=== PATIENT | female | born 1940 | race Caucasian/White ===

== ENCOUNTER 2018-03-01 07:50 | Day surgery (SDC) | payer OTHER, MEDICARE ==
[2018-02-28 16:43] LABS: Absolute Lymphocytes (CBC) 2.5 K/uL (0.7-4.9); Absolute Monocytes 0.9 K/uL (0.1-1.3); Absolute Neutrophil 6.2 K/uL (1.8-8.0); Basophils % 0.7 % (0-1.3); Eosinophils % 2.2 % (0-4.4); Hematocrit 40.2 % (36.0-45.0); Lymphocytes % 25.2 % (15.3-44.8); MCH 29.4 pg (27.0-35.0); MCV 88.4 fL (80-100); MPV 7.8 fL (7.6-11.3); Monocytes % 9.5 % (3.3-12.3); RBC Red Blood Cell Count 4.55 M/uL (3.86-4.86)
[2018-02-28 17:04] LABS: Potassium 4.3 mmol/L (3.5-5.1); Protime INR 0.92
--- OUTSIDE RECORDS SUMMARY | 2018-03-01 07:54 | XMS REPORT | Continuity of Care Document ---
:1940 Author Organization Interface Problems Problem Status Onset Classification Date Comments Source Date Reported Discharge 01/04/2017 [facility] Diagnosis: [facility] [place] Acute right-sided low back pain BACK PAIN Active [facility] [place] Medications Medication Details Route Status Patient Ordering Order Source Instructions Provider Date Acetaminophen 1-2 tab, Active [facility] 325 MG / PO, Q4-6H, [place] Hydrocodone PRN Pain, Bitartrate 5 MG X 5 day, # Oral Tablet 15 tab, 0 [[place] 5/325] Refill(s) Naproxen 500 MG 500 mg=1 Active [facility] Oral Tablet tab, PO, [place] [Naprosyn] BID, PRN Pain, X 14 day, # 28 tab, 0 Refill(s) Morphine 4 mg, Inactive [facility] Route: IM, [place] ONCE, Dosing Weight 56.8, kg, Priority: STAT, Start date: 01/01/17 13:09:00 CDT, Stop date: 01/01/17 13:09:00 CDT Ketorolac 30 mg, Inactive [facility] Route: IM, [place] Drug form: INJ, ONCE, Dosing Weight 56.8, kg, Priority: STAT, Start date: 01/01/17 12:11:00 CDT, Stop date: 01/01/17 12:11:00 CDT Allergies, Adverse Reactions, Alerts Substance Category Reaction Severity Reaction Status Date Comments Source type Reported Immunizations Immunization Date Given Site Status Last Updated Comments Source Results Order Results Value Reference Date Interpretation Comments Source Name Range URINE UA Sq Epi Moderate Few /LPF [facility] AND /LPF [place] STOOL URINE UA WBC 5 /HPF 0 - 5 [facility] AND [place] STOOL URINE UA RBC 27 /HPF 0 - 2 [facility] AND [place] STOOL URINE UA Bacteria Occasional None Seen [place] AND /HPF /HPF [place] STOOL URINE UA Mucus Few /LPF None Seen [place] AND /LPF [place] STOOL URINE UA <=1.0 mg/dL 0.1 - 1.0 [facility] AND Urobilinogen [place] STOOL URINE UA Spec Grav 1.020 <=1.030 [place] AND [place] STOOL URINE UA Nitrite Negative Negative [place] AND [place] STOOL (01/01/17 12:34 PM) URINE UA Blood Small Negative [place] AND [place] STOOL *ABN* (01/01/17 12:34 PM) URINE UA Bili Negative Negative [place] AND [place] STOOL *NA* (01/01/17 12:34 PM) URINE UA Color Yellow Yellow [place] AND [place] STOOL *NA* (01/01/17 12:34 PM) URINE UA Turbidity Slight Clear [place] AND [place] STOOL *ABN* (01/01/17 12:34 PM) URINE UA Ketones 20 mg/dL Negative [place] AND mg/dL [place] STOOL URINE UA Glucose Negative Negative [place] AND mg/dL mg/dL 2017 [place] STOOL URINE UA Leuk Est Negative Negative [place] AND [place] STOOL (01/01/17 12:34 PM) URINE UA pH 5.0 5.0 - 8.0 [place] AND [place] STOOL URINE UA Protein 100 mg/dL Negative [place] AND mg/dL [place] STOOL Vital Signs Vital Sign Value Date Comments Source Systolic (mm Hg) 113 01/01/2017 [facility] [place] Diastolic (mm Hg) 73 01/01/2017 [facility] [place] Temperature Oral (F) 98.0 F 01/01/2017 [facility] [place] Respitory Rate 20 01/01/2017 [facility] [place] Heart Rate 80 01/01/2017 [facility] [place] Weight 56.8 01/01/2017 [facility] [place] Systolic (mm Hg) 136 01/01/2017 [facility] [place] Diastolic (mm Hg) 90 01/01/2017 [facility] [place] Heart Rate 105 01/01/2017 [facility] [place] Temperature Oral (F) 97.4 F 01/01/2017 [facility] [place] Respitory Rate 20 01/01/2017 [facility] [place] Encounters Location Location Encounter Encounter Reason Attending ADM DC Status Source Details Type Number For Provider Date Date Visit [facility] Emergency [id number] Zen Tierney 01/01 01/01 TOÑO [place] /2016 [place] Procedures Procedure Code Date Perfomer Comments Source
[2018-03-01] MEDS ORDERED: NA CHLORIDE 0.9% 0 ML ONE ×2 (08:12→09:46)
[2018-03-01] MEDS ORDERED: NA CHLORIDE 0.9% 500 ML ONE (08:14)
[2018-03-01] MEDS ORDERED: HEPA 1000U/500MLS 2,000 UNIT/1,000 ML BAG IV ONE (09:34)
[2018-03-01] MEDS ORDERED: MIDAZOLAM HCL 2 MG/2 ML INJ ONE ×3 (09:44→10:19)
[2018-03-01] MEDS ORDERED: HEPARIN 5000 UNIT/ML 1 ML VIAL ONE (09:45)
[2018-03-01] MEDS ORDERED: FENTANYL CITR 100 MCG/2 ML ONE (09:45)
[2018-03-01] MEDS ORDERED: NICARDIPINE HCL 25 MG/10 ML IV ONE (09:46)
[2018-03-01] MEDS ORDERED: ATROPINE SULF 1 MG/10 ML SYR IV ONE (09:46)
[2018-03-01 12:02] VITALS: TEMP 97.2
[2018-03-01 12:14] VITALS: O2SAT 97
[2018-03-01 12:17] VITALS: BP 130/77
--- NOTE | 2018-03-01 14:09 | RAD REPORT ---
EXAM DESCRIPTION: RAD - Chest Pa And Lat (2 Views) - 02/28/2018 3:02 pm CLINICAL HISTORY: preop, Chest pain. COMPARISON: CHEST SINGLE VIEW dated 05/29/2012; CHEST SINGLE VIEW dated 02/02/2011; CHEST SINGLE VIEW dated 05/10/2008; CHEST PA AND LAT 2 VIEW dated 07/11/2007 FINDINGS: Small calcified granuloma is present in the right lung base. The lungs are emphysematous. The heart is upper limit normal in size. No displaced fractures. IMPRESSION: COPD.
--- NOTE | 2018-03-01 15:04 | OP ---
Surgeon: Jerardo Temple MD Additional Attending Physician: Luis Durham M.D. Procedures: Left heart catheterization, coronary angiography, left ventricular angiography. Findings: The patient has severe 2-vessel CAD with modest disease in an obtuse marginal. Normal lef t ventricular ejection fraction. Normal segmental wall motion analysis and normal pressures, and the recommendation is to undergo bypass surgery. The LAD itself is a very small diameter vessel proxima lly, less than 2 mm. The more distal part of the vessel becomes a 2.5 mm vessel. There is collatera l flow from the right coronary into the distal LAD and the right coronary itself has an 80% stenosis just before the bifurcation into the posterior descending artery. Procedure In Detail: The patient was brought to the cardiac hoisting laborer in a fasting state sedated with Versed and fentanyl. Prepared and draped in the usual sterile fashion. Right radial approach was u sed. The tissues over the right radial artery were anesthetized with 1% lidocaine. The artery was e ntered using a 21-gauge needle, cannulated with a 0.021 inch diameter guidewire. Then, we used a mod ified Seldinger technique to place a 6-Hungarian Terumo radial sheath. The sheath was flushed and a rad ial cocktail was given consisting of nicardipine, heparin, nitroglycerin. We then used a TIG cathete r. It was directed into the ascending aorta using fluoroscopy and a Terumo Glidewire. We Angiogramm ed left and right coronaries, left ventricle with the same catheter. At the end of the procedure whe n it was decided not to do an intervention, the catheter was withdrawn after it was straightened out over a regular J-wire. At the end of the procedure, the sheath was removed. The arteriotomy was bradley sed with a TR band. No complications from the procedure. Estimated Blood Loss: 5 cc. Manager Membership: Austin Burkett. MEENA/PROSPER Voice ID: [id number] Report ID: [id number]
== END 2018-03-01 12:57 | disposition short-term general hospital (02) ==
LOC: CCL 07:50
PROVIDERS: ATTEND Internal Medicine
DX: I25.10 Atherosclerotic heart disease of native coronary artery without angina pectoris (principal); I10 Essential (primary) hypertension; Z87.891 Personal history of nicotine dependence; E78.2 Mixed hyperlipidemia; Z82.49 Family history of ischemic heart disease and other diseases of the circulatory system
CPT/HCPCS: 36415; 71046; 80048; 85025; 85610; 85730; 93458; C1893; J1644; J2250 ×2; J3010; J0583; J7030

== ENCOUNTER 2019-01-16 13:40 | Inpatient (IN) | payer OTHER, MEDICARE ==
--- OUTSIDE RECORDS SUMMARY | 2019-01-16 13:44 | XMS REPORT | Clinical Summary ---
:1940 Author Organization [facility] Address [address] [place] [address] Care Team Providers Name Role Phone Holli Primary Care Provider Sadi Canela Unavailable Allergies Active Allergy Reactions Severity Noted Date Comments Levofloxacin Rash Low 03/23/2016 Medications Medication Sig Dispensed Refills Start End Date Status Date pravastatin Take 80 mg by 0 Active (PRAVACHOL) 80 MG mouth nightly. tabletIndications: hyperlipidemia valsartan-hydrochlo Take 1 tablet by 0 Active rothiazide mouth daily. (DIOVAN-HCT) 160-12.5 mg per tablet aspirin 81 MG EC Take 81 mg by 0 Active tablet mouth daily. melatonin 5 mg Tab Take 2 tablets (10 0 Active mg total) by mouth 6 once at bedtime. pantoprazole Take 1 tablet (40 0 Active (PROTONIX) 40 MG mg total) by mouth 6 tablet daily. traMADol (ULTRAM) Take 50 mg by 0 Active 50 mg mouth daily. tabletIndications: pain metoprolol Take 50 mg by 0 03/10/20 Discontinued (TOPROL-XL) 50 MG mouth daily. 18 24 hr tabletIndications: hypertension fexofenadine Take 180 mg by 0 03/10/20 Discontinued (SAUMYA) 180 MG mouth daily. 18 tablet enoxaparin Inject 0.4 mLs (40 0 03/10/20 Discontinued (LOVENOX) 40 mg/0.4 mg total) 6 18 mL Syrg subcutaneously daily. simethicone Take 1 tablet (80 30 tablet 0 03/20/20 (MYLICON) 80 MG mg total) by mouth 8 18 chewable tablet every 6 (six) hours as needed for Flatulence for up to 10 days. polyethylene glycol Take 17 g by mouth 14 each 0 03/14/20 (GLYCOLAX) 17 gram daily for 3 days. 8 18 packet ondansetron Take 1 tablet (4 20 tablet 0 03/17/20 (ZOFRAN-ODT) 4 MG mg total) by mouth 8 18 disintegrating every 8 (eight) tablet hours as needed for up to 7 days. metoprolol Take 1 tablet (25 60 tablet 0 04/09/20 (LOPRESSOR) 25 MG mg total) by mouth 8 18 tablet 2 (two) times daily for 30 days. apixaban (ELIQUIS) Take 1 tablet (5 60 tablet 0 04/09/20 5 mg Tab tablet mg total) by mouth 8 18 2 (two) times daily for 30 days. amiodarone Take 1 tablet (400 60 tablet 0 04/09/20 (PACERONE) 400 MG mg total) by mouth 8 18 tablet 2 (two) times daily for 30 days. acetaminophen-codei Take 2 tablets by 30 tablet 0 03/20/20 ne (TYLENOL #3) mouth every 4 8 18 300-30 mg per (four) hours as tablet needed for up to 10 days. Max Daily Amount: 12 tablets Active Problems Problem Noted Date CAD (coronary artery disease) 03/03/2018 S/P CABG (coronary artery bypass graft) 03/03/2018 Respiratory insufficiency 03/03/2018 Acute blood loss anemia 03/03/2018 Vasogenic shock 03/03/2018 Hoarding disorder 04/02/2016 Guillain-[place] 03/23/2016 Weakness of both lower extremities 03/23/2016 Neurogenic bowel 03/23/2016 Neurogenic bladder 03/23/2016 HTN (hypertension) 03/23/2016 Encounters Date Type Specialty Care Team Description 03/16/2018 Office Visit Cardiology Мария, Postoperative state Kamran Connors (Primary Dx) 03/02/2018 Anesthesia Event Bravo Jo 03/02/2018 Surgery аМрия, BYPASS,AORTO CORONARY Kamran Connors EDWIN/PARRISH ESTRADA 03/01/2018 - Hospital Encounter Cardiology Stephanie Hsieh (HCC) ( Primary Dx); 03/10/2018 Kamran Dory, Hypertension, unspecified type; Neurogenic bladder; Pacheco Randle Weakness of both lower extremities; MD Derick Coronary artery disease involving [place] coronary artery of [place] heart without angina pectoris; Neurogenic bowel; S/P CABG (coronary artery bypass graft); Vasogenic shock (HCC); Acute blood loss anemia 03/01/2018 Orders Only General Internal Medicine 03/01/2018 Travel after 01/15/2018 Social History Tobacco Use Types Packs/Day Years Used Date Never Smoker Smokeless Tobacco: Never Used Alcohol Use Drinks/Week oz/Week Comments No Alcohol Habits Answer Date Recorded How often do you have a drink containing alcohol? Never 03/01/2018 How many drinks containing alcohol do you have on a typical Not asked day when you are drinking? How often do you have six or more drinks on one occasion? Not asked Sex Assigned at Date Recorded Not on file Job Start Date Occupation Industry Not on file Not on file Not on file Travel History Travel Start Travel End No recent travel history available. Last Filed Vital Signs Vital Sign Reading Time Taken Blood Pressure 142/64 03/16/2018 9:49 AM [facility] Pulse 67 03/16/2018 9:49 AM [facility] Temperature 37 C (98.6 F) 03/16/2018 9:49 AM [facility] Respiratory Rate 18 03/16/2018 9:49 AM [facility] Oxygen Saturation 98% 03/16/2018 9:49 AM [facility] Inhaled Oxygen Concentration 21% 03/10/2018 12:24 PM [facility] Weight 71.7 kg (158 lb) 03/16/2018 9:49 AM [facility] Height 162.6 cm (5' 4") 03/16/2018 9:49 AM [facility] Body Mass Index 27.12 03/16/2018 9:49 AM [facility] Plan of Treatment Not on file Procedures Procedure Name Priority Date/Time Associated Comments Diagnosis VASCULAR DIAGRAM 03/13/2018 1:20 -SCAN PM [facility] REPORT OF PROCEDURE - 03/13/2018 1:20 ENDOSCOPY SCAN PM [facility] RHYTHM STRIP - SCAN 03/13/2018 1:20 PM [facility] CBC W/PLT COUNT & Routine 03/10/2018 4:20 Results for this AUTO DIFFERENTIAL AM [facility] procedure are in the results section. BASIC METABOLIC PANEL Routine 03/10/2018 4:20 Results for this (7) AM [facility] procedure are in the results section. MAGNESIUM Routine 03/10/2018 4:20 Results for this AM [facility] procedure are in the results section. CBC W/PLT COUNT & Routine 03/10/2018 4:20 Results for this AUTO DIFFERENTIAL AM [facility] procedure are in the results section. CBC W/PLT COUNT & Routine 03/09/2018 3:56 Results for this AUTO DIFFERENTIAL AM [facility] procedure are in the results section. BASIC METABOLIC PANEL Routine 03/09/2018 3:56 Results for this (7) AM [facility] procedure are in the results section. MAGNESIUM Routine 03/09/2018 3:56 Results for this AM [facility] procedure are in the results section. CBC W/PLT COUNT & Routine 03/09/2018 3:56 Results for this AUTO DIFFERENTIAL AM [facility] procedure are in the results section. CBC W/PLT COUNT & Routine 03/08/2018 4:21 Results for this AUTO DIFFERENTIAL AM [facility] procedure are in the results section. MAGNESIUM Routine 03/08/2018 4:21 Results for this AM [facility] procedure are in the results section. BASIC METABOLIC PANEL Routine 03/08/2018 4:21 Results for this (7) AM [facility] procedure are in the results section. CBC W/PLT COUNT & Routine 03/08/2018 4:21 Results for this AUTO DIFFERENTIAL AM [facility] procedure are in the results section. (CELLAVISION MANUAL STAT 03/07/2018 7:52 Results for this DIFF) PM [facility] procedure are in the results section. CBC W/PLT COUNT & STAT 03/07/2018 7:52 Results for this AUTO DIFFERENTIAL PM [facility] procedure are in the results section. BUN AND CREATININE Routine 03/07/2018 7:52 Results for this PM [facility] procedure are in the results section. CBC W/PLT COUNT & STAT 03/07/2018 7:52 Results for this AUTO DIFFERENTIAL PM [facility] procedure are in the results section. MAGNESIUM STAT 03/07/2018 7:52 Results for this PM [facility] procedure are in the results section. BASIC METABOLIC PANEL STAT 03/07/2018 7:52 Results for this (7) PM [facility] procedure are in the results section. POCT-GLUCOSE METER Routine 03/07/2018 10:58 Results for this AM [facility] procedure are in the results section. POCT-GLUCOSE METER Routine 03/07/2018 7:52 Results for this AM [facility] procedure are in the results section. POCT-GLUCOSE METER Routine 03/06/2018 9:24 Results for this PM [facility] procedure are in the results section. TRANSFUSION SERVICE 03/06/2018 5:50 REPORT - SCAN PM [facility] POCT-GLUCOSE METER Routine 03/06/2018 5:11 Results for this PM [facility] procedure are in the results section. 2D ECHO W/ DOPPLER STAT 03/06/2018 3:45 Results for this (CW/PW/COLOR) PM [facility] procedure are in the results section. POCT-GLUCOSE METER Routine 03/06/2018 11:23 Results for this AM [facility] procedure are in the results section. POCT-GLUCOSE METER Routine 03/06/2018 8:40 Results for this AM [facility] procedure are in the results section. PREPARE LEUKO-REDUCED Routine 03/05/2018 11:54 Results for this RBC PM [facility] procedure are in the results section. POCT-GLUCOSE METER Routine 03/05/2018 8:56 Results for this PM [facility] procedure are in the results section. TRANSFUSION SERVICE 03/05/2018 5:50 REPORT - SCAN PM [facility] POCT-GLUCOSE METER Routine 03/05/2018 5:04 Results for this PM [facility] procedure are in the results section. POCT-GLUCOSE METER Routine 03/05/2018 12:00 Results for this PM [facility] procedure are in the results section. POCT-GLUCOSE METER Routine 03/05/2018 8:51 Results for this AM [facility] procedure are in the results section. CBC W/PLT COUNT & Routine 03/05/2018 7:30 Results for this AUTO DIFFERENTIAL AM [facility] procedure are in the results section. PT/APTT Routine 03/05/2018 7:30 Results for this AM [facility] procedure are in the results section. BASIC METABOLIC PANEL Routine 03/05/2018 7:30 Results for this (7) AM [facility] procedure are in the results section. CBC W/PLT COUNT & Routine 03/05/2018 7:30 Results for this AUTO DIFFERENTIAL AM [facility] procedure are in the results section. PREPARE LEUKO-REDUCED STAT 03/04/2018 11:54 Results for this RBC PM CDT procedure are in the results section. POCT-GLUCOSE METER Routine 03/04/2018 9:50 Results for this PM CDT procedure are in the results section. TRANSFUSION SERVICE 03/04/2018 5:50 REPORT - SCAN PM CDT POCT-GLUCOSE METER Routine 03/04/2018 5:31 Results for this PM CDT procedure are in the results section. URINALYSIS W/ REFLEX Routine 03/04/2018 4:42 Results for this URINE CULTURE PM CDT procedure are in the results section. URINE CULTURE Routine 03/04/2018 4:42 Results for this PM CDT procedure are in the results section. TRANSFUSE Routine 03/04/2018 12:17 LEUKO-REDUCED RED PM CDT BLOOD CELLS XR CHEST 1 VIEW STAT 03/04/2018 11:13 Results for this PORTABLE/BEDSIDE AM CDT procedure are in the results section. 2D ECHO W/ DOPPLER STAT 03/04/2018 10:00 Results for this (CW/PW/COLOR) AM CDT procedure are in the results section. ECG 12-LEAD Routine 03/04/2018 9:39 AM CDT Procedure Note - Interface, External Ris In - 03/04/2018 10:06 AM CDT Ventricular Rate 87 BPM Atrial Rate 87 BPM P-R Interval 162 ms QRS Duration 74 ms Q-T Interval 358 ms QTC Calculation(Bazett) 430 ms P [place] 53 degrees R [place] -32 degrees T [place] 40 degrees Normal sinus rhythm Left axis deviation Abnormal ECG When compared with ECG of 04-MAR-2018 09:20, Significant changes have occurred ECG 12-LEAD Routine 03/04/2018 9:39 AM CDT ECG 12-LEAD Routine 03/04/2018 9:20 AM CDT Procedure Note - Interface, External Ris In - 03/04/2018 10:06 AM CDT Ventricular Rate 148 BPM Atrial Rate 60 BPM QRS Duration 68 ms Q-T Interval 340 ms QTC Calculation(Bazett) 533 ms R [place] -28 degrees T [place] 129 degrees Supraventricular tachycardia with Premature supraventricular complexes Left ventricular hypertrophy with repolarization abnormality Abnormal ECG When compared with ECG of 04-MAR-2018 09:17, Significant changes have occurred ELECTROCARDIOGRAM-RESEARCH DEB 03/04/2018 9:20 AM CDT ECG 12-LEAD Routine 03/04/2018 9:17 AM CDT Procedure Note - Interface, External Ris In - 03/04/2018 10:05 AM CDT Ventricular Rate 82 BPM Atrial Rate 82 BPM P-R Interval 124 ms QRS Duration 66 ms Q-T Interval 340 ms QTC Calculation(Bazett) 397 ms P [place] 14 degrees R [place] -30 degrees T [place] 97 degrees Poor data quality, interpretation may be adversely affected Normal sinus rhythm Left axis deviation Nonspecific ST and T wave abnormality Abnormal ECG When compared with ECG of 04-MAR-2018 01:10, No significant change was found POCT-LACTIC ACID, ARTERIAL Routine 03/04/2018 8:17 Results for this AM CDT procedure are in the results section. POCT-HEMOGLOBIN Routine 03/04/2018 8:13 Results for this AM CDT procedure are in the results section. POCT-HEMATOCRIT Routine 03/04/2018 8:13 Results for this AM CDT procedure are in the results section. POCT-CALCIUM IONIZED Routine 03/04/2018 8:13 Results for this AM CDT procedure are in the results section. POCT-GLUCOSE Routine 03/04/2018 8:13 Results for this AM CDT procedure are in the results section. POCT-POTASSIUM Routine 03/04/2018 8:13 Results for this AM CDT procedure are in the results section. POCT-SODIUM Routine 03/04/2018 8:13 Results for this AM CDT procedure are in the results section. POCT-BLOOD GASES, ARTERIAL Routine 03/04/2018 8:13 Results for this AM CDT procedure are in the results section. LACTIC ACID, VENOUS STAT 03/04/2018 7:26 Results for this AM CDT procedure are in the results section. CBC W/PLT COUNT & AUTO Routine 03/04/2018 5:41 Results for this DIFFERENTIAL AM CDT procedure are in the results section. CBC W/PLT COUNT & AUTO Routine 03/04/2018 5:41 Results for this DIFFERENTIAL AM CDT procedure are in the results section. PHOSPHORUS Routine 03/04/2018 5:41 Results for this AM CDT procedure are in the results section. MAGNESIUM Routine 03/04/2018 5:41 Results for this AM CDT procedure are in the results section. BASIC METABOLIC PANEL (7) Routine 03/04/2018 5:41 Results for this AM CDT procedure are in the results section. ECG 12-LEAD Routine 03/04/2018 1:10 Results for this AM CDT procedure are in the results section. PREPARE RBC STAT 03/03/2018 11:55 Results for this PM CDT procedure are in the results section. POCT-GLUCOSE METER Routine 03/03/2018 10:13 Results for this PM CDT procedure are in the results section. TRANSFUSION SERVICE REPORT 03/03/2018 5:53 - SCAN PM CDT POCT-GLUCOSE METER Routine 03/03/2018 11:21 Results for this AM CDT procedure are in the results section. APTT Routine 03/03/2018 8:32 Results for this AM CDT procedure are in the results section. PROTHROMBIN TIME/INR Routine 03/03/2018 8:32 Results for this AM CDT procedure are in the results section. POCT-GLUCOSE METER Routine 03/03/2018 7:45 Results for this AM CDT procedure are in the results section. POCT-GLUCOSE METER Routine 03/03/2018 6:32 Results for this AM CDT procedure are in the results section. POCT-GLUCOSE METER Routine 03/03/2018 5:24 Results for this AM CDT procedure are in the results section. OXYGEN SATURATION, STAT 03/03/2018 4:01 Results for this MEASURED AM CDT procedure are in the results section. CALCIUM, IONIZED Routine 03/03/2018 3:57 Results for this AM CDT procedure are in the results section. LACTIC ACID, ARTERIAL STAT 03/03/2018 3:57 Results for this AM CDT procedure are in the results section. BLOOD GAS, ARTERIAL STAT 03/03/2018 3:57 Results for this AM CDT procedure are in the results section. CBC (HEMOGRAM ONLY) Routine 03/03/2018 3:57 Results for this AM CDT procedure are in the results section. PHOSPHORUS Routine 03/03/2018 3:57 Results for this AM CDT procedure are in the results section. MAGNESIUM Routine 03/03/2018 3:57 Results for this AM CDT procedure are in the results section. BASIC METABOLIC PANEL (7) Routine 03/03/2018 3:57 Results for this AM CDT procedure are in the results section. XR CHEST 1 VIEW Routine 03/03/2018 3:33 Results for this PORTABLE/BEDSIDE AM CDT procedure are in the results section. OXYGEN SATURATION, STAT 03/03/2018 2:42 Results for this MEASURED AM CDT procedure are in the results section. HGB/HCT (H&H) - STAT LAB STAT 03/03/2018 2:42 Results for this AM CDT procedure are in the results section. GLUCOSE-STAT LAB STAT 03/03/2018 2:42 Results for this AM CDT procedure are in the results section. POTASSIUM-STAT LAB STAT 03/03/2018 2:42 Results for this AM CDT procedure are in the results section. SODIUM NA-STAT LAB STAT 03/03/2018 2:42 Results for this AM CDT procedure are in the results section. BLOOD GAS, ARTERIAL STAT 03/03/2018 2:42 Results for this AM CDT procedure are in the results section. RRL CRITICAL LABS STAT 03/03/2018 2:42 Results for this (ABG,NA,K,H&H,GLUCOSE) AM CDT procedure are in the results section. (CELLAVISION MANUAL DIFF) STAT 03/03/2018 2:40 Results for this AM CDT procedure are in the results section. CBC W/PLT COUNT & AUTO STAT 03/03/2018 2:40 Results for this DIFFERENTIAL AM CDT procedure are in the results section. LACTIC ACID, ARTERIAL STAT 03/03/2018 2:40 Results for this AM CDT procedure are in the results section. CBC W/PLT COUNT & AUTO STAT 03/03/2018 2:40 Results for this DIFFERENTIAL AM CDT procedure are in the results section. TRANSFUSE LEUKO-REDUCED Routine 03/03/2018 2:31 RED BLOOD CELLS AM CDT XR ABDOMEN / KUB 1 VIEW STAT 03/03/2018 2:05 Results for this AM CDT procedure are in the results section. XR CHEST 1 VIEW STAT 03/03/2018 2:05 Results for this PORTABLE/BEDSIDE AM CDT procedure are in the results section. POCT-GLUCOSE METER Routine 03/03/2018 1:22 Results for this AM CDT procedure are in the results section. OXYGEN SATURATION, STAT 03/03/2018 1:17 Results for this MEASURED AM CDT procedure are in the results section. MAGNESIUM Routine 03/03/2018 1:17 Results for this AM CDT procedure are in the results section. LACTIC ACID, ARTERIAL STAT 03/03/2018 1:17 Results for this AM CDT procedure are in the results section. PLATELET COUNT STAT 03/03/2018 1:17 Results for this AM CDT procedure are in the results section. FIBRINOGEN STAT 03/03/2018 1:17 Results for this AM CDT procedure are in the results section. APTT STAT 03/03/2018 1:17 Results for this AM CDT procedure are in the results section. PROTHROMBIN TIME/INR STAT 03/03/2018 1:17 Results for this AM CDT procedure are in the results section. GLUCOSE-STAT LAB Routine 03/03/2018 12:37 Results for this AM CDT procedure are in the results section. HGB/HCT (H&H) - STAT LAB Routine 03/03/2018 12:37 Results for this AM CDT procedure are in the results section. HEMOGLOBIN STAT 03/03/2018 12:37 Results for this AM CDT procedure are in the results section. HGB/HCT (H&H) - STAT LAB STAT 03/03/2018 12:16 Results for this AM CDT procedure are in the results section. GLUCOSE-STAT LAB STAT 03/03/2018 12:16 Results for this AM CDT procedure are in the results section. POTASSIUM-STAT LAB STAT 03/03/2018 12:16 Results for this AM CDT procedure are in the results section. SODIUM NA-STAT LAB STAT 03/03/2018 12:16 Results for this AM CDT procedure are in the results section. BLOOD GAS, ARTERIAL STAT 03/03/2018 12:16 Results for this AM CDT procedure are in the results section. RRL CRITICAL LABS STAT 03/03/2018 12:16 Results for this (ABG,NA,K,H&H,GLUCOSE) AM CDT procedure are in the results section. POCT-GLUCOSE METER Routine 03/02/2018 10:54 Results for this PM CDT procedure are in the results section. POTASSIUM STAT 03/02/2018 10:48 Results for this PM CDT procedure are in the results section. GLUCOSE STAT 03/02/2018 10:48 Results for this PM CDT procedure are in the results section. LACTATE DEHYDROGENASE Routine 03/02/2018 9:04 Results for this (LDH) PM CDT procedure are in the results section. MAGNESIUM Routine 03/02/2018 9:04 Results for this PM CDT procedure are in the results section. OXYGEN SATURATION, STAT 03/02/2018 9:04 Results for this MEASURED PM CDT procedure are in the results section. LACTIC ACID, ARTERIAL STAT 03/02/2018 9:04 Results for this PM CDT procedure are in the results section. HGB/HCT (H&H) - STAT LAB STAT 03/02/2018 9:04 Results for this PM CDT procedure are in the results section. GLUCOSE-STAT LAB STAT 03/02/2018 9:04 Results for this PM CDT procedure are in the results section. POTASSIUM-STAT LAB STAT 03/02/2018 9:04 Results for this PM CDT procedure are in the results section. SODIUM NA-STAT LAB STAT 03/02/2018 9:04 Results for this PM CDT procedure are in the results section. BLOOD GAS, ARTERIAL STAT 03/02/2018 9:04 Results for this PM CDT procedure are in the results section. RRL CRITICAL LABS STAT 03/02/2018 9:04 Results for this (ABG,NA,K,H&H,GLUCOSE) PM CDT procedure are in the results section. BASIC METABOLIC PANEL (7) STAT 03/02/2018 9:04 Results for this PM CDT procedure are in the results section. PHOSPHORUS Routine 03/02/2018 9:00 Results for this PM CDT procedure are in the results section. FIBRINOGEN Routine 03/02/2018 9:00 Results for this PM CDT procedure are in the results section. CALCIUM, IONIZED Routine 03/02/2018 9:00 Results for this PM CDT procedure are in the results section. XR CHEST 1 VIEW STAT 03/02/2018 7:09 Results for this PORTABLE/BEDSIDE PM CDT procedure are in the results section. OXYGEN SATURATION, Routine 03/02/2018 6:56 Results for this MEASURED PM CDT procedure are in the results section. LACTIC ACID, ARTERIAL Routine 03/02/2018 6:56 Results for this PM CDT procedure are in the results section. PT/APTT Routine 03/02/2018 6:56 Results for this PM CDT procedure are in the results section. CBC W/PLT COUNT & AUTO STAT 03/02/2018 6:53 Results for this DIFFERENTIAL PM CDT procedure are in the results section. CBC W/PLT COUNT & AUTO STAT 03/02/2018 6:53 Results for this DIFFERENTIAL PM CDT procedure are in the results section. PHOSPHORUS STAT 03/02/2018 6:53 Results for this PM CDT procedure are in the results section. GLUCOSE STAT 03/02/2018 6:53 Results for this PM CDT procedure are in the results section. MAGNESIUM STAT 03/02/2018 6:53 Results for this PM CDT procedure are in the results section. POTASSIUM STAT 03/02/2018 6:53 Results for this PM CDT procedure are in the results section. SODIUM STAT 03/02/2018 6:53 Results for this PM CDT procedure are in the results section. BLOOD GAS, ARTERIAL STAT 03/02/2018 6:53 Results for this PM CDT procedure are in the results section. TRANSFUSION SERVICE REPORT 03/02/2018 6:02 - SCAN PM CDT TRANSFUSE LEUKO-REDUCED Routine 03/02/2018 5:51 RED BLOOD CELLS PM CDT POCT-ACT Routine 03/02/2018 5:35 Results for this PM CDT procedure are in the results section. PLATELET COUNT STAT 03/02/2018 5:34 Results for this PM CDT procedure are in the results section. HGB/HCT (H&H) - STAT LAB STAT 03/02/2018 5:26 Results for this PM CDT procedure are in the results section. GLUCOSE-STAT LAB STAT 03/02/2018 5:26 Results for this PM CDT procedure are in the results section. POTASSIUM-STAT LAB STAT 03/02/2018 5:26 Results for this PM CDT procedure are in the results section. SODIUM NA-STAT LAB STAT 03/02/2018 5:26 Results for this PM CDT procedure are in the results section. BLOOD GAS, ARTERIAL STAT 03/02/2018 5:26 Results for this PM CDT procedure are in the results section. PROTHROMBIN TIME/INR STAT 03/02/2018 5:26 Results for this PM CDT procedure are in the results section. THROMBOELASTOGRAPH (TEG) STAT 03/02/2018 5:26 Results for this PM CDT procedure are in the results section. FIBRINOGEN STAT 03/02/2018 5:26 Results for this PM CDT procedure are in the results section. APTT STAT 03/02/2018 5:26 Results for this PM CDT procedure are in the results section. CALCIUM, IONIZED STAT 03/02/2018 5:26 Results for this PM CDT procedure are in the results section. RRL CRITICAL LABS STAT 03/02/2018 5:26 Results for this (ABG,NA,K,H&H,GLUCOSE) PM CDT procedure are in the results section. POCT-ACT Routine 03/02/2018 5:07 Results for this PM CDT procedure are in the results section. HGB/HCT (H&H) - STAT LAB STAT 03/02/2018 4:53 Results for this PM CDT procedure are in the results section. GLUCOSE-STAT LAB STAT 03/02/2018 4:53 Results for this PM CDT procedure are in the results section. POTASSIUM-STAT LAB STAT 03/02/2018 4:53 Results for this PM CDT procedure are in the results section. SODIUM NA-STAT LAB STAT 03/02/2018 4:53 Results for this PM CDT procedure are in the results section. BLOOD GAS, ARTERIAL STAT 03/02/2018 4:53 Results for this PM CDT procedure are in the results section. RRL CRITICAL LABS STAT 03/02/2018 4:53 Results for this (ABG,NA,K,H&H,GLUCOSE) PM CDT procedure are in the results section. POCT-ACT Routine 03/02/2018 4:30 Results for this PM CDT procedure are in the results section. HGB/HCT (H&H) - STAT LAB STAT 03/02/2018 4:25 Results for this PM CDT procedure are in the results section. GLUCOSE-STAT LAB STAT 03/02/2018 4:25 Results for this PM CDT procedure are in the results section. POTASSIUM-STAT LAB STAT 03/02/2018 4:25 Results for this PM CDT procedure are in the results section. SODIUM NA-STAT LAB STAT 03/02/2018 4:25 Results for this PM CDT procedure are in the results section. BLOOD GAS, ARTERIAL STAT 03/02/2018 4:25 Results for this PM CDT procedure are in the results section. RRL CRITICAL LABS STAT 03/02/2018 4:25 Results for this (ABG,NA,K,H&H,GLUCOSE) PM CDT procedure are in the results section. POCT-ACT Routine 03/02/2018 4:05 Results for this PM CDT procedure are in the results section. ANESTHESIA PRITESH Routine 03/02/2018 4:02 Results for this PM CDT procedure are in the results section. HGB/HCT (H&H) - STAT LAB STAT 03/02/2018 3:31 Results for this PM CDT procedure are in the results section. GLUCOSE-STAT LAB STAT 03/02/2018 3:31 Results for this PM CDT procedure are in the results section. POTASSIUM-STAT LAB STAT 03/02/2018 3:31 Results for this PM CDT procedure are in the results section. SODIUM NA-STAT LAB STAT 03/02/2018 3:31 Results for this PM CDT procedure are in the results section. BLOOD GAS, ARTERIAL STAT 03/02/2018 3:31 Results for this PM CDT procedure are in the results section. RRL CRITICAL LABS STAT 03/02/2018 3:31 Results for this (ABG,NA,K,H&H,GLUCOSE) PM CDT procedure are in the results section. 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 ECG 12-LEAD Routine 03/01/2018 3:57 PM CDT Procedure Note - Interface, External Ris In - 03/01/2018 4:01 PM CDT Ventricular Rate 87 BPM Atrial Rate 87 BPM P-R Interval 170 ms QRS Duration 76 ms Q-T Interval 364 ms QTC Calculation(Bazett) 438 ms P [place] 46 degrees R [place] -13 degrees T [place] 73 degrees Normal sinus rhythm Low voltage QRS Borderline ECG No previous ECGs available ECG 12-LEAD Routine 03/01/2018 3:57 PM CDT CBC W/PLT COUNT & AUTO Routine 03/01/2018 3:41 PM CDT Results for this DIFFERENTIAL procedure are in the results section. TYPE AND SCREEN, AUTOMATED Routine 03/01/2018 3:41 PM CDT TSH Routine 03/01/2018 3:41 PM CDT PROTHROMBIN TIME/INR Routine 03/01/2018 3:41 PM CDT MAGNESIUM Routine 03/01/2018 3:41 PM CDT LIPID PANEL Routine 03/01/2018 3:41 PM CDT HEMOGLOBIN A1C AP Routine 03/01/2018 3:41 PM CDT COMPREHENSIVE METABOLIC Routine 03/01/2018 3:41 PM CDT Results for this PANEL procedure are in the results section. CBC W/PLT COUNT & AUTO Routine 03/01/2018 3:41 PM CDT Results for this DIFFERENTIAL procedure are in the results section. APTT Routine 03/01/2018 3:41 PM CDT after 01/15/2018 Results VASCULAR DIAGRAM -SCAN (03/13/2018 1:20 PM CYCLE LIAISON) Narrative Performed At EKG-SCANNED (03/13/2018 1:20 PM CYCLE LIAISON) Narrative Performed At RHYTHM STRIP - SCAN (03/13/2018 1:20 PM CYCLE LIAISON) Narrative Performed At CBC with platelet count + automated diff (03/10/2018 4:20 AM CYCLE LIAISON)Only the most recent of9 resultswithin the time period is included. WBC 11.1 (H) 3.5 - 10.5 K/L [facility] RBC 3.21 (L) 3.93 - 5.22 M/L [facility] Hemoglobin 9.4 (L) 11.2 - 15.7 GM/DL [facility] Hematocrit 29.4 (L) 34.1 - 44.9 % [facility] MCV 91.6 79.4 - 94.8 fL [facility] MCH 29.3 25.6 - 32.2 pg [facility] MCHC 32.0 (L) 32.2 - 35.5 GM/DL [facility] RDW 14.7 (H) 11.7 - 14.4 % [facility] Platelets 260 150 - 450 K/CU MM [facility] MPV 9.3 (L) 9.4 - 12.3 fL [facility] nRBC 0 0 - 0 /100 WBC [facility] % Neutros 68 % [facility] % Lymphs 15 % [facility] % Monos 11 % [facility] % Eos 5 % [facility] % Baso 1 % [facility] # Neutros 7.49 (H) 1.56 - 6.13 K/L [facility] # Lymphs 1.69 1.18 - 3.74 K/L [facility] # Monos 1.21 (H) 0.24 - 0.36 K/L [facility] # Eos 0.54 (H) 0.04 - 0.36 K/L [facility] # Baso 0.06 0.01 - 0.08 K/L [facility] Immature Granulocytes-Relative 1 0 - 1 % [facility] Specimen Blood Performing Organization Address City/State/Zipcode Phone Number [address] [address] THOR Magnesium (03/10/2018 4:20 AM CYCLE LIAISON)Only the most recent of10 resultswithin the time period is included. Magnesium 2.1 1.6 - 2.6 mg/dL [facility] Specimen Blood Performing Organization Address City/State/Zipcode Phone Number [address] [address] THOR Basic Metabolic Panel (03/10/2018 4:20 AM CYCLE LIAISON)Only the most recent of8 resultswithin the time period is included. Sodium 140 136 - 145 meq/L [facility] Potassium 4.1 3.5 - 5.1 meq/L [facility] Chloride 108 (H) 98 - 107 meq/L [facility] CO2 22 22 - 29 meq/L [facility] BUN 11 7 - 21 mg/dL [facility] Creatinine 0.79 0.57 - 1.25 mg/dL [facility] Glucose 106 (H) 70 - 105 mg/dL [facility] Calcium 8.8 8.4 - 10.2 mg/dL [facility] EGFR 70Comment: ESTIMATED GFR IS mL/min/1.73 sq m [facility] NOT ACCURATE CREATININE [facility] CLEARANCE IN PREDICTING GLOMERULAR FILTRATION RATE. ESTIMATED GFR IS NOT APPLICABLE FOR DIALYSIS PATIENTS. Specimen Blood Performing Organization Address City/State/Zipcode Phone Number [facility] [address] [place] [address] CENTER Manual Differential (03/07/2018 7:52 PM CYCLE LIAISON)Only the most recent of2 resultswithin the time period is included. % Neutros 73 % [facility] % Lymphs 12 % [facility] % Monos 9 % [facility] % Eos 5 % [facility] % Baso 1 % [facility] # Neutros 10.44 (H) 1.56 - 6.13 K/ul [facility] # Lymphs 1.72 1.18 - 3.74 K/ul [facility] # Monos 1.29 (H) 0.24 - 0.36 K/uL [facility] # Eos 0.72 (H) 0.04 - 0.36 K/uL [facility] # Baso 0.14 (H) 0.01 - 0.08 K/uL [facility] Total Counted 100 [facility] WBC Morphology Normal [facility] Giant Platelet Present [facility] Anisocytosis 1+ few [facility] Microcytes 1+ few [facility] Poikilocytes 1+ few [facility] Elliptocytes 1+ few [facility] Ovalocytes 1+ few [facility] Tear Drop Cells 1+ few [facility] Artifact Present [facility] Platelet Conc Adequate [facility] Specimen Blood Narrative Performed At Received comment: [facility] User comments: Slide comments: Performing Organization Address City/[facility]/[place] [address] THOR BUN and Creatinine (Obtain baseline and then every 3 days, if not already ordered) (03/07/2018 7:52PM CYCLE LIAISON) BUN 14 7 - 21 mg/dL [facility] Creatinine 0.82 0.57 - 1.25 mg/dL [facility] EGFR 67Comment: ESTIMATED GFR IS mL/min/1.73 sq m [facility] NOT ACCURATE CREATININE [facility] CLEARANCE IN PREDICTING GLOMERULAR FILTRATION RATE. ESTIMATED GFR IS NOT APPLICABLE FOR DIALYSIS PATIENTS. Specimen Blood Performing Organization Address [facility] Phone Number [address] [address] [phone] THOR POC-Glucose meter (03/07/2018 10:58 AM CYCLE LIAISON)Only the most recent of19 resultswithin the time period is included. POC-Glucose Meter 127 (H)Comment: TESTED AT 70 - 110 mg/dL [facility] [address] [place] [id number] Specimen Blood Performing Organization Address [facility] Phone Number [address] [address] [phone] [facility] TRANSFUSION SERVICE REPORT - SCAN (03/06/2018 5:50 PM CYCLE LIAISON)Only the most recent of5 resultswithin the time period is included. Narrative Performed At 2D Echo W/Doppler(CW/PW/Color) (03/06/2018 3:45 PM CYCLE LIAISON) Ejection Fraction [facility] Specimen Narrative Performed At Transthoracic Echocardiography Report (TTE) [facility] ECHO HEART[facility] [employer] Demographics Patient Name GABBY BASURTO Date of Study03/06/2018 GILMER [id number] Gender Female Visit Number [id number] Race Unknown [id number] [id number] Number Date 1940 ReferringCceile Gonzales Physician Age77 year(s) SonographerHeriberto Lara, SKIP, RDCS,RVT,RDMS Interpreting Arvind Toscano MD Physician Procedure Type of Study TTE procedure:2DECHO W DOPPLER(CW/PW/COLOR) (STAT) Indications:Pericardial effusion. 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 Mild concentric LV hypertrophy. Estimated LVEF by qualitative assessment is normal (55-60%) . All of the LV segments contract normally . No significant pericardial effusion is visualized. Mild tricuspid regurgitation. Estimated peak systolic PA pressure is 25-30 mmHg + RA pressure. Signature Findings Technical Quality: Technically difficult exam. Left Ventricle The left ventricle is chamber size (by PSLAX di mension) is small (female - LVIDd < 3.8cm) . Mi ld concentric LV hypertrophy. Es timated LVEF by qualitative assessment is normal (5 5-60%) . Al l of the LV segments contract normally . Left AtriumLA size is normal . LA is incompletely visualized, size based on qu alitative assessment. Right VentricleThe right ventricle is not well visualized. Gl obal RV systolic function appears normal in li mited views. Right Atrium RA size is probably normal based on available vi ews. Aortic Valve Normal AoV structure and function by limited views an d Doppler. Mitral Valve Normal MV structure and function by limited views an d Doppler. Tricuspid ValveMild tricuspid regurgitation. Es timated peak systolic PA pressure is 25-30 mmHg + RA pressure. Pulmonic Valve PV is not well visualized; function appears normal by Doppler visualized. AortaAortic root size (SInus of Valsalva diameter) is no rmal . PericardiumNo significant pericardial effusion is visualized. IVC/SVC/PA/PV/PleuralThe estimated RA pressure by IVC dynamics in determinate . Chambers/Structures Left Ventricle LVIDd: 3.69 cm LVIDs: 1.88 cm LV Septum Diastolic: 1.14 cm LV PW Diastolic: 1.3 cm LV FS: 49.1 % LVOT Diameter: 1.88 cm Aorta Ao Root S of Larisa.: 3.64 cm Doppler/Quantitative Measurements Mitral Valve MV Peak E-Wave: 0.74 m/sMV Peak A-Wave: 0.85 m/s E/A Ratio: 0.87 Peak Gradient: 2.19 mmHg MV Aron. Peak: Tissue Doppler E' Lateral Velocity: 0.06 m/s E/E': 12.22 Aortic Valve Peak Velocity: 1.5 m/s Mean Velocity: 1 m/s Peak Gradient: 8.94 mmHg Mean Gradient: 4.65 mmHg AV Area (continuity): 3.23 cm^2 AV VTI: 25.22 cm AV DVI: 1.16 LVOT Peak Velocity: 1.44 m/s Peak Gradient: 8.34 mmHg Mean Velocity: 0.97 m/s Mean Gradient: 4.38 mmHg LVOT Diameter: 1.88 cmLVOT VTI: 29.38 cm LVOT Area: 2.78 cm^2LVOT SV:81.51 ml LVOT CO: 5.71 l/min LVOT CI: 3.1 l/min/m^2 Tricuspid Valve TR Velocity: 2.54 m/s TR Gradient: 25.85 mmHg Procedure Note Interface, External Ris In - 03/07/2018 8:32 AM CYCLE LIAISON Transthoracic Echocardiography Report (TTE) Demographics Patient Name GABBY BASURTO Date of Study 03/06/2018 GILMER Gender Female Visit Number [id number] Race Unknown Room Number 1111 Number Date of 1940 Referring Cecile Gonzales Physician Age 77 year(s) 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 Mild concentric LV hypertrophy. Estimated LVEF by qualitative assessment is normal (55-60%) . All of the LV segments contract normally . No significant pericardial effusion is visualized. Mild tricuspid regurgitation. Estimated peak systolic PA pressure is 25-30 mmHg + RA pressure. Signature Findings Technical Quality: Technically difficult exam. Left Ventricle The left ventricle is chamber size (by PSLAX dimension) is small (female - LVIDd < 3.8cm) . Mild concentric LV hypertrophy. Estimated LVEF by qualitative assessment is normal (55-60%) . All of the LV segments contract normally . Left Atrium LA size is normal . LA is incompletely visualized, size based on qualitative assessment. Right Ventricle The right ventricle is not well visualized. Global RV systolic function appears normal in limited views. Right Atrium RA size is probably normal based on available views. Aortic Valve Normal AoV structure and function by limited views and Doppler. Mitral Valve Normal MV structure and function by limited views and Doppler. Tricuspid Valve Mild tricuspid regurgitation. Estimated peak systolic PA pressure is 25-30 mmHg + RA pressure. Pulmonic Valve PV is not well visualized; function appears normal by Doppler visualized. Aorta Aortic root size (SInus of Valsalva diameter) is normal . Pericardium No significant pericardial effusion is visualized. IVC/SVC/PA/PV/Pleural The estimated RA pressure by IVC dynamics indeterminate . Chambers/Structures Left Ventricle LVIDd: 3.69 cm LVIDs: 1.88 cm LV Septum Diastolic: 1.14 cm LV PW Diastolic: 1.3 cm LV FS: 49.1 % LVOT Diameter: 1.88 cm Aorta Ao Root S of Larisa.: 3.64 cm Doppler/Quantitative Measurements Mitral Valve MV Peak E-Wave: 0.74 m/s MV Peak A-Wave: 0.85 m/s E/A Ratio: 0.87 Peak Gradient: 2.19 mmHg MV Aron. Peak: Tissue Doppler E' Lateral Velocity: 0.06 m/s E/E': 12.22 Aortic Valve Peak Velocity: 1.5 m/s Mean Velocity: 1 m/s Peak Gradient: 8.94 mmHg Mean Gradient: 4.65 mmHg AV Area (continuity): 3.23 cm^2 AV VTI: 25.22 cm AV DVI: 1.16 LVOT Peak Velocity: 1.44 m/s Peak Gradient: 8.34 mmHg Mean Velocity: 0.97 m/s Mean Gradient: 4.38 mmHg LVOT Diameter: 1.88 cm LVOT VTI: 29.38 cm LVOT Area: 2.78 cm^2 LVOT SV:81.51 ml LVOT CO: 5.71 l/min LVOT CI: 3.1 l/min/m^2 Tricuspid Valve TR Velocity: 2.54 m/s TR Gradient: 25.85 mmHg Performing Organization Address City/State/Zipcode Phone Number [facility]ART[facility] CPACS Prepare Leuko-Red RBC (03/05/2018 11:54 PM CYCLE LIAISON)Only the most recent of2 resultswithin the time period is included. CROSSMATCH COMPATIBLE SAFETRACE TX Unit ABO A Neg SAFETRACE TX UNIT NUMBER [id number] SAFETRACE TX Status TRANSFUSED SAFETRACE TX Blood Bank Product RED BLOOD CELLS SAFETRACE TX PRODUCT CODE [id number] SAFETRACE TX Specimen Other Performing Organization Address City/[facility] Vegas[facility] Phone Number SAFETRACE TX PT/aPTT (03/05/2018 7:30 AM CYCLE LIAISON)Only the most recent of2 resultswithin the time period is included. Protime 15.3 (H) 11.7 - 14.7 seconds [facility] INR 1.2 <=5.9 [facility] PTT 33.7 22.5 - 36.0 seconds [facility] Specimen Blood Narrative Performed At RECOMMENDED COUMADIN/WARFARIN INR THERAPY [facility] RANGES STANDARD DOSE: 2.0 - 3.0 Includes: PROPHYLAXIS for venous thrombosis, systemic embolization; TREATMENT for venous thrombosis and/or pulmonary embolus. HIGH RISK: Target INR is 2.5-3.5 for patients with mechanical heart valves. Performing Organization Address City/[facility] Phone Number [facility] [address] [place] [address] CENTER Urinalysis w/Microscopic + Reflex to Culture (03/04/2018 4:42 PM CDT) Color, UA Yellow [facility] Clarity, UA Hazy [facility] Specific Halma, UA 1.019 1.001 - 1.035 [facility] pH, UA 5.5 5.0 - 8.0 [facility] Protein, UA 20 mg/dL (A) Negative [facility] Glucose, UA Negative Negative [facility] Ketones, UA 20 mg/dL (A) Negative [facility] Bilirubin, UA Negative Negative [facility] Blood, UA Negative Negative [facility] Nitrite, UA Negative Negative [facility] Leukocytes, UA Moderate (A) Negative [facility] Urobilinogen, UA 0.2 0.2 - 1.0 mg/dL [facility] RBC, UA 3 /HPF [facility] WBC, UA 23 /HPF [facility] Mucus Many [facility] Squam Epithel, UA 1 /HPF [facility] Hyaline Casts, UA 4 /LPF [facility] Specimen Source [facility] Specimen Urine - Urine, Sterile Collection Performing Organization Address City/State/Zipcode Phone Number [address] [address] CENTER Urine culture (03/04/2018 4:42 PM CDT) Result No growth [facility] Specimen Urine - Urine, Sterile Collection Performing Organization Address City/State/Zipcode Phone Number [address] [address] [phone] THOR Transfuse Leuko-Red RBC (03/04/2018 12:17 PM CDT)Only the most recent of3 resultswithin the time period is included.XR chest 1 view portable / bedside ( 11:13 AM CDT)Only the most recent of5 resultswithin the time period is included. Specimen Narrative Performed At FINAL REPORT [facility] INDICATION: pl effusion with decrease hemoglobin TECHNIQUE: Chest radiograph, single view, portable technique. 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 Chest tubes and right internal jugular line have been removed. No pneumothorax. No pulmonary edema or pneumonia. Left base subsegmental atelectasis noted. In summary, no evidence of postoperative complication. Signed: Elder Santana MD Report Verified Date/Time:03/04/2018 11:31:54 Reading Location: [facility] C0[facility] Ortho Consult Reading Room Procedure Note Interface, External Ris In - 03/04/2018 11:34 AM CDT FINAL REPORT INDICATION: pl effusion with decrease hemoglobin TECHNIQUE: Chest radiograph, single view, portable technique. 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 Chest tubes and right internal jugular line have been removed. No pneumothorax. No pulmonary edema or pneumonia. Left base subsegmental atelectasis noted. In summary, no evidence of postoperative complication. Signed: Elder Santana MD Report Verified Date/Time: 03/04/2018 11:31:54 Reading Location: [facility] B1 [id number] Ortho Consult Reading Room Performing Organization Address City/State/Zipcode Phone Number [facility] 2D Echo W/Doppler(CW/PW/Color) (03/04/2018 10:00 AM CDT) Ejection Fraction [facility] ECHO HEART[facility] [employer] Specimen Narrative Performed At Transthoracic Echocardiography Report (TTE) [facility] ECHO HEART[facility] [employer] [facility] Demographics Patient NameVALAGURA, VIVIANDate of Study03/04/2018 GILMER Female Visit [id number] Unknown Room [id number] Number Date of 1940Referring Keith Allen Physician Age 77 year(s)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 Clinical History CAD GUILLIAN-BARRE SYNDROME HTN BYPASS AO CORONARY X 3 03/02/18 Contrast Medium: Definity. Height: 64 inches Weight: 78.93 kg (174 lbs) BSA: 1.84 m^2 BMI: 29.87 kg/m^2 HR: 128 bpm BP: 94/54 mmHg Summary The left ventricle is chamber size (by vol index) is normal (female - LVED vol - 29-61ml/m2). Borderline concentric LV hypertrophy. All of the LV segments contract normally . Estimated LVEF by qualitative assessment is normal (55-60%) . Grade 2 diastolic dysfunction (moderately increased LA pressure). Estimated peak systolic PA pressure is 50-55 mmHg . Signature Findings Technical Quality: Technically adequate exam. Left Ventricle LV endocardium is well visualized with IV ul trasound enhancing agent. Th e left ventricle is chamber size (by vol index) is normal (female - LVED vol - 29-61ml/m2). Renetta rderline concentric LV hypertrophy. Al l of the LV segments contract normally . Es timated LVEF by qualitative assessment is normal (5 5-60%) . Gr marquis 2 diastolic dysfunction (moderately increased LA pressure). Left AtriumLA size is normal (16-34 ml/m2) . Right VentricleThe right ventricular chamber size and systolic fu nction are within normal limits. Right Atrium RA size is normal. Aortic Valve Mild AoV cusp calcification. Mitral Valve Mild mitral annular calcification. Mi ld mitral regurgitation. Tricuspid ValveMild- Moderate tricuspid regurgitation. Es timated peak systolic PA pressure is 50-55 mmHg . Pulmonic Valve Normal PV structure and function. A trace of pulmonary regurgitation. AortaAortic root size (SInus of Valsalva diameter) is renetta rderline dilated . Pr oximal ascending aorta size is normal . PericardiumNo significant pericardial effusion is visualized. An echo lucent space is noted consistent with pr ominent pericardial fat pad. IVC/SVC/PA/PV/PleuralThe estimated RA pressure by IVC dynamics 11-15mmHg . Chambers/Structures Left Atrium LA Volume: 49.1 mlLA Area: 18.65 cm^2 LA Vol. Index: 27 ml/m^2 Left Ventricle LVIDd: 4.18 cm LVEDV:77.49 ml LVIDs: 3.62 cm LVESV:47.26 ml LV Septum Diastolic: 1.1 cm LVEF 2D Cube: 35.1 % LV Septum Systolic: 1.43 cm LV PW Diastolic: 1.07 cmLV FS: 13.4 % LV PW Systolic: 1.32 cm LVEDV Nichole's:55.23 mlLVEDVI: 30 ml/m^2 LVESV Nichole's:24.23 mlLVESVI: 13 ml/m^2 LVEF Nichole's: 56.1 % LVOT Diameter: 1.9 cm LVEF: 39 % Right Atrium RA Vol. (Sngl Plane): 20.39 ml Right Ventricle RV Systolic Pressure: 56.25 mmHg TAPSE: 1.74 cm Aorta Ao Root S of Larisa.: 3.7 cm Doppler/Quantitative Measurements Mitral Valve MV Peak E-Wave: 1.29 m/sMV Peak A-Wave: 0.72 m/s E/A Ratio: 1.79 Peak Gradient: 6.68 mmHg Deceleration Time: 150.5 msec MV Aron. Peak: Tissue Doppler E' Septal Velocity: 0.07 m/sE/E': 18.29 E' Lateral Velocity: 0.08 m/s Aortic Valve Peak Velocity: 1.37 m/s Mean Velocity: 0.97 m/s Peak Gradient: 7.55 mmHgMean Gradient: 4.2 mmHg AV Area (continuity): 3.02 cm^2 AV VTI: 27.33 cm AV DVI: 1.07 LVOT Peak Velocity: 1.44 m/s Peak Gradient: 8.34 mmHg Mean Velocity: 0.97 m/s Mean Gradient: 4.31 mmHg LVOT Diameter: 1.9 cm LVOT VTI: 29.12 cm LVOT Area: 2.84 cm^2LVOT SV:82.52 ml LVOT CO: 10.56 l/minLVOT CI: 5.74 l/min/m^2 Tricuspid Valve Estimated RAP: 15 mmHg TR Velocity: 3.21 m/s TR Gradient: 41.25 mmHg Pulmonic Valve Estimated PASP: 56.25 mmHg Procedure Note Interface, External Ris In - 03/04/2018 4:19 PM CDT Transthoracic Echocardiography Report (TTE) Demographics Patient Name GABBY BASURTO Date of Study 03/04/2018 LUCILAHENRRY Gender Female Visit Number [id number] Race Unknown Room Number 1111 Number Date of 1940 Referring Keith Allen Physician Age 77 year(s) 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 Clinical History CAD GUILLIAN-BARRE SYNDROME HTN BYPASS AO CORONARY X 3 03/02/18 Contrast Medium: Definity. Height: 64 inches Weight: 78.93 kg (174 lbs) BSA: 1.84 m^2 BMI: 29.87 kg/m^2 HR: 128 bpm BP: 94/54 mmHg Summary The left ventricle is chamber size (by vol index) is normal (female - LVED vol - 29-61ml/m2). Borderline concentric LV hypertrophy. All of the LV segments contract normally . Estimated LVEF by qualitative assessment is normal (55-60%) . Grade 2 diastolic dysfunction (moderately increased LA pressure). Estimated peak systolic PA pressure is 50-55 mmHg . Signature Findings Technical Quality: Technically adequate exam. Left Ventricle LV endocardium is well visualized with IV ultrasound enhancing agent. The left ventricle is chamber size (by vol index) is normal (female - LVED vol - 29-61ml/m2). Borderline concentric LV hypertrophy. All of the LV segments contract normally . Estimated LVEF by qualitative assessment is normal (55-60%) . Grade 2 diastolic dysfunction (moderately increased LA pressure). Left Atrium LA size is normal (16-34 ml/m2) . Right Ventricle The right ventricular chamber size and systolic function are within normal limits. Right Atrium RA size is normal. Aortic Valve Mild AoV cusp calcification. Mitral Valve Mild mitral annular calcification. Mild mitral regurgitation. Tricuspid Valve Mild- Moderate tricuspid regurgitation. Estimated peak systolic PA pressure is 50-55 mmHg . Pulmonic Valve Normal PV structure and function. A trace of pulmonary regurgitation. Aorta Aortic root size (SInus of Valsalva diameter) is borderline dilated . Proximal ascending aorta size is normal . Pericardium No significant pericardial effusion is visualized. An echo lucent space is noted consistent with prominent pericardial fat pad. IVC/SVC/PA/PV/Pleural The estimated RA pressure by IVC dynamics 11-15mmHg . Chambers/Structures Left Atrium LA Volume: 49.1 ml LA Area: 18.65 cm^2 LA Vol. Index: 27 ml/m^2 Left Ventricle LVIDd: 4.18 cm LVEDV:77.49 ml LVIDs: 3.62 cm LVESV:47.26 ml LV Septum Diastolic: 1.1 cm LVEF 2D Cube: 35.1 % LV Septum Systolic: 1.43 cm LV PW Diastolic: 1.07 cm LV FS: 13.4 % LV PW Systolic: 1.32 cm LVEDV Nichole's:55.23 ml LVEDVI: 30 ml/m^2 LVESV Nichole's:24.23 ml LVESVI: 13 ml/m^2 LVEF Nichole's: 56.1 % LVOT Diameter: 1.9 cm LVEF: 39 % Right Atrium RA Vol. (Sngl Plane): 20.39 ml Right Ventricle RV Systolic Pressure: 56.25 mmHg TAPSE: 1.74 cm Aorta Ao Root S of Larisa.: 3.7 cm Doppler/Quantitative Measurements Mitral Valve MV Peak E-Wave: 1.29 m/s MV Peak A-Wave: 0.72 m/s E/A Ratio: 1.79 Peak Gradient: 6.68 mmHg Deceleration Time: 150.5 msec MV Aron. Peak: Tissue Doppler E' Septal Velocity: 0.07 m/s E/E': 18.29 E' Lateral Velocity: 0.08 m/s Aortic Valve Peak Velocity: 1.37 m/s Mean Velocity: 0.97 m/s Peak Gradient: 7.55 mmHg Mean Gradient: 4.2 mmHg AV Area (continuity): 3.02 cm^2 AV VTI: 27.33 cm AV DVI: 1.07 LVOT Peak Velocity: 1.44 m/s Peak Gradient: 8.34 mmHg Mean Velocity: 0.97 m/s Mean Gradient: 4.31 mmHg LVOT Diameter: 1.9 cm LVOT VTI: 29.12 cm LVOT Area: 2.84 cm^2 LVOT SV:82.52 ml LVOT CO: 10.56 l/min LVOT CI: 5.74 l/min/m^2 Tricuspid Valve Estimated RAP: 15 mmHg TR Velocity: 3.21 m/s TR Gradient: 41.25 mmHg Pulmonic Valve Estimated PASP: 56.25 mmHg Performing Organization Address [facility] [place], [place] Phone Number [facility]ART[facility] MKCKESSON CPACS EKG 12 lead (03/04/2018 9:39 AM CDT)Only the most recent of3 resultswithin the time period is included. Specimen Narrative Performed At Ventricular Rate 87 BPM GE MUSE Atrial Rate 87 BPM P-R Interval 162 ms QRS Duration 74 ms Q-T Interval 358 ms QTC Calculation(Bazett) 430 ms P [place] 53 degrees R [place] -32 degrees T [place] 40 degrees Normal sinus rhythm Left axis deviation Abnormal ECG When compared with ECG of 04-MAR-2018 09:20, Significant changes have occurred Confirmed by MD Turner Mahboob ([id number]) on 03/06/2018 3:21:51 PM Procedure Note Interface, External Ris In - 03/06/2018 3:22 PM CYCLE LIAISON Ventricular Rate 87 BPM Atrial Rate 87 BPM P-R Interval 162 ms QRS Duration 74 ms Q-T Interval 358 ms QTC Calculation(Bazett) 430 ms P [place] 53 degrees R [place] -32 degrees T [place] 40 degrees Normal sinus rhythm Left axis deviation Abnormal ECG When compared with ECG of 04-MAR-2018 09:20, Significant changes have occurred Confirmed by MD Turner Mahboob ([id number]) on 03/06/2018 3:21:51 PM Performing Organization Address [facility] [place], [place] Phone Number [facility] Electrocardiogram-research (03/04/2018 9:20 AM CDT) Specimen Narrative Performed At Ventricular Rate 148 BPM GE MUSE Atrial Rate 60 BPM QRS Duration 68 ms Q-T Interval 340 ms QTC Calculation(Bazett) 533 ms R [place] -28 degrees T [place] 129 degrees Supraventricular tachycardia with Premature supraventricular complexes Left ventricular hypertrophy with repolarization abnormality Abnormal ECG When compared with ECG of 04-MAR-2018 09:17, Significant changes have occurred Confirmed by MD Turner Mahboob ([id number]) on 03/06/2018 3:21:46 PM Procedure Note Interface, External Ris In - 03/06/2018 3:21 PM CYCLE LIAISON Ventricular Rate 148 BPM Atrial Rate 60 BPM QRS Duration 68 ms Q-T Interval 340 ms QTC Calculation(Bazett) 533 ms R [place] -28 degrees T [place] 129 degrees Supraventricular tachycardia with Premature supraventricular complexes Left ventricular hypertrophy with repolarization abnormality Abnormal ECG When compared with ECG of 04-MAR-2018 09:17, Significant changes have occurred Confirmed by MD Turner Mahboob ([id number]) on 03/06/2018 3:21:46 PM Performing Organization Address City/[facility] Phone Number MUSE POC-Lactic Acid, Arterial (03/04/2018 8:17 AM CDT) POC-Lactic Acid, 0.5Comment: TESTED AT 0.4 - 1.3 mmol/L [facility] Arterial [address] [address] Specimen Blood Performing Organization Address [facility] [place], [place] Phone Number [address] [address] THOR POCT-HEMATOCRIT (03/04/2018 8:13 AM CDT) POC-Hematocrit 20 (L)Comment: TESTED AT 36 - 45 % [address] [address] Specimen Blood Performing Organization Address [facility] Phone Number [address] [phone] THOR POCT-HEMOGLOBIN (03/04/2018 8:13 AM CDT) POC-Hemoglobin 6.8 (L)Comment: TESTED AT 12.0 - 15.0 g/dL [address] [address] AT [address] [address] Specimen Blood Performing Organization Address [facility] Phone Number [address] [address] [phone] THOR POCT-GLUCOSE (03/04/2018 8:13 AM CDT) POC-Glucose 98Comment: TESTED AT [facility] 70 - 110 mg/dL [address] [address] Specimen Blood Performing Organization Address City/[facility]/Zipcode Phone Number [address] [phone] THOR POC-Sodium (03/04/2018 8:13 AM CDT) POC-Sodium 142Comment: TESTED AT [facility] 135 - 148 meq/L [address] [address] Specimen Blood Performing Organization Address City/[facility]/Zipcode Phone Number [address] [address] [phone] THOR POC-Potassium (03/04/2018 8:13 AM CDT) POC-Potassium 3.7Comment: TESTED AT [facility] 3.6 - 5.5 meq/L [address] [address] Specimen Blood Performing Organization Address [facility] Phone Number [address] [phone] THOR POC-Calcium ionized (03/04/2018 8:13 AM CDT) POC-Calcium Ionized 1.19Comment: TESTED AT 1.12 - 1.27 mmol/L [address] [address] Specimen Blood Performing Organization Address City/[facility]/Zipcode Phone Number [address] [phone] THOR POC-Blood gases, arterial (03/04/2018 8:13 AM CDT) Temp. Celsius-POC 37.0 [facility] FIO2-POC Comment: TESTED AT [place] [id number] [facility] [address] pH, Arterial-POC 7.442 7.350 - 7.450 [facility] PCO2, Arterial-POC 30.5 (L) 35.0 - 45.0 mm Hg [facility] PO2, Arterial-POC 77.0 (L) 80.0 - 90.0 mm Hg [facility] SO2, Arterial-POC 96.0 96.0 - 97.0 % [facility] HCO3, Arterilal-POC 20.8 (L) 21.0 - 29.0 meq/L [facility] BE, Arterial-POC -3.0 (L) -2.0 - 3.0 meq/L [facility] Specimen Blood Performing Organization Address [facility] Phone Number [address] [address] [phone] CENTER Lactic acid, venous, whole blood (03/04/2018 7:26 AM CDT) Lactate, Venous 0.8 0.5 - 2.2 mmol/L [facility] Specimen Blood Narrative Performed At Effective 09/03/2015: Units/Reference Range [facility] Change New: 0.5-2.2 mmol/LPrevious: 5-20 mg/dL Performing Organization Address [facility] Phone Number [address] [address] [phone] CENTER Phosphorus (03/04/2018 5:41 AM CDT)Only the most recent of4 resultswithin the time period is included. Phosphorus 2.1 (L) 2.3 - 4.7 mg/dL [facility] Specimen Blood Performing Organization Address [facility] Phone Number [address] [address] CENTER Prepare RBC (03/03/2018 11:55 PM CDT) CROSSMATCH COMPATIBLE SAFETRACE TX Unit ABO A Neg SAFETRACE TX UNIT NUMBER [id number] SAFETRACE TX Status RETURNED FROM ISSUE SAFETRACE TX Blood Bank Product RED BLOOD CELLS SAFETRACE TX PRODUCT CODE [id number] SAFETRACE TX CROSSMATCH COMPATIBLE SAFETRACE TX Unit ABO A Neg SAFETRACE TX UNIT NUMBER [id number] SAFETRACE TX Status TRANSFUSED SAFETRACE TX Blood Bank Product RED BLOOD CELLS SAFETRACE TX PRODUCT CODE [id number] SAFETRACE TX Performing Organization Address [facility] [place], [place] Phone Number SAFETRACE TX aPTT (03/03/2018 8:32 AM CDT)Only the most recent of4 resultswithin the time period is included. PTT 36.1 (H) 22.5 - 36.0 seconds [facility] Specimen Blood Performing Organization Address [facility] [place], [place] Phone Number [address] [address] CENTER Prothrombin time/INR (03/03/2018 8:32 AM CDT)Only the most recent of4 resultswithin the time period is included. Protime 16.5 (H) 11.7 - 14.7 seconds [facility] INR 1.3 <=5.9 [facility] Specimen Blood Narrative Performed At RECOMMENDED COUMADIN/WARFARIN INR THERAPY [facility] RANGES STANDARD DOSE: 2.0 - 3.0 Includes: PROPHYLAXIS for venous thrombosis, systemic embolization; TREATMENT for venous thrombosis and/or pulmonary embolus. HIGH RISK: Target INR is 2.5-3.5 for patients with mechanical heart valves. Performing Organization Address [facility] [place], [place] Phone Number [address] [address] THOR Oxygen saturation, measured (03/03/2018 4:01 AM CDT)Only the most recent of5 resultswithin the time period is included. O2 Saturation (Measured) 71.5 % [facility] Specimen Blood Performing Organization Address City/State/Zipcode Phone Number [place] [phone] [place] [address] [phone] CENTER Calcium, Ionized (03/03/2018 3:57 AM CDT)Only the most recent of3 resultswithin the time period is included. Calcium, Ion 1.13 1.12 - 1.27 mmol/L [facility] pH, Blood 7.37 [facility] Specimen Blood Narrative Performed At Check serum Ionized Calcium level after 4 [facility] hours after IV Calcium replacement. Performing Organization Address [facility] Phone Number [address] [address] [phone] THOR Lactic acid, arterial, whole blood (03/03/2018 3:57 AM CDT)Only the most recent of5 resultswithin the time period is included. Lactate, Art 1.8 0.5 - 2.2 mmol/L [facility] Specimen Blood, Arterial Narrative Performed At Effective 09/03/2015: Units/Reference Range [facility] Change New: 0.5-2.2 mmol/LPrevious: 5-20 mg/dL Performing Organization Address [facility] Phone Number [address] [address] THOR CBC (Hemogram only) (03/03/2018 3:57 AM CDT) WBC 14.4 (H) 3.5 - 10.5 K/L [facility] RBC 2.79 (L) 3.93 - 5.22 M/L [facility] Hemoglobin 8.4 (L) 11.2 - 15.7 GM/DL [facility] Hematocrit 25.4 (L) 34.1 - 44.9 % [facility] MCV 91.0 79.4 - 94.8 fL [facility] MCH 30.1 25.6 - 32.2 pg [facility] MCHC 33.1 32.2 - 35.5 GM/DL [facility] RDW 14.2 11.7 - 14.4 % [facility] Platelets 96 (L) 150 - 450 K/CU MM [facility] MPV 9.6 9.4 - 12.3 fL [facility] nRBC 0 0 - 0 /100 WBC [facility] Specimen Blood Performing Organization Address City/[facility]/Zipcode Phone Number [address] [address] THOR Blood gas, arterial (03/03/2018 3:57 AM CDT)Only the most recent of9 resultswithin the time period is included. pH, Arterial 7.36 7.35 - 7.45 [facility] pCO2, Arterial 42 35 - 45 mmHg [facility] pO2, Arterial 89 80 - 90 mmHg [facility] O2 Sat, Arterial 96.2 96.0 - 97.0 % [facility] HCO3, Arterial 23 21 - 29 mmol/L [facility] Base Excess, Arterial -1.8 -2.0 - 3.0 mmol/L [facility] Patient Temperature 37.8 C [facility] FIO2 28.0 % [facility] Specimen Blood, Arterial Performing Organization Address City/State/Zipcode Phone Number [facility] [address] [place] [phone] THOR Potassium-Stat Lab (03/03/2018 2:42 AM CDT)Only the most recent of7 resultswithin the time period is included. Potassium 4.8 3.6 - 5.5 meq/L [facility] Specimen Blood, Arterial Performing Organization Address [facility] Phone Number [address] [address] THOR Sodium Na-Stat Lab (03/03/2018 2:42 AM CDT)Only the most recent of7 resultswithin the time period is included. Sodium 141 135 - 148 meq/L [facility] Specimen Blood, Arterial Performing Organization Address [facility] Phone Number [address] [address] THOR Glucose-Stat Lab (03/03/2018 2:42 AM CDT)Only the most recent of8 resultswithin the time period is included. Glucose 126 (H) 70 - 110 mg/dL [facility] Specimen Blood, Arterial Performing Organization Address [facility] [place], [place] Phone Number [address] [address] [phone] THOR HGB/HCT (H&H)-Stat Lab (03/03/2018 2:42 AM CDT)Only the most recent of8 resultswithin the time period is included. Hemoglobin 8.6 (L) 12.0 - 15.0 g/dL [facility] Hematocrit 25.0 (L) 36.0 - 45.0 % [facility] Specimen Blood, Arterial Performing Organization Address [facility] [place], [place] Phone Number [address] [address] THOR XR abdomen / KUB 1 view (03/03/2018 2:05 AM CDT) Specimen Narrative Performed At FINAL REPORT [facility] CLINICAL HISTORY: Gastric distention on chest x-ray COMPARISON: None. FINDINGS: A single supine view of the abdomen is submitted. The stomach and small bowel are distended with gas. Stool is noted in portion of the colon. The appearance is nonspecific but suggests ileus. A distal early or partial small bowel obstruction is also within the differential diagnosis. The tip of an enteric tube is better seen on the chest x-ray performed at the same time but overlies the proximal stomach. Surgical clips overlie the right upper quadrant. There is levoscoliosis of the lumbar spine with associated degenerative change. Please note that a supine examination is insensitive in the detection of free intraperitoneal air. Signed: Ghulam Johnson MD Report Verified Date/Time:03/03/2018 02:10:33 Reading Location: [address] Reading Room Procedure Note Interface, External Ris In - 03/03/2018 2:19 AM CDT FINAL REPORT CLINICAL HISTORY: Gastric distention on chest x-ray COMPARISON: None. FINDINGS: A single supine view of the abdomen is submitted. The stomach and small bowel are distended with gas. Stool is noted in portion of the colon. The appearance is nonspecific but suggests ileus. A distal early or partial small bowel obstruction is also within the differential diagnosis. The tip of an enteric tube is better seen on the chest x-ray performed at the same time but overlies the proximal stomach. Surgical clips overlie the right upper quadrant. There is levoscoliosis of the lumbar spine with associated degenerative change. Please note that a supine examination is insensitive in the detection of free intraperitoneal air. Signed: Ghulam Johnson MD Report Verified Date/Time: 03/03/2018 02:10:33 Reading Location: [address] Reading Room Performing Organization Address City/[facility]/Zipcode Phone Number RIS Fibrinogen (03/03/2018 1:17 AM CDT)Only the most recent of3 resultswithin the time period is included. Fibrinogen 208 (L) 225 - 434 mg/dl [facility] CENTER Specimen Blood Performing Organization Address City/[facility]/Zipcode Phone Number [facility] [address] [place] [address] [phone] CENTER Platelet count (03/03/2018 1:17 AM CDT)Only the most recent of2 resultswithin the time period is included. Platelets 98 (L) 150 - 450 K/CU MM [facility] Specimen Blood Performing Organization Address [facility] Phone Number [address] [address] CENTER Hemoglobin (03/03/2018 12:37 AM CDT) Hemoglobin 6.9 (L) 11.2 - 15.7 GM/DL [facility] Specimen Blood Narrative Performed At For hypotension [facility] Performing Organization Address [facility] Phone Number [address] [address] CENTER Potassium-STAT (03/02/2018 10:48 PM CDT)Only the most recent of2 resultswithin the time period is included. Potassium 3.9 3.5 - 5.1 meq/L [facility] Specimen Blood Performing Organization Address [facility] [place], [place] Phone Number [address] [address] CENTER Glucose-STAT (03/02/2018 10:48 PM CDT)Only the most recent of2 resultswithin the time period is included. Glucose 175 (H) 70 - 105 mg/dL [facility] Specimen Blood Performing Organization Address [facility] [place], [place] Phone Number [address] [address] CENTER Lactate dehydrogenase (LDH) (03/02/2018 9:04 PM CDT) LDH 224 (H) 125 - 220 U/L [facility] Specimen Blood Narrative Performed At Check Serum Magnesium level 2 hours after IV [facility] magnesium replacement. Performing Organization Address [facility] Phone Number [address] [address] [phone] CENTER Sodium (03/02/2018 6:53 PM CDT) Sodium 140 136 - 145 meq/L [facility] Specimen Blood Performing Organization Address [facility] Phone Number [address] [address] THOR POC ACTIVATED CLOTTING TIME (03/02/2018 5:35 PM CDT)Only the most recent of4 resultswithin the time period is included. Activated Clotting Time 114Comment: TESTED AT sec [place] [address] Specimen Blood Performing Organization Address [facility] [place], [place] Phone Number [address] [address] [phone] THOR Thromboelastograph (TEG) (03/02/2018 5:26 PM CDT) TEG Activated Clotting Time 8.4 (H) 4.0 - 7.0 minutes [facility] TEG Fibrinogen Activity 64.3 61.0 - 73.0 degrees [facility] TEG Platelet Aggregation 47.7 (L) 55.0 - 65.0 MM [facility] TEG-H Activated Clotting Time 8.3 (H) 4.0 - 7.0 minutes [facility] TEG-H Fibrinogen Activity 64.3 61.0 - 73.0 degrees [facility] TEG-H Platelet Aggregation 46.5 (L) 55.0 - 65.0 MM [facility] Specimen Blood Performing Organization Address [facility] [place] [place] Phone Number [address] [address] THOR PRITESH (03/02/2018 4:02 PM CDT) Narrative Performed At Carson Galindo MD 03/02/20185:42 PM PRITESH Date: 03/02/2018 4:02 PM Sex: Female Location: OR Requesting Physician: Kamran Hsieh MD Examiner: Carson Galindo MD Indication: CADIntubatedSedated Patient screened for esoph disease: Yes Insertion: easy Probe Type: multiplane Modalities: 2D, CFM, CWD and PWD Pre Intervention Summary: 77yo female with a h/o CAD presenting for ACB Aorta: No aneurysm, no dissection, no mobile plaques AV: trileaflet morphology, no aortic stenosis, no aortic regurgitation LV: Normal chamber size , no LVH, normal systolic function (EF >55% by Nichole's biplane), no RWMA, no thrombus MV: normal morphology, trace mitral regurgitation, no mitral stenosis LA: no HEATHER thrombus (velocity >40 on PWD), normal size and function PV: limited visualization RV: Normal sized chamber, normal function, no thrombus TV: normal morphology, trace tricuspid regurgitation RA: no thrombus Impaired relaxation present No PFO by color dopper flow All findings communicated to surgical team. Post Intervention Summary:S/p 3V ACB. Grossly normal LV function. No RWMA. Grossly normal RV size and function. Valves normal. No aortic dissection. Procedure Note Carson Galindo MD - 03/02/2018 4:02 PM CDT PRITESH Date: 03/02/2018 4:02 PM Sex: Female Location: OR Requesting Physician: Kamran Hsieh MD Examiner: Carson Galindo MD Indication: CAD Intubated Sedated Patient screened for esoph disease: Yes Insertion: easy Probe Type: multiplane Modalities: 2D, CFM, CWD and PWD Pre Intervention Summary: 77yo female with a h/o CAD presenting for ACB Aorta: No aneurysm, no dissection, no mobile plaques AV: trileaflet morphology, no aortic stenosis, no aortic regurgitation LV: Normal chamber size , no LVH, normal systolic function (EF >55% by Nichole' s biplane), no RWMA, no thrombus MV: normal morphology, trace mitral regurgitation, no mitral stenosis LA: no HEATHER thrombus (velocity >40 on PWD), normal size and function PV: limited visualization RV: Normal sized chamber, normal function, no thrombus TV: normal morphology, trace tricuspid regurgitation RA: no thrombus Impaired relaxation present No PFO by color dopper flow All findings communicated to surgical team. Post Intervention Summary: S/p 3V ACB. Grossly normal LV function. No RWMA. Grossly normal RV size and function. Valves normal. No aortic dissection. Type and screen, automated (03/01/2018 3:41 PM CDT) ABO/RH AUTOMATED (BEAKER) A NEGATIVE [facility] Ab Scrn NEGATIVE [facility] Specimen Blood Performing Organization Address City/[facility] Phone Number [address] [address] TSH (03/01/2018 3:41 PM CDT) TSH 3.52 0.35 - 4.94 uIU/mL [facility] Specimen Blood Performing Organization Address [facility] [facility] Phone Number [address] [address] [phone] CENTER Hemoglobin A1c (03/01/2018 3:41 PM CDT) Hemoglobin A1C 5.3 4.3 - 6.1 % [facility] Specimen Blood Performing Organization Address City/[facility] Phone Number [address] [address] [place] Lipid panel (03/01/2018 3:41 PM CDT) Triglycerides 144 mg/dL [facility] Cholesterol 145 mg/dL [facility] HDL 55 mg/dL [facility] LDL Calculated 61 mg/dL [facility] Specimen Blood Narrative Performed At Triglyceride Reference Range: [facility] Low Risk <150 [id number] High Risk 200-499 Very High Risk>=500 Cholesterol Reference Range: Low Risk <200 [id number] High Risk>240 HDL Cholesterol Reference Range: Low Risk >=60 High Risk <40 LDL Cholesterol Reference Range: Optimal<100 Near [id number] Very High >=190 Performing Organization Address [facility] Phone Number [address] [address] TH[place] Comprehensive metabolic panel (03/01/2018 3:41 PM CDT) Protein, Total 7.7 6.0 - 8.3 gm/dL [facility] Albumin 4.4 3.5 - 5.0 g/dL [facility] Alkaline Phosphatase 93 40 - 150 U/L [facility] Total Bilirubin 0.7 0.2 - 1.2 mg/dL [facility] Sodium 141 136 - 145 meq/L [facility] Potassium 4.0 3.5 - 5.1 meq/L [facility] Chloride 107 98 - 107 meq/L [facility] CO2 23 22 - 29 meq/L [facility] BUN 15 7 - 21 mg/dL [facility] Creatinine 1.00 0.57 - 1.25 mg/dL [facility] Glucose 98 70 - 105 mg/dL [facility] Calcium 9.7 8.4 - 10.2 mg/dL [facility] AST 15 5 - 34 U/L [facility] ALT 11 6 - 55 U/L [facility] EGFR 54Comment: ESTIMATED GFR mL/min/1.73 sq m [facility] IS NOT ACCURATE [facility] CREATININE CLEARANCE IN PREDICTING GLOMERULAR FILTRATION RATE. ESTIMATED GFR IS NOT APPLICABLE FOR DIALYSIS PATIENTS. Specimen Blood Performing Organization Address City/State/Zipcode Phone Number [facility] [address] [place] [address] THOR after 01/15/2018 Insurance Payer Benefit Plan / Group Subscriber ID Type Phone Address MEDICARE MEDICARE A B xxxxxxxxxxx Medicare MCR SUPPLEMENT/INDIVIDUAL [facility]AR/[facility] x[facility]xx [employer] Advance Directives For more information, please contact:[address]ettlesskyes[address] [facility] [place] [phone] Code Status Date Activated Date Inactivated Comments Full Code 03/01/2018 3:13 PM 03/02/2018 6:22 PM This code status was determined by: Patient
--- OUTSIDE RECORDS SUMMARY | 2019-01-16 13:44 | XMS REPORT | Continuity of Care Document ---
:1940 Author Organization [facility] Care Team Providers Name Role Phone [facility] Unavailable Unavailable Problems Problem Status Onset Classification Date Comments [...] day, # Oral Tablet 15 tab, 0 [[place] 5/325] Refill(s) Naproxen 500 MG 500 mg=1 [...] 01/01/17 12:11:00 CDT Allergies, Adverse Reactions, Alerts No Known Medication Allergies Immunizations No Data Provided for This Section Results Order Results Value Reference Date Interpretation Comments Source Name Range URINE UA Sq Epi Moderate Few /LPF [facility] AND /LPF 2016 [facility] STOOL URINE UA WBC 5 0 - 5 [facility] AND 2016 [facility] STOOL URINE UA RBC 27 0 - 2 [facility] AND 2016 [facility] STOOL URINE UA Bacteria Occasional None Seen [facility] AND /HPF /HPF [facility] URINE UA Mucus Few /LPF None Seen [facility] /LPF [facility] URINE UA <=1.0 mg/dL 0.1 - 1.0 [facility] AND Urobilinogen 2017 [facility] URINE UA Spec Grav 1.020 <=1.030 [facility] URINE UA Nitrite Negative Negative [facility] AND (01/01/17 12:34 PM) [facility] URINE UA Blood Small Negative [facility] AND *ABN* [facility] ST[facility] (01/01/17 12:34 PM) URINE UA Bili Negative Negative [facility] AND *NA* [facility] (01/01/17 12:34 PM) URINE UA Color Yellow Yellow [facility] AND *NA* [facility] [place] [facility] (01/01/17 12:34 PM) URINE UA Turbidity Slight Clear [facility] AND *ABN* [facility] (01/01/17 12:34 PM) URINE UA Ketones 20 mg/dL Negative [facility] AND mg/dL 2017 [facility] URINE UA Glucose Negative Negative [facility] AND mg/dL mg/dL [facility] [place] [facility] URINE UA Leuk Est Negative Negative [facility] AND (01/01/17 12:34 PM) [facility] [place] [facility] URINE UA pH 5.0 5.0 - 8.0 [facility] URINE UA Protein 100 mg/dL Negative [facility] AND mg/dL [facility] Pathology Reports No Data Provided for This Section Diagnostic Reports No Data Provided for This Section Consultation Notes No Data Provided for This Section Discharge Summaries No Data Provided for This Section History and Physicals No Data Provided for This Section Vital Signs Vital Sign Value Date Comments Source Systolic (mm Hg) 113 01/01/2017 [facility] Diastolic (mm Hg) 73 01/01/2017 [facility] Temperature Oral (F) 98.0 F 01/01/2017 [facility] Respitory Rate 20 01/01/2017 [facility] Heart Rate 80 01/01/2017 [facility] Weight 56.8 01/01/2017 [facility] Systolic (mm Hg) 136 01/01/2017 [facility] Diastolic (mm Hg) 90 01/01/2017 [facility] Heart Rate 105 01/01/2017 [facility] Temperature Oral (F) 97.4 F 01/01/2017 [facility] Respitory Rate 20 01/01/2017 [facility] Encounters Location Location Encounter Encounter Reason Attending ADM DC Status Source Details Type Number For Provider Date Date Visit [facility] Emergency [id number] [facility] 01/01 01/01 [place] [facility] Procedures No Data Provided for This Section Assessment and Plan No Data Provided for This Section Plan of Care No Data Provided for This Section Social History Social History Date Source Social History TypeResponse 01/01/2017 [facility] Smoking Status Never smoker; Ready to change: No; Concerns about tobacco use in household: No ; Exposure to Tobacco Smoke None; Cigarette Smoking Last 365 Days No; Reg Smoking Cessation Counseling No Family History No Data Provided for This Section Advance Directives No Data Provided for This Section Functional Status No Data Provided for This Section
--- OUTSIDE RECORDS SUMMARY | 2019-01-16 13:46 | XMS REPORT ---
:1940 [facility] Organization [facility] Address [address] [place] [address] Dr. Santos [address] [place] [address] Care Team Providers Name Role Phone URBAN CUNNINGHAM Unavailable Unavailable Problems This patient has no known problems. Allergies, Adverse Reactions, Alerts This patient has no known allergies or adverse reactions. Medications This patient has no known medications. Results Test Description Test Time Test Comments Text Results Atomic Results Result Comments MAGNESIUM 2018-03-10 06:04:00 Test Item Value Reference Range Comments MAGNESIUM (BEAKER) (test zddo=679) 2.1 mg/dL 1.6-2.6 BASIC METABOLIC [id number] 06:04:00 Test Item Value Reference Range Comments SODIUM (BEAKER) (test 140 meq/L 136-145 xotj=118) POTASSIUM (BEAKER) (test 4.1 meq/L 3.5-5.1 kduj=747) CHLORIDE (BEAKER) (test 108 meq/L 98-107 vttd=523) CO2 (BEAKER) (test 22 meq/L 22-29 zlxt=118) BLOOD UREA NITROGEN 11 mg/dL 7-21 (BEAKER) (test mxzf=942) CREATININE (BEAKER) (test 0.79 mg/dL 0.57-1.25 jcjt=601) GLUCOSE RANDOM (BEAKER) 106 mg/dL 70-105 (test fsna=046) CALCIUM (BEAKER) (test 8.8 mg/dL 8.4-10.2 sjvf=118) EGFR (BEAKER) (test 70 mL/min/1.73 sq m ESTIMATED GFR IS NOT eytv=3384) ACCURATE CREATININE CLEARANCE IN PREDICTING GLOMERULAR FILTRATION RATE. ESTIMATED GFR IS NOT APPLICABLE FOR DIALYSIS PATIENTS. CBC W/PLT COUNT & AUTO [id number] 05:32:00 Test Item Value Reference Range Comments WHITE BLOOD CELL COUNT (BEAKER) (test mfrp=167) 11.1 K/ L 3.5-10.5 RED BLOOD CELL COUNT (BEAKER) (test uhfj=351) 3.21 M/ L 3.93-5.22 HEMOGLOBIN (BEAKER) (test anko=948) 9.4 GM/DL 11.2-15.7 HEMATOCRIT (BEAKER) (test hdbd=295) 29.4 % 34.1-44.9 MEAN CORPUSCULAR VOLUME (BEAKER) (test jsvl=120) 91.6 fL 79.4-94.8 MEAN CORPUSCULAR HEMOGLOBIN (BEAKER) (test 29.3 pg 25.6-32.2 hitj=686) MEAN CORPUSCULAR HEMOGLOBIN CONC (BEAKER) (test 32.0 GM/DL 32.2-35.5 jewf=806) RED CELL DISTRIBUTION WIDTH (BEAKER) (test 14.7 % 11.7-14.4 pbfq=374) PLATELET COUNT (BEAKER) (test ucck=495) 260 K/CU MM 150-450 MEAN PLATELET VOLUME (BEAKER) (test gbmu=212) 9.3 fL 9.4-12.3 NUCLEATED RED BLOOD CELLS (BEAKER) (test 0 /100 WBC 0-0 wdoq=424) NEUTROPHILS RELATIVE PERCENT (BEAKER) (test 68 % mari=838) LYMPHOCYTES RELATIVE PERCENT (BEAKER) (test 15 % rzpc=429) MONOCYTES RELATIVE PERCENT (BEAKER) (test 11 % ajmf=300) EOSINOPHILS RELATIVE PERCENT (BEAKER) (test 5 % wzgp=698) BASOPHILS RELATIVE PERCENT (BEAKER) (test 1 % lxil=928) NEUTROPHILS ABSOLUTE COUNT (BEAKER) (test 7.49 K/ L 1.56-6.13 oqyb=647) LYMPHOCYTES ABSOLUTE COUNT (BEAKER) (test 1.69 K/ L 1.18-3.74 iokb=791) MONOCYTES ABSOLUTE COUNT (BEAKER) (test 1.21 K/ L 0.24-0.36 yglm=924) EOSINOPHILS ABSOLUTE COUNT (BEAKER) (test 0.54 K/ L 0.04-0.36 tbph=683) BASOPHILS ABSOLUTE COUNT (BEAKER) (test 0.06 K/ L 0.01-0.08 iwvt=403) IMMATURE GRANULOCYTES-RELATIVE PERCENT (BEAKER) 1 % 0-1 (test dbal=6567) BASIC METABOLIC [id number] 11:56:00 Test Item Value Reference Range Comments SODIUM (BEAKER) (test 140 meq/L 136-145 vlae=298) POTASSIUM (BEAKER) (test 3.9 meq/L 3.5-5.1 lcon=998) CHLORIDE (BEAKER) (test 109 meq/L 98-107 ziyl=947) CO2 (BEAKER) (test 21 meq/L 22-29 rega=169) BLOOD UREA NITROGEN 10 mg/dL 7-21 (BEAKER) (test aftu=167) CREATININE (BEAKER) (test 0.74 mg/dL 0.57-1.25 sizo=278) GLUCOSE RANDOM (BEAKER) 115 mg/dL 70-105 (test uboc=732) CALCIUM (BEAKER) (test 8.5 mg/dL 8.4-10.2 eshz=149) EGFR (BEAKER) (test 76 mL/min/1.73 sq m ESTIMATED GFR IS NOT hkfq=3686) ACCURATE CREATININE CLEARANCE IN PREDICTING GLOMERULAR FILTRATION RATE. ESTIMATED GFR IS NOT APPLICABLE FOR DIALYSIS PATIENTS. [id number] 06:20:00 Test Item Value Reference Range Comments MAGNESIUM (BEAKER) (test txpi=982) 2.0 mg/dL 1.6-2.6 CBC W/PLT COUNT & AUTO [id number] 05:46:00 Test Item Value Reference Range Comments WHITE BLOOD CELL COUNT (BEAKER) (test amgr=240) 11.4 K/ L 3.5-10.5 RED BLOOD CELL COUNT (BEAKER) (test uwnu=184) 3.20 M/ L 3.93-5.22 HEMOGLOBIN (BEAKER) (test migk=497) 9.5 GM/DL 11.2-15.7 HEMATOCRIT (BEAKER) (test sdjv=894) 29.6 % 34.1-44.9 MEAN CORPUSCULAR VOLUME (BEAKER) (test kdxf=905) 92.5 fL 79.4-94.8 MEAN CORPUSCULAR HEMOGLOBIN (BEAKER) (test 29.7 pg 25.6-32.2 ssux=650) MEAN CORPUSCULAR HEMOGLOBIN CONC (BEAKER) (test 32.1 GM/DL 32.2-35.5 lvnn=361) RED CELL DISTRIBUTION WIDTH (BEAKER) (test 14.9 % 11.7-14.4 upav=439) PLATELET COUNT (BEAKER) (test xral=027) 231 K/CU MM 150-450 MEAN PLATELET VOLUME (BEAKER) (test kqnz=600) 9.7 fL 9.4-12.3 NUCLEATED RED BLOOD CELLS (BEAKER) (test 0 /100 WBC 0-0 zbmp=103) NEUTROPHILS RELATIVE PERCENT (BEAKER) (test 69 % citw=139) LYMPHOCYTES RELATIVE PERCENT (BEAKER) (test 14 % oxul=222) MONOCYTES RELATIVE PERCENT (BEAKER) (test 11 % ykne=834) EOSINOPHILS RELATIVE PERCENT (BEAKER) (test 4 % djmk=649) BASOPHILS RELATIVE PERCENT (BEAKER) (test 1 % ytci=860) NEUTROPHILS ABSOLUTE COUNT (BEAKER) (test 7.84 K/ L 1.56-6.13 kdcp=837) LYMPHOCYTES ABSOLUTE COUNT (BEAKER) (test 1.57 K/ L 1.18-3.74 vmhi=671) MONOCYTES ABSOLUTE COUNT (BEAKER) (test 1.29 K/ L 0.24-0.36 mqqm=557) EOSINOPHILS ABSOLUTE COUNT (BEAKER) (test 0.49 K/ L 0.04-0.36 jbxd=184) BASOPHILS ABSOLUTE COUNT (BEAKER) (test 0.06 K/ L 0.01-0.08 vkpv=909) IMMATURE GRANULOCYTES-RELATIVE PERCENT (BEAKER) 1 % 0-1 (test zlts=0195) CBC W/PLT COUNT & AUTO [id number] 05:53:00 Test Item Value Reference Range Comments WHITE BLOOD CELL COUNT (BEAKER) (test kprp=879) 12.8 K/ L 3.5-10.5 RED BLOOD CELL COUNT (BEAKER) (test mvcd=594) 3.30 M/ L 3.93-5.22 HEMOGLOBIN (BEAKER) (test pjnn=930) 9.7 GM/DL 11.2-15.7 HEMATOCRIT (BEAKER) (test fvlm=813) 30.2 % 34.1-44.9 MEAN CORPUSCULAR VOLUME (BEAKER) (test rcin=194) 91.5 fL 79.4-94.8 MEAN CORPUSCULAR HEMOGLOBIN (BEAKER) (test 29.4 pg 25.6-32.2 pgfx=412) MEAN CORPUSCULAR HEMOGLOBIN CONC (BEAKER) (test 32.1 GM/DL 32.2-35.5 dlpi=003) RED CELL DISTRIBUTION WIDTH (BEAKER) (test 15.0 % 11.7-14.4 kzzb=759) PLATELET COUNT (BEAKER) (test stlr=140) 215 K/CU MM 150-450 MEAN PLATELET VOLUME (BEAKER) (test qlsl=259) 9.6 fL 9.4-12.3 NUCLEATED RED BLOOD CELLS (BEAKER) (test 0 /100 WBC 0-0 hnuw=032) NEUTROPHILS RELATIVE PERCENT (BEAKER) (test 69 % zzyx=314) LYMPHOCYTES RELATIVE PERCENT (BEAKER) (test 14 % pqmj=450) MONOCYTES RELATIVE PERCENT (BEAKER) (test 12 % ikwt=665) EOSINOPHILS RELATIVE PERCENT (BEAKER) (test 4 % xvwc=984) BASOPHILS RELATIVE PERCENT (BEAKER) (test 1 % kjjc=800) NEUTROPHILS ABSOLUTE COUNT (BEAKER) (test 8.80 K/ L 1.56-6.13 hqhz=681) LYMPHOCYTES ABSOLUTE COUNT (BEAKER) (test 1.81 K/ L 1.18-3.74 dvoi=961) MONOCYTES ABSOLUTE COUNT (BEAKER) (test 1.50 K/ L 0.24-0.36 mjse=566) EOSINOPHILS ABSOLUTE COUNT (BEAKER) (test 0.47 K/ L 0.04-0.36 iyhe=207) BASOPHILS ABSOLUTE COUNT (BEAKER) (test 0.06 K/ L 0.01-0.08 ayyu=880) IMMATURE GRANULOCYTES-RELATIVE PERCENT (BEAKER) 1 % 0-1 (test qljv=9650) [id number] 05:51:00 Test Item Value Reference Range Comments MAGNESIUM (BEAKER) (test yjgq=258) 2.3 mg/dL 1.6-2.6 BASIC METABOLIC [id number] 05:51:00 Test Item Value Reference Range Comments SODIUM (BEAKER) (test 138 meq/L 136-145 yrkz=911) POTASSIUM (BEAKER) (test 4.3 meq/L 3.5-5.1 hjgg=372) CHLORIDE (BEAKER) (test 109 meq/L 98-107 ydsz=623) CO2 (BEAKER) (test 22 meq/L 22-29 xhyw=796) BLOOD UREA NITROGEN 14 mg/dL 7-21 (BEAKER) (test rssg=077) CREATININE (BEAKER) (test 0.77 mg/dL 0.57-1.25 jvmg=355) GLUCOSE RANDOM (BEAKER) 114 mg/dL 70-105 (test qnaj=137) CALCIUM (BEAKER) (test 8.4 mg/dL 8.4-10.2 qqvs=490) EGFR (BEAKER) (test 72 mL/min/1.73 sq m ESTIMATED GFR IS NOT yxzz=3569) ACCURATE CREATININE CLEARANCE IN PREDICTING GLOMERULAR FILTRATION RATE. ESTIMATED GFR IS NOT APPLICABLE FOR DIALYSIS PATIENTS. [id number] 20:38:00 Test Item Value Reference Range Comments MAGNESIUM (BEAKER) (test osep=500) 1.8 mg/dL 1.6-2.6 BUN AND [id number] 20:38:00 Test Item Value Reference Range Comments BLOOD UREA NITROGEN 14 mg/dL 7-21 (BEAKER) (test kypq=632) CREATININE (BEAKER) (test 0.82 mg/dL 0.57-1.25 szkr=138) EGFR (BEAKER) (test 67 mL/min/1.73 sq m ESTIMATED GFR IS NOT spye=2411) ACCURATE CREATININE CLEARANCE IN PREDICTING GLOMERULAR FILTRATION RATE. ESTIMATED GFR IS NOT APPLICABLE FOR DIALYSIS PATIENTS. BASIC METABOLIC [id number] 20:38:00 Test Item Value Reference Range Comments SODIUM (BEAKER) (test 137 meq/L 136-145 zvgg=725) POTASSIUM (BEAKER) (test 3.7 meq/L 3.5-5.1 vqvr=016) CHLORIDE (BEAKER) (test 108 meq/L 98-107 ebfe=266) CO2 (BEAKER) (test 20 meq/L 22-29 whaz=805) BLOOD UREA NITROGEN 14 mg/dL 7-21 (BEAKER) (test nrlg=429) CREATININE (BEAKER) (test 0.82 mg/dL 0.57-1.25 yyog=007) GLUCOSE RANDOM (BEAKER) 169 mg/dL 70-105 (test dfgk=736) CALCIUM (BEAKER) (test 8.7 mg/dL 8.4-10.2 brlg=929) EGFR (BEAKER) (test 67 mL/min/1.73 sq m ESTIMATED GFR IS NOT mmra=3261) ACCURATE CREATININE CLEARANCE IN PREDICTING GLOMERULAR FILTRATION RATE. ESTIMATED GFR IS NOT APPLICABLE FOR DIALYSIS PATIENTS. CBC W/PLT COUNT & AUTO [id number] 20:36:00 Test Item Value Reference Range Comments WHITE BLOOD CELL COUNT (BEAKER) (test tmjd=766) 14.3 K/ L 3.5-10.5 RED BLOOD CELL COUNT (BEAKER) (test xlnt=002) 3.43 M/ L 3.93-5.22 HEMOGLOBIN (BEAKER) (test apet=019) 10.1 GM/DL 11.2-15.7 HEMATOCRIT (BEAKER) (test kfxc=670) 31.3 % 34.1-44.9 MEAN CORPUSCULAR VOLUME (BEAKER) (test mlaj=127) 91.3 fL 79.4-94.8 MEAN CORPUSCULAR HEMOGLOBIN (BEAKER) (test 29.4 pg 25.6-32.2 dgzl=478) MEAN CORPUSCULAR HEMOGLOBIN CONC (BEAKER) (test 32.3 GM/DL 32.2-35.5 znzz=939) RED CELL DISTRIBUTION WIDTH (BEAKER) (test 15.1 % 11.7-14.4 ducy=928) PLATELET COUNT (BEAKER) (test ieoc=907) 205 K/CU MM 150-450 MEAN PLATELET VOLUME (BEAKER) (test pkyr=709) 9.2 fL 9.4-12.3 NUCLEATED RED BLOOD CELLS (BEAKER) (test 0 /100 WBC 0-0 bjoq=024) (CELLAVISION MANUAL DIFF)2018-03-07 20:36:00 Test Item Value Reference Range Comments NEUTROPHILS - REL (CELLAVISION)(BEAKER) (test 73 % cysr=5412) LYMPHOCYTES - REL (CELLAVISION)(BEAKER) (test 12 % ysef=9800) MONOCYTES - REL (CELLAVISION)(BEAKER) (test 9 % qifu=7508) EOSINOPHILS - REL (CELLAVISION)(BEAKER) (test 5 % sedw=8326) BASOPHILS - REL (CELLAVISION)(BEAKER) (test 1 % cahg=1319) NEUTROPHILS - ABS (CELLAVISION)(BEAKER) (test 10.44 K/ul 1.56-6.13 kgzb=3969) LYMPHOCYTES - ABS (CELLAVISION)(BEAKER) (test 1.72 K/ul 1.18-3.74 bohw=9110) MONOCYTES - ABS (CELLAVISION)(BEAKER) (test 1.29 K/uL 0.24-0.36 wkwq=2478) EOSINOPHILS - ABS (CELLAVISION)(BEAKER) (test 0.72 K/uL 0.04-0.36 twyg=7431) BASOPHILS - ABS (CELLAVISION)(BEAKER) (test 0.14 K/uL 0.01-0.08 oixb=4095) TOTAL COUNTED (BEAKER) (test ltem=0522) 100 WBC MORPHOLOGY (BEAKER) (test bnus=318) Normal GIANT PLATELETS (BEAKER) (test ibte=241) Present ANISOCYTOSIS (BEAKER) (test adkq=732) 1+ few MICROCYTES (BEAKER) (test crbw=502) 1+ few POIKILOCYTES (BEAKER) (test nqle=768) 1+ few ELLIPTOCYTES (BEAKER) (test ffpc=667) 1+ few OVALOCYTES (BEAKER) (test tstr=051) 1+ few TEAR DROP CELLS (BEAKER) (test mbyk=727) 1+ few ARTIFACT (CELLAVISION)(BEAKER) (test ycvq=4157) Present PLATELET CONCENTRATION (CELLAVISION)(BEAKER) Adequate (test chyo=1788) Received comment: User comments: Slide comments:POCT-GLUCOSE [id number] 11: 56:00 Test Item Value Reference Range Comments POC-GLUCOSE METER (BEAKER) 127 mg/dL 70-110 TESTED AT [address] (test lmid=8328) [facility] [address] POCT-GLUCOSE [id number] 07:54:00 Test Item Value Reference Range Comments POC-GLUCOSE METER (BEAKER) 146 mg/dL 70-110 TESTED AT [address] (test rxmj=0345) [facility] [address] POCT-GLUCOSE [id number] 21:27:00 Test Item Value Reference Range Comments POC-GLUCOSE METER (BEAKER) 131 mg/dL 70-110 TESTED AT [address] (test jjgp=0399) [facility] [address] POCT-GLUCOSE [id number] 17:25:00 Test Item Value Reference Range Comments POC-GLUCOSE METER (BEAKER) 110 mg/dL 70-110 TESTED AT [address] (test jizs=4551) [facility] [address] POCT-GLUCOSE [id number] 11:49:00 Test Item Value Reference Range Comments POC-GLUCOSE METER (BEAKER) 189 mg/dL 70-110 TESTED AT [address] (test bwmx=8798) [facility] [address] POCT-GLUCOSE [id number] 08:59:00 Test Item Value Reference Range Comments POC-GLUCOSE METER (BEAKER) 123 mg/dL 70-110 TESTED AT [address] (test hezu=7208) [facility] [address] POCT-GLUCOSE [id number] 03:56:00 Test Item Value Reference Range Comments POC-GLUCOSE METER (BEAKER) 128 mg/dL 70-110 TESTED AT [address] (test epdf=8391) [place] [id number] POCT-GLUCOSE [id number] 17:09:00 Test Item Value Reference Range Comments POC-GLUCOSE METER (BEAKER) 122 mg/dL 70-110 TESTED AT [address] (test werq=7990) [facility] [address] POCT-GLUCOSE [id number] 12:02:00 Test Item Value Reference Range Comments POC-GLUCOSE METER (BEAKER) 134 mg/dL 70-110 TESTED AT [address] (test pcvn=5487) [facility] [address] POCT-GLUCOSE [id number] 08:54:00 Test Item Value Reference Range Comments POC-GLUCOSE METER (BEAKER) 105 mg/dL 70-110 TESTED AT [address] (test rxwg=4774) [facility] [address] CBC W/PLT COUNT & AUTO [id number] 08:03:00 Test Item Value Reference Range Comments WHITE BLOOD CELL COUNT (BEAKER) (test afvl=997) 13.7 K/ L 3.5-10.5 RED BLOOD CELL COUNT (BEAKER) (test abde=718) 3.23 M/ L 3.93-5.22 HEMOGLOBIN (BEAKER) (test kans=029) 9.6 GM/DL 11.2-15.7 HEMATOCRIT (BEAKER) (test hzce=243) 29.4 % 34.1-44.9 MEAN CORPUSCULAR VOLUME (BEAKER) (test ywwr=854) 91.0 fL 79.4-94.8 MEAN CORPUSCULAR HEMOGLOBIN (BEAKER) (test 29.7 pg 25.6-32.2 qwvr=303) MEAN CORPUSCULAR HEMOGLOBIN CONC (BEAKER) (test 32.7 GM/DL 32.2-35.5 qeey=071) RED CELL DISTRIBUTION WIDTH (BEAKER) (test 15.3 % 11.7-14.4 shfp=151) PLATELET COUNT (BEAKER) (test ihak=782) 121 K/CU MM 150-450 MEAN PLATELET VOLUME (BEAKER) (test sbvg=499) 9.9 fL 9.4-12.3 NUCLEATED RED BLOOD CELLS (BEAKER) (test 0 /100 WBC 0-0 exmp=063) NEUTROPHILS RELATIVE PERCENT (BEAKER) (test 76 % ogjz=954) LYMPHOCYTES RELATIVE PERCENT (BEAKER) (test 12 % opvb=705) MONOCYTES RELATIVE PERCENT (BEAKER) (test 9 % mten=994) EOSINOPHILS RELATIVE PERCENT (BEAKER) (test 2 % wqmx=688) BASOPHILS RELATIVE PERCENT (BEAKER) (test 0 % yaii=384) NEUTROPHILS ABSOLUTE COUNT (BEAKER) (test 10.46 K/ L 1.56-6.13 alox=561) LYMPHOCYTES ABSOLUTE COUNT (BEAKER) (test 1.69 K/ L 1.18-3.74 dgzz=355) MONOCYTES ABSOLUTE COUNT (BEAKER) (test 1.19 K/ L 0.24-0.36 jrti=986) EOSINOPHILS ABSOLUTE COUNT (BEAKER) (test 0.23 K/ L 0.04-0.36 sckh=065) BASOPHILS ABSOLUTE COUNT (BEAKER) (test 0.06 K/ L 0.01-0.08 dsok=560) IMMATURE GRANULOCYTES-RELATIVE PERCENT (BEAKER) 1 % 0-1 (test umnh=4838) BASIC METABOLIC [id number] 07:55:00 Test Item Value Reference Range Comments SODIUM (BEAKER) (test 140 meq/L 136-145 fzzl=211) POTASSIUM (BEAKER) (test 4.1 meq/L 3.5-5.1 pjvy=554) CHLORIDE (BEAKER) (test 112 meq/L 98-107 jgjn=641) CO2 (BEAKER) (test 18 meq/L 22-29 xqgm=020) BLOOD UREA NITROGEN 15 mg/dL 7-21 (BEAKER) (test uuag=261) CREATININE (BEAKER) (test 0.78 mg/dL 0.57-1.25 musw=903) GLUCOSE RANDOM (BEAKER) 87 mg/dL 70-105 (test vnca=085) CALCIUM (BEAKER) (test 8.2 mg/dL 8.4-10.2 bmwa=964) EGFR (BEAKER) (test 71 mL/min/1.73 sq m ESTIMATED GFR IS NOT kdgl=9469) ACCURATE CREATININE CLEARANCE IN PREDICTING GLOMERULAR FILTRATION RATE. ESTIMATED GFR IS NOT APPLICABLE FOR DIALYSIS PATIENTS. [id number] 07:51:00 Test Item Value Reference Range Comments PROTIME (BEAKER) (test ggcu=978) 15.3 seconds 11.7-14.7 INR (BEAKER) (test puiy=454) 1.2 <=5.9 PARTIAL THROMBOPLASTIN TIME (BEAKER) (test 33.7 seconds 22.5-36.0 pzqf=637) RECOMMENDED COUMADIN/WARFARIN INR THERAPY RANGESSTANDARD DOSE: 2.0 - 3.0 Includes: PROPHYLAXIS forvenous thrombosis, systemic embolization; TREATMENT for venous thrombosis and/or pulmonary embolus.HIGH RISK: Target INR is 2.5-3.5 for patients with mechanical heart valves.POCT-GLUCOSE [id number] 22:08:00 Test Item Value Reference Range Comments POC-GLUCOSE METER (BEAKER) 118 mg/dL 70-110 TESTED AT [facility] [address] [facility] (test jfrv=4122) [facility] [address] POCT-GLUCOSE [id number] 17:32:00 Test Item Value Reference Range Comments POC-GLUCOSE METER (BEAKER) 104 mg/dL 70-110 TESTED AT [facility] [address] [facility] (test fuod=2749) [facility] [address] URINALYSIS W/ REFLEX URINE [id number] 17:06:00 Test Item Value Reference Range Comments COLOR (BEAKER) (test lgne=403) Yellow CLARITY (BEAKER) (test xxxq=965) Hazy SPECIFIC GRAVITY UA (BEAKER) (test bxno=490) 1.019 1.001-1.035 PH UA (BEAKER) (test xtzp=486) 5.5 5.0-8.0 PROTEIN UA (BEAKER) (test zcjk=869) 20 mg/dL Negative GLUCOSE UA (BEAKER) (test cjup=996) Negative Negative KETONES UA (BEAKER) (test ctji=887) 20 mg/dL Negative BILIRUBIN UA (BEAKER) (test hpwq=587) Negative Negative BLOOD UA (BEAKER) (test dpby=785) Negative Negative NITRITE UA (BEAKER) (test xycc=222) Negative Negative LEUKOCYTE ESTERASE UA (BEAKER) (test ehgu=573) Moderate Negative UROBILINOGEN UA (BEAKER) (test kxsb=223) 0.2 mg/dL 0.2-1.0 RBC UA (BEAKER) (test gpdw=338) 3 /HPF WBC UA (BEAKER) (test bdlm=141) 23 /HPF MUCUS (BEAKER) (test rahq=0853) Many SQUAMOUS EPITHELIAL (BEAKER) (test tybk=752) 1 /HPF HYALINE CASTS (BEAKER) (test rbku=641) 4 /LPF SOURCE(BEAKER) (test dgtb=6568) RAD, CHEST, 1 VIEW, NON [id number] 11:31:00Reason for exam:->pl effusion with decrease hemoglobinShould this be performed at the bedside?->YesFINAL REPORT INDICATION: pl effusion with decrease hemoglobin TECHNIQUE: Chest radiograph, single view, portable technique. 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 Chest tubes and right internal jugular line have been removed. No pneumothorax. No pulmonary edema or pneumonia. Left base subsegmental atelectasis noted. In summary, no evidence of postoperative complication. Signed: Hiro Yeung [facility] Verified Date/Time: 03/04/2018 11:31:54 Reading Location: [facility] C013X Ortho Consult Reading Room POCT-LACTIC ACID, [id number] 08:21: 00 Test Item Value Reference Range Comments POC-LACTIC ACID, ARTERIAL 0.5 mmol/L 0.4-1.3 TESTED AT [facility] [address] (BEAKER) (test iqtz=8258) [facility] [address] POCT-BLOOD GASES, [id number] 08:21:00 Test Item Value Reference Range Comments TEMP, CELSIUS-POC (BEAKER) 37.0 (test eqay=1212) FIO2-POC (BEAKER) (test TESTED AT [place] [address] [address] kcoe=5952) [place] [address] PH, ARTERIAL-POC (BEAKER) 7.442 7.350-7.450 (test kjqy=5905) PCO2, ARTERIAL-POC (BEAKER) 30.5 mm Hg 35.0-45.0 (test jckf=2940) PO2, ARTERIAL-POC (BEAKER) 77.0 mm Hg 80.0-90.0 (test tiez=2594) SO2, ARTERIAL-POC (BEAKER) 96.0 % 96.0-97.0 (test uyjf=8851) HCO3, ARTERIAL-POC (BEAKER) 20.8 meq/L 21.0-29.0 (test muhq=3262) BASE EXCESS, ARTERIAL-POC -3.0 meq/L -2.0-3.0 (BEAKER) (test qsbg=4213) [id number] 08:21:00 Test Item Value Reference Range Comments POC-SODIUM (BEAKER) (test 142 meq/L 135-148 [address] tqys[address]189) [place] [address] [id number] 08:21:00 Test Item Value Reference Range Comments POC-POTASSIUM (BEAKER) (test 3.7 meq/L 3.6-5.5 [address] xcfi[address]4130) [place] [address] [id number] 08:21:00 Test Item Value Reference Range Comments POC-GLUCOSE (BEAKER) (test 98 mg/dL 70-110 TESTED AT [place] [address] [address] hadc=9612) [place] [address] POCT-CALCIUM [id number] 08:21:00 Test Item Value Reference Range Comments POC-CALCIUM IONIZED (BEAKER) 1.19 mmol/L 1.12-1.27 TESTED AT [address] (test vszm=2633) [place] [address] [id number] 08:21:00 Test Item Value Reference Range Comments POC-HEMATOCRIT (BEAKER) (test 20 % 36-45 TESTED AT [address] jumd=8873) [facility] [address] [id number] 08:21:00 Test Item Value Reference Range Comments POC-HEMOGLOBIN (BEAKER) 6.8 g/dL 12.0-15.0 TESTED AT [address] (test nkxc=8335) [facility] [id number] AT [address] [address] LACTIC ACID, VENOUS, WHOLE [id number] 08:07:00 Test Item Value Reference Range Comments LACTATE BLOOD VENOUS (2) (BEAKER) (test 0.8 mmol/L 0.5-2.2 mjnl=6705) Effective 09/03/2015: Units/Reference Range ChangeNew: 0.5-2.2 mmol/L Previous: 5 -20 mg/dLBASIC METABOLIC [id number] 07:43:00 Test Item Value Reference Range Comments SODIUM (BEAKER) (test 140 meq/L 136-145 pniw=060) POTASSIUM (BEAKER) (test 3.8 meq/L 3.5-5.1 ecwu=319) CHLORIDE (BEAKER) (test 113 meq/L 98-107 vtgk=728) CO2 (BEAKER) (test 22 meq/L 22-29 ibpm=351) BLOOD UREA NITROGEN 16 mg/dL 7-21 (BEAKER) (test pjyz=019) CREATININE (BEAKER) (test 0.84 mg/dL 0.57-1.25 hlst=311) GLUCOSE RANDOM (BEAKER) 97 mg/dL 70-105 (test ypgp=944) CALCIUM (BEAKER) (test 7.9 mg/dL 8.4-10.2 fpyw=972) EGFR (BEAKER) (test 66 mL/min/1.73 sq m ESTIMATED GFR IS NOT ekvd=7962) ACCURATE CREATININE CLEARANCE IN PREDICTING GLOMERULAR FILTRATION RATE. ESTIMATED GFR IS NOT APPLICABLE FOR DIALYSIS PATIENTS. [id number] 07:32:00 Test Item Value Reference Range Comments PHOSPHORUS (BEAKER) (test vtfz=754) 2.1 mg/dL 2.3-4.7 [id number] 07:32:00 Test Item Value Reference Range Comments MAGNESIUM (BEAKER) (test acnd=425) 2.0 mg/dL 1.6-2.6 CBC W/PLT COUNT & AUTO [id number] 07:11:00 Test Item Value Reference Range Comments WHITE BLOOD CELL COUNT (BEAKER) (test ygfn=821) 10.0 K/ L 3.5-10.5 RED BLOOD CELL COUNT (BEAKER) (test hhjl=440) 2.47 M/ L 3.93-5.22 HEMOGLOBIN (BEAKER) (test vsnw=534) 7.3 GM/DL 11.2-15.7 HEMATOCRIT (BEAKER) (test vvyw=927) 22.7 % 34.1-44.9 MEAN CORPUSCULAR VOLUME (BEAKER) (test zfmf=031) 91.9 fL 79.4-94.8 MEAN CORPUSCULAR HEMOGLOBIN (BEAKER) (test 29.6 pg 25.6-32.2 owcj=669) MEAN CORPUSCULAR HEMOGLOBIN CONC (BEAKER) (test 32.2 GM/DL 32.2-35.5 fjnw=963) RED CELL DISTRIBUTION WIDTH (BEAKER) (test 14.5 % 11.7-14.4 hxsd=117) PLATELET COUNT (BEAKER) (test uysg=086) 91 K/CU MM 150-450 MEAN PLATELET VOLUME (BEAKER) (test xyyd=131) 10.3 fL 9.4-12.3 NUCLEATED RED BLOOD CELLS (BEAKER) (test 0 /100 WBC 0-0 vjvt=412) NEUTROPHILS RELATIVE PERCENT (BEAKER) (test 71 % nmzq=782) LYMPHOCYTES RELATIVE PERCENT (BEAKER) (test 16 % ogez=367) MONOCYTES RELATIVE PERCENT (BEAKER) (test 11 % ztcj=390) EOSINOPHILS RELATIVE PERCENT (BEAKER) (test 2 % xjlt=791) BASOPHILS RELATIVE PERCENT (BEAKER) (test 0 % qqnd=000) NEUTROPHILS ABSOLUTE COUNT (BEAKER) (test 7.06 K/ L 1.56-6.13 glwj=976) LYMPHOCYTES ABSOLUTE COUNT (BEAKER) (test 1.56 K/ L 1.18-3.74 sskx=795) MONOCYTES ABSOLUTE COUNT (BEAKER) (test vldd=525) 1.07 K/ L 0.24-0.36 EOSINOPHILS ABSOLUTE COUNT (BEAKER) (test 0.18 K/ L 0.04-0.36 vtrf=741) BASOPHILS ABSOLUTE COUNT (BEAKER) (test rsuw=797) 0.04 K/ L 0.01-0.08 IMMATURE GRANULOCYTES-RELATIVE PERCENT (BEAKER) 1 % 0-1 (test flrs=2268) POCT-GLUCOSE [id number] 22:37:00 Test Item Value Reference Range Comments POC-GLUCOSE METER (BEAKER) 135 mg/dL 70-110 TESTED AT [address] (test zqne=7298) [place] [address] POCT-GLUCOSE [id number] 11:26:00 Test Item Value Reference Range Comments POC-GLUCOSE METER (BEAKER) 178 mg/dL 70-110 TESTED AT [address] (test wbys=9939) [place] [address] POCT-GLUCOSE [id number] 09:07:00 Test Item Value Reference Range Comments POC-GLUCOSE METER (BEAKER) 105 mg/dL 70-110 TESTED AT [address] (test qhoh=2190) [place] [address] [id number] 08:52:00 Test Item Value Reference Range Comments PARTIAL THROMBOPLASTIN TIME (BEAKER) (test 36.1 seconds 22.5-36.0 cnrs=158) PROTHROMBIN [id number] 08:51:00 Test Item Value Reference Range Comments PROTIME (BEAKER) (test lydu=731) 16.5 seconds 11.7-14.7 INR (BEAKER) (test vcgi=532) 1.3 <=5.9 RECOMMENDED COUMADIN/WARFARIN INR THERAPY RANGESSTANDARD DOSE: 2.0 - 3.0 Includes: PROPHYLAXIS forvenous thrombosis, systemic embolization; TREATMENT for venous thrombosis and/or pulmonary embolus.HIGH RISK: Target INR is 2.5-3.5 for patients with mechanical heart valves.POCT-GLUCOSE [id number] 06:45:00 Test Item Value Reference Range Comments POC-GLUCOSE METER (BEAKER) 97 mg/dL 70-110 TESTED AT [address] (test yuqb=0968) [place] [id number] POCT-GLUCOSE [id number] 06:28:00 Test Item Value Reference Range Comments POC-GLUCOSE METER (BEAKER) 118 mg/dL 70-110 TESTED AT [address] (test luci=0342) [place] [address] [id number] 04:56:00 Test Item Value Reference Range Comments PHOSPHORUS (BEAKER) (test oojl=891) 2.7 mg/dL 2.3-4.7 [id number] 04:56:00 Test Item Value Reference Range Comments MAGNESIUM (BEAKER) (test uhoc=477) 2.2 mg/dL 1.6-2.6 BASIC METABOLIC [id number] 04:56:00 Test Item Value Reference Range Comments SODIUM (BEAKER) (test 142 meq/L 136-145 jiya=492) POTASSIUM (BEAKER) (test 4.5 meq/L 3.5-5.1 bpfa=085) CHLORIDE (BEAKER) (test 115 meq/L 98-107 nspo=715) CO2 (BEAKER) (test 20 meq/L 22-29 mclv=320) BLOOD UREA NITROGEN 16 mg/dL 7-21 (BEAKER) (test cgun=335) CREATININE (BEAKER) (test 0.81 mg/dL 0.57-1.25 tzsf=202) GLUCOSE RANDOM (BEAKER) 118 mg/dL 70-105 (test lxiy=525) CALCIUM (BEAKER) (test 8.3 mg/dL 8.4-10.2 zwbo=849) EGFR (BEAKER) (test 68 mL/min/1.73 sq m ESTIMATED GFR IS NOT ijaa=3811) ACCURATE CREATININE CLEARANCE IN PREDICTING GLOMERULAR FILTRATION RATE. ESTIMATED GFR IS NOT APPLICABLE FOR DIALYSIS PATIENTS. Specimen slightly ictericLACTIC ACID, ARTERIAL, WHOLE [id number] 04:39:00 Test Item Value Reference Range Comments LACTATE BLOOD ARTERIAL (2) (BEAKER) (test 1.8 mmol/L 0.5-2.2 gxma=6311) Effective 09/03/2015: Units/Reference Range ChangeNew: 0.5-2.2 mmol/L Previous: 5 -20 mg/dLOXYGEN SATURATION, [id number] 04:23:00 Test Item Value Reference Range Comments O2 SATURATION (MEASURED) (BEAKER) (test rrpe=9423) 71.5 % CBC (HEMOGRAM ONLY)2018-03-03 04:20:00 Test Item Value Reference Range Comments WHITE BLOOD CELL COUNT (BEAKER) (test goym=811) 14.4 K/ L 3.5-10.5 RED BLOOD CELL COUNT (BEAKER) (test dpbl=385) 2.79 M/ L 3.93-5.22 HEMOGLOBIN (BEAKER) (test zmcx=763) 8.4 GM/DL 11.2-15.7 HEMATOCRIT (BEAKER) (test uode=049) 25.4 % 34.1-44.9 MEAN CORPUSCULAR VOLUME (BEAKER) (test kthq=116) 91.0 fL 79.4-94.8 MEAN CORPUSCULAR HEMOGLOBIN (BEAKER) (test 30.1 pg 25.6-32.2 opky=351) MEAN CORPUSCULAR HEMOGLOBIN CONC (BEAKER) (test 33.1 GM/DL 32.2-35.5 skrv=991) RED CELL DISTRIBUTION WIDTH (BEAKER) (test 14.2 % 11.7-14.4 fpus=316) PLATELET COUNT (BEAKER) (test nflh=923) 96 K/CU MM 150-450 MEAN PLATELET VOLUME (BEAKER) (test text=236) 9.6 fL 9.4-12.3 NUCLEATED RED BLOOD CELLS (BEAKER) (test 0 /100 WBC 0-0 zcul=221) BLOOD GAS, [id number] 04:14:00 Test Item Value Reference Range Comments PH ARTERIAL (BEAKER) (test rvrw=596) 7.36 7.35-7.45 PCO2 ARTERIAL (BEAKER) (test gcgh=697) 42 mmHg 35-45 PO2 ARTERIAL (BEAKER) (test dhcd=492) 89 mmHg 80-90 O2 SATURATION ARTERIAL (BEAKER) (test nmil=984) 96.2 % 96.0-97.0 HCO3 ARTERIAL (BEAKER) (test ehew=549) 23 mmol/L 21-29 BASE EXCESS ARTERIAL (BEAKER) (test dzoc=893) -1.8 mmol/L -2.0-3.0 PATIENT TEMPERATURE (BEAKER) (test mnnr=8153) 37.8 C FIO2 (BEAKER) (test admy=9835) 28.0 % CALCIUM, [id number] 04:14:00 Test Item Value Reference Range Comments CALCIUM IONIZED (BEAKER) (test tfdl=125) 1.13 mmol/L 1.12-1.27 PH, BLOOD (BEAKER) (test dngb=0690) 7.37 Check serum Ionized Calcium level after 4 hours after IV Calcium replacement.RAD , CHEST, 1 VIEW, NON [id number] 04:03:00while patient is intubated or has chest tubes.Reason for exam:->s/p CABGShould this be performed at the bedside ?->YesFINAL REPORT RAD, CHEST, 1 VIEW, NON DEPT INDICATION: s/p CABG COMPARISON: Prior day's exam FINDINGS: Portable frontal view of the chest. IMPRESSION: Support Lines: Interval extubation and removal of the previously seen enteric tube. Otherwise unchanged support apparatus. Lungs and pleura: Unchanged airspace and pleural opacities. Possible trace right apical pneumothorax, orcontinued attention on follow-up.Heart and mediastinum: Stable contours. Stable surgical changes.Additional findings: Gaseous distention of the stomach is again seen. Signed: Ayaka Fonseca Verified Date/Time: 03/03/2018 04:03:38 Reading Location: [address] Transitional Reading Room CBC W/PLT COUNT & AUTO [id number] 03: 23:00 Test Item Value Reference Range Comments WHITE BLOOD CELL COUNT (BEAKER) (test jbob=798) 17.2 K/ L 3.5-10.5 RED BLOOD CELL COUNT (BEAKER) (test fwrr=157) 2.67 M/ L 3.93-5.22 HEMOGLOBIN (BEAKER) (test orgh=029) 8.2 GM/DL 11.2-15.7 HEMATOCRIT (BEAKER) (test oovj=205) 24.8 % 34.1-44.9 MEAN CORPUSCULAR VOLUME (BEAKER) (test wnuv=391) 92.9 fL 79.4-94.8 MEAN CORPUSCULAR HEMOGLOBIN (BEAKER) (test 30.7 pg 25.6-32.2 tbhy=169) MEAN CORPUSCULAR HEMOGLOBIN CONC (BEAKER) (test 33.1 GM/DL 32.2-35.5 ruyd=196) RED CELL DISTRIBUTION WIDTH (BEAKER) (test 14.3 % 11.7-14.4 dgtn=829) PLATELET COUNT (BEAKER) (test ptfu=721) 104 K/CU MM 150-450 MEAN PLATELET VOLUME (BEAKER) (test wszh=141) 9.4 fL 9.4-12.3 NUCLEATED RED BLOOD CELLS (BEAKER) (test 0 /100 WBC 0-0 azsp=532) (CELLAVISION MANUAL DIFF)2018-03-03 03:23:00 Test Item Value Reference Range Comments NEUTROPHILS - REL (CELLAVISION)(BEAKER) (test 88 % lzpl=9381) LYMPHOCYTES - REL (CELLAVISION)(BEAKER) (test 5 % znbz=7410) MONOCYTES - REL (CELLAVISION)(BEAKER) (test 5 % vfgv=1807) BANDS - REL (CELLAVISION)(BEAKER) (test 2 % 0-10 hcuz=4382) NEUTROPHILS - ABS (CELLAVISION)(BEAKER) (test 15.14 K/ul 1.56-6.13 bwtx=4381) LYMPHOCYTES - ABS (CELLAVISION)(BEAKER) (test 0.86 K/ul 1.18-3.74 cogc=2666) MONOCYTES - ABS (CELLAVISION)(BEAKER) (test 0.86 K/uL 0.24-0.36 dovm=5719) BANDS - ABS (CELLAVISION)(BEAKER) (test 0.34 K/uL 0.00-0.80 rctl=6558) TOTAL COUNTED (BEAKER) (test byqn=3987) 100 RBC MORPHOLOGY (BEAKER) (test mpmp=813) Normal WBC MORPHOLOGY (BEAKER) (test uzaq=573) Normal PLT MORPHOLOGY (BEAKER) (test ujef=508) Normal GIANT PLATELETS (BEAKER) (test fdxi=329) Present ANISOCYTOSIS (BEAKER) (test slbu=037) 2+ moderate MICROCYTES (BEAKER) (test hwem=429) 2+ moderate POIKILOCYTES (BEAKER) (test kewx=990) 2+ moderate OVALOCYTES (BEAKER) (test tiah=522) 1+ few MICAH CELLS (BEAKER) (test qicd=690) 2+ moderate PLATELET CONCENTRATION (CELLAVISION)(BEAKER) Decreased (test fwhn=0924) Received comment: User comments: Slide comments:LACTIC ACID, ARTERIAL, WHOLE [id number] 03:08:00 Test Item Value Reference Range Comments LACTATE BLOOD ARTERIAL (2) (BEAKER) (test 3.4 mmol/L 0.5-2.2 ekce=4103) Effective 09/03/2015: Units/Reference Range ChangeNew: 0.5-2.2 mmol/L Previous: 5 -20 mg/dLFor occult hypoperfusionBLOOD GAS, [id number] 02:48:00 Test Item Value Reference Range Comments PH ARTERIAL (BEAKER) (test vpas=362) 7.30 7.35-7.45 PCO2 ARTERIAL (BEAKER) (test hjfg=620) 47 mmHg 35-45 PO2 ARTERIAL (BEAKER) (test kfkg=698) 113 mmHg 80-90 O2 SATURATION ARTERIAL (BEAKER) (test usht=153) 97.6 % 96.0-97.0 HCO3 ARTERIAL (BEAKER) (test oyol=713) 23 mmol/L 21-29 BASE EXCESS ARTERIAL (BEAKER) (test lieh=555) -3.5 mmol/L -2.0-3.0 PATIENT TEMPERATURE (BEAKER) (test ektt=6829) 37.5 C FIO2 (BEAKER) (test ozub=1195) 40.0 % GLUCOSE-STAT [id number] 02:48:00 Test Item Value Reference Range Comments GLUCOSE RANDOM (BEAKER) (test aufz=289) 126 mg/dL 70-110 HGB/HCT (H&H) - STAT [id number] 02:48:00 Test Item Value Reference Range Comments HEMOGLOBIN (BEAKER) (test jzle=232) 8.6 g/dL 12.0-15.0 HEMATOCRIT (BEAKER) (test ugml=757) 25.0 % 36.0-45.0 OXYGEN SATURATION, [id number] 02:47:00 Test Item Value Reference Range Comments O2 SATURATION (MEASURED) (BEAKER) (test afre=2114) 62.4 % For occult hypoperfusionSODIUM NA-STAT [id number] 02:47:00 Test Item Value Reference Range Comments SODIUM (BEAKER) (test ermp=714) 141 meq/L 135-148 POTASSIUM-STAT [id number] 02:47:00 Test Item Value Reference Range Comments POTASSIUM (BEAKER) (test texy=159) 4.8 meq/L 3.6-5.5 RAD, ABDOMEN/KUB, 1 VIEW [id number] 02:10:00Reason for exam:->distended stomach on CxrFINAL REPORT CLINICAL HISTORY: Gastric distention on chest x-ray COMPARISON:None. FINDINGS: A single supine view of the [...] Please note that a supine examination is insensitivein the detection of free intraperitoneal air. Signed: Eli Gu MDReport Verified Date/Time: 03/03/2018 02:10:33 Reading Location : [address] Reading Room RAD, CHEST, 1 VIEW, NON [id number] 02:08 :00Reason for exam:->hypotensionFINAL REPORT CLINICAL INDICATION: Hypotension Comparison: 03/02/2018 The cardiomediastinal contours are stable. The lung volumes remain low. Patchy bibasilar parenchymal opacities are similar to previous. There is no pneumothorax. An enteric tube tip overlies the left upper quadrant. The stomach is distended with gas. Support lines are otherwise stable. Signed: Eli Gu Verified Date /Time: 03/03/2018 02:08:45 Reading Location: [address] Reading Room PROTHROMBIN TIME/[id number] 01:44:00 Test Item Value Reference Range Comments PROTIME (BEAKER) (test glek=964) 18.1 seconds 11.7-14.7 INR (BEAKER) (test qgfz=901) 1.5 <=5.9 RECOMMENDED COUMADIN/WARFARIN INR THERAPY RANGESSTANDARD DOSE: 2.0 - 3.0 Includes: PROPHYLAXIS forvenous thrombosis, systemic embolization; TREATMENT for venous thrombosis and/or pulmonary embolus.HIGH RISK: Target INR is 2.5-3.5 for patients with mechanical heart valves.[id number] 01:44:00 Test Item Value Reference Range Comments FIBRINOGEN LEVEL (BEAKER) (test bmsj=645) 208 mg/dl 225-434 [id number] 01:44:00 Test Item Value Reference Range Comments PARTIAL THROMBOPLASTIN TIME (BEAKER) (test 31.7 seconds 22.5-36.0 yfts=192) LACTIC ACID, ARTERIAL, WHOLE [id number] 01:39:00 Test Item Value Reference Range Comments LACTATE BLOOD ARTERIAL (2) (BEAKER) (test 2.7 mmol/L 0.5-2.2 toxa=5465) Effective 09/03/2015: Units/Reference Range ChangeNew: 0.5-2.2 mmol/L Previous: 5 -20 mg/dLFor occult [id number] 01:38:00 Test Item Value Reference Range Comments MAGNESIUM (BEAKER) (test ptjk=119) 2.5 mg/dL 1.6-2.6 Check Serum Magnesium level 2 hours after IV magnesium replacement.POCT-GLUCOSE [id number] 01:24:00 Test Item Value Reference Range Comments POC-GLUCOSE METER (BEAKER) 155 mg/dL 70-110 TESTED AT [facility] [address] [facility] (test hzne=3610) [place] [address] PLATELET [id number] 01:24:00 Test Item Value Reference Range Comments PLATELET COUNT (BEAKER) (test rbtw=331) 98 K/CU MM 150-450 OXYGEN SATURATION, [id number] 01:21:00 Test Item Value Reference Range Comments O2 SATURATION (MEASURED) (BEAKER) (test nwyi=0916) 66.0 % For occult hypoperfusionHGB/HCT (H&H) - STAT [id number] 00:47:00 Test Item Value Reference Range Comments HEMOGLOBIN (BEAKER) (test eway=391) 7.4 g/dL 12.0-15.0 HEMATOCRIT (BEAKER) (test ttkv=709) 22.0 % 36.0-45.0 GLUCOSE-STAT [id number] 00:47:00 Test Item Value Reference Range Comments GLUCOSE RANDOM (BEAKER) (test duqw=177) 155 mg/dL 70-110 [id number] 00:44:00 Test Item Value Reference Range Comments HEMOGLOBIN (BEAKER) (test ehlb=432) 6.9 GM/DL 11.2-15.7 For hypotensionPOCT-GLUCOSE [id number] 00:33:00 Test Item Value Reference Range Comments POC-GLUCOSE METER (BEAKER) 172 mg/dL 70-110 TESTED AT [facility] [address] [facility] (test woyv=4332) [facility] [address] BLOOD GAS, [id number] 00:21:00 Test Item Value Reference Range Comments PH ARTERIAL (BEAKER) (test pyvt=726) 7.43 7.35-7.45 PCO2 ARTERIAL (BEAKER) (test sgbz=815) 34 mmHg 35-45 PO2 ARTERIAL (BEAKER) (test ygbd=622) 143 mmHg 80-90 O2 SATURATION ARTERIAL (BEAKER) (test oqeu=520) 98.9 % 96.0-97.0 HCO3 ARTERIAL (BEAKER) (test brvq=789) 22 mmol/L 21-29 BASE EXCESS ARTERIAL (BEAKER) (test atti=641) -1.9 mmol/L -2.0-3.0 PATIENT TEMPERATURE (BEAKER) (test xqcn=1047) 36.7 C FIO2 (BEAKER) (test blhi=8355) 40.0 % GLUCOSE-STAT [id number] 00:21:00 Test Item Value Reference Range Comments GLUCOSE RANDOM (BEAKER) (test jtqy=278) 153 mg/dL 70-110 HGB/HCT (H&H) - STAT [id number] 00:21:00 Test Item Value Reference Range Comments HEMOGLOBIN (BEAKER) (test gwva=410) 7.2 g/dL 12.0-15.0 HEMATOCRIT (BEAKER) (test vfyl=707) 21.0 % 36.0-45.0 SODIUM NA-STAT [id number] 00:20:00 Test Item Value Reference Range Comments SODIUM (BEAKER) (test kapt=312) 139 meq/L 135-148 POTASSIUM-STAT [id number] 00:20:00 Test Item Value Reference Range Comments POTASSIUM (BEAKER) (test xoqw=252) 3.8 meq/L 3.6-5.5 [id number] 23:18:00 Test Item Value Reference Range Comments POTASSIUM (BEAKER) (test ooiy=478) 3.9 meq/L 3.5-5.1 [id number] 23:18:00 Test Item Value Reference Range Comments GLUCOSE RANDOM (BEAKER) (test jskr=813) 175 mg/dL 70-105 [id number] 22:22:00 Test Item Value Reference Range Comments PHOSPHORUS (BEAKER) (test lnzu=437) 3.6 mg/dL 2.3-4.7 [id number] 22:12:00 Test Item Value Reference Range Comments FIBRINOGEN LEVEL (BEAKER) (test lytx=783) 206 mg/dl 225-434 CALCIUM, [id number] 21:57:00 Test Item Value Reference Range Comments CALCIUM IONIZED (BEAKER) (test ceoj=978) 1.07 mmol/L 1.12-1.27 PH, BLOOD (BEAKER) (test tjbi=5802) 7.39 [id number] 21:31:00 Test Item Value Reference Range Comments MAGNESIUM (BEAKER) (test kyaa=140) 2.0 mg/dL 1.6-2.6 Check Serum Magnesium level 2 hours after IV magnesium replacement.BASIC METABOLIC [id number] 21:31:00 Test Item Value Reference Range Comments SODIUM (BEAKER) (test 142 meq/L 136-145 vlrg=572) POTASSIUM (BEAKER) (test 3.9 meq/L 3.5-5.1 gumt=357) CHLORIDE (BEAKER) (test 111 meq/L 98-107 ldlv=601) CO2 (BEAKER) (test 23 meq/L 22-29 vhvw=102) BLOOD UREA NITROGEN 17 mg/dL 7-21 (BEAKER) (test zdek=577) CREATININE (BEAKER) (test 0.80 mg/dL 0.57-1.25 anyk=239) GLUCOSE RANDOM (BEAKER) 177 mg/dL 70-105 (test qjpz=449) CALCIUM (BEAKER) (test 8.5 mg/dL 8.4-10.2 dmye=280) EGFR (BEAKER) (test 69 mL/min/1.73 sq m ESTIMATED GFR IS NOT nghe=2611) ACCURATE CREATININE CLEARANCE IN PREDICTING GLOMERULAR FILTRATION RATE. ESTIMATED GFR IS NOT APPLICABLE FOR DIALYSIS PATIENTS. Check Serum Magnesium level 2 hours after IV magnesium replacement.LACTATE DEHYDROGENASE (LDH)2018-03-02 21:31:00 Test Item Value Reference Range Comments LACTATE DEHYDROGENASE (BEAKER) (test xdhf=443) 224 U/L 125-220 Check Serum Magnesium level 2 hours after IV magnesium replacement.LACTIC ACID, ARTERIAL, WHOLE [id number] 21:27:00 Test Item Value Reference Range Comments LACTATE BLOOD ARTERIAL (2) (BEAKER) (test 1.5 mmol/L 0.5-2.2 nduf=6178) Effective 09/03/2015: Units/Reference Range ChangeNew: 0.5-2.2 mmol/L Previous: 5 -20 mg/dLFor occult hypoperfusionOXYGEN SATURATION, [id number] 21:16:00 Test Item Value Reference Range Comments O2 SATURATION (MEASURED) (BEAKER) (test yesj=7181) 73.4 % For occult hypoperfusionBLOOD GAS, [id number] 21:14:00 Test Item Value Reference Range Comments PH ARTERIAL (BEAKER) (test rnbm=012) 7.39 7.35-7.45 PCO2 ARTERIAL (BEAKER) (test gszs=492) 37 mmHg 35-45 PO2 ARTERIAL (BEAKER) (test mvgs=142) 116 mmHg 80-90 O2 SATURATION ARTERIAL (BEAKER) (test gfdn=142) 98.4 % 96.0-97.0 HCO3 ARTERIAL (BEAKER) (test jjys=832) 23 mmol/L 21-29 BASE EXCESS ARTERIAL (BEAKER) (test igcw=822) -2.7 mmol/L -2.0-3.0 PATIENT TEMPERATURE (BEAKER) (test dnjy=2766) 35.1 C FIO2 (BEAKER) (test gbud=5594) 40.0 % GLUCOSE-STAT [id number] 21:14:00 Test Item Value Reference Range Comments GLUCOSE RANDOM (BEAKER) (test qjib=938) 172 mg/dL 70-110 HGB/HCT (H&H) - STAT [id number] 21:14:00 Test Item Value Reference Range Comments HEMOGLOBIN (BEAKER) (test npud=712) 8.8 g/dL 12.0-15.0 HEMATOCRIT (BEAKER) (test ntpz=524) 26.0 % 36.0-45.0 SODIUM NA-STAT [id number] 21:12:00 Test Item Value Reference Range Comments SODIUM (BEAKER) (test evrs=119) 139 meq/L 135-148 POTASSIUM-STAT [id number] 21:12:00 Test Item Value Reference Range Comments POTASSIUM (BEAKER) (test kcbo=374) 3.7 meq/L 3.6-5.5 RAD, CHEST, 1 VIEW, NON [id number] 19:49:00Reason for exam:->s/p CABGShould this be performed at the bedside?->YesFINAL REPORT COMPARISON: 03/01/2018 TECHNIQUE: Single view of the chest FINDINGS: Patient has presumably undergone recent cardiothoracic surgery. There is mild prominence of interstitial markings. No overt consolidation, edema, or large pleural effusion. No gross pneumothorax. Multiple support lines and tubes are in place. An endotracheal tube projects approximately 2.6 cm above the josiah. A nasogastric tube identified, tip projects at the GE junction. Bilateral chest tubes/mediastinal drainage catheters in place. Tip of right internal jugular central line projects in the SVC. Signed: Parveen Mathews MDRun[facility] Verified Date/ Time: 03/02/2018 19:49:48 Reading Location: [facility] Reading Room [id number] 19:27:00 Test Item Value Reference Range Comments POTASSIUM (BEAKER) (test zjpb=940) 4.6 meq/L 3.5-5.1 [id number] 19:27:00 Test Item Value Reference Range Comments MAGNESIUM (BEAKER) (test kjrf=293) 2.1 mg/dL 1.6-2.6 [id number] 19:27:00 Test Item Value Reference Range Comments PHOSPHORUS (BEAKER) (test mkls=543) 3.1 mg/dL 2.3-4.7 [id number] 19:25:00 Test Item Value Reference Range Comments SODIUM (BEAKER) (test qvaz=702) 140 meq/L 136-145 [id number] 19:25:00 Test Item Value Reference Range Comments GLUCOSE RANDOM (BEAKER) (test ocho=601) 143 mg/dL 70-105 LACTIC ACID, ARTERIAL, WHOLE [id number] 19:23:00 Test Item Value Reference Range Comments LACTATE BLOOD ARTERIAL (2) (BEAKER) (test 1.0 mmol/L 0.5-2.2 zyxf=9524) Effective 09/03/2015: Units/Reference Range ChangeNew: 0.5-2.2 mmol/L Previous: 5 -20 mg/dLPT/[id number] 19:12:00 Test Item Value Reference Range Comments PROTIME (BEAKER) (test zrpi=951) 18.9 seconds 11.7-14.7 INR (BEAKER) (test yyls=057) 1.6 <=5.9 PARTIAL THROMBOPLASTIN TIME (BEAKER) (test 31.6 seconds 22.5-36.0 xcnm=286) RECOMMENDED COUMADIN/WARFARIN INR THERAPY RANGESSTANDARD DOSE: 2.0 - 3.0 Includes: PROPHYLAXIS forvenous thrombosis, systemic embolization; TREATMENT for venous thrombosis and/or pulmonary embolus.HIGH RISK: Target INR is 2.5-3.5 for patients with mechanical heart valves.CBC W/PLT COUNT & AUTO [id number] 19:05:00 Test Item Value Reference Range Comments WHITE BLOOD CELL COUNT (BEAKER) (test loxa=688) 14.4 K/ L 3.5-10.5 RED BLOOD CELL COUNT (BEAKER) (test zgun=004) 2.97 M/ L 3.93-5.22 HEMOGLOBIN (BEAKER) (test svef=555) 8.7 GM/DL 11.2-15.7 HEMATOCRIT (BEAKER) (test rxnv=299) 26.7 % 34.1-44.9 MEAN CORPUSCULAR VOLUME (BEAKER) (test hynj=662) 89.9 fL 79.4-94.8 MEAN CORPUSCULAR HEMOGLOBIN (BEAKER) (test 29.3 pg 25.6-32.2 wczb=450) MEAN CORPUSCULAR HEMOGLOBIN CONC (BEAKER) (test 32.6 GM/DL 32.2-35.5 niyj=369) RED CELL DISTRIBUTION WIDTH (BEAKER) (test 13.6 % 11.7-14.4 mpia=229) PLATELET COUNT (BEAKER) (test zfnt=155) 115 K/CU MM 150-450 MEAN PLATELET VOLUME (BEAKER) (test emqh=930) 9.0 fL 9.4-12.3 NUCLEATED RED BLOOD CELLS (BEAKER) (test 0 /100 WBC 0-0 nssw=405) NEUTROPHILS RELATIVE PERCENT (BEAKER) (test 74 % vvrt=253) LYMPHOCYTES RELATIVE PERCENT (BEAKER) (test 18 % jmxj=560) MONOCYTES RELATIVE PERCENT (BEAKER) (test 6 % cgey=413) EOSINOPHILS RELATIVE PERCENT (BEAKER) (test 1 % ayce=354) BASOPHILS RELATIVE PERCENT (BEAKER) (test 0 % psso=936) NEUTROPHILS ABSOLUTE COUNT (BEAKER) (test 10.73 K/ L 1.56-6.13 nvfr=819) LYMPHOCYTES ABSOLUTE COUNT (BEAKER) (test 2.58 K/ L 1.18-3.74 dvnh=183) MONOCYTES ABSOLUTE COUNT (BEAKER) (test 0.81 K/ L 0.24-0.36 jtms=338) EOSINOPHILS ABSOLUTE COUNT (BEAKER) (test 0.18 K/ L 0.04-0.36 pmjb=362) BASOPHILS ABSOLUTE COUNT (BEAKER) (test 0.03 K/ L 0.01-0.08 oamf=326) IMMATURE GRANULOCYTES-RELATIVE PERCENT (BEAKER) 1 % 0-1 (test iebp=9323) BLOOD GAS, [id number] 19:04:00 Test Item Value Reference Range Comments PH ARTERIAL (BEAKER) (test wtvi=787) 7.42 7.35-7.45 PCO2 ARTERIAL (BEAKER) (test baow=438) 37 mmHg 35-45 PO2 ARTERIAL (BEAKER) (test lmir=198) 173 mmHg 80-90 O2 SATURATION ARTERIAL (BEAKER) (test khef=779) 99.3 % 96.0-97.0 HCO3 ARTERIAL (BEAKER) (test pwli=998) 24 mmol/L 21-29 BASE EXCESS ARTERIAL (BEAKER) (test xjnc=580) -1.0 mmol/L -2.0-3.0 PATIENT TEMPERATURE (BEAKER) (test ergn=5909) 34.4 C OXYGEN SATURATION, [id number] 19:03:00 Test Item Value Reference Range Comments O2 [facility] (test gdvr=4053) 77.6 % [id number] 18:43:00 Test Item Value Reference Range Comments ACTIVATED CLOTTING TIME 114 sec TESTED AT [address] (BEAKER) (test tlzz=945) [place] [address] [id number] 18:43:00 Test Item Value Reference Range Comments ACTIVATED CLOTTING TIME 499 sec TESTED AT [address] (BEAKER) (test lcgo=719) [place] [address] [id number] 18:43:00 Test Item Value Reference Range Comments ACTIVATED CLOTTING TIME 389 sec TESTED AT [address] (BEAKER) (test eoih=249) [place] [address] [id number] 18:43:00 Test Item Value Reference Range Comments ACTIVATED CLOTTING TIME 637 sec TESTED AT [address] (BEAKER) (test jtzp=109) [place] [address] THROMBOELASTOGRAPH (TEG)2018-03-02 18:23:00 Test Item Value Reference Range Comments TEG ACTIVATED CLOTTING TIME (BEAKER) (test 8.4 minutes 4.0-7.0 vjwp=6106) TEG FIBRINOGEN ACTIVITY (BEAKER) (test 64.3 degrees 61.0-73.0 xrgt=3829) TEG PLT. AGGREGATION (BEAKER) (test xmwb=7677) 47.7 MM 55.0-65.0 TGH ACTIVATED CLOTTING TIME (AKER) (test 8.3 minutes 4.0-7.0 byik=9172) TGH FIBRINOGEN ACTIVITY (BEAKER) (test 64.3 degrees 61.0-73.0 rqge=4461) TGH PLT. AGGREGATION (BEAKER) (test skpp=1161) 46.5 MM 55.0-65.0 PLATELET [id number] 18:03:00 Test Item Value Reference Range Comments PLATELET COUNT (BEAKER) (test vpjm=564) 83 K/CU MM 150-450 [id number] 17:58:00 Test Item Value Reference Range Comments FIBRINOGEN LEVEL (BEAKER) (test uvio=357) 268 mg/dl 225-434 [id number] 17:58:00 Test Item Value Reference Range Comments PARTIAL THROMBOPLASTIN TIME (BEAKER) (test 29.5 seconds 22.5-36.0 oayq=635) PROTHROMBIN [id number] 17:57:00 Test Item Value Reference Range Comments PROTIME (BEAKER) (test ezkw=617) 21.0 seconds 11.7-14.7 INR (BEAKER) (test eulx=588) 1.8 <=5.9 RECOMMENDED COUMADIN/WARFARIN INR THERAPY RANGESSTANDARD DOSE: 2.0 - 3.0 Includes: PROPHYLAXIS forvenous thrombosis, systemic embolization; TREATMENT for venous thrombosis and/or pulmonary embolus.HIGH RISK: Target INR is 2.5-3.5 for patients with mechanical heart valves.POTASSIUM-STAT [id number] 17:38:00 Test Item Value Reference Range Comments POTASSIUM (BEAKER) (test vnes=489) 5.0 meq/L 3.6-5.5 BLOOD GAS, [id number] 17:38:00 Test Item Value Reference Range Comments PH ARTERIAL (BEAKER) (test dwoz=038) 7.42 7.35-7.45 PCO2 ARTERIAL (BEAKER) (test dzlq=384) 38 mmHg 35-45 PO2 ARTERIAL (BEAKER) (test bves=646) 364 mmHg 80-90 O2 SATURATION ARTERIAL (BEAKER) (test kiul=048) 99.8 % 96.0-97.0 HCO3 ARTERIAL (BEAKER) (test ybmr=820) 25 mmol/L 21-29 BASE EXCESS ARTERIAL (BEAKER) (test efln=333) 0.1 mmol/L -2.0-3.0 PATIENT TEMPERATURE (BEAKER) (test uhtq=7368) 35.5 C FIO2 (BEAKER) (test awjq=9785) 100.0 % SODIUM NA-STAT [id number] 17:38:00 Test Item Value Reference Range Comments SODIUM (BEAKER) (test cflh=724) 133 meq/L 135-148 GLUCOSE-STAT [id number] 17:38:00 Test Item Value Reference Range Comments GLUCOSE RANDOM (BEAKER) (test mlal=088) 159 mg/dL 70-110 HGB/HCT (H&H) - STAT [id number] 17:38:00 Test Item Value Reference Range Comments HEMOGLOBIN (BEAKER) (test fodh=775) 8.7 g/dL 12.0-15.0 HEMATOCRIT (BEAKER) (test sonx=415) 26.0 % 36.0-45.0 CALCIUM, [id number] 17:38:00 Test Item Value Reference Range Comments CALCIUM IONIZED (BEAKER) (test dfxi=874) 1.10 mmol/L 1.12-1.27 PH, BLOOD (BEAKER) (test pbql=8386) 7.42 BLOOD GAS, [id number] 16:58:00 Test Item Value Reference Range Comments PH ARTERIAL (BEAKER) (test uzsj=096) 7.56 7.35-7.45 PCO2 ARTERIAL (BEAKER) (test dxsj=653) 28 mmHg 35-45 PO2 ARTERIAL (BEAKER) (test uoow=457) 260 mmHg 80-90 O2 SATURATION ARTERIAL (BEAKER) (test gjap=584) 99.7 % 96.0-97.0 HCO3 ARTERIAL (BEAKER) (test ztlw=469) 26 mmol/L 21-29 BASE EXCESS ARTERIAL (BEAKER) (test tyyg=393) 2.1 mmol/L -2.0-3.0 PATIENT TEMPERATURE (BEAKER) (test ullw=3297) 31.8 C FIO2 (BEAKER) (test xohr=0561) 60.0 % GLUCOSE-STAT [id number] 16:58:00 Test Item Value Reference Range Comments GLUCOSE RANDOM (BEAKER) (test fiiz=166) 170 mg/dL 70-110 HGB/HCT (H&H) - STAT [id number] 16:58:00 Test Item Value Reference Range Comments HEMOGLOBIN (BEAKER) (test mqab=833) 7.2 g/dL 12.0-15.0 HEMATOCRIT (BEAKER) (test xjpx=999) 21.0 % 36.0-45.0 POTASSIUM-STAT [id number] 16:58:00 Test Item Value Reference Range Comments POTASSIUM (BEAKER) (test rjnh=111) 5.6 meq/L 3.6-5.5 SODIUM NA-STAT [id number] 16:58:00 Test Item Value Reference Range Comments SODIUM (BEAKER) (test buia=520) 131 meq/L 135-148 POTASSIUM-STAT [id number] 16:32:00 Test Item Value Reference Range Comments POTASSIUM (BEAKER) (test xelw=074) 4.6 meq/L 3.6-5.5 BLOOD GAS, [id number] 16:32:00 Test Item Value Reference Range Comments PH ARTERIAL (BEAKER) (test buwd=539) 7.30 7.35-7.45 PCO2 ARTERIAL (BEAKER) (test kqkl=825) 40 mmHg 35-45 PO2 ARTERIAL (BEAKER) (test cmkq=606) 472 mmHg 80-90 O2 SATURATION ARTERIAL (BEAKER) (test mqle=404) 99.8 % 96.0-97.0 HCO3 ARTERIAL (BEAKER) (test kesk=036) 21 mmol/L 21-29 BASE EXCESS ARTERIAL (BEAKER) (test ebwy=990) -6.3 mmol/L -2.0-3.0 PATIENT TEMPERATURE (BEAKER) (test hnhj=6784) 31.1 C FIO2 (BEAKER) (test nazo=0057) 80.0 % SODIUM NA-STAT [id number] 16:32:00 Test Item Value Reference Range Comments SODIUM (BEAKER) (test grzx=621) 127 meq/L 135-148 GLUCOSE-STAT [id number] 16:32:00 Test Item Value Reference Range Comments GLUCOSE RANDOM (BEAKER) (test mqlk=345) 164 mg/dL 70-110 HGB/HCT (H&H) - STAT [id number] 16:32:00 Test Item Value Reference Range Comments HEMOGLOBIN (BEAKER) (test ttid=223) 7.4 g/dL 12.0-15.0 HEMATOCRIT (BEAKER) (test nint=277) 22.0 % 36.0-45.0 GLUCOSE-STAT [id number] 15:38:00 Test Item Value Reference Range Comments GLUCOSE RANDOM (BEAKER) (test jfpg=130) 109 mg/dL 70-110 SODIUM NA-STAT [id number] 15:38:00 Test Item Value Reference Range Comments SODIUM (BEAKER) (test mcyd=031) 138 meq/L 135-148 POTASSIUM-STAT [id number] 15:38:00 Test Item Value Reference Range Comments POTASSIUM (BEAKER) (test yanz=897) 3.8 meq/L 3.6-5.5 HGB/HCT (H&H) - STAT [id number] 15:38:00 Test Item Value Reference Range Comments HEMOGLOBIN (BEAKER) (test xkvc=922) 13.3 g/dL 12.0-15.0 HEMATOCRIT (BEAKER) (test hckk=589) 39.0 % 36.0-45.0 BLOOD GAS, [id number] 15:38:00 Test Item Value Reference Range Comments PH ARTERIAL (BEAKER) (test hhpy=904) 7.42 7.35-7.45 PCO2 ARTERIAL (BEAKER) (test ahky=341) 37 mmHg 35-45 PO2 ARTERIAL (BEAKER) (test ecef=533) 349 mmHg 80-90 O2 SATURATION ARTERIAL (BEAKER) (test divd=830) 99.8 % 96.0-97.0 HCO3 ARTERIAL (BEAKER) (test guxb=098) 23 mmol/L 21-29 BASE EXCESS ARTERIAL (BEAKER) (test wgqo=969) -1.4 mmol/L -2.0-3.0 PATIENT TEMPERATURE (BEAKER) (test bncw=9975) 36.0 C FIO2 (BEAKER) (test pjuo=4048) 70.0 % HEMOGLOBIN [id number] 19:38:00 Test Item Value Reference Range Comments HEMOGLOBIN A1C (BEAKER) (test ejho=632) 5.3 % 4.3-6.1 RAD, CHEST, 1 VIEW, NON [id number] 16:31:00Reason for exam:->Pre opShould this be performed at the bedside?->YesFINAL REPORT Chest x-ray Clinical History: Pre op Comparison: March 31, 2016 Views: One AP lordotic Chest x-ray:The cardiac and mediastinal silhouettes are within normal limits. There is no evidence of a pneumothorax. There is no evidence of a pleural effusion. There is no evidence of overt cardiac failure. The visible regional skeleton is intact. There is no evidence of a focal parenchymal opacity. Impression: No active cardiopulmonary disease Signed : Jaime Herrera Verified Date/Time: 03/01/2018 16:31:05 Reading Location : [facility] Radiology Reading Room [id number] 16:27:00 Test Item Value Reference Range Comments THYROID STIMULATING HORMONE (BEAKER) (test 3.52 uIU/mL 0.35-4.94 qtig=213) [id number] 16:13:00 Test Item Value Reference Range Comments MAGNESIUM (BEAKER) (test sdwh=057) 2.2 mg/dL 1.6-2.6 COMPREHENSIVE METABOLIC [id number] 16:13:00 Test Item Value Reference Range Comments TOTAL PROTEIN (BEAKER) 7.7 gm/dL 6.0-8.3 (test jasv=693) ALBUMIN (BEAKER) (test 4.4 g/dL 3.5-5.0 dinv=8228) ALKALINE PHOSPHATASE 93 U/L 40-150 (BEAKER) (test yqbb=195) BILIRUBIN TOTAL (BEAKER) 0.7 mg/dL 0.2-1.2 (test wysb=360) SODIUM (BEAKER) (test 141 meq/L 136-145 mzyq=555) POTASSIUM (BEAKER) (test 4.0 meq/L 3.5-5.1 gypf=184) CHLORIDE (BEAKER) (test 107 meq/L 98-107 kpxx=754) CO2 (BEAKER) (test 23 meq/L 22-29 uiiy=365) BLOOD UREA NITROGEN 15 mg/dL 7-21 (BEAKER) (test kwgd=408) CREATININE (BEAKER) (test 1.00 mg/dL 0.57-1.25 lfbl=196) GLUCOSE RANDOM (BEAKER) 98 mg/dL 70-105 (test bper=608) CALCIUM (BEAKER) (test 9.7 mg/dL 8.4-10.2 nsbq=648) AST (SGOT) (BEAKER) (test 15 U/L 5-34 iztr=529) ALT (SGPT) (BEAKER) (test 11 U/L 6-55 capn=832) EGFR (BEAKER) (test 54 mL/min/1.73 sq m ESTIMATED GFR IS NOT txpc=3369) ACCURATE CREATININE CLEARANCE IN PREDICTING GLOMERULAR FILTRATION RATE. ESTIMATED GFR IS NOT APPLICABLE FOR DIALYSIS PATIENTS. LIPID [id number] 16:13:00 Test Item Value Reference Range Comments TRIGLYCERIDES (BEAKER) (test dxju=146) 144 mg/dL CHOLESTEROL (BEAKER) (test ugwn=820) 145 mg/dL HDL CHOLESTEROL (BEAKER) (test yqtw=859) 55 mg/dL LDL CHOLESTEROL CALCULATED (BEAKER) (test 61 mg/dL blav=590) Triglyceride Reference Range: Low Risk <150 Borderline 150- 199 High Risk 200-499 Very High Risk >=500Cholesterol Reference Range: Low Risk <200 Borderline 200-239 High Risk > 240HDL Cholesterol Reference Range: Low Risk >=60 High Risk <40LDL Cholesterol Reference Range: Optimal <100 Near Optimal 100-129 Borderline 130-159 High 160-189 Very High >=[id number] 15:58:00 Test Item Value Reference Range Comments PARTIAL THROMBOPLASTIN TIME (BEAKER) (test 33.4 seconds 22.5-36.0 yflg=960) PROTHROMBIN TIME/[id number] 15:57:00 Test Item Value Reference Range Comments PROTIME (BEAKER) (test xcps=695) 13.5 seconds 11.7-14.7 INR (BEAKER) (test rupf=445) 1.0 <=5.9 RECOMMENDED COUMADIN/WARFARIN INR THERAPY RANGESSTANDARD DOSE: 2.0 - 3.0 Includes: PROPHYLAXIS forvenous thrombosis, systemic embolization; TREATMENT for venous thrombosis and/or pulmonary embolus.HIGH RISK: Target INR is 2.5-3.5 for patients with mechanical heart valves.CBC W/PLT COUNT & AUTO [id number] 15:52:00 Test Item Value Reference Range Comments WHITE BLOOD CELL COUNT (BEAKER) (test ozbj=517) 10.4 K/ L 3.5-10.5 RED BLOOD CELL COUNT (BEAKER) (test nepc=331) 4.68 M/ L 3.93-5.22 HEMOGLOBIN (BEAKER) (test rezh=108) 13.5 GM/DL 11.2-15.7 HEMATOCRIT (BEAKER) (test jpjz=802) 41.7 % 34.1-44.9 MEAN CORPUSCULAR VOLUME (BEAKER) (test bvwc=994) 89.1 fL 79.4-94.8 MEAN CORPUSCULAR HEMOGLOBIN (BEAKER) (test 28.8 pg 25.6-32.2 oxlr=919) MEAN CORPUSCULAR HEMOGLOBIN CONC (BEAKER) (test 32.4 GM/DL 32.2-35.5 qkkx=832) RED CELL DISTRIBUTION WIDTH (BEAKER) (test 13.4 % 11.7-14.4 ycak=828) PLATELET COUNT (BEAKER) (test sfve=758) 198 K/CU MM 150-450 MEAN PLATELET VOLUME (BEAKER) (test kfbu=209) 8.7 fL 9.4-12.3 NUCLEATED RED BLOOD CELLS (BEAKER) (test 0 /100 WBC 0-0 thwr=935) NEUTROPHILS RELATIVE PERCENT (BEAKER) (test 69 % dfmb=094) LYMPHOCYTES RELATIVE PERCENT (BEAKER) (test 21 % enjk=285) MONOCYTES RELATIVE PERCENT (BEAKER) (test 8 % svdf=135) EOSINOPHILS RELATIVE PERCENT (BEAKER) (test 2 % jrlm=538) BASOPHILS RELATIVE PERCENT (BEAKER) (test 0 % nbtj=549) NEUTROPHILS ABSOLUTE COUNT (BEAKER) (test 7.17 K/ L 1.56-6.13 ijtf=168) LYMPHOCYTES ABSOLUTE COUNT (BEAKER) (test 2.13 K/ L 1.18-3.74 egxp=007) MONOCYTES ABSOLUTE COUNT (BEAKER) (test 0.82 K/ L 0.24-0.36 vejb=885) EOSINOPHILS ABSOLUTE COUNT (BEAKER) (test 0.16 K/ L 0.04-0.36 yfbb=686) BASOPHILS ABSOLUTE COUNT (BEAKER) (test 0.04 K/ L 0.01-0.08 tttj=385) IMMATURE GRANULOCYTES-RELATIVE PERCENT (BEAKER) 0 % 0-1 (test inmw=1899)
[2019-01-16 14:17] LABS: Absolute Lymphocytes (CBC) 0.5 K/uL (0.7-4.9); Basophils % 0.2 % (0-1.3); Hematocrit 36.7 % (36.0-45.0); Lymphocytes % 3.2 % (15.3-44.8); MPV 7.3 fL (7.6-11.3); RBC Red Blood Cell Count 4.18 M/uL (3.86-4.86)
[2019-01-16 14:34] LABS: Potassium 4.1 mmol/L (3.5-5.1)
[2019-01-16] MEDS ORDERED: NA CHLORIDE 0.9% 1,000 ML ONE (14:51)
[2019-01-16] MEDS ORDERED: IBUPROFEN 400 MG TAB ONE (14:51)
[2019-01-16] MEDS ORDERED: ACETAMINOPHEN 500 MG TAB ONE (14:51)
--- NOTE | 2019-01-16 15:05 | RAD REPORT ---
EXAM DESCRIPTION: Krystina Single View01/16/2019 2:58 pm CLINICAL HISTORY: fever COMPARISON: 2018 FINDINGS: The lungs appear clear of acute infiltrate. The heart is mildly enlarged. Postsurgical changes involve the chest IMPRESSION: No acute abnormalities displayed
[2019-01-16] MEDS ORDERED: CEFTRIAXONE/SWI 1gm 1 GM/10 ML SYR ONE (15:57)
--- NOTE | 2019-01-16 16:16 | ER ---
Nurse's Notes [facility] Name: Gabby Nicolas Age: 78 yrs Sex: Female : 1940 Arrival Date: 01/16/2019 Time: 13:43 Bed 18 Private MD: Koby Durham C Diagnosis: Fever presenting with conditions classified elsewhere Presentation: 01/16 13:47 Presenting complaint: N/V, fever, body aches, and chills since this morning. Transition hb of care: patient was not received from another setting of care. Onset of symptoms was January 16, 2019. Risk Assessment: Do you want to hurt yourself or someone else? Patient reports no desire to harm self or others. Initial Sepsis Screen: Does the patient meet any 2 criteria? Temp <36.0*C (96.8*F)) or > 38.3*C (100.9*F). HR > 90 bpm. Care prior to arrival: None. 13:47 Method Of Arrival: Wheelchair hb 13:47 Acuity: JEFFERSON 2 hb 13:53 Initial Sepsis Screen: Does the patient meet any 2 criteria? Temp <36.0*C (96.8*F)) or bp > 38.3*C (100.9*F). HR > 90 bpm. Does the patient have a suspected source of infection? Yes: Acute abdominal pain If YES to both, name of provider notified: Bharath Pardo RN. Triage Assessment: 13:50 General: Appears distressed, uncomfortable, ill, Behavior is cooperative, appropriate bp for age, agitated. Pain: Complains of pain in GENERALIZED. EENT: No deficits noted. Neuro: No deficits noted. Cardiovascular: No deficits noted. Respiratory: No deficits noted. GI: Reports nausea, vomiting. : No signs and/or symptoms were reported regarding the genitourinary system. Derm: No deficits noted. Musculoskeletal: No deficits noted. Historical: - Allergies: 13:50 Levofloxacin; hb - Home Meds: 13:50 pantoprazole oral oral [Active]; Mirtazapine Oral [Active]; atorvastatin oral oral hb [Active]; Ranitidine Oral [Active]; aspirin Oral [Active]; - PMHx: 13:50 CAD; hb - PSHx: 13:50 Cholecystectomy; Appendectomy; Tonsillectomy; hb - Immunization history:: Adult Immunizations up to date. - Social history:: Smoking status: Patient/guardian denies using tobacco. - Ebola Screening: : No symptoms or risks identified at this time. Screenin:05 Abuse screen: Denies threats or abuse. Denies injuries from another. Nutritional bp screening: No deficits noted. Tuberculosis screening: No symptoms or risk factors identified. Fall Risk None identified. Assessment: 14:04 General: SEE TRIAGE NOTE. bp 15:00 Reassessment: PT TEMPERATURE DECREASED, OTHER RESULTS PENDING. GI: Abdomen is bp non-distended, Bowel sounds present X 4 quads. 16:21 Reassessment: Patient and/or family updated on plan of care and expected duration. Pain bp level reassessed. Patient is alert, oriented x 3, equal unlabored respirations, skin warm/dry/pink. ADMIT IN PROCESS, IVF INFUSING Patient states feeling better. 18:11 Reassessment: Patient and/or family updated on plan of care and expected duration. Pain bp level reassessed. Patient is alert, oriented x 3, equal unlabored respirations, skin warm/dry/pink. ADMIT MD AT B/S. ADMIT IN PROCESS. Vital Signs: 13:48 BP 98 / 53; Pulse 123; Resp 20; Temp 103(TE); Pulse Ox 93% on R/A; Weight 77.11 kg; hb Height 5 ft. 4 in. (162.56 cm); Pain 5/10; 14:58 BP 131 / 64; Pulse 106; Resp 29; Pulse Ox 96% ; bp 15:26 BP 116 / 60; Pulse 101; Resp 29; Temp 100.2; Pulse Ox 95% ; bp 16:23 BP 107 / 54; Pulse 95; Resp 18; Pulse Ox 96% ; bp 18:12 BP 92 / 46; Pulse 83; Resp 18; Pulse Ox 96% ; bp 13:48 Body Mass Index 29.18 (77.11 kg, 162.56 cm) hb ED Course: 13:43 Patient arrived in ED. mr 13:44 Koby Durham MD is Private Physician. mr 13:48 Triage completed. hb 13:48 Arm band placed on. hb 13:53 Bharath Pardo, RN is Primary Nurse. bp 14:01 Danae Stanton FNP-C is PHCP. snw 14:01 Praveen Rodríguez MD is Attending Physician. snw 14:05 Patient has correct armband on for positive identification. Bed in low position. Call bp light in reach. Side rails up X2. 15:01 Chest Single View In Process Unspecified. EDMS 16:15 Koby Durham MD is Hospitalizing Provider. snw 16:16 Straight cath inserted, using sterile technique, 16 Fr. 5 16:17 Urine Culture Sent. 5 16:17 Urine Microscopic Only Sent. mh5 18:56 No provider procedures requiring assistance completed. Patient admitted, IV remains in bp place. Administered Medications: 14:56 Drug: Tylenol 1000 mg Route: PO; bp 16:20 Follow up: Response: Temperature is decreased bp 14:57 Drug: NS 0.9% 1000 ml Route: IV; Rate: 125 ml/hr; Site: right antecubital; bp 18:31 Follow up: IV Status: Infusion continued upon admission bp 14:57 Drug: Motrin 600 mg Route: PO; bp 16:20 Follow up: Response: Temperature is decreased bp 16:00 Drug: Rocephin 1 grams Route: IV; Rate: calculated rate; Site: right antecubital; bp 16:24 Follow up: IV Status: Completed infusion bp 18:35 Drug: NS 0.9% 500 ml Volume: 500 ml; Route: IV; Rate: 1 bolus; Site: right antecubital; iw 18:46 Follow up: IV Status: Infusion continued upon admission iw Outcome: 16:15 Decision to Hospitalize by Provider. snw 18:45 Admitted to Med/surg accompanied by tech, family with patient, via stretcher, room 220, bp with chart, Report called to KENNETH ROBERTS 18:45 Condition: stable 18:45 Instructed on the need for admit. 18:49 Patient left the ED. iw Signatures: Dispatcher [employer] EDRI Danae Stanton FNP-C FNP-Freddy Monie Fields Elsy White RN RN Bree Bell, Cecile Jackson RN [facility] Bharath Pardo RN RN bp Corrections: (The following items were deleted from the chart) 13:54 13:48 BP 139 / 113; Pulse 123bpm; Resp 20bpm; Pulse Ox 93% RA; Temp 103F Temporal; hb 77.11 kg; Height 5 ft. 4 in.; BMI: 29.1; Pain 5/10; hb
--- NOTE | 2019-01-16 16:16 | EDPHYS ---
Physician Documentation [facility] Name: Gabby Nicolas Age: 78 yrs Sex: Female : 1940 Arrival Date: 01/16/2019 Time: 13:43 Bed 18 Private MD: Koby Durham C ED Physician Praveen Rodríguez HPI: 01/16 14:42 This 78 yrs old Female presents to ER via Wheelchair with complaints of snw Fever, Vomiting, Pain All Over. 14:42 The patient reports fever, that was measured at 103 degrees Fahrenheit. Onset: The snw symptoms/episode began/occurred suddenly, at 11:00, and became persistent. Associated signs and symptoms: Pertinent positives: arthralgias, chills, decreased appetite, headache, nausea, vomiting. Severity of symptoms: At their worst the symptoms were severe in the emergency department the symptoms have improved. The patient has not experienced similar symptoms in the past. The patient has not recently seen a physician, the patient's primary care provider is Dr. Dr. Durham, It is unknown whether or not the patient has recently seen a physician. hx of GB from flu vaccine. Historical: - Allergies: 13:50 Levofloxacin; hb - Home Meds: 13:50 pantoprazole oral oral [Active]; Mirtazapine Oral [Active]; atorvastatin oral oral hb [Active]; Ranitidine Oral [Active]; aspirin Oral [Active]; - PMHx: 13:50 CAD; hb - PSHx: 13:50 Cholecystectomy; Appendectomy; Tonsillectomy; hb - Immunization history:: Adult Immunizations up to date. - Social history:: Smoking status: Patient/guardian denies using tobacco. - Ebola Screening: : No symptoms or risks identified at this time. ROS: 14:41 Eyes: Negative for injury, pain, redness, and discharge, ENT: Negative for injury, snw pain, and discharge, Neck: Negative for injury, pain, and swelling, Cardiovascular: Negative for chest pain, palpitations, and edema, Respiratory: Negative for shortness of breath, cough, wheezing, and pleuritic chest pain. 14:41 Back: Negative for injury and pain, : Negative for injury, bleeding, discharge, and swelling. 14:41 Skin: Negative for injury, rash, and discoloration, Neuro: Negative for headache, weakness, numbness, tingling, and seizure, Psych: Negative for depression, anxiety, suicide ideation, homicidal ideation, and hallucinations. 14:41 Constitutional: Positive for body aches, chills, fatigue, fever, malaise, poor PO intake. 14:41 Abdomen/GI: Positive for nausea, vomiting. 14:41 MS/extremity: Positive for pain all over, hx of GB. Exam: 14:41 Head/Face: Normocephalic, atraumatic. Eyes: Pupils equal round and reactive to light, snw extra-ocular motions intact. Lids and lashes normal. Conjunctiva and sclera are non-icteric and not injected. Cornea within normal limits. Periorbital areas with no swelling, redness, or edema. ENT: Nares patent. No nasal discharge, no septal abnormalities noted. Tympanic membranes are normal and external auditory canals are clear. Oropharynx with no redness, swelling, or masses, exudates, or evidence of obstruction, uvula midline. Mucous membranes moist. Neck: Trachea midline, no thyromegaly or masses palpated, and no cervical lymphadenopathy. Supple, full range of motion without nuchal rigidity, or vertebral point tenderness. No Meningismus. Chest/axilla: Normal chest wall appearance and motion. Nontender with no deformity. No lesions are appreciated. 14:41 Respiratory: Lungs have equal breath sounds bilaterally, clear to auscultation and percussion. No rales, rhonchi or wheezes noted. No increased work of breathing, no retractions or nasal flaring. Abdomen/GI: Soft, non-tender, with normal bowel sounds. No distension or tympany. No guarding or rebound. No evidence of tenderness throughout. Back: No spinal tenderness. No costovertebral tenderness. Full range of motion. Skin: Warm, dry with normal turgor. Normal color with no rashes, no lesions, and no evidence of cellulitis. MS/ Extremity: Pulses equal, no cyanosis. Neurovascular intact. Full, normal range of motion. Neuro: Awake and alert, GCS 15, oriented to person, place, time, and situation. Cranial nerves II-XII grossly intact. Motor strength 5/5 in all extremities. Sensory grossly intact. Cerebellar exam normal. Normal gait. 14:41 Constitutional: The patient appears alert, awake, febrile. 14:41 Cardiovascular: Rate: tachycardic, Rhythm: regular, Pulses: no pulse deficits are appreciated. Vital Signs: 13:48 BP 98 / 53; Pulse 123; Resp 20; Temp 103(TE); Pulse Ox 93% on R/A; Weight 77.11 kg; hb Height 5 ft. 4 in. (162.56 cm); Pain 5/10; 14:58 BP 131 / 64; Pulse 106; Resp 29; Pulse Ox 96% ; bp 15:26 BP 116 / 60; Pulse 101; Resp 29; Temp 100.2; Pulse Ox 95% ; bp 16:23 BP 107 / 54; Pulse 95; Resp 18; Pulse Ox 96% ; bp 18:12 BP 92 / 46; Pulse 83; Resp 18; Pulse Ox 96% ; bp 13:48 Body Mass Index 29.18 (77.11 kg, 162.56 cm) hb MDM: 14:03 Patient medically screened. ty 16:12 Data reviewed: vital signs, nurses notes. Data interpreted: Pulse oximetry: on room air snw is 95 %. Interpretation: acceptable. Counseling: I had a detailed discussion with the patient and/or guardian regarding: the historical points, exam findings, and any diagnostic results supporting the discharge/admit diagnosis, lab results, radiology results, the need for further work-up and treatment in the hospital. Physician consultation: A Marva ESTRADA was called at 16:00, was contacted at 16:00, regarding admission, to the telemetry unit. 01/16 14:06 Order name: Flu; Complete Time: 14:53 snw 01/16 14:06 Order name: CBC with Diff; Complete Time: 16:34 snw 01/16 14:06 Order name: Chem 7; Complete Time: 14:37 snw 01/16 14:06 Order name: Blood Culture Adult (2) snw 01/16 14:06 Order name: Urine Culture snw 01/16 14:06 Order name: Urine Microscopic Only; Complete Time: 17:23 snw 01/16 14:18 Order name: Chest Single View; Complete Time: 15:23 EDMS 01/16 16:26 Order name: Urine Dipstick--Ancillary (enter results) bd 01/16 16:31 Order name: CBC Smear Scan; Complete Time: 16:34 EDMS 09/17 14:06 Order name: Urine Dipstick-Ancillary (obtain specimen); Complete Time: 16:17 snw 01/16 14:06 Order name: Cath; Complete Time: 16:16 snw Administered Medications: 14:56 Drug: Tylenol 1000 mg Route: PO; bp 16:20 Follow up: Response: Temperature is decreased bp 14:57 Drug: NS 0.9% 1000 ml Route: IV; Rate: 125 ml/hr; Site: right antecubital; bp 18:31 Follow up: IV Status: Infusion continued upon admission bp 14:57 Drug: Motrin 600 mg Route: PO; bp 16:20 Follow up: Response: Temperature is decreased bp 16:00 Drug: Rocephin 1 grams Route: IV; Rate: calculated rate; Site: right antecubital; bp 16:24 Follow up: IV Status: Completed infusion bp 18:35 Drug: NS 0.9% 500 ml Volume: 500 ml; Route: IV; Rate: 1 bolus; Site: right antecubital; iw 18:46 Follow up: IV Status: Infusion continued upon admission iw Disposition: 01/17 06:36 Co-signature as Attending Physician, Praveen Rodríguez MD I agree with the assessment and ty plan of care. Disposition: 01/16/19 16:15 Hospitalization ordered by Koby Durham for Inpatient Admission. Preliminary diagnosis is Fever presenting with conditions classified elsewhere. - Bed requested for Telemetry/MedSurg (Inpatient). - Status is Inpatient Admission. iw - Condition is Stable. - Problem is new. - Symptoms are unchanged. UTI on Admission? Yes Signatures: Dispatcher [employer] EDCA Carleen English Corey, MD MD cha Therrien, Shelly, SPECIAL NEEDS NANNY-C SPECIAL NEEDS NANNY-Csnw Elsy Tate, ARMANDO RN iw Bree Bell, RN RN hb Bharath Pardo, RN RN bp Corrections: (The following items were deleted from the chart) 01/16 14:18 14:07 Chest Pa And Lat (2 Views)+[email or web address] ordered. EDCA EDCA 18:18 16:15 Hospitalization Ordered by Koby Durham MD for Inpatient Admission. Preliminary bd diagnosis is Fever presenting with conditions classified elsewhere. Bed requested for Telemetry/MedSurg (Inpatient). Status is Inpatient Admission. Condition is Stable. Problem is new. Symptoms are unchanged. UTI on Admission? Yes. snw 18:49 18:18 01/16/2019 16:15 Hospitalization Ordered by A Marva ESTRADA for Inpatient Admission. iw Preliminary diagnosis is Fever presenting with conditions classified elsewhere. Bed requested for Telemetry/MedSurg (Inpatient). Status is Inpatient Admission. Condition is Stable. Problem is new. Symptoms are unchanged. UTI on Admission? Yes. bd
[2019-01-16 16:28] LABS: Urine White Blood Cell Casts OK
[2019-01-16 16:29] LABS: Blood Morphology Comment NOT SEEN (NOT SEEN); Platelet Estimate ADEQ
[2019-01-16 17:16] LABS: Urine Bacteria 20-50 /HPF (<20); Urine Culture Reflex Order REFLEXED; Urine RBC <5 /HPF (NONE SEEN)
[2019-01-16] MEDS ORDERED: NA CHLORIDE 0.9% 500 ML ONE (18:35)
[2019-01-16] MEDS ORDERED: IPRATROPIUM BROM 0.5MG/2.5ML NEB PRN (18:57)
[2019-01-16] MEDS ORDERED: ALBUTEROL 2.5 MG/3 ML NEB SOL NEB PRN (18:57)
[2019-01-16] MEDS ORDERED: ACETAMINOPHEN 500 MG TAB PO PRN (18:57)
[2019-01-16] MEDS: NA CHLORIDE 0.9% 1,000 ML IV SCH ×2 (18:57→21:58)
[2019-01-16 19:39] VITALS: BMI 29.2
[2019-01-16 20:38] LABS: Urine Blood 1+ (NEG); Urine Glucose NEGATIVE (NEG); Urine Protein 1+ (NEG); Urine Specific Gravity 1.015 (1.005-1.030); Urine pH 5.5 (5.0-7.0)
[2019-01-16] MEDS: CEFTRIAXONE/SWI 1gm 1 GM/10 ML SYR IV SCH (21:43)
[2019-01-16] MEDS ORDERED: CEFTRIAXONE 1 GM/NS 50 ML 1 GM/50 ML BAG IV SCH (23:00)
--- NOTE | 2019-01-17 04:03 | HP ---
Date of Admission: 01/16/2019 Chief Complaint: Fever, chills, body ache. History Of Present Illness: This is a 78-year-old very pleasant female patient who has history of re current UTI and had negative evaluation done by urologist, Dr. Negron in the past, continues to have frequent UTIs and she sees Dr. Rojas for that. She had last UTI spell was about 3 weeks ago or so , when Dr. Rojas prescribed her antibiotics that she took it for 10-14 days. Her urine culture do ne at the hospital around that time grew E coli and it was sensitive to all different antibiotics. S he does not know which antibiotic she took, but she just finished taking antibiotic about 5-7 days ag o. She was doing fine in her normal usual state of health until all of a sudden this morning, she st arted to have fever and chills, generalized weakness and body ache. Denies any dysuria or hematuria. No abdominal pain, nausea, vomiting, constipation, diarrhea. No cough, cold, congestion. No rash on the skin. After she was evaluated in the ER, she was admitted to the hospital and I saw her in e emergency room. Her family was with her at bedside. Allergies: TO LEVAQUIN. Medications: List reviewed. Review of Systems: Constitutional: As mentioned above. Genitourinary: As mentioned above. All other systems reviewed and negative. 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 Past Surgical History: Significant for cholecystectomy, appendectomy, tonsillectomy. Social History: Negative for smoking or alcohol use. Family History: Not pertinent. Physical Examination: Vital Signs: Blood pressure 98/53, pulse 123, respiratory rate 20, temperature 103, pulse ox 93%. W eight 77.1 kg, height 5 feet 4 inches. General: Awake, alert, oriented, not in distress. HEENT: Head atraumatic, normocephalic. Conjunctivae nonerythematous. Sclerae white. Mouth, no thr ush or edema noted. Ears/Nose, no mass, lesion, discharge noted. Neck: Supple. No JVD, lymph nodes, bruit, thyromegaly noted. Lungs: Bilateral good equal air entry. Clear to auscultation. No rhonchi. No rales. Heart: Normal heart sounds, no murmur or gallop. Abdomen: Soft, bowel sounds normal. No guarding, rigidity, tenderness, mass, hepatosplenomegaly, dis tention, or bruit noted. Extremities: No leg edema. No calf tenderness. Skin: No rash, ulcer, cellulitis. Lymphatics: No lymph node enlargement in neck, supraclavicular, infraclavicular region. Neuro: No focal neurological deficit. Chest: Unremarkable. External Genitalia: Deferred. Rectal: Deferred. Laboratory Data: White count 16.3, hemoglobin 12.5, platelets 191, 89% neutrophils. Sodium 142, pot assium 4.1, chloride 110, bicarb 22, BUN 20, creatinine 1.28, glucose 140. Urinalysis, 10-20 wbc's, bacteria 20-50. Urine culture from 12/19/2018 grew E coli. Chest x-ray, no acute changes. Impression: 1.Probable sepsis. 2.Urinary tract infection. 3.Coronary artery disease. 4.Hyperlipidemia. 5.Gastroesophageal reflux disease. 6.Guillain-Bonfield syndrome. Plan: Admit the patient to the hospital for further evaluation and management of this problem. The patient is appropriate for inpatient and is expected to spend 2 midnights in hospital. We will go ah ead and give her IV fluid. Empiric IV antibiotics, ceftriaxone will be given. DVT prophylaxis with Lovenox will be given. We will follow up on blood culture and urine culture and depending on the cul ture results, we will decide about culture specific antibiotics. Home medications will be continued per order. We will consult Physical Therapy to help ambulate the patient. Details and plan of treat ment discussed with the patient and her family member who was at bedside. JANETTE/MODL Voice ID: [id number]
[2019-01-17] MEDS: NA CHLORIDE 0.9% 1,000 ML IV SCH (04:40)
[2019-01-17 05:07] LABS: Absolute Lymphocytes (CBC) 1.3 K/uL (0.7-4.9); Basophils % 0.5 % (0-1.3); Hematocrit 34.5 % (36.0-45.0); Lymphocytes % 12.2 % (15.3-44.8); MPV 7.4 fL (7.6-11.3); RBC Red Blood Cell Count 3.89 M/uL (3.86-4.86)
[2019-01-17] MEDS: CEFTRIAXONE/SWI 1gm 1 GM/10 ML SYR IV SCH ×2 (08:29→20:39)
[2019-01-17] MEDS: ENOXAPARIN 40 MG/0.4 ML SQ SCH (08:29)
[2019-01-17] MEDS ORDERED: NA CHLORIDE 0.9% 1,000 ML IV SCH (09:00)
--- NOTE | 2019-01-17 11:29 | RAD REPORT ---
EXAM DESCRIPTION: US - Renal Ultrasound-Complete - 01/17/2019 11:18 am CLINICAL HISTORY: Recurring UTIs COMPARISON: July 2012 FINDINGS: The right kidney measures 11.3 cm in length. The left kidney measures 10 cm in length. Ad justing for slight differences in technique and image selection, kidneys have not changed size since 2012.. Renal cortical thickness and echogenicity are normal. No hydronephrosis or suspicious renal ma ss. A 6 centimeter lobulated complex lower pole left renal cyst is still present. Size and imaging ch aracteristics show no suspicious change from 2013. Urinary bladder is evaluated on a separately requested report. IMPRESSION: No hydronephrosis or solid mass of either kidney identifiable. A complex 6 centimeter lower pole left renal cyst shows no significant change from 2013.
--- NOTE | 2019-01-17 11:30 | RAD REPORT ---
EXAM DESCRIPTION: US - Urinary Bladder - 01/17/2019 11:18 am CLINICAL HISTORY: Recurring urinary tract infections. COMPARISON: None. FINDINGS: No urinary bladder wall thickening or mass. No bladder calculus or other intraluminal fill ing defect. Prevoid volume is 279 milliliters. No mass or abnormality in the adjacent soft tissues. IMPRESSION: No urinary bladder abnormality seen.
[2019-01-17] MEDS: ATORVASTATIN 20 MG TAB PO SCH (20:40)
[2019-01-17] MEDS: RANITIDINE 150 MG TABLET PO SCH (20:40)
--- NOTE | 2019-01-17 23:24 | PN ---
Date of Progress Note: 01/17/2019 Subjective: Patient was seen this morning for followup. No new complaints or problems reported by carrie juan. Lying in bed, not in distress. Overall, she feels better today than yesterday. No shortnes s of breath. No nausea, no vomiting. Objective: Vital Signs: Reviewed. HEENT: Unremarkable. Lungs: Clear to auscultation. Heart: Sounds normal. Abdomen: Soft. Bowel sounds normal. No guarding, rigidity, tenderness, or distention. Extremities: No leg edema. Laboratory Data: White count 10.5, hemoglobin 11.8, platelets 160. Sodium 144, potassium 4, chlorid e 113, bicarb 23, BUN 18, creatinine 0.98, glucose 107. Impression: 1.Probable sepsis. 2.Urinary tract infection. Plan: We will go ahead and continue current IV antibiotic, which is ceftriaxone. Reduce IV fluid. Physical Therapy to help ambulate the patient. Culture result pending. Hopefully, we should have so me culture results by tomorrow and then we will make discharge plan depending on the culture results. JANETTE/MODL Voice ID: [id number] Report ID: [id number]
[2019-01-18] MEDS: RANITIDINE 150 MG TABLET PO SCH ×2 (08:25→21:34)
[2019-01-18] MEDS: ENOXAPARIN 40 MG/0.4 ML SQ SCH (08:25)
[2019-01-18] MEDS: CEFTRIAXONE/SWI 1gm 1 GM/10 ML SYR IV SCH ×2 (08:25→21:34)
[2019-01-18] MEDS: ATORVASTATIN 20 MG TAB PO SCH (21:33)
--- NOTE | 2019-01-18 22:25 | PN ---
Date of Progress Note: 01/18/2019 Subjective: Patient was seen this morning for followup. She was lying in bed, not in any distress. Denies any complaints. No nausea or vomiting. No back pain. No abdominal pain. Objective: Vital Signs: Reviewed. HEENT: Unremarkable. LUNGS: Clear to auscultation. HEART: Sounds normal. ABDOMEN: Soft. Bowel sounds normal. No guarding, rigidity, tenderness, or distention. EXTREMITIES: No leg edema. Impression: 1.Rule out sepsis. 2.Urinary tract infection. 3.Anemia, unspecified. Plan: We will go ahead and continue current antibiotics. Follow up on urine culture results and dep ending on the urine culture results, we will decide about the discharge plan. Physical therapy to co ntinue to work with the patient and ambulate. I will see her tomorrow for followup. We will discont inue IV fluid. JANETTE/MODL Voice ID: [id number] Report ID: [id number]
[2019-01-18 23:04] VITALS: O2SAT 95
[2019-01-19] MEDS: CEFTRIAXONE/SWI 1gm 1 GM/10 ML SYR IV SCH (08:19)
[2019-01-19] MEDS: ENOXAPARIN 40 MG/0.4 ML SQ SCH (08:19)
[2019-01-19] MEDS: RANITIDINE 150 MG TABLET PO SCH (08:19)
[2019-01-19 11:00] VITALS: BP 123/74; TEMP 97.4
--- NOTE | 2019-01-20 07:26 | DS ---
Date of Discharge: 01/19/2019 Disposition: Discharged to go home. Physical Examination: HEENT: Unremarkable. Lungs: Clear to auscultation. Heart: Sounds normal. Abdomen: Soft. Bowel sounds normal. No guarding, rigidity, tenderness, distention. Extremities: No leg edema. Discharge Medications And Instructions: 1.Continue all prior home medications. 2.Take antibiotic Augmentin 500 mg twice a day with food for 10 days. 3.Follow up in my office in 3 weeks. 4.Patient to come to office for urinalysis and urine culture to be done a few days prior to the offi appointment. Laboratory Data: Labs done during this hospitalization initial white count upon admission on 019 was 16.3, hemoglobin 12.5, platelets 191 on 01/17/2019. White count was 10.5, hemoglobin 11.8, p latelets 160. Upon admission, sodium 142, potassium 4.1, chloride 110, bicarb 22, BUN 20, creatinine 1.28, glucose 146, procalcitonin 2.01, and lactic acid level 0.8. Day after admission after IV flui d hydration, BUN 18, creatinine 0.98, sodium 144, potassium 4, bicarb 23. Urine culture grew E coli. Hospital Course: This is a 78-year-old female patient admitted to the hospital after she came into e mergency room with complaints of fever, chills, and body aches. Please see dictated H and P for more information. 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 Please see dictated H and P for more details. The way her presentation was, we were concerned about possibility of sepsis. Urine culture and blo od culture were done in the emergency room. The patient was started on IV antibiotics. Ceftriaxone and IV fluid were started. Home medications were continued. Physical therapy was consulted to help ambulate the patient. The patient started improving well and initially her blood pressure was low, w hich came up. Blood culture remained negative and urine culture grew E coli and according to sensiti vity result, it is sensitive to Levaquin, Cipro, but the patient is allergic to Levaquin. It is also sensitive to ceftriaxone that patient is currently receiving and it is sensitive to Augmentin that t he patient will go home with. Overall, her condition has improved. She is feeling much better, back to her normal usual self. In the past, she had seen Dr. Negron, urologist for evaluation of recurre nt UTI and no definite problem was found by her. Final Diagnoses: 1.Acute pyelonephritis. 2.Rule out sepsis. 3.Anemia, unspecified. 4.Volume depletion. 5.Coronary artery disease. 6.Hyperlipidemia. 7.Gastroesophageal reflux disease, Guillain-[place]kin syndrome. JANETTE/MODL Voice ID: [id number] Report ID: [id number]
== END 2019-01-19 10:24 | disposition home or self-care (01) | DRG 872 ==
LOC: ER 13:40 → ERHOLD 16:15 → 2ND 20:00
PROVIDERS: ADMIT Internal Medicine; ATTEND Internal Medicine
DX: A41.9 Sepsis, unspecified organism (principal); N10 Acute pyelonephritis; G61.0 Guillain-Barre syndrome; B96.20 Unspecified Escherichia coli [E. coli] as the cause of diseases classified elsewhere; D64.9 Anemia, unspecified; E86.9 Volume depletion, unspecified; I25.10 Atherosclerotic heart disease of native coronary artery without angina pectoris; E78.5 Hyperlipidemia, unspecified; K21.9 Gastro-esophageal reflux disease without esophagitis
CPT/HCPCS: 36415; 51702; 71045; 76770; 76857; 80048; 81003; 81015; 83605; 84145; 85025; 87040; 87077; 87086; 87088; 87186; 87804; 94760; 96361; 96365; 97161; 99285; J0696; J1650; J7030

== ENCOUNTER 2019-03-27 18:35 | Inpatient (IN) | payer OTHER, MEDICARE ==
--- OUTSIDE RECORDS SUMMARY | 2019-03-27 18:39 | XMS REPORT ---
:1940 [facility] Alexey Santos [address] [place] [id number] Care Team Providers Name Role Phone URBAN CUNNINGHAM Unavailable Unavailable Problems This patient has no known problems. Allergies, Adverse Reactions, Alerts This patient has no known allergies or adverse reactions. Medications This patient has no known medications. Results Test Description Test Time Test Comments Text Results Atomic Results Result Comments MAGNESIUM 2018-03-10 06:04:00 Test Item Value Reference Range Comments MAGNESIUM (BEAKER) (test nvau=510) 2.1 mg/dL 1.6-2.6 BASIC METABOLIC [id number] 06:04:00 Test Item Value Reference Range Comments SODIUM (BEAKER) (test 140 meq/L 136-145 lwfk=589) POTASSIUM (BEAKER) (test 4.1 meq/L 3.5-5.1 yrca=119) CHLORIDE (BEAKER) (test 108 meq/L 98-107 mqjy=587) CO2 (BEAKER) (test 22 meq/L 22-29 bbur=696) BLOOD UREA NITROGEN 11 mg/dL 7-21 (BEAKER) (test tgzb=051) CREATININE (BEAKER) (test 0.79 mg/dL 0.57-1.25 uxql=253) GLUCOSE RANDOM (BEAKER) 106 mg/dL 70-105 (test hqom=661) CALCIUM (BEAKER) (test 8.8 mg/dL 8.4-10.2 mryw=518) EGFR (BEAKER) (test 70 mL/min/1.73 sq m ESTIMATED GFR IS NOT hcpn=1834) ACCURATE CREATININE CLEARANCE IN PREDICTING GLOMERULAR FILTRATION RATE. ESTIMATED GFR IS NOT APPLICABLE FOR DIALYSIS PATIENTS. CBC W/PLT COUNT & AUTO [id number] 05:32:00 Test Item Value Reference Range Comments WHITE BLOOD CELL COUNT (BEAKER) (test ijhe=481) 11.1 K/ L 3.5-10.5 RED BLOOD CELL COUNT (BEAKER) (test ikew=634) 3.21 M/ L 3.93-5.22 HEMOGLOBIN (BEAKER) (test ixau=253) 9.4 GM/DL 11.2-15.7 HEMATOCRIT (BEAKER) (test sgxb=908) 29.4 % 34.1-44.9 MEAN CORPUSCULAR VOLUME (BEAKER) (test dgtx=482) 91.6 fL 79.4-94.8 MEAN CORPUSCULAR HEMOGLOBIN (BEAKER) (test 29.3 pg 25.6-32.2 tuvi=831) MEAN CORPUSCULAR HEMOGLOBIN CONC (BEAKER) (test 32.0 GM/DL 32.2-35.5 lnnd=071) RED CELL DISTRIBUTION WIDTH (BEAKER) (test 14.7 % 11.7-14.4 koao=738) PLATELET COUNT (BEAKER) (test cqzn=402) 260 K/CU MM 150-450 MEAN PLATELET VOLUME (BEAKER) (test rpnw=202) 9.3 fL 9.4-12.3 NUCLEATED RED BLOOD CELLS (BEAKER) (test 0 /100 WBC 0-0 ksgc=671) NEUTROPHILS RELATIVE PERCENT (BEAKER) (test 68 % sdje=684) LYMPHOCYTES RELATIVE PERCENT (BEAKER) (test 15 % wodm=540) MONOCYTES RELATIVE PERCENT (BEAKER) (test 11 % rkyz=070) EOSINOPHILS RELATIVE PERCENT (BEAKER) (test 5 % ovse=970) BASOPHILS RELATIVE PERCENT (BEAKER) (test 1 % ksvr=034) NEUTROPHILS ABSOLUTE COUNT (BEAKER) (test 7.49 K/ L 1.56-6.13 mawv=101) LYMPHOCYTES ABSOLUTE COUNT (BEAKER) (test 1.69 K/ L 1.18-3.74 vuyf=064) MONOCYTES ABSOLUTE COUNT (BEAKER) (test 1.21 K/ L 0.24-0.36 hfug=277) EOSINOPHILS ABSOLUTE COUNT (BEAKER) (test 0.54 K/ L 0.04-0.36 hohn=590) BASOPHILS ABSOLUTE COUNT (BEAKER) (test 0.06 K/ L 0.01-0.08 snqx=718) IMMATURE GRANULOCYTES-RELATIVE PERCENT (BEAKER) 1 % 0-1 (test wias=7203) BASIC METABOLIC [id number] 11:56:00 Test Item Value Reference Range Comments SODIUM (BEAKER) (test 140 meq/L 136-145 vinv=015) POTASSIUM (BEAKER) (test 3.9 meq/L 3.5-5.1 juir=178) CHLORIDE (BEAKER) (test 109 meq/L 98-107 okvc=418) CO2 (BEAKER) (test 21 meq/L 22-29 jigo=494) BLOOD UREA NITROGEN 10 mg/dL 7-21 (BEAKER) (test gcqj=639) CREATININE (BEAKER) (test 0.74 mg/dL 0.57-1.25 ozvd=913) GLUCOSE RANDOM (BEAKER) 115 mg/dL 70-105 (test yjwa=281) CALCIUM (BEAKER) (test 8.5 mg/dL 8.4-10.2 rykn=871) EGFR (BEAKER) (test 76 mL/min/1.73 sq m ESTIMATED GFR IS NOT idnk=9527) ACCURATE CREATININE CLEARANCE IN PREDICTING GLOMERULAR FILTRATION RATE. ESTIMATED GFR IS NOT APPLICABLE FOR DIALYSIS PATIENTS. [id number] 06:20:00 Test Item Value Reference Range Comments MAGNESIUM (BEAKER) (test mclx=546) 2.0 mg/dL 1.6-2.6 CBC W/PLT COUNT & AUTO [id number] 05:46:00 Test Item Value Reference Range Comments WHITE BLOOD CELL COUNT (BEAKER) (test bsdw=119) 11.4 K/ L 3.5-10.5 RED BLOOD CELL COUNT (BEAKER) (test quig=136) 3.20 M/ L 3.93-5.22 HEMOGLOBIN (BEAKER) (test rbxx=601) 9.5 GM/DL 11.2-15.7 HEMATOCRIT (BEAKER) (test qtsf=257) 29.6 % 34.1-44.9 MEAN CORPUSCULAR VOLUME (BEAKER) (test tqeh=876) 92.5 fL 79.4-94.8 MEAN CORPUSCULAR HEMOGLOBIN (BEAKER) (test 29.7 pg 25.6-32.2 ylga=729) MEAN CORPUSCULAR HEMOGLOBIN CONC (BEAKER) (test 32.1 GM/DL 32.2-35.5 czbo=285) RED CELL DISTRIBUTION WIDTH (BEAKER) (test 14.9 % 11.7-14.4 pavd=873) PLATELET COUNT (BEAKER) (test uvde=772) 231 K/CU MM 150-450 MEAN PLATELET VOLUME (BEAKER) (test nzff=586) 9.7 fL 9.4-12.3 NUCLEATED RED BLOOD CELLS (BEAKER) (test 0 /100 WBC 0-0 qbab=190) NEUTROPHILS RELATIVE PERCENT (BEAKER) (test 69 % jvja=539) LYMPHOCYTES RELATIVE PERCENT (BEAKER) (test 14 % esgn=497) MONOCYTES RELATIVE PERCENT (BEAKER) (test 11 % nqqw=595) EOSINOPHILS RELATIVE PERCENT (BEAKER) (test 4 % fpoa=164) BASOPHILS RELATIVE PERCENT (BEAKER) (test 1 % mlof=940) NEUTROPHILS ABSOLUTE COUNT (BEAKER) (test 7.84 K/ L 1.56-6.13 pdga=949) LYMPHOCYTES ABSOLUTE COUNT (BEAKER) (test 1.57 K/ L 1.18-3.74 dmij=582) MONOCYTES ABSOLUTE COUNT (BEAKER) (test 1.29 K/ L 0.24-0.36 lurb=119) EOSINOPHILS ABSOLUTE COUNT (BEAKER) (test 0.49 K/ L 0.04-0.36 bhvk=171) BASOPHILS ABSOLUTE COUNT (BEAKER) (test 0.06 K/ L 0.01-0.08 buim=252) IMMATURE GRANULOCYTES-RELATIVE PERCENT (BEAKER) 1 % 0-1 (test ltre=6262) CBC W/PLT COUNT & AUTO [id number] 05:53:00 Test Item Value Reference Range Comments WHITE BLOOD CELL COUNT (BEAKER) (test geub=412) 12.8 K/ L 3.5-10.5 RED BLOOD CELL COUNT (BEAKER) (test adhl=387) 3.30 M/ L 3.93-5.22 HEMOGLOBIN (BEAKER) (test xpzn=377) 9.7 GM/DL 11.2-15.7 HEMATOCRIT (BEAKER) (test cyrl=050) 30.2 % 34.1-44.9 MEAN CORPUSCULAR VOLUME (BEAKER) (test aygf=587) 91.5 fL 79.4-94.8 MEAN CORPUSCULAR HEMOGLOBIN (BEAKER) (test 29.4 pg 25.6-32.2 rtbm=997) MEAN CORPUSCULAR HEMOGLOBIN CONC (BEAKER) (test 32.1 GM/DL 32.2-35.5 laio=309) RED CELL DISTRIBUTION WIDTH (BEAKER) (test 15.0 % 11.7-14.4 zzba=011) PLATELET COUNT (BEAKER) (test mqog=780) 215 K/CU MM 150-450 MEAN PLATELET VOLUME (BEAKER) (test bzvp=122) 9.6 fL 9.4-12.3 NUCLEATED RED BLOOD CELLS (BEAKER) (test 0 /100 WBC 0-0 qxhs=607) NEUTROPHILS RELATIVE PERCENT (BEAKER) (test 69 % mpph=992) LYMPHOCYTES RELATIVE PERCENT (BEAKER) (test 14 % lerx=280) MONOCYTES RELATIVE PERCENT (BEAKER) (test 12 % sfdr=971) EOSINOPHILS RELATIVE PERCENT (BEAKER) (test 4 % qbzg=916) BASOPHILS RELATIVE PERCENT (BEAKER) (test 1 % asqo=971) NEUTROPHILS ABSOLUTE COUNT (BEAKER) (test 8.80 K/ L 1.56-6.13 vqwp=453) LYMPHOCYTES ABSOLUTE COUNT (BEAKER) (test 1.81 K/ L 1.18-3.74 dhiy=378) MONOCYTES ABSOLUTE COUNT (BEAKER) (test 1.50 K/ L 0.24-0.36 mhql=620) EOSINOPHILS ABSOLUTE COUNT (BEAKER) (test 0.47 K/ L 0.04-0.36 kuet=090) BASOPHILS ABSOLUTE COUNT (BEAKER) (test 0.06 K/ L 0.01-0.08 fcfb=685) IMMATURE GRANULOCYTES-RELATIVE PERCENT (BEAKER) 1 % 0-1 (test sqhm=7211) [id number] 05:51:00 Test Item Value Reference Range Comments MAGNESIUM (BEAKER) (test eqyu=562) 2.3 mg/dL 1.6-2.6 BASIC METABOLIC [id number] 05:51:00 Test Item Value Reference Range Comments SODIUM (BEAKER) (test 138 meq/L 136-145 qirs=549) POTASSIUM (BEAKER) (test 4.3 meq/L 3.5-5.1 xyet=987) CHLORIDE (BEAKER) (test 109 meq/L 98-107 bcqs=914) CO2 (BEAKER) (test 22 meq/L 22-29 tgga=578) BLOOD UREA NITROGEN 14 mg/dL 7-21 (BEAKER) (test ioon=208) CREATININE (BEAKER) (test 0.77 mg/dL 0.57-1.25 hgzd=584) GLUCOSE RANDOM (BEAKER) 114 mg/dL 70-105 (test pcyq=241) CALCIUM (BEAKER) (test 8.4 mg/dL 8.4-10.2 kkax=536) EGFR (BEAKER) (test 72 mL/min/1.73 sq m ESTIMATED GFR IS NOT hupn=3826) ACCURATE CREATININE CLEARANCE IN PREDICTING GLOMERULAR FILTRATION RATE. ESTIMATED GFR IS NOT APPLICABLE FOR DIALYSIS PATIENTS. [id number] 20:38:00 Test Item Value Reference Range Comments MAGNESIUM (BEAKER) (test vkxa=225) 1.8 mg/dL 1.6-2.6 BUN AND [id number] 20:38:00 Test Item Value Reference Range Comments BLOOD UREA NITROGEN 14 mg/dL 7-21 (BEAKER) (test rajk=990) CREATININE (BEAKER) (test 0.82 mg/dL 0.57-1.25 siwr=364) EGFR (BEAKER) (test 67 mL/min/1.73 sq m ESTIMATED GFR IS NOT kewf=0640) ACCURATE CREATININE CLEARANCE IN PREDICTING GLOMERULAR FILTRATION RATE. ESTIMATED GFR IS NOT APPLICABLE FOR DIALYSIS PATIENTS. BASIC METABOLIC [id number] 20:38:00 Test Item Value Reference Range Comments SODIUM (BEAKER) (test 137 meq/L 136-145 ndjn=683) POTASSIUM (BEAKER) (test 3.7 meq/L 3.5-5.1 kghf=999) CHLORIDE (BEAKER) (test 108 meq/L 98-107 gshd=362) CO2 (BEAKER) (test 20 meq/L 22-29 dvrt=547) BLOOD UREA NITROGEN 14 mg/dL 7-21 (BEAKER) (test qyuz=707) CREATININE (BEAKER) (test 0.82 mg/dL 0.57-1.25 paae=669) GLUCOSE RANDOM (BEAKER) 169 mg/dL 70-105 (test vnzn=588) CALCIUM (BEAKER) (test 8.7 mg/dL 8.4-10.2 oews=092) EGFR (BEAKER) (test 67 mL/min/1.73 sq m ESTIMATED GFR IS NOT drpo=1427) ACCURATE CREATININE CLEARANCE IN PREDICTING GLOMERULAR FILTRATION RATE. ESTIMATED GFR IS NOT APPLICABLE FOR DIALYSIS PATIENTS. CBC W/PLT COUNT & AUTO [id number] 20:36:00 Test Item Value Reference Range Comments WHITE BLOOD CELL COUNT (BEAKER) (test wrnd=922) 14.3 K/ L 3.5-10.5 RED BLOOD CELL COUNT (BEAKER) (test msjk=082) 3.43 M/ L 3.93-5.22 HEMOGLOBIN (BEAKER) (test ecci=818) 10.1 GM/DL 11.2-15.7 HEMATOCRIT (BEAKER) (test aqtu=135) 31.3 % 34.1-44.9 MEAN CORPUSCULAR VOLUME (BEAKER) (test cusl=373) 91.3 fL 79.4-94.8 MEAN CORPUSCULAR HEMOGLOBIN (BEAKER) (test 29.4 pg 25.6-32.2 eqdm=109) MEAN CORPUSCULAR HEMOGLOBIN CONC (BEAKER) (test 32.3 GM/DL 32.2-35.5 fzvw=254) RED CELL DISTRIBUTION WIDTH (BEAKER) (test 15.1 % 11.7-14.4 creu=974) PLATELET COUNT (BEAKER) (test gupn=534) 205 K/CU MM 150-450 MEAN PLATELET VOLUME (BEAKER) (test pgts=112) 9.2 fL 9.4-12.3 NUCLEATED RED BLOOD CELLS (BEAKER) (test 0 /100 WBC 0-0 kwke=038) (CELLAVISION MANUAL DIFF)2018-03-07 20:36:00 Test Item Value Reference Range Comments NEUTROPHILS - REL (CELLAVISION)(BEAKER) (test 73 % tyty=7666) LYMPHOCYTES - REL (CELLAVISION)(BEAKER) (test 12 % dtzg=7743) MONOCYTES - REL (CELLAVISION)(BEAKER) (test 9 % wlrn=7538) EOSINOPHILS - REL (CELLAVISION)(BEAKER) (test 5 % rmaz=7687) BASOPHILS - REL (CELLAVISION)(BEAKER) (test 1 % ckul=5446) NEUTROPHILS - ABS (CELLAVISION)(BEAKER) (test 10.44 K/ul 1.56-6.13 bwtf=4633) LYMPHOCYTES - ABS (CELLAVISION)(BEAKER) (test 1.72 K/ul 1.18-3.74 xeng=9028) MONOCYTES - ABS (CELLAVISION)(BEAKER) (test 1.29 K/uL 0.24-0.36 ukrg=2454) EOSINOPHILS - ABS (CELLAVISION)(BEAKER) (test 0.72 K/uL 0.04-0.36 lmtf=2556) BASOPHILS - ABS (CELLAVISION)(BEAKER) (test 0.14 K/uL 0.01-0.08 lnqe=8796) TOTAL COUNTED (BEAKER) (test ivkt=0667) 100 WBC MORPHOLOGY (BEAKER) (test rhof=617) Normal GIANT PLATELETS (BEAKER) (test klgu=964) Present ANISOCYTOSIS (BEAKER) (test tymt=974) 1+ few MICROCYTES (BEAKER) (test kbfw=890) 1+ few POIKILOCYTES (BEAKER) (test ztfq=438) 1+ few ELLIPTOCYTES (BEAKER) (test vimn=296) 1+ few OVALOCYTES (BEAKER) (test pbnf=545) 1+ few TEAR DROP CELLS (BEAKER) (test tkhn=550) 1+ few ARTIFACT (CELLAVISION)(BEAKER) (test shvp=8791) Present PLATELET CONCENTRATION (CELLAVISION)(BEAKER) Adequate (test micy=0266) Received comment: User comments: Slide comments:POCT-GLUCOSE [id number] 11: 56:00 Test Item Value Reference Range Comments POC-GLUCOSE METER (BEAKER) 127 mg/dL 70-110 TESTED AT [address] (test jgmz=0932) [facility] [address] POCT-GLUCOSE [id number] 07:54:00 Test Item Value Reference Range Comments POC-GLUCOSE METER (BEAKER) 146 mg/dL 70-110 TESTED AT [address] (test rvnh=4188) [facility] [address] POCT-GLUCOSE [id number] 21:27:00 Test Item Value Reference Range Comments POC-GLUCOSE METER (BEAKER) 131 mg/dL 70-110 TESTED AT [address] (test ieve=4240) [facility] [address] POCT-GLUCOSE [id number] 17:25:00 Test Item Value Reference Range Comments POC-GLUCOSE METER (BEAKER) 110 mg/dL 70-110 TESTED AT [address] (test yngg=1068) [facility] [address] POCT-GLUCOSE [id number] 11:49:00 Test Item Value Reference Range Comments POC-GLUCOSE METER (BEAKER) 189 mg/dL 70-110 TESTED AT [address] (test dtew=8963) [facility] [address] POCT-GLUCOSE [id number] 08:59:00 Test Item Value Reference Range Comments POC-GLUCOSE METER (BEAKER) 123 mg/dL 70-110 TESTED AT [address] (test llas=4568) [facility] [address] POCT-GLUCOSE [id number] 03:56:00 Test Item Value Reference Range Comments POC-GLUCOSE METER (BEAKER) 128 mg/dL 70-110 TESTED AT [address] (test hsrs=7112) [place] [id number] POCT-GLUCOSE [id number] 17:09:00 Test Item Value Reference Range Comments POC-GLUCOSE METER (BEAKER) 122 mg/dL 70-110 TESTED AT [address] (test skwz=9178) [facility] [address] POCT-GLUCOSE [id number] 12:02:00 Test Item Value Reference Range Comments POC-GLUCOSE METER (BEAKER) 134 mg/dL 70-110 TESTED AT [address] (test qpsm=4831) [facility] [address] POCT-GLUCOSE [id number] 08:54:00 Test Item Value Reference Range Comments POC-GLUCOSE METER (BEAKER) 105 mg/dL 70-110 TESTED AT [address] (test fwtw=1599) [place] [id number] CBC W/PLT COUNT & AUTO [id number] 08:03:00 Test Item Value Reference Range Comments WHITE BLOOD CELL COUNT (BEAKER) (test eztj=553) 13.7 K/ L 3.5-10.5 RED BLOOD CELL COUNT (BEAKER) (test ktaa=765) 3.23 M/ L 3.93-5.22 HEMOGLOBIN (BEAKER) (test dmgc=873) 9.6 GM/DL 11.2-15.7 HEMATOCRIT (BEAKER) (test efch=719) 29.4 % 34.1-44.9 MEAN CORPUSCULAR VOLUME (BEAKER) (test mncw=932) 91.0 fL 79.4-94.8 MEAN CORPUSCULAR HEMOGLOBIN (BEAKER) (test 29.7 pg 25.6-32.2 egvs=991) MEAN CORPUSCULAR HEMOGLOBIN CONC (BEAKER) (test 32.7 GM/DL 32.2-35.5 eokp=573) RED CELL DISTRIBUTION WIDTH (BEAKER) (test 15.3 % 11.7-14.4 qxmy=394) PLATELET COUNT (BEAKER) (test zpbz=266) 121 K/CU MM 150-450 MEAN PLATELET VOLUME (BEAKER) (test zsnt=044) 9.9 fL 9.4-12.3 NUCLEATED RED BLOOD CELLS (BEAKER) (test 0 /100 WBC 0-0 risc=898) NEUTROPHILS RELATIVE PERCENT (BEAKER) (test 76 % oije=401) LYMPHOCYTES RELATIVE PERCENT (BEAKER) (test 12 % vyfn=246) MONOCYTES RELATIVE PERCENT (BEAKER) (test 9 % gaoi=940) EOSINOPHILS RELATIVE PERCENT (BEAKER) (test 2 % cnte=480) BASOPHILS RELATIVE PERCENT (BEAKER) (test 0 % aore=991) NEUTROPHILS ABSOLUTE COUNT (BEAKER) (test 10.46 K/ L 1.56-6.13 uzez=306) LYMPHOCYTES ABSOLUTE COUNT (BEAKER) (test 1.69 K/ L 1.18-3.74 bjdi=677) MONOCYTES ABSOLUTE COUNT (BEAKER) (test 1.19 K/ L 0.24-0.36 pppw=573) EOSINOPHILS ABSOLUTE COUNT (BEAKER) (test 0.23 K/ L 0.04-0.36 ntde=000) BASOPHILS ABSOLUTE COUNT (BEAKER) (test 0.06 K/ L 0.01-0.08 itxj=355) IMMATURE GRANULOCYTES-RELATIVE PERCENT (BEAKER) 1 % 0-1 (test huvj=7510) BASIC METABOLIC [id number] 07:55:00 Test Item Value Reference Range Comments SODIUM (BEAKER) (test 140 meq/L 136-145 awxp=654) POTASSIUM (BEAKER) (test 4.1 meq/L 3.5-5.1 bcsw=812) CHLORIDE (BEAKER) (test 112 meq/L 98-107 pkcq=240) CO2 (BEAKER) (test 18 meq/L 22-29 erpt=955) BLOOD UREA NITROGEN 15 mg/dL 7-21 (BEAKER) (test fzuk=609) CREATININE (BEAKER) (test 0.78 mg/dL 0.57-1.25 rhyd=894) GLUCOSE RANDOM (BEAKER) 87 mg/dL 70-105 (test yedz=920) CALCIUM (BEAKER) (test 8.2 mg/dL 8.4-10.2 juxf=929) EGFR (BEAKER) (test 71 mL/min/1.73 sq m ESTIMATED GFR IS NOT wwsq=0665) ACCURATE CREATININE CLEARANCE IN PREDICTING GLOMERULAR FILTRATION RATE. ESTIMATED GFR IS NOT APPLICABLE FOR DIALYSIS PATIENTS. [id number] 07:51:00 Test Item Value Reference Range Comments PROTIME (BEAKER) (test kmjt=019) 15.3 seconds 11.7-14.7 INR (BEAKER) (test gxyo=941) 1.2 <=5.9 PARTIAL THROMBOPLASTIN TIME (BEAKER) (test 33.7 seconds 22.5-36.0 mywo=768) RECOMMENDED COUMADIN/WARFARIN INR THERAPY RANGESSTANDARD DOSE: 2.0 - 3.0 Includes: PROPHYLAXIS forvenous thrombosis, systemic embolization; TREATMENT for venous thrombosis and/or pulmonary embolus.HIGH RISK: Target INR is 2.5-3.5 for patients with mechanical heart valves.POCT-GLUCOSE [id number] 22:08:00 Test Item Value Reference Range Comments POC-GLUCOSE METER (BEAKER) 118 mg/dL 70-110 TESTED AT [facility] [address] [facility] (test zjfk=3008) [place] [id number] POCT-GLUCOSE [id number] 17:32:00 Test Item Value Reference Range Comments POC-GLUCOSE METER (BEAKER) 104 mg/dL 70-110 TESTED AT [facility] [address] [facility] (test ffrw=4916) [facility] [address] URINALYSIS W/ REFLEX URINE [id number] 17:06:00 Test Item Value Reference Range Comments COLOR (BEAKER) (test pdzx=880) Yellow CLARITY (BEAKER) (test fhah=886) Hazy SPECIFIC GRAVITY UA (BEAKER) (test qqpi=481) 1.019 1.001-1.035 PH UA (BEAKER) (test fpet=300) 5.5 5.0-8.0 PROTEIN UA (BEAKER) (test xjcr=831) 20 mg/dL Negative GLUCOSE UA (BEAKER) (test akkv=037) Negative Negative KETONES UA (BEAKER) (test uuyv=043) 20 mg/dL Negative BILIRUBIN UA (BEAKER) (test lnni=759) Negative Negative BLOOD UA (BEAKER) (test dynm=357) Negative Negative NITRITE UA (BEAKER) (test myvf=869) Negative Negative LEUKOCYTE ESTERASE UA (BEAKER) (test ndpu=698) Moderate Negative UROBILINOGEN UA (BEAKER) (test nyux=728) 0.2 mg/dL 0.2-1.0 RBC UA (BEAKER) (test ppwk=366) 3 /HPF WBC UA (BEAKER) (test jckc=449) 23 /HPF MUCUS (BEAKER) (test aqdl=2434) Many SQUAMOUS EPITHELIAL (BEAKER) (test wrbr=526) 1 /HPF HYALINE CASTS (BEAKER) (test szgw=783) 4 /LPF SOURCE(BEAKER) (test mivz=1227) RAD, CHEST, 1 VIEW, NON [id number] 11:31:00Reason for exam:->pl effusion with decrease hemoglobinShould [...] evidence of postoperative complication. Signed: Hiro Yeung MDRort Verified Date/Time: 03/04/2018 11:31:54 Reading Location: [facility] B1 C013X Ortho Consult Reading Room POCT-LACTIC ACID, [id number] 08:21: 00 Test Item Value Reference Range Comments POC-LACTIC ACID, ARTERIAL 0.5 mmol/L 0.4-1.3 TESTED AT [facility] [address] (BEAKER) (test hvev=6747) [facility] [address] POCT-BLOOD GASES, [id number] 08:21:00 Test Item Value Reference Range Comments TEMP, CELSIUS-POC (BEAKER) 37.0 (test ahyc=3109) FIO2-POC (BEAKER) (test TESTED AT [address] kmke=7693) [place] [address] PH, ARTERIAL-POC (BEAKER) 7.442 7.350-7.450 (test mqci=8995) PCO2, ARTERIAL-POC (BEAKER) 30.5 mm Hg 35.0-45.0 (test frfw=2468) PO2, ARTERIAL-POC (BEAKER) 77.0 mm Hg 80.0-90.0 (test qicb=6708) SO2, ARTERIAL-POC (BEAKER) 96.0 % 96.0-97.0 (test uabz=4013) HCO3, ARTERIAL-POC (BEAKER) 20.8 meq/L 21.0-29.0 (test iyyx=1331) BASE EXCESS, ARTERIAL-POC -3.0 meq/L -2.0-3.0 (BEAKER) (test hneg=1651) [id number] 08:21:00 Test Item Value Reference Range Comments POC-SODIUM (BEAKER) (test 142 meq/L 135-148 TESTED AT [address] eagt=7622) [place] [address] [id number] 08:21:00 Test Item Value Reference Range Comments POC-POTASSIUM (BEAKER) (test 3.7 meq/L 3.6-5.5 TESTED AT [address] alkt=6700) [place] [address] [id number] 08:21:00 Test Item Value Reference Range Comments POC-GLUCOSE (BEAKER) (test 98 mg/dL 70-110 TESTED AT [address] cwvy=9469) [place] [address] POCT-CALCIUM [id number] 08:21:00 Test Item Value Reference Range Comments POC-CALCIUM IONIZED (BEAKER) 1.19 mmol/L 1.12-1.27 TESTED AT [address] (test lknc=3670) [place] [address] [id number] 08:21:00 Test Item Value Reference Range Comments POC-HEMATOCRIT (BEAKER) (test 20 % 36-45 TESTED AT [address] yrkz=8491) [place] [address] [id number] 08:21:00 Test Item Value Reference Range Comments POC-HEMOGLOBIN (BEAKER) 6.8 g/dL 12.0-15.0 TESTED AT [place] [id number] [facility] (test hvua=1237) [facility] [id number] AT [place] [id number] [facility] [address] LACTIC ACID, VENOUS, WHOLE [id number] 08:07:00 Test Item Value Reference Range Comments LACTATE BLOOD VENOUS (2) (BEAKER) (test 0.8 mmol/L 0.5-2.2 wcpn=7827) Effective 09/03/2015: Units/Reference Range ChangeNew: 0.5-2.2 mmol/L Previous: 5 -20 mg/dLBASIC METABOLIC [id number] 07:43:00 Test Item Value Reference Range Comments SODIUM (BEAKER) (test 140 meq/L 136-145 epno=857) POTASSIUM (BEAKER) (test 3.8 meq/L 3.5-5.1 fqts=736) CHLORIDE (BEAKER) (test 113 meq/L 98-107 movf=681) CO2 (BEAKER) (test 22 meq/L 22-29 bzwm=603) BLOOD UREA NITROGEN 16 mg/dL 7-21 (BEAKER) (test qegn=588) CREATININE (BEAKER) (test 0.84 mg/dL 0.57-1.25 rbdy=763) GLUCOSE RANDOM (BEAKER) 97 mg/dL 70-105 (test kuan=828) CALCIUM (BEAKER) (test 7.9 mg/dL 8.4-10.2 uhul=694) EGFR (BEAKER) (test 66 mL/min/1.73 sq m ESTIMATED GFR IS NOT qtoj=7221) ACCURATE CREATININE CLEARANCE IN PREDICTING GLOMERULAR FILTRATION RATE. ESTIMATED GFR IS NOT APPLICABLE FOR DIALYSIS PATIENTS. [id number] 07:32:00 Test Item Value Reference Range Comments PHOSPHORUS (BEAKER) (test fazy=451) 2.1 mg/dL 2.3-4.7 [id number] 07:32:00 Test Item Value Reference Range Comments MAGNESIUM (BEAKER) (test kqrk=439) 2.0 mg/dL 1.6-2.6 CBC W/PLT COUNT & AUTO [id number] 07:11:00 Test Item Value Reference Range Comments WHITE BLOOD CELL COUNT (BEAKER) (test oekx=167) 10.0 K/ L 3.5-10.5 RED BLOOD CELL COUNT (BEAKER) (test fwlk=939) 2.47 M/ L 3.93-5.22 HEMOGLOBIN (BEAKER) (test qlph=755) 7.3 GM/DL 11.2-15.7 HEMATOCRIT (BEAKER) (test yjxf=477) 22.7 % 34.1-44.9 MEAN CORPUSCULAR VOLUME (BEAKER) (test rfpf=417) 91.9 fL 79.4-94.8 MEAN CORPUSCULAR HEMOGLOBIN (BEAKER) (test 29.6 pg 25.6-32.2 xqdk=468) MEAN CORPUSCULAR HEMOGLOBIN CONC (BEAKER) (test 32.2 GM/DL 32.2-35.5 fmuo=180) RED CELL DISTRIBUTION WIDTH (BEAKER) (test 14.5 % 11.7-14.4 xavo=400) PLATELET COUNT (BEAKER) (test chqd=045) 91 K/CU MM 150-450 MEAN PLATELET VOLUME (BEAKER) (test qdix=969) 10.3 fL 9.4-12.3 NUCLEATED RED BLOOD CELLS (BEAKER) (test 0 /100 WBC 0-0 ksui=408) NEUTROPHILS RELATIVE PERCENT (BEAKER) (test 71 % avnn=640) LYMPHOCYTES RELATIVE PERCENT (BEAKER) (test 16 % elzr=885) MONOCYTES RELATIVE PERCENT (BEAKER) (test 11 % iigj=613) EOSINOPHILS RELATIVE PERCENT (BEAKER) (test 2 % ahab=950) BASOPHILS RELATIVE PERCENT (BEAKER) (test 0 % hhhm=064) NEUTROPHILS ABSOLUTE COUNT (BEAKER) (test 7.06 K/ L 1.56-6.13 yekw=958) LYMPHOCYTES ABSOLUTE COUNT (BEAKER) (test 1.56 K/ L 1.18-3.74 makx=749) MONOCYTES ABSOLUTE COUNT (BEAKER) (test kuwz=148) 1.07 K/ L 0.24-0.36 EOSINOPHILS ABSOLUTE COUNT (BEAKER) (test 0.18 K/ L 0.04-0.36 rqxf=008) BASOPHILS ABSOLUTE COUNT (BEAKER) (test nfrt=413) 0.04 K/ L 0.01-0.08 IMMATURE GRANULOCYTES-RELATIVE PERCENT (BEAKER) 1 % 0-1 (test ggnt=8387) POCT-GLUCOSE [id number] 22:37:00 Test Item Value Reference Range Comments POC-GLUCOSE METER (BEAKER) 135 mg/dL 70-110 TESTED AT [address] (test hyzj=6249) [place] [address] POCT-GLUCOSE [id number] 11:26:00 Test Item Value Reference Range Comments POC-GLUCOSE METER (BEAKER) 178 mg/dL 70-110 TESTED AT [address] (test wlrk=4326) [place] [address] POCT-GLUCOSE [id number] 09:07:00 Test Item Value Reference Range Comments POC-GLUCOSE METER (BEAKER) 105 mg/dL 70-110 TESTED AT [address] (test oiib=8430) [place] [address] [id number] 08:52:00 Test Item Value Reference Range Comments PARTIAL THROMBOPLASTIN TIME (BEAKER) (test 36.1 seconds 22.5-36.0 ehkm=469) PROTHROMBIN [id number] 08:51:00 Test Item Value Reference Range Comments PROTIME (BEAKER) (test jukt=775) 16.5 seconds 11.7-14.7 INR (BEAKER) (test kuwd=336) 1.3 <=5.9 RECOMMENDED COUMADIN/WARFARIN INR THERAPY RANGESSTANDARD DOSE: 2.0 - 3.0 Includes: PROPHYLAXIS forvenous thrombosis, systemic embolization; TREATMENT for venous thrombosis and/or pulmonary embolus.HIGH RISK: Target INR is 2.5-3.5 for patients with mechanical heart valves.POCT-GLUCOSE [id number] 06:45:00 Test Item Value Reference Range Comments POC-GLUCOSE METER (BEAKER) 97 mg/dL 70-110 TESTED AT [address] (test wmea=3668) [place] [address] POCT-GLUCOSE [id number] 06:28:00 Test Item Value Reference Range Comments POC-GLUCOSE METER (BEAKER) 118 mg/dL 70-110 TESTED AT [address] (test girf=8917) [place] [address] [id number] 04:56:00 Test Item Value Reference Range Comments PHOSPHORUS (BEAKER) (test jmxn=079) 2.7 mg/dL 2.3-4.7 [id number] 04:56:00 Test Item Value Reference Range Comments MAGNESIUM (BEAKER) (test uala=962) 2.2 mg/dL 1.6-2.6 BASIC METABOLIC [id number] 04:56:00 Test Item Value Reference Range Comments SODIUM (BEAKER) (test 142 meq/L 136-145 dnrz=749) POTASSIUM (BEAKER) (test 4.5 meq/L 3.5-5.1 sylp=920) CHLORIDE (BEAKER) (test 115 meq/L 98-107 rsuf=438) CO2 (BEAKER) (test 20 meq/L 22-29 rvrc=821) BLOOD UREA NITROGEN 16 mg/dL 7-21 (BEAKER) (test kynb=938) CREATININE (BEAKER) (test 0.81 mg/dL 0.57-1.25 akzo=883) GLUCOSE RANDOM (BEAKER) 118 mg/dL 70-105 (test svih=349) CALCIUM (BEAKER) (test 8.3 mg/dL 8.4-10.2 tctu=040) EGFR (BEAKER) (test 68 mL/min/1.73 sq m ESTIMATED GFR IS NOT uskd=6013) ACCURATE CREATININE CLEARANCE IN PREDICTING GLOMERULAR FILTRATION RATE. ESTIMATED GFR IS NOT APPLICABLE FOR DIALYSIS PATIENTS. Specimen slightly ictericLACTIC ACID, ARTERIAL, WHOLE [id number] 04:39:00 Test Item Value Reference Range Comments LACTATE BLOOD ARTERIAL (2) (BEAKER) (test 1.8 mmol/L 0.5-2.2 kitl=0849) Effective 09/03/2015: Units/Reference Range ChangeNew: 0.5-2.2 mmol/L Previous: 5 -20 mg/dLOXYGEN SATURATION, [id number] 04:23:00 Test Item Value Reference Range Comments O2 SATURATION (MEASURED) (BEAKER) (test blnm=9267) 71.5 % CBC (HEMOGRAM ONLY)2018-03-03 04:20:00 Test Item Value Reference Range Comments WHITE BLOOD CELL COUNT (BEAKER) (test lmpb=809) 14.4 K/ L 3.5-10.5 RED BLOOD CELL COUNT (BEAKER) (test qqry=072) 2.79 M/ L 3.93-5.22 HEMOGLOBIN (BEAKER) (test iaye=272) 8.4 GM/DL 11.2-15.7 HEMATOCRIT (BEAKER) (test vrpg=238) 25.4 % 34.1-44.9 MEAN CORPUSCULAR VOLUME (BEAKER) (test zmsc=405) 91.0 fL 79.4-94.8 MEAN CORPUSCULAR HEMOGLOBIN (BEAKER) (test 30.1 pg 25.6-32.2 hxya=784) MEAN CORPUSCULAR HEMOGLOBIN CONC (BEAKER) (test 33.1 GM/DL 32.2-35.5 pdon=364) RED CELL DISTRIBUTION WIDTH (BEAKER) (test 14.2 % 11.7-14.4 jdml=706) PLATELET COUNT (BEAKER) (test ujed=924) 96 K/CU MM 150-450 MEAN PLATELET VOLUME (BEAKER) (test qstn=467) 9.6 fL 9.4-12.3 NUCLEATED RED BLOOD CELLS (BEAKER) (test 0 /100 WBC 0-0 wjee=239) BLOOD GAS, [id number] 04:14:00 Test Item Value Reference Range Comments PH ARTERIAL (BEAKER) (test fudv=078) 7.36 7.35-7.45 PCO2 ARTERIAL (BEAKER) (test ysqx=783) 42 mmHg 35-45 PO2 ARTERIAL (BEAKER) (test atpt=085) 89 mmHg 80-90 O2 SATURATION ARTERIAL (BEAKER) (test ijye=772) 96.2 % 96.0-97.0 HCO3 ARTERIAL (BEAKER) (test pcdb=185) 23 mmol/L 21-29 BASE EXCESS ARTERIAL (BEAKER) (test rbvy=762) -1.8 mmol/L -2.0-3.0 PATIENT TEMPERATURE (BEAKER) (test mqju=7449) 37.8 C FIO2 (BEAKER) (test soyf=4808) 28.0 % CALCIUM, [id number] 04:14:00 Test Item Value Reference Range Comments CALCIUM IONIZED (BEAKER) (test iynn=792) 1.13 mmol/L 1.12-1.27 PH, BLOOD (BEAKER) (test ptpb=4963) 7.37 Check serum Ionized Calcium level after 4 hours after IV Calcium replacement.RAD , CHEST, 1 VIEW, NON [id number] 04:03:00while patient is intubated or has chest [...] Fonseca Verified Date/Time: 03/03/2018 04:03:38 Reading Location: [address] Transitional Reading Room CBC W/PLT COUNT & AUTO [id number] 03: 23:00 Test Item Value Reference Range Comments WHITE BLOOD CELL COUNT (BEAKER) (test emqs=260) 17.2 K/ L 3.5-10.5 RED BLOOD CELL COUNT (BEAKER) (test rvia=941) 2.67 M/ L 3.93-5.22 HEMOGLOBIN (BEAKER) (test qybv=986) 8.2 GM/DL 11.2-15.7 HEMATOCRIT (BEAKER) (test rorl=812) 24.8 % 34.1-44.9 MEAN CORPUSCULAR VOLUME (BEAKER) (test mxsr=005) 92.9 fL 79.4-94.8 MEAN CORPUSCULAR HEMOGLOBIN (BEAKER) (test 30.7 pg 25.6-32.2 krad=402) MEAN CORPUSCULAR HEMOGLOBIN CONC (BEAKER) (test 33.1 GM/DL 32.2-35.5 jwkx=949) RED CELL DISTRIBUTION WIDTH (BEAKER) (test 14.3 % 11.7-14.4 bjnq=153) PLATELET COUNT (BEAKER) (test ikly=162) 104 K/CU MM 150-450 MEAN PLATELET VOLUME (BEAKER) (test mhfx=775) 9.4 fL 9.4-12.3 NUCLEATED RED BLOOD CELLS (BEAKER) (test 0 /100 WBC 0-0 vore=423) (CELLAVISION MANUAL DIFF)2018-03-03 03:23:00 Test Item Value Reference Range Comments NEUTROPHILS - REL (CELLAVISION)(BEAKER) (test 88 % uywy=5686) LYMPHOCYTES - REL (CELLAVISION)(BEAKER) (test 5 % dtdn=6820) MONOCYTES - REL (CELLAVISION)(BEAKER) (test 5 % tsea=8533) BANDS - REL (CELLAVISION)(BEAKER) (test 2 % 0-10 xapw=8799) NEUTROPHILS - ABS (CELLAVISION)(BEAKER) (test 15.14 K/ul 1.56-6.13 dapm=7581) LYMPHOCYTES - ABS (CELLAVISION)(BEAKER) (test 0.86 K/ul 1.18-3.74 ynbp=9296) MONOCYTES - ABS (CELLAVISION)(BEAKER) (test 0.86 K/uL 0.24-0.36 gfti=8694) BANDS - ABS (CELLAVISION)(BEAKER) (test 0.34 K/uL 0.00-0.80 lizq=4572) TOTAL COUNTED (BEAKER) (test awjr=1645) 100 RBC MORPHOLOGY (BEAKER) (test sbak=912) Normal WBC MORPHOLOGY (BEAKER) (test nuge=244) Normal PLT MORPHOLOGY (BEAKER) (test muso=138) Normal GIANT PLATELETS (BEAKER) (test mepi=599) Present ANISOCYTOSIS (BEAKER) (test szau=564) 2+ moderate MICROCYTES (BEAKER) (test igro=371) 2+ moderate POIKILOCYTES (BEAKER) (test ehzk=365) 2+ moderate OVALOCYTES (BEAKER) (test rdpj=007) 1+ few MICAH CELLS (BEAKER) (test thyc=545) 2+ moderate PLATELET CONCENTRATION (CELLAVISION)(BEAKER) Decreased (test xixy=0913) Received comment: User comments: Slide comments:LACTIC ACID, ARTERIAL, WHOLE [id number] 03:08:00 Test Item Value Reference Range Comments LACTATE BLOOD ARTERIAL (2) (BEAKER) (test 3.4 mmol/L 0.5-2.2 uyrf=7636) Effective 09/03/2015: Units/Reference Range ChangeNew: 0.5-2.2 mmol/L Previous: 5 -20 mg/dLFor occult hypoperfusionBLOOD GAS, [id number] 02:48:00 Test Item Value Reference Range Comments PH ARTERIAL (BEAKER) (test opyo=358) 7.30 7.35-7.45 PCO2 ARTERIAL (BEAKER) (test ewbl=767) 47 mmHg 35-45 PO2 ARTERIAL (BEAKER) (test gspw=057) 113 mmHg 80-90 O2 SATURATION ARTERIAL (BEAKER) (test iwpy=782) 97.6 % 96.0-97.0 HCO3 ARTERIAL (BEAKER) (test znhz=186) 23 mmol/L 21-29 BASE EXCESS ARTERIAL (BEAKER) (test bnmx=066) -3.5 mmol/L -2.0-3.0 PATIENT TEMPERATURE (BEAKER) (test kvva=7925) 37.5 C FIO2 (BEAKER) (test izit=6887) 40.0 % GLUCOSE-STAT [id number] 02:48:00 Test Item Value Reference Range Comments GLUCOSE RANDOM (BEAKER) (test jtxx=955) 126 mg/dL 70-110 HGB/HCT (H&H) - STAT [id number] 02:48:00 Test Item Value Reference Range Comments HEMOGLOBIN (BEAKER) (test bahy=701) 8.6 g/dL 12.0-15.0 HEMATOCRIT (BEAKER) (test cxgj=785) 25.0 % 36.0-45.0 OXYGEN SATURATION, [id number] 02:47:00 Test Item Value Reference Range Comments O2 SATURATION (MEASURED) (BEAKER) (test heps=6915) 62.4 % For occult hypoperfusionSODIUM NA-STAT [id number] 02:47:00 Test Item Value Reference Range Comments SODIUM (BEAKER) (test nnbs=401) 141 meq/L 135-148 POTASSIUM-STAT [id number] 02:47:00 Test Item Value Reference Range Comments POTASSIUM (BEAKER) (test jojn=597) 4.8 meq/L 3.6-5.5 RAD, ABDOMEN/KUB, 1 VIEW [id number] 02:10:00Reason for exam:->distended stomach on CxrFINAL REPORT [...] of free intraperitoneal air. Signed: Eli Gu Verified Date/Time: 03/03/2018 02:10:33 Reading Location : [address] Reading Room RAD, CHEST, 1 VIEW, NON [id number] 02:08 :00Reason for exam:->hypotensionFINAL REPORT CLINICAL INDICATION: Hypotension Comparison: 03/02/2018 The cardiomediastinal contours are stable. The lung volumes remain low. Patchy bibasilar parenchymal opacities are similar to previous. There is no pneumothorax. An enteric tube tip overlies the left upper quadrant. The stomach is distended with gas. Support lines are otherwise stable. Signed: Eli Gu Verified Date /Time: 03/03/2018 02:08:45 Reading Location: [address] Reading Room PROTHROMBIN TIME/[id number] 01:44:00 Test Item Value Reference Range Comments PROTIME (BEAKER) (test haga=348) 18.1 seconds 11.7-14.7 INR (BEAKER) (test ttkw=063) 1.5 <=5.9 RECOMMENDED COUMADIN/WARFARIN INR THERAPY RANGESSTANDARD DOSE: 2.0 - 3.0 Includes: PROPHYLAXIS forvenous thrombosis, systemic embolization; TREATMENT for venous thrombosis and/or pulmonary embolus.HIGH RISK: Target INR is 2.5-3.5 for patients with mechanical heart valves.[id number] 01:44:00 Test Item Value Reference Range Comments FIBRINOGEN LEVEL (BEAKER) (test etyz=155) 208 mg/dl 225-434 [id number] 01:44:00 Test Item Value Reference Range Comments PARTIAL THROMBOPLASTIN TIME (BEAKER) (test 31.7 seconds 22.5-36.0 pkzq=511) LACTIC ACID, ARTERIAL, WHOLE [id number] 01:39:00 Test Item Value Reference Range Comments LACTATE BLOOD ARTERIAL (2) (BEAKER) (test 2.7 mmol/L 0.5-2.2 atuh=2853) Effective 09/03/2015: Units/Reference Range ChangeNew: 0.5-2.2 mmol/L Previous: 5 -20 mg/dLFor occult [id number] 01:38:00 Test Item Value Reference Range Comments MAGNESIUM (BEAKER) (test sspr=048) 2.5 mg/dL 1.6-2.6 Check Serum Magnesium level 2 hours after IV magnesium replacement.POCT-GLUCOSE [id number] 01:24:00 Test Item Value Reference Range Comments POC-GLUCOSE METER (BEAKER) 155 mg/dL 70-110 TESTED AT [facility] [address] [place] [address] (test hwiq=5809) [facility] [address] PLATELET [id number] 01:24:00 Test Item Value Reference Range Comments PLATELET COUNT (BEAKER) (test rhuh=955) 98 K/CU MM 150-450 OXYGEN SATURATION, [id number] 01:21:00 Test Item Value Reference Range Comments O2 SATURATION (MEASURED) (BEAKER) (test epvr=7524) 66.0 % For occult hypoperfusionHGB/HCT (H&H) - STAT [id number] 00:47:00 Test Item Value Reference Range Comments HEMOGLOBIN (BEAKER) (test pzqd=372) 7.4 g/dL 12.0-15.0 HEMATOCRIT (BEAKER) (test nhlc=357) 22.0 % 36.0-45.0 GLUCOSE-STAT [id number] 00:47:00 Test Item Value Reference Range Comments GLUCOSE RANDOM (BEAKER) (test xuod=504) 155 mg/dL 70-110 [id number] 00:44:00 Test Item Value Reference Range Comments HEMOGLOBIN (BEAKER) (test udxv=913) 6.9 GM/DL 11.2-15.7 For hypotensionPOCT-GLUCOSE [id number] 00:33:00 Test Item Value Reference Range Comments POC-GLUCOSE METER (BEAKER) 172 mg/dL 70-110 TESTED AT [facility] [address] [facility] (test clcs=0363) [facility] [address] BLOOD GAS, [id number] 00:21:00 Test Item Value Reference Range Comments PH ARTERIAL (BEAKER) (test uqcs=172) 7.43 7.35-7.45 PCO2 ARTERIAL (BEAKER) (test rhck=089) 34 mmHg 35-45 PO2 ARTERIAL (BEAKER) (test vefl=360) 143 mmHg 80-90 O2 SATURATION ARTERIAL (BEAKER) (test ssjd=834) 98.9 % 96.0-97.0 HCO3 ARTERIAL (BEAKER) (test vvdg=679) 22 mmol/L 21-29 BASE EXCESS ARTERIAL (BEAKER) (test ehss=608) -1.9 mmol/L -2.0-3.0 PATIENT TEMPERATURE (BEAKER) (test vuqx=6815) 36.7 C FIO2 (BEAKER) (test aijw=2355) 40.0 % GLUCOSE-STAT [id number] 00:21:00 Test Item Value Reference Range Comments GLUCOSE RANDOM (BEAKER) (test opkn=964) 153 mg/dL 70-110 HGB/HCT (H&H) - STAT [id number] 00:21:00 Test Item Value Reference Range Comments HEMOGLOBIN (BEAKER) (test texl=855) 7.2 g/dL 12.0-15.0 HEMATOCRIT (BEAKER) (test lpvq=931) 21.0 % 36.0-45.0 SODIUM NA-STAT [id number] 00:20:00 Test Item Value Reference Range Comments SODIUM (BEAKER) (test oeei=926) 139 meq/L 135-148 POTASSIUM-STAT [id number] 00:20:00 Test Item Value Reference Range Comments POTASSIUM (BEAKER) (test icbx=658) 3.8 meq/L 3.6-5.5 [id number] 23:18:00 Test Item Value Reference Range Comments POTASSIUM (BEAKER) (test zyej=831) 3.9 meq/L 3.5-5.1 [id number] 23:18:00 Test Item Value Reference Range Comments GLUCOSE RANDOM (BEAKER) (test diop=956) 175 mg/dL 70-105 [id number] 22:22:00 Test Item Value Reference Range Comments PHOSPHORUS (BEAKER) (test gydn=348) 3.6 mg/dL 2.3-4.7 [id number] 22:12:00 Test Item Value Reference Range Comments FIBRINOGEN LEVEL (BEAKER) (test mrjf=613) 206 mg/dl 225-434 CALCIUM, [id number] 21:57:00 Test Item Value Reference Range Comments CALCIUM IONIZED (BEAKER) (test quqq=012) 1.07 mmol/L 1.12-1.27 PH, BLOOD (BEAKER) (test qveh=9465) 7.39 [id number] 21:31:00 Test Item Value Reference Range Comments MAGNESIUM (BEAKER) (test smlz=403) 2.0 mg/dL 1.6-2.6 Check Serum Magnesium level 2 hours after IV magnesium replacement.BASIC METABOLIC [id number] 21:31:00 Test Item Value Reference Range Comments SODIUM (BEAKER) (test 142 meq/L 136-145 hoxg=623) POTASSIUM (BEAKER) (test 3.9 meq/L 3.5-5.1 nwth=629) CHLORIDE (BEAKER) (test 111 meq/L 98-107 vppr=139) CO2 (BEAKER) (test 23 meq/L 22-29 dozu=713) BLOOD UREA NITROGEN 17 mg/dL 7-21 (BEAKER) (test tpoe=120) CREATININE (BEAKER) (test 0.80 mg/dL 0.57-1.25 cabw=407) GLUCOSE RANDOM (BEAKER) 177 mg/dL 70-105 (test bgul=610) CALCIUM (BEAKER) (test 8.5 mg/dL 8.4-10.2 qdqd=742) EGFR (BEAKER) (test 69 mL/min/1.73 sq m ESTIMATED GFR IS NOT otda=4727) ACCURATE CREATININE CLEARANCE IN PREDICTING GLOMERULAR FILTRATION RATE. ESTIMATED GFR IS NOT APPLICABLE FOR DIALYSIS PATIENTS. Check Serum Magnesium level 2 hours after IV magnesium replacement.LACTATE DEHYDROGENASE (LDH)2018-03-02 21:31:00 Test Item Value Reference Range Comments LACTATE DEHYDROGENASE (BEAKER) (test bkcg=243) 224 U/L 125-220 Check Serum Magnesium level 2 hours after IV magnesium replacement.LACTIC ACID, ARTERIAL, WHOLE [id number] 21:27:00 Test Item Value Reference Range Comments LACTATE BLOOD ARTERIAL (2) (BEAKER) (test 1.5 mmol/L 0.5-2.2 zdjd=6386) Effective 09/03/2015: Units/Reference Range ChangeNew: 0.5-2.2 mmol/L Previous: 5 -20 mg/dLFor occult hypoperfusionOXYGEN SATURATION, [id number] 21:16:00 Test Item Value Reference Range Comments O2 SATURATION (MEASURED) (BEAKER) (test mqcy=4961) 73.4 % For occult hypoperfusionBLOOD GAS, [id number] 21:14:00 Test Item Value Reference Range Comments PH ARTERIAL (BEAKER) (test xzko=425) 7.39 7.35-7.45 PCO2 ARTERIAL (BEAKER) (test rfkk=402) 37 mmHg 35-45 PO2 ARTERIAL (BEAKER) (test bmsc=685) 116 mmHg 80-90 O2 SATURATION ARTERIAL (BEAKER) (test rlmk=952) 98.4 % 96.0-97.0 HCO3 ARTERIAL (BEAKER) (test rdxf=715) 23 mmol/L 21-29 BASE EXCESS ARTERIAL (BEAKER) (test pmob=662) -2.7 mmol/L -2.0-3.0 PATIENT TEMPERATURE (BEAKER) (test paoh=2467) 35.1 C FIO2 (BEAKER) (test soxu=8209) 40.0 % GLUCOSE-STAT [id number] 21:14:00 Test Item Value Reference Range Comments GLUCOSE RANDOM (BEAKER) (test ngdu=765) 172 mg/dL 70-110 HGB/HCT (H&H) - STAT [id number] 21:14:00 Test Item Value Reference Range Comments HEMOGLOBIN (BEAKER) (test scmp=520) 8.8 g/dL 12.0-15.0 HEMATOCRIT (BEAKER) (test ixbv=948) 26.0 % 36.0-45.0 SODIUM NA-STAT [id number] 21:12:00 Test Item Value Reference Range Comments SODIUM (BEAKER) (test tgpr=998) 139 meq/L 135-148 POTASSIUM-STAT [id number] 21:12:00 Test Item Value Reference Range Comments POTASSIUM (BEAKER) (test vtsh=242) 3.7 meq/L 3.6-5.5 RAD, CHEST, 1 VIEW, NON [id number] 19:49:00Reason for exam:->s/p CABGShould this be performed [...] projects in the SVC. Signed: Parveen Mathews MDReport Verified Date/ Time: 03/02/2018 19:49:48 Reading Location: [facility] Reading Room [id number] 19:27:00 Test Item Value Reference Range Comments POTASSIUM (BEAKER) (test hikf=341) 4.6 meq/L 3.5-5.1 [id number] 19:27:00 Test Item Value Reference Range Comments MAGNESIUM (BEAKER) (test chse=667) 2.1 mg/dL 1.6-2.6 [id number] 19:27:00 Test Item Value Reference Range Comments PHOSPHORUS (BEAKER) (test snor=140) 3.1 mg/dL 2.3-4.7 [id number] 19:25:00 Test Item Value Reference Range Comments SODIUM (BEAKER) (test xney=708) 140 meq/L 136-145 [id number] 19:25:00 Test Item Value Reference Range Comments GLUCOSE RANDOM (BEAKER) (test wqxw=088) 143 mg/dL 70-105 LACTIC ACID, ARTERIAL, WHOLE [id number] 19:23:00 Test Item Value Reference Range Comments LACTATE BLOOD ARTERIAL (2) (BEAKER) (test 1.0 mmol/L 0.5-2.2 zffb=6823) Effective 09/03/2015: Units/Reference Range ChangeNew: 0.5-2.2 mmol/L Previous: 5 -20 mg/dLPT/[id number] 19:12:00 Test Item Value Reference Range Comments PROTIME (BEAKER) (test aldd=865) 18.9 seconds 11.7-14.7 INR (BEAKER) (test qfzy=699) 1.6 <=5.9 PARTIAL THROMBOPLASTIN TIME (BEAKER) (test 31.6 seconds 22.5-36.0 zvcl=469) RECOMMENDED COUMADIN/WARFARIN INR THERAPY RANGESSTANDARD DOSE: 2.0 - 3.0 Includes: PROPHYLAXIS forvenous thrombosis, systemic embolization; TREATMENT for venous thrombosis and/or pulmonary embolus.HIGH RISK: Target INR is 2.5-3.5 for patients with mechanical heart valves.CBC W/PLT COUNT & AUTO [id number] 19:05:00 Test Item Value Reference Range Comments WHITE BLOOD CELL COUNT (BEAKER) (test weeh=408) 14.4 K/ L 3.5-10.5 RED BLOOD CELL COUNT (BEAKER) (test anhl=879) 2.97 M/ L 3.93-5.22 HEMOGLOBIN (BEAKER) (test qxus=035) 8.7 GM/DL 11.2-15.7 HEMATOCRIT (BEAKER) (test okou=040) 26.7 % 34.1-44.9 MEAN CORPUSCULAR VOLUME (BEAKER) (test xutz=434) 89.9 fL 79.4-94.8 MEAN CORPUSCULAR HEMOGLOBIN (BEAKER) (test 29.3 pg 25.6-32.2 with=547) MEAN CORPUSCULAR HEMOGLOBIN CONC (BEAKER) (test 32.6 GM/DL 32.2-35.5 tztu=682) RED CELL DISTRIBUTION WIDTH (BEAKER) (test 13.6 % 11.7-14.4 gaxu=620) PLATELET COUNT (BEAKER) (test ymfp=928) 115 K/CU MM 150-450 MEAN PLATELET VOLUME (BEAKER) (test ucbp=997) 9.0 fL 9.4-12.3 NUCLEATED RED BLOOD CELLS (BEAKER) (test 0 /100 WBC 0-0 nhku=283) NEUTROPHILS RELATIVE PERCENT (BEAKER) (test 74 % bxxo=329) LYMPHOCYTES RELATIVE PERCENT (BEAKER) (test 18 % mcfo=143) MONOCYTES RELATIVE PERCENT (BEAKER) (test 6 % kcqc=057) EOSINOPHILS RELATIVE PERCENT (BEAKER) (test 1 % kqta=912) BASOPHILS RELATIVE PERCENT (BEAKER) (test 0 % elqu=708) NEUTROPHILS ABSOLUTE COUNT (BEAKER) (test 10.73 K/ L 1.56-6.13 sirh=971) LYMPHOCYTES ABSOLUTE COUNT (BEAKER) (test 2.58 K/ L 1.18-3.74 wryl=500) MONOCYTES ABSOLUTE COUNT (BEAKER) (test 0.81 K/ L 0.24-0.36 dlkb=950) EOSINOPHILS ABSOLUTE COUNT (BEAKER) (test 0.18 K/ L 0.04-0.36 cbfp=390) BASOPHILS ABSOLUTE COUNT (BEAKER) (test 0.03 K/ L 0.01-0.08 swmc=872) IMMATURE GRANULOCYTES-RELATIVE PERCENT (BEAKER) 1 % 0-1 (test esbl=3357) BLOOD GAS, [id number] 19:04:00 Test Item Value Reference Range Comments PH ARTERIAL (BEAKER) (test atdp=333) 7.42 7.35-7.45 PCO2 ARTERIAL (BEAKER) (test jltb=751) 37 mmHg 35-45 PO2 ARTERIAL (BEAKER) (test igvk=305) 173 mmHg 80-90 O2 SATURATION ARTERIAL (BEAKER) (test wnhd=798) 99.3 % 96.0-97.0 HCO3 ARTERIAL (BEAKER) (test eync=310) 24 mmol/L 21-29 BASE EXCESS ARTERIAL (BEAKER) (test fpyc=801) -1.0 mmol/L -2.0-3.0 PATIENT TEMPERATURE (BEAKER) (test fegn=8473) 34.4 C OXYGEN SATURATION, [id number] 19:03:00 Test Item Value Reference Range Comments O2 SATURATION (MEASURED) (BEAKER) (test dmti=7535) 77.6 % [id number] 18:43:00 Test Item Value Reference Range Comments ACTIVATED CLOTTING TIME 114 sec TESTED AT [address] (BEAKER) (test iqeu=745) [place] [address] [id number] 18:43:00 Test Item Value Reference Range Comments ACTIVATED CLOTTING TIME 499 sec TESTED AT [address] (BEAKER) (test jutp=803) [place] [address] [id number] 18:43:00 Test Item Value Reference Range Comments ACTIVATED CLOTTING TIME 389 sec TESTED AT [address] (BEAKER) (test wcxl=704) [place] [address] [id number] 18:43:00 Test Item Value Reference Range Comments ACTIVATED CLOTTING TIME 637 sec TESTED AT [address] (BEAKER) (test lvzb=301) [place] [address] THROMBOELASTOGRAPH (TEG)2018-03-02 18:23:00 Test Item Value Reference Range Comments TEG ACTIVATED CLOTTING TIME (BEAKER) (test 8.4 minutes 4.0-7.0 adsf=6886) TEG FIBRINOGEN ACTIVITY (BEAKER) (test 64.3 degrees 61.0-73.0 cnvm=5853) TEG PLT. AGGREGATION (BEAKER) (test joat=8340) 47.7 MM 55.0-65.0 TGH ACTIVATED CLOTTING TIME (BEAKER) (test 8.3 minutes 4.0-7.0 rnac=9702) TGH FIBRINOGEN ACTIVITY (BEAKER) (test 64.3 degrees 61.0-73.0 etlz=0929) TGH PLT. AGGREGATION (BEAKER) (test dldi=4505) 46.5 MM 55.0-65.0 PLATELET [id number] 18:03:00 Test Item Value Reference Range Comments PLATELET COUNT (BEAKER) (test vyyx=519) 83 K/CU MM 150-450 [id number] 17:58:00 Test Item Value Reference Range Comments FIBRINOGEN LEVEL (BEAKER) (test hhdl=735) 268 mg/dl 225-434 [id number] 17:58:00 Test Item Value Reference Range Comments PARTIAL THROMBOPLASTIN TIME (BEAKER) (test 29.5 seconds 22.5-36.0 uinh=833) PROTHROMBIN [id number] 17:57:00 Test Item Value Reference Range Comments PROTIME (BEAKER) (test simw=940) 21.0 seconds 11.7-14.7 INR (BEAKER) (test zohp=438) 1.8 <=5.9 RECOMMENDED COUMADIN/WARFARIN INR THERAPY RANGESSTANDARD DOSE: 2.0 - 3.0 Includes: PROPHYLAXIS forvenous thrombosis, systemic embolization; TREATMENT for venous thrombosis and/or pulmonary embolus.HIGH RISK: Target INR is 2.5-3.5 for patients with mechanical heart valves.POTASSIUM-STAT [id number] 17:38:00 Test Item Value Reference Range Comments POTASSIUM (BEAKER) (test hseo=398) 5.0 meq/L 3.6-5.5 BLOOD GAS, [id number] 17:38:00 Test Item Value Reference Range Comments PH ARTERIAL (BEAKER) (test nfim=838) 7.42 7.35-7.45 PCO2 ARTERIAL (BEAKER) (test nsob=880) 38 mmHg 35-45 PO2 ARTERIAL (BEAKER) (test oftw=670) 364 mmHg 80-90 O2 SATURATION ARTERIAL (BEAKER) (test qthx=051) 99.8 % 96.0-97.0 HCO3 ARTERIAL (BEAKER) (test veta=283) 25 mmol/L 21-29 BASE EXCESS ARTERIAL (BEAKER) (test wtvn=709) 0.1 mmol/L -2.0-3.0 PATIENT TEMPERATURE (BEAKER) (test vozz=7795) 35.5 C FIO2 (BEAKER) (test eqff=3107) 100.0 % SODIUM NA-STAT [id number] 17:38:00 Test Item Value Reference Range Comments SODIUM (BEAKER) (test opbf=581) 133 meq/L 135-148 GLUCOSE-STAT [id number] 17:38:00 Test Item Value Reference Range Comments GLUCOSE RANDOM (BEAKER) (test sqxy=859) 159 mg/dL 70-110 HGB/HCT (H&H) - STAT [id number] 17:38:00 Test Item Value Reference Range Comments HEMOGLOBIN (BEAKER) (test edum=070) 8.7 g/dL 12.0-15.0 HEMATOCRIT (BEAKER) (test oppa=788) 26.0 % 36.0-45.0 CALCIUM, [id number] 17:38:00 Test Item Value Reference Range Comments CALCIUM IONIZED (BEAKER) (test qopl=395) 1.10 mmol/L 1.12-1.27 PH, BLOOD (BEAKER) (test omnv=5567) 7.42 BLOOD GAS, [id number] 16:58:00 Test Item Value Reference Range Comments PH ARTERIAL (BEAKER) (test ejud=349) 7.56 7.35-7.45 PCO2 ARTERIAL (BEAKER) (test txwk=168) 28 mmHg 35-45 PO2 ARTERIAL (BEAKER) (test vcbm=111) 260 mmHg 80-90 O2 SATURATION ARTERIAL (BEAKER) (test vbry=731) 99.7 % 96.0-97.0 HCO3 ARTERIAL (BEAKER) (test exfx=368) 26 mmol/L 21-29 BASE EXCESS ARTERIAL (BEAKER) (test vnze=054) 2.1 mmol/L -2.0-3.0 PATIENT TEMPERATURE (BEAKER) (test sayg=9575) 31.8 C FIO2 (BEAKER) (test rnfp=8640) 60.0 % GLUCOSE-STAT [id number] 16:58:00 Test Item Value Reference Range Comments GLUCOSE RANDOM (BEAKER) (test bzbk=861) 170 mg/dL 70-110 HGB/HCT (H&H) - STAT [id number] 16:58:00 Test Item Value Reference Range Comments HEMOGLOBIN (BEAKER) (test rlee=870) 7.2 g/dL 12.0-15.0 HEMATOCRIT (BEAKER) (test rzzt=197) 21.0 % 36.0-45.0 POTASSIUM-STAT [id number] 16:58:00 Test Item Value Reference Range Comments POTASSIUM (BEAKER) (test kanv=645) 5.6 meq/L 3.6-5.5 SODIUM NA-STAT [id number] 16:58:00 Test Item Value Reference Range Comments SODIUM (BEAKER) (test xmbk=072) 131 meq/L 135-148 POTASSIUM-STAT [id number] 16:32:00 Test Item Value Reference Range Comments POTASSIUM (BEAKER) (test bdwf=982) 4.6 meq/L 3.6-5.5 BLOOD GAS, [id number] 16:32:00 Test Item Value Reference Range Comments PH ARTERIAL (BEAKER) (test wfbw=840) 7.30 7.35-7.45 PCO2 ARTERIAL (BEAKER) (test kudi=735) 40 mmHg 35-45 PO2 ARTERIAL (BEAKER) (test ovwq=641) 472 mmHg 80-90 O2 SATURATION ARTERIAL (BEAKER) (test foqm=734) 99.8 % 96.0-97.0 HCO3 ARTERIAL (BEAKER) (test vvgv=917) 21 mmol/L 21-29 BASE EXCESS ARTERIAL (BEAKER) (test cstj=172) -6.3 mmol/L -2.0-3.0 PATIENT TEMPERATURE (BEAKER) (test fqjz=9161) 31.1 C FIO2 (BEAKER) (test vcoh=0912) 80.0 % SODIUM NA-STAT [id number] 16:32:00 Test Item Value Reference Range Comments SODIUM (BEAKER) (test axrz=736) 127 meq/L 135-148 GLUCOSE-STAT [id number] 16:32:00 Test Item Value Reference Range Comments GLUCOSE RANDOM (BEAKER) (test yvie=383) 164 mg/dL 70-110 HGB/HCT (H&H) - STAT [id number] 16:32:00 Test Item Value Reference Range Comments HEMOGLOBIN (BEAKER) (test cxtw=235) 7.4 g/dL 12.0-15.0 HEMATOCRIT (BEAKER) (test nlch=724) 22.0 % 36.0-45.0 GLUCOSE-STAT [id number] 15:38:00 Test Item Value Reference Range Comments GLUCOSE RANDOM (BEAKER) (test hmll=774) 109 mg/dL 70-110 SODIUM NA-STAT [id number] 15:38:00 Test Item Value Reference Range Comments SODIUM (BEAKER) (test hbfh=249) 138 meq/L 135-148 POTASSIUM-STAT [id number] 15:38:00 Test Item Value Reference Range Comments POTASSIUM (BEAKER) (test odlj=166) 3.8 meq/L 3.6-5.5 HGB/HCT (H&H) - STAT [id number] 15:38:00 Test Item Value Reference Range Comments HEMOGLOBIN (BEAKER) (test pdda=097) 13.3 g/dL 12.0-15.0 HEMATOCRIT (BEAKER) (test dktg=850) 39.0 % 36.0-45.0 BLOOD GAS, [id number] 15:38:00 Test Item Value Reference Range Comments PH ARTERIAL (BEAKER) (test twzj=447) 7.42 7.35-7.45 PCO2 ARTERIAL (BEAKER) (test ivbz=682) 37 mmHg 35-45 PO2 ARTERIAL (BEAKER) (test bjnk=185) 349 mmHg 80-90 O2 SATURATION ARTERIAL (BEAKER) (test qcvj=420) 99.8 % 96.0-97.0 HCO3 ARTERIAL (BEAKER) (test kxxo=803) 23 mmol/L 21-29 BASE EXCESS ARTERIAL (BEAKER) (test mtmg=620) -1.4 mmol/L -2.0-3.0 PATIENT TEMPERATURE (BEAKER) (test bnwi=5599) 36.0 C FIO2 (BEAKER) (test gakr=2129) 70.0 % HEMOGLOBIN [id number] 19:38:00 Test Item Value Reference Range Comments HEMOGLOBIN A1C (BEAKER) (test dodp=916) 5.3 % 4.3-6.1 RAD, CHEST, 1 VIEW, NON [id number] 16:31:00Reason for exam:->Pre opShould this be performed [...] Verified Date/Time: 03/01/2018 16:31:05 Reading Location : [facility] Radiology Reading Room [id number] 16:27:00 Test Item Value Reference Range Comments THYROID STIMULATING HORMONE (BEAKER) (test 3.52 uIU/mL 0.35-4.94 uges=715) [id number] 16:13:00 Test Item Value Reference Range Comments MAGNESIUM (BEAKER) (test tozl=327) 2.2 mg/dL 1.6-2.6 COMPREHENSIVE METABOLIC [id number] 16:13:00 Test Item Value Reference Range Comments TOTAL PROTEIN (BEAKER) 7.7 gm/dL 6.0-8.3 (test aawm=677) ALBUMIN (BEAKER) (test 4.4 g/dL 3.5-5.0 cfbu=0777) ALKALINE PHOSPHATASE 93 U/L 40-150 (BEAKER) (test bfsr=462) BILIRUBIN TOTAL (BEAKER) 0.7 mg/dL 0.2-1.2 (test hefp=095) SODIUM (BEAKER) (test 141 meq/L 136-145 ming=941) POTASSIUM (BEAKER) (test 4.0 meq/L 3.5-5.1 bwgb=041) CHLORIDE (BEAKER) (test 107 meq/L 98-107 grzc=906) CO2 (BEAKER) (test 23 meq/L 22-29 znpf=635) BLOOD UREA NITROGEN 15 mg/dL 7-21 (BEAKER) (test egdr=913) CREATININE (BEAKER) (test 1.00 mg/dL 0.57-1.25 eugg=358) GLUCOSE RANDOM (BEAKER) 98 mg/dL 70-105 (test ctxv=400) CALCIUM (BEAKER) (test 9.7 mg/dL 8.4-10.2 ycdm=295) AST (SGOT) (BEAKER) (test 15 U/L 5-34 giqd=118) ALT (SGPT) (BEAKER) (test 11 U/L 6-55 snqy=818) EGFR (BEAKER) (test 54 mL/min/1.73 sq m ESTIMATED GFR IS NOT lrkx=4496) ACCURATE CREATININE CLEARANCE IN PREDICTING GLOMERULAR FILTRATION RATE. ESTIMATED GFR IS NOT APPLICABLE FOR DIALYSIS PATIENTS. LIPID [id number] 16:13:00 Test Item Value Reference Range Comments TRIGLYCERIDES (BEAKER) (test ldwr=411) 144 mg/dL CHOLESTEROL (BEAKER) (test shut=100) 145 mg/dL HDL CHOLESTEROL (BEAKER) (test mbox=756) 55 mg/dL LDL CHOLESTEROL CALCULATED (BEAKER) (test 61 mg/dL qhol=530) Triglyceride Reference Range: Low Risk <150 Borderline 150- 199 High Risk 200-499 Very High Risk >=500Cholesterol Reference Range: Low Risk <200 Borderline 200-239 High Risk > 240HDL Cholesterol Reference Range: Low Risk >=60 High Risk <40LDL Cholesterol Reference Range: Optimal <100 Near Optimal 100-129 Borderline 130-159 High 160-189 Very High [id number] 15:58:00 Test Item Value Reference Range Comments PARTIAL THROMBOPLASTIN TIME (BEAKER) (test 33.4 seconds 22.5-36.0 euqd=344) PROTHROMBIN TIME/[id number] 15:57:00 Test Item Value Reference Range Comments PROTIME (BEAKER) (test hwxe=890) 13.5 seconds 11.7-14.7 INR (BEAKER) (test qsla=409) 1.0 <=5.9 RECOMMENDED COUMADIN/WARFARIN INR THERAPY RANGESSTANDARD DOSE: 2.0 - 3.0 Includes: PROPHYLAXIS forvenous thrombosis, systemic embolization; TREATMENT for venous thrombosis and/or pulmonary embolus.HIGH RISK: Target INR is 2.5-3.5 for patients with mechanical heart valves.CBC W/PLT COUNT & AUTO [id number] 15:52:00 Test Item Value Reference Range Comments WHITE BLOOD CELL COUNT (BEAKER) (test nxwp=369) 10.4 K/ L 3.5-10.5 RED BLOOD CELL COUNT (BEAKER) (test wwtt=107) 4.68 M/ L 3.93-5.22 HEMOGLOBIN (BEAKER) (test ohsc=317) 13.5 GM/DL 11.2-15.7 HEMATOCRIT (BEAKER) (test vznx=641) 41.7 % 34.1-44.9 MEAN CORPUSCULAR VOLUME (BEAKER) (test yzgg=900) 89.1 fL 79.4-94.8 MEAN CORPUSCULAR HEMOGLOBIN (BEAKER) (test 28.8 pg 25.6-32.2 ropw=085) MEAN CORPUSCULAR HEMOGLOBIN CONC (BEAKER) (test 32.4 GM/DL 32.2-35.5 apjx=363) RED CELL DISTRIBUTION WIDTH (BEAKER) (test 13.4 % 11.7-14.4 hihn=742) PLATELET COUNT (BEAKER) (test fbtc=697) 198 K/CU MM 150-450 MEAN PLATELET VOLUME (BEAKER) (test xuev=847) 8.7 fL 9.4-12.3 NUCLEATED RED BLOOD CELLS (BEAKER) (test 0 /100 WBC 0-0 hkzd=566) NEUTROPHILS RELATIVE PERCENT (BEAKER) (test 69 % yrtn=515) LYMPHOCYTES RELATIVE PERCENT (BEAKER) (test 21 % nebs=799) MONOCYTES RELATIVE PERCENT (BEAKER) (test 8 % bfxj=233) EOSINOPHILS RELATIVE PERCENT (BEAKER) (test 2 % djvm=126) BASOPHILS RELATIVE PERCENT (BEAKER) (test 0 % mpnp=952) NEUTROPHILS ABSOLUTE COUNT (BEAKER) (test 7.17 K/ L 1.56-6.13 gbdw=893) LYMPHOCYTES ABSOLUTE COUNT (BEAKER) (test 2.13 K/ L 1.18-3.74 oxot=151) MONOCYTES ABSOLUTE COUNT (BEAKER) (test 0.82 K/ L 0.24-0.36 rmwp=967) EOSINOPHILS ABSOLUTE COUNT (BEAKER) (test 0.16 K/ L 0.04-0.36 trqv=310) BASOPHILS ABSOLUTE COUNT (BEAKER) (test 0.04 K/ L 0.01-0.08 zzme=072) IMMATURE GRANULOCYTES-RELATIVE PERCENT (BEAKER) 0 % 0-1 (test mztu=0385)
[2019-03-27] MEDS ORDERED: IBUPROFEN 200 MG TAB PO ONE (19:39)
[2019-03-27] MEDS ORDERED: NA CHLORIDE 0.9% 3,000 ML ONE (19:39)
[2019-03-27] MEDS ORDERED: CEFTRIAXONE/SWI 1gm 2 GM/20 ML SYR ONE (19:39)
[2019-03-27] MEDS ORDERED: IBUPROFEN 400 MG TAB ONE (19:39)
[2019-03-27 19:40] LABS: Basophils % 0.4 % (0-1.3); Hematocrit 36.7 % (36.0-45.0); Lymphocytes % 6.1 % (15.3-44.8); MPV 7.2 fL (7.6-11.3)
[2019-03-27 19:43] LABS: Protime INR 1.11
--- NOTE | 2019-03-27 19:51 | RAD REPORT ---
EXAM DESCRIPTION: CT - Stone Protocol - 03/27/2019 7:32 pm CLINICAL HISTORY: Abdominal pain, flank pain COMPARISON: None. TECHNIQUE: Axial 5 mm thick images were obtained without oral or IV contrast. The axuol-sv-wcop span s the entirety of the system partially obscuring uppermost abdomen and lung bases. All CT scans are performed using dose optimization technique as appropriate and may include automated exposure control or mA/KV adjustment according to patient size. FINDINGS: No hydronephrosis or hydroureter present. There is fullness of the right renal pelvis hien eved to be normal variant extrarenal pelvis. No nonobstructed calculi. A 6 centimeter complex lower p ole left renal cyst is present. Isodense masses and pyelonephritis are not excluded on stone protocol study. No significant bladder finding. Bladder is only partially filled limiting assessment. Pessary is in place. No uterus or ovarian abnormality. No significant adrenal finding. Imaged portions of the liver, spleen and pancreas show no suspicious findings on non-contrast imaging . Cholecystectomy clips are present. No biliary tree dilatation. No suspicious bowel findings. Moderate stool volume scattered in the colon. Small hiatal hernia prese nt. No hernia, mass or bulky lymphadenopathy noted. No free air, free fluid or inflammatory stranding. No significant bony abnormality. IMPRESSION: No hydronephrosis or obstructing calculi seen. Patient has a complex 6 centimeter cyst in the lower pole left kidney. Cyst and kidneys are not fully assessed on a noncontrast study. No acute GI process identified. Isodense masses and pyelonephritis are not excluded on stone protocol technique.
--- NOTE | 2019-03-27 19:59 | RAD REPORT ---
EXAM DESCRIPTION: RAD - Chest Single View - 03/27/2019 7:50 pm CLINICAL HISTORY: Chill, fever COMPARISON: January 16 TECHNIQUE: AP portable chest image was obtained 1945 hours . FINDINGS: No focal lung parenchymal process. Interstitial pattern matches comparison. Sternotomy wir es are in place. Heart and vasculature are normal. No measurable pleural effusion and no pneumothorax . No acute bony abnormality seen. No acute aortic findings suspected. IMPRESSION: No acute cardiopulmonary process. Interstitial pattern is prominent but not clearly different from comparison.
[2019-03-27 20:02] LABS: ALT/SGPT 17 U/L (12-78); AST/SGOT 13 U/L (15-37); Albumin 3.4 g/dL (3.4-5.0); Alkaline Phosphatase 81 U/L (45-117); BUN Blood Urea Nitrogen 18 mg/dL (7-18); Bicarbonate 24 mmol/L (21-32); Bilirubin Direct 0.3 mg/dL (0-0.2); Bilirubin Total 1.1 mg/dL (0.2-1.0); Glucose Level 121 mg/dL (74-106); Lipase 65 U/L (73-393); Magnesium 2.2 mg/dL (1.8-2.4); NT PRO-BNP 599 pg/mL (<450); Potassium 3.9 mmol/L (3.5-5.1); Sodium Level 140 mmol/L (136-145); Troponin (Emerg Dept Use Only) < 0.02 ng/mL (0.0-0.045)
--- NOTE | 2019-03-27 20:46 | ER ---
Nurse's Notes [facility] Name: Gabby Nicolas Age: 78 yrs Sex: Female : 1940 Arrival Date: 03/27/2019 Time: 18:37 Bed 18 Private MD: Koby Durham C Diagnosis: Fever, unspecified;Acute tubulo-interstitial nephritis;Weakness;Urinary tract infection, site not specified;Elevated white blood cell count Presentation: 03/27 18:45 Presenting complaint: Patient states: Fever, chills, has had frequent UTIs in the past la1 took tylenol at 1730. Transition of care: patient was not received from another setting of care. Onset of symptoms was March 27, 2019. Risk Assessment: Do you want to hurt yourself or someone else? Patient reports no desire to harm self or others. Initial Sepsis Screen: Does the patient meet any 2 criteria? HR > 90 bpm. Does the patient have a suspected source of infection? No. Patient's initial sepsis screen is negative. Care prior to arrival: None. 18:45 Method Of Arrival: Wheelchair la1 18:45 Acuity: JEFFERSON 3 la1 Historical: - Allergies: 18:44 Levofloxacin; la1 - Home Meds: 19:36 Aspirin Oral [Active]; atorvastatin Oral [Active]; Mirtazapine Oral [Active]; wh Ranitidine Oral [Active]; tramadol Oral [Active]; - PMHx: 18:44 CAD; gullian-barre; la1 - PSHx: 19:36 Heart Surgery; wh - Immunization history:: Adult Immunizations up to date. - Social history:: Smoking status: Patient/guardian denies using tobacco. - Ebola Screening: : No symptoms or risks identified at this time. - Family history:: not pertinent. Screenin:32 Abuse screen: Denies threats or abuse. Denies injuries from another. Nutritional wh screening: No deficits noted. Tuberculosis screening: No symptoms or risk factors identified. Fall Risk None identified. Assessment: 19:31 General: Appears in no apparent distress. Behavior is calm, cooperative, appropriate wh for age. Pain: Denies pain. Neuro: Level of Consciousness is awake, alert, obeys commands, Oriented to person, place, time, situation, Appropriate for age. Cardiovascular: Heart tones S1 S2. Respiratory: Airway is patent Respiratory effort is even, unlabored, Respiratory pattern is regular, symmetrical, Breath sounds are clear bilaterally. GI: Abdomen is flat, non-distended. : Reports burning with urination. EENT: No signs and/or symptoms were reported regarding the EENT system. Derm: Skin is intact, is healthy with good turgor, Skin is pink, warm \T\ dry. normal. Musculoskeletal: Circulation, motion, and sensation intact. 20:25 Reassessment: Patient appears in no apparent distress at this time. No changes from previously documented assessment. Patient and/or family updated on plan of care and expected duration. Pain level reassessed. Patient is alert, oriented x 3, equal unlabored respirations, skin warm/dry/pink. 21:20 Reassessment: Patient appears in no apparent distress at this time. No changes from previously documented assessment. Patient and/or family updated on plan of care and expected duration. Pain level reassessed. Patient is alert, oriented x 3, equal unlabored respirations, skin warm/dry/pink. Explained POC plan for admission Patient denies pain at this time. 22:48 Reassessment: Patient appears in no apparent distress at this time. No changes from previously documented assessment. Patient and/or family updated on plan of care and expected duration. Pain level reassessed. Patient is alert, oriented x 3, equal unlabored respirations, skin warm/dry/pink. Patient denies pain at this time. Vital Signs: 18:45 BP 118 / 68; Pulse 108; Resp 16; Temp 99.9(O); Pulse Ox 95% on R/A; Weight 76.66 kg; la1 Height 5 ft. 5 in. (165.10 cm); 19:49 BP 120 / 58; Pulse 87; Resp 22; Pulse Ox 93% on R/A; wh 20:20 BP 111 / 54; Pulse 81; Resp 18; Pulse Ox 98% on R/A; wh 21:21 BP 119 / 61; Pulse 82; Resp 18; Temp 97.9; Pulse Ox 98% ; wh 22:48 BP 110 / 51; Pulse 73; Resp 18; Pulse Ox 96% on R/A; wh 18:45 Body Mass Index 28.12 (76.66 kg, 165.10 cm) md1 ED Course: 18:37 Patient arrived in ED. 18:37 Koby Durham MD is Private Physician. mr 18:44 Arm band placed on left wrist. la1 18:46 Triage completed. la1 18:57 Darrius Landry is Primary Nurse. 19:00 Praveen Rodríguez MD is Attending Physician. [facility] 19:25 Inserted saline lock: 22 gauge in right antecubital area, using aseptic technique. Blood collected. 19:32 CT Stone Protocol In Process Unspecified. EDMS 19:33 CT completed. Patient tolerated procedure well. Patient moved back from CT. vm2 19:33 Patient has correct armband on for positive identification. Placed in gown. Bed in low wh position. Call light in reach. Side rails up X 1. security monitor on. Pulse ox on. NIBP on. 19:52 XRAY Chest (1 view) In Process Unspecified. EDMS 20:44 Koby Durham MD is Hospitalizing Provider. [facility] 23:00 No provider procedures requiring assistance completed. Patient admitted, IV remains in place. Administered Medications: 19:40 Drug: Rocephin 2 grams Route: IV; Rate: per protocol; Site: right forearm; 21:43 Follow up: Response: No adverse reaction; IV Status: Completed infusion 19:48 Drug: NS 0.9% 1000 ml Route: IV; Rate: 1 bolus; Site: right forearm; 21:42 Follow up: Response: No adverse reaction; IV Status: Completed infusion 19:48 Drug: NS 0.9% 1000 ml Route: IV; Rate: 1 bolus; Site: right forearm; 21:42 Follow up: Response: No adverse reaction; IV Status: Completed infusion 19:49 Drug: Motrin 600 mg Route: PO; 21:42 Follow up: Response: No adverse reaction; Temperature is decreased 21:42 Drug: NS 0.9% 1000 ml Route: IV; Rate: 125 ml/hr; Site: right forearm; 23:01 Follow up: Response: No adverse reaction; IV Status: Infusion continued upon admission Outcome: 20:45 Decision to Hospitalize by Provider. [facility] 23:00 Admitted to Med/surg accompanied by tech, via wheelchair, room 207, with chart, Report called to Manjula Coyle RN 23:00 Condition: stable 23:00 Instructed on the need for admit. 23:02 Patient left the ED. Signatures: Dispatcher [employer] EDPraveen Xiao MD MD cha Rivera, Monie mr Bon Hinojosa RN RN la1 Una Gonzalez [facility] Darrius Landry Corrections: (The following items were deleted from the chart) 18:46 18:45 Presenting complaint: Patient states: Fever, chills, has had frequent UTIs in the la1 past la1
--- NOTE | 2019-03-27 20:46 | EDPHYS ---
Physician Documentation [facility] Name: Gabby Nicolas Age: 78 yrs Sex: Female : 1940 Arrival Date: 03/27/2019 Time: 18:37 Bed 18 Private MD: Koby Durham C ED Physician Praveen Rodríguez HPI: 03/27 20:41 This 78 yrs old Female presents to ER via Wheelchair with complaints of ty Urinary Problem. 20:41 The patient presents with abdominal pain in the lower abdomen. Onset: The ty symptoms/episode began/occurred today. The patient presents with urinary symptoms, hesitancy. Onset: The symptoms/episode began/occurred today. Modifying factors: The symptoms are alleviated by nothing, the symptoms are aggravated by nothing. Associated signs and symptoms: The patient has no apparent associated signs or symptoms. Severity of symptoms: At their worst the symptoms were mild, in the emergency department the symptoms are unchanged. Historical: - Allergies: 18:44 Levofloxacin; la1 - Home Meds: 19:36 Aspirin Oral [Active]; atorvastatin Oral [Active]; Mirtazapine Oral [Active]; wh Ranitidine Oral [Active]; tramadol Oral [Active]; - PMHx: 18:44 CAD; gullian-barre; la1 - PSHx: 19:36 Heart Surgery; wh - Immunization history:: Adult Immunizations up to date. - Social history:: Smoking status: Patient/guardian denies using tobacco. - Ebola Screening: : No symptoms or risks identified at this time. - Family history:: not pertinent. ROS: 20:41 Eyes: Negative for injury, pain, redness, and discharge, ENT: Negative for injury, ty pain, and discharge, Neck: Negative for injury, pain, and swelling, Cardiovascular: Negative for chest pain, palpitations, and edema, Respiratory: Negative for shortness of breath, cough, wheezing, and pleuritic chest pain, Abdomen/GI: Negative for abdominal pain, nausea, vomiting, diarrhea, and constipation, Back: Negative for injury and pain, : Negative for injury, bleeding, discharge, and swelling, MS/Extremity: Negative for injury and deformity, Skin: Negative for injury, rash, and discoloration, Neuro: Negative for headache, weakness, numbness, tingling, and seizure, Psych: Negative for depression, anxiety, suicide ideation, homicidal ideation, and hallucinations, Allergy/Immunology: Negative for hives, rash, and allergies, Endocrine: Negative for neck swelling, polydipsia, polyuria, polyphagia, and marked weight changes, Hematologic/Lymphatic: Negative for swollen nodes, abnormal bleeding, and unusual bruising. 20:41 Constitutional: Positive for body aches, chills, fatigue, fever, malaise. Exam: 20:41 Head/Face: Normocephalic, atraumatic. Eyes: Pupils equal round and reactive to light, ty extra-ocular motions intact. Lids and lashes normal. Conjunctiva and sclera are non-icteric and not injected. Cornea within normal limits. Periorbital areas with no swelling, redness, or edema. ENT: Nares patent. No nasal discharge, no septal abnormalities noted. Tympanic membranes are normal and external auditory canals are clear. Oropharynx with no redness, swelling, or masses, exudates, or evidence of obstruction, uvula midline. Mucous membranes moist. Neck: Trachea midline, no thyromegaly or masses palpated, and no cervical lymphadenopathy. Supple, full range of motion without nuchal rigidity, or vertebral point tenderness. No Meningismus. Chest/axilla: Normal chest wall appearance and motion. Nontender with no deformity. No lesions are appreciated. Cardiovascular: Regular rate and rhythm with a normal S1 and S2. No gallops, murmurs, or rubs. Normal PMI, no JVD. No pulse deficits. Respiratory: Lungs have equal breath sounds bilaterally, clear to auscultation and percussion. No rales, rhonchi or wheezes noted. No increased work of breathing, no retractions or nasal flaring. Abdomen/GI: Soft, non-tender, with normal bowel sounds. No distension or tympany. No guarding or rebound. No evidence of tenderness throughout. Back: No spinal tenderness. No costovertebral tenderness. Full range of motion. Skin: Warm, dry with normal turgor. Normal color with no rashes, no lesions, and no evidence of cellulitis. MS/ Extremity: Pulses equal, no cyanosis. Neurovascular intact. Full, normal range of motion. Neuro: Awake and alert, GCS 15, oriented to person, place, time, and situation. Cranial nerves II-XII grossly intact. Motor strength 5/5 in all extremities. Sensory grossly intact. Cerebellar exam normal. Normal gait. Psych: Awake, alert, with orientation to person, place and time. Behavior, mood, and affect are within normal limits. Vital Signs: 18:45 BP 118 / 68; Pulse 108; Resp 16; Temp 99.9(O); Pulse Ox 95% on R/A; Weight 76.66 kg; la1 Height 5 ft. 5 in. (165.10 cm); 19:49 BP 120 / 58; Pulse 87; Resp 22; Pulse Ox 93% on R/A; wh 20:20 BP 111 / 54; Pulse 81; Resp 18; Pulse Ox 98% on R/A; wh 21:21 BP 119 / 61; Pulse 82; Resp 18; Temp 97.9; Pulse Ox 98% ; wh 22:48 BP 110 / 51; Pulse 73; Resp 18; Pulse Ox 96% on R/A; wh 18:45 Body Mass Index 28.12 (76.66 kg, 165.10 cm) la1 MDM: 19:00 Patient medically screened. [facility] 20:43 Data reviewed: vital signs, nurses notes, lab test result(s), EKG, radiologic studies, [facility] CT scan, plain films. 03/27 19:02 Order name: Basic Metabolic Panel; Complete Time: 20:21 [facility] 03/27 19:02 Order name: CBC with Diff; Complete Time: 19:49 [facility] 03/27 19:02 Order name: LFT's; Complete Time: 20:21 [facility] 03/27 19:02 Order name: Magnesium; Complete Time: 20:21 [facility] 03/27 19:02 Order name: NT PRO-BNP; Complete Time: 20:21 [facility] 03/27 19:02 Order name: PT-INR; Complete Time: 20:21 [facility] 03/27 19:02 Order name: Troponin (emerg Dept Use Only); Complete Time: 20:21 [facility] 03/27 19:02 Order name: XRAY Chest (1 view); Complete Time: 20:21 [facility] 03/27 19:02 Order name: Urine Culture [facility] 03/27 19:02 Order name: Lipase; Complete Time: 20:21 [facility] 03/27 19:02 Order name: Procalcitonin; Complete Time: 20:40 [facility] 03/27 19:02 Order name: Lactate; Complete Time: 20:21 [facility] 03/27 20:59 Order name: Urine Dipstick--Ancillary (enter results) mw2 03/27 21:13 Order name: Urine Dipstick-Ancillary; Complete Time: 22:01 EDAZ 03/27 19:02 Order name: EKG; Complete Time: 19:04 [facility] 03/27 19:02 Order name: Cardiac monitoring; Complete Time: 19:29 [facility] 03/27 19:02 Order name: EKG - Nurse/Tech; Complete Time: 19:30 [facility] 03/27 19:02 Order name: IV Saline Lock; Complete Time: 19:30 [facility] 03/27 19:02 Order name: Labs collected and sent; Complete Time: 19:30 [facility] 03/27 19:02 Order name: O2 Per Protocol; Complete Time: 19:30 [facility] 03/27 19:02 Order name: O2 Sat Monitoring; Complete Time: 19:30 [facility] 03/27 19:02 Order name: Urine Dipstick-Ancillary (obtain specimen); Complete Time: 20:53 [facility] 03/27 19:02 Order name: CT Stone Protocol; Complete Time: 20:21 [facility] 03/27 20:57 Order name: Cath; Complete Time: 20:57 Administered Medications: 19:40 Drug: Rocephin 2 grams Route: IV; Rate: per protocol; Site: right forearm; 21:43 Follow up: Response: No adverse reaction; IV Status: Completed infusion 19:48 Drug: NS 0.9% 1000 ml Route: IV; Rate: 1 bolus; Site: right forearm; 21:42 Follow up: Response: No adverse reaction; IV Status: Completed infusion 19:48 Drug: NS 0.9% 1000 ml Route: IV; Rate: 1 bolus; Site: right forearm; 21:42 Follow up: Response: No adverse reaction; IV Status: Completed infusion 19:49 Drug: Motrin 600 mg Route: PO; 21:42 Follow up: Response: No adverse reaction; Temperature is decreased 21:42 Drug: NS 0.9% 1000 ml Route: IV; Rate: 125 ml/hr; Site: right forearm; 23:01 Follow up: Response: No adverse reaction; IV Status: Infusion continued upon admission Disposition: 03/27/19 20:45 Hospitalization ordered by Koby Durham for Inpatient Admission. Preliminary diagnosis are Fever, unspecified, Acute tubulo-interstitial nephritis, Weakness, Urinary tract infection, site not specified, Elevated white blood cell count. - Bed requested for Telemetry/MedSurg (Inpatient). - Status is Inpatient Admission. - Condition is Fair. - Problem is new. - Symptoms have improved. UTI on Admission? Yes Signatures: Dispatcher [employer] EDMS Steffi Cintron RN RN mw Anderson, Corey, MD MD cha Therrien, Shelly, ROLLS BAKER-C ROLLS BAKER-Csnw Bon Hinojosa RN RN la1 Darrius Landry Corrections: (The following items were deleted from the chart) 21:24 20:45 Hospitalization Ordered by A Marva ESTRADA for Inpatient Admission. Preliminary [facility] diagnosis is Fever, unspecified; Acute tubulo-interstitial nephritis; Weakness. Bed requested for Telemetry/MedSurg (Inpatient). Status is Inpatient Admission. Condition is Fair. Problem is new. Symptoms have improved. UTI on Admission? Yes. [facility] 21:29 21:24 03/27/2019 20:45 Hospitalization Ordered by A Marva ESTRADA for Inpatient Admission. ty Preliminary diagnosis is Fever, unspecified; Acute tubulo-interstitial nephritis; Weakness; Urinary tract infection, site not specified. Bed requested for Telemetry/MedSurg (Inpatient). Status is Inpatient Admission. Condition is Fair. Problem is new. Symptoms have improved. UTI on Admission? Yes. [facility] 22:22 21:29 03/27/2019 20:45 Hospitalization Ordered by A Marva ESTRADA for Inpatient Admission. roland Preliminary diagnosis is Fever, unspecified; Acute tubulo-interstitial nephritis; Weakness; Urinary tract infection, site not specified; Elevated white blood cell count. Bed requested for Telemetry/MedSurg (Inpatient). Status is Inpatient Admission. Condition is Fair. Problem is new. Symptoms have improved. UTI on Admission? Yes. [facility] 22:31 22:22 03/27/2019 20:45 Hospitalization Ordered by A Marva ESTRADA for Inpatient Admission. roland Preliminary diagnosis is Fever, unspecified; Acute tubulo-interstitial nephritis; Weakness; Urinary tract infection, site not specified; Elevated white blood cell count. Bed requested for Telemetry/MedSurg (Inpatient). Status is Inpatient Admission. Condition is Fair. Problem is new. Symptoms have improved. UTI on Admission? Yes. [facility] 23:02 22:31 03/27/2019 20:45 Hospitalization Ordered by A Marva ESTRADA for Inpatient Admission. wh Preliminary diagnosis is Fever, unspecified; Acute tubulo-interstitial nephritis; Weakness; Urinary tract infection, site not specified; Elevated white blood cell count. Bed requested for Telemetry/MedSurg (Inpatient). Status is Inpatient Admission. Condition is Fair. Problem is new. Symptoms have improved. UTI on Admission? Yes. mw
[2019-03-27 21:13] LABS: Urine Blood 2+ (NEG); Urine Glucose NEGATIVE (NEG); Urine Protein 2+ (NEG); Urine Specific Gravity 1.015 (1.005-1.030)
[2019-03-27 23:17] VITALS: BMI 29.5
[2019-03-27] MEDS ORDERED: CEFTRIAXONE 1 GM/NS 50 ML 1 GM/50 ML BAG IV SCH (23:18)
[2019-03-27] MEDS: NA CHLORIDE 0.9% 1,000 ML IV SCH (23:18)
[2019-03-27] MEDS ORDERED: PNEUMOCOCCAL VACCINE 0.5 ML IMVAC ONE (23:47)
[2019-03-28] MEDS: FAMOTIDINE 20 MG/2 ML VIAL IV SCH ×2 (00:01→08:54)
[2019-03-28] MEDS: NA CHLORIDE 0.9% 1,000 ML IV SCH (05:49)
[2019-03-28 06:23] LABS: Absolute Lymphocytes (CBC) 0.9 K/uL (0.7-4.9); Basophils % 0.5 % (0-1.3); Hematocrit 36.2 % (36.0-45.0); RBC Red Blood Cell Count 4.05 M/uL (3.86-4.86)
[2019-03-28 06:39] LABS: Potassium 3.8 mmol/L (3.5-5.1)
[2019-03-28] MEDS: ENOXAPARIN 40 MG/0.4 ML SQ SCH (08:55)
[2019-03-28] MEDS: CEFTRIAXONE/SWI 1gm 1 GM/10 ML SYR IV SCH ×2 (08:55→20:27)
[2019-03-28] MEDS ORDERED: TRAMADOL HCL 50 MG TAB PO PRN (11:30)
--- NOTE | 2019-03-28 12:05 | EKG ---
Test Date: 2019-03-27 Test Time: 19:14:56 Welder Assembler: ULYSSES MEASUREMENT RESULTS: Intervals: Rate: 94 OH: 164 QRSD: 78 QT: 356 QTc: 445 [place]: P: 69 OH: 164 QRS: -19 T: 96 INTERPRETIVE STATEMENTS: Normal sinus rhythm Abnormal QRS-T angle, consider primary T wave abnormality Abnormal ECG Compared to ECG 05/29/2012 04:52:56 T-wave abnormality now present Electronically Signed On 03-28-19 12:03:37 GEOTHERM[employer] INSTALLER by Sergo Saravia
[2019-03-28] MEDS: ACETAMINOPHEN 500 MG TAB PO PRN ×2 (12:06→18:23)
[2019-03-28] MEDS: MIRTAZAPINE 15 MG TAB PO SCH (17:20)
[2019-03-28] MEDS: ASPIRIN EC 81 MG TAB PO SCH (17:20)
[2019-03-28] MEDS: ATORVASTATIN 20 MG TAB PO SCH (17:20)
[2019-03-28] MEDS ORDERED: NA CHLORIDE 0.9% 1,000 ML IV SCH (20:00)
[2019-03-28] MEDS ORDERED: Meropenem 1 GM/100 ML BAG ONE (20:22)
[2019-03-28] MEDS: RANITIDINE 150 MG TABLET PO SCH (20:27)
[2019-03-28] MEDS: DOCUSATE NA/SENNA CONC 1 TAB PO SCH (20:28)
[2019-03-28] MEDS ORDERED: Meropenem 1000 MG/VIAL IV SCH (21:00)
--- NOTE | 2019-03-28 22:41 | HP ---
Date of Admission: 03/28/2019 Chief Complaint: Fever, chills. History Of Present Illness: A 78-year-old very pleasant female patient, who lives at home, started to have acute onset of fever and chills yesterday at home. Her temperature went up to 103 degrees Fahrenheit and she was brought to the emergency room. Denies any nausea, vomiting, cough, cold, congestion. No diarrhea. No urinary complaints like burning on urination. No evidence of any strong urine odor or any frequency of urination, etc. No blood in the urine. The patient was evaluated in the ER. She was admitted to the hospital. Patient 's urinalysis was abnormal consistent with urinary tract infection. She has had multiple urinary tract infections in the past and has seen Dr. Smith after her last hospital stay, and he has not suggested any specific intervention to her as she remembers. Allergies: SHE IS LISTED ALLERGIC TO LEVAQUIN. Medications: List reviewed. Review of Systems: Constitutional: As mentioned above. All other systems reviewed and negative. 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 Past Surgical History: Significant for cholecystectomy, appendectomy, tonsillectomy. Social History: Negative for smoking or alcohol use. Family History: Not pertinent. Physical Examination: Vital Signs: Height 5 feet 5 inches, weight 172 pounds. Temperature 99.5, pulse 91, respiratory rate 16, blood pressure 129/62. General: Awake, alert, oriented, not in distress. HEENT: Head atraumatic, normocephalic. Conjunctivae nonerythematous. Sclerae white. Mouth, no thrush or edema noted. Ears/Nose, no mass, lesion, discharge noted. Neck: Supple. No JVD, lymph nodes, bruit, thyromegaly noted. Lungs: Bilateral good equal air entry. Clear to auscultation. No rhonchi. No rales. Heart: Normal heart sounds, no murmur or gallop. Abdomen: Soft, bowel sounds normal. No guarding, rigidity, tenderness, mass, hepatosplenomegaly, distention, or bruit noted. Extremities: No leg edema. No calf tenderness. Skin: No rash, ulcer, cellulitis. Lymphatics: No lymph node enlargement in neck, supraclavicular, infraclavicular region. Neuro: No focal neurological deficit. Chest: Unremarkable. External Genitalia: Deferred. Rectal: Deferred. Laboratory Data: White count yesterday 15.8, hemoglobin 12.7, platelets 165. This morning; white count 8.4, hemoglobin 12.3, platelets 147. Yesterday; sodium 140, potassium 3.9, chloride 108 bicarb 24, BUN 18, creatinine 1.17, glucose 121. Liver function tests unremarkable. Procalcitonin 1. Today; sodium 144, potassium 3.8, chloride 114, bicarb 24, BUN 15, creatinine 0.90, glucose 101. Urinalysis; 2+ blood, positive nitrite, esterase 2+, protein 2+. Imaging Data: Chest x-ray, no acute cardiopulmonary changes. CAT scan of abdomen per kidney stone protocol, no evidence of any kidney stone or hydronephrosis. Patient has complex 6 cm cyst in the lower pole of the left kidney. No other acute findings noted. Impression: 1. Acute pyelonephritis. 2. Coronary artery disease. 3. Hypertension. 4. Hyperlipidemia. 5. Gastroesophageal reflux disease. 6. 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 Plan: Admit patient to hospital for further evaluation and management of this problem. Patient is appropriate for inpatient and is expected to spend 2 midnights in the hospital. Home medications will be continued per order. We will go ahead and give DVT prophylaxis per order. I will see her tomorrow for followup. Empiric antibiotics will be started. We will follow up on urine culture and decide about specific culture, specific antibiotics. We will consult Physical Therapy to start to help ambulate the patient. Culture report hopefully should be available in next 48 hours or so and then we will decide about culture specific antibiotics. Patient does not have any symptoms of urinary tract infection. I instructed her when she needs to be vaccinated while in the hospital or even outside the hospital because how she develop Guillain-Lovejoy syndrome after the last influenza vaccine. JANETTE/MODL Voice ID: [id number] ART
[2019-03-29] MEDS: CETIRIZINE HCL 5 MG TABLET PO SCH (09:04)
[2019-03-29] MEDS: RANITIDINE 150 MG TABLET PO SCH ×2 (09:04→20:35)
[2019-03-29] MEDS: Meropenem 1,000 MG in NA CHLORIDE 0.9% 100 ML IV SCH ×2 (09:04→20:35)
[2019-03-29] MEDS: CEFTRIAXONE/SWI 1gm 1 GM/10 ML SYR IV SCH ×2 (09:05→20:35)
[2019-03-29] MEDS: ENOXAPARIN 40 MG/0.4 ML SQ SCH (09:05)
--- NOTE | 2019-03-29 14:13 | PN ---
Date of Progress Note: 03/29/2019 Subjective: Patient was seen this morning for followup. No new complaints or problems reported by carrie martinez. She is lying in the bed without any new complaints. Vital signs reviewed. She had temperat ure spikes, off and on all day yesterday. After last temperature I saw 103 degrees Fahrenheit, I did add another antibiotic, which is meropenem. This morning, she is afebrile. Objective: Vital Signs: Reviewed. HEENT: Unremarkable. Lungs: Clear to auscultation. Heart: Sounds normal. Abdomen: Soft. Bowel sounds normal. No guarding, rigidity, tenderness, or distention. Extremities: No leg edema. Impression: 1.Acute pyelonephritis. 2.Rule out sepsis. 3.Coronary artery disease. 4.Hypertension. Plan: We will go ahead and continue ceftriaxone as well as meropenem. Follow up on culture results. Continuing her home medications. Depending on the culture results, we will decide if she can go ho me with oral or IV antibiotics. I will see her tomorrow for followup. JANETTE/MODL Voice ID: [id number] Report ID: [id number]
[2019-03-29] MEDS: MIRTAZAPINE 15 MG TAB PO SCH (17:15)
[2019-03-29] MEDS: ATORVASTATIN 20 MG TAB PO SCH (17:15)
[2019-03-29] MEDS: ASPIRIN EC 81 MG TAB PO SCH (17:15)
[2019-03-29] MEDS: DOCUSATE NA/SENNA CONC 1 TAB PO SCH (20:35)
[2019-03-30 05:42] LABS: Basophils % 0.6 % (0-1.3); Hematocrit 36.3 % (36.0-45.0); Lymphocytes % 28.7 % (15.3-44.8); MPV 7.2 fL (7.6-11.3); RBC Red Blood Cell Count 4.14 M/uL (3.86-4.86)
[2019-03-30 06:00] LABS: Magnesium 2.2 mg/dL (1.8-2.4); Potassium 3.7 mmol/L (3.5-5.1)
[2019-03-30] MEDS: Meropenem 1,000 MG in NA CHLORIDE 0.9% 100 ML IV SCH (08:05)
[2019-03-30] MEDS: RANITIDINE 150 MG TABLET PO SCH ×2 (08:06→20:45)
[2019-03-30] MEDS: CETIRIZINE HCL 5 MG TABLET PO SCH (08:06)
[2019-03-30] MEDS: ENOXAPARIN 40 MG/0.4 ML SQ SCH (08:07)
[2019-03-30] MEDS: CEFTRIAXONE/SWI 1gm 1 GM/10 ML SYR IV SCH (08:07)
[2019-03-30 09:36] LABS: Blood Morphology Comment NOT SEEN (NOT SEEN); Platelet Estimate ADEQ; Urine White Blood Cell Casts OK
[2019-03-30] MEDS: CIPROFLOXACIN HCL 500 MG TAB PO SCH ×2 (11:50→20:45)
--- NOTE | 2019-03-30 14:27 | PN ---
Date of Progress Note: 03/30/2019 Subjective: Patient was seen this morning for followup. She was lying in bed, not in distress. Den ies any complaints. No abdominal pain, nausea, vomiting. No fever. No chills. Objective: Vital Signs: Reviewed. HEENT: Unremarkable. Lungs: Clear to auscultation. Heart: Sounds normal. Abdomen: Soft. Bowel sounds normal. No guarding, rigidity, tenderness, distention. Extremities: No leg edema. Laboratory Data: White count 7, hemoglobin 12.4, platelets 170. Sodium 142, potassium 3.7, chloride 112, bicarb 24, BUN 10, creatinine 0.94, glucose 99, magnesium 2.2. Blood culture negative. Urine culture negative. Impression: Acute pyelonephritis. Plan: Patient initially was started on ceftriaxone when she came into the hospital, and white count was elevated at 16,000 when she first came in. She did not respond to ceftriaxone, kept on having fe lissy up to 103 degrees Fahrenheit, so we added meropenem. Ever since we added meropenem, she not had any fever and she is improving clinically, but her urine culture that was collected before any antibi otics were started in the emergency room, she has not grown any specific bacteria, so we have 2 optio ns here one option is to continue IV meropenem for total 7 days and other option is try oral antibiot ics for about 24 hours or so while in the hospital and if she continues to remain afebrile and stable , then we can discharge to go home with oral antibiotics. I presented both options to patient and sh e would like to go home with oral antibiotics if possible, so we will start her on Cipro 500 mg twice a day as of this morning and discontinue meropenem. She was getting her last dose of meropenem this morning when I saw her. She is listed as allergic to Levaquin and what actually happen with Levaqui n was while she was getting IV infusion, she had some redness around the infusion site, so this was m ore like a side effect from IV infusion and I would not consider that as allergic reaction and we bel ieve that she should do okay with oral fluoroquinolones and we will start her on Cipro 500 mg twice a day and we will monitor her for any possible side effect. I will see her tomorrow for followup. JANETTE/MODL Voice ID: [id number] Report ID: [id number]
[2019-03-30] MEDS: ATORVASTATIN 20 MG TAB PO SCH (16:54)
[2019-03-30] MEDS: ASPIRIN EC 81 MG TAB PO SCH (16:54)
[2019-03-30] MEDS: MIRTAZAPINE 15 MG TAB PO SCH (16:54)
[2019-03-30] MEDS: DOCUSATE NA/SENNA CONC 1 TAB PO SCH (20:45)
[2019-03-31 08:34] VITALS: BP 108/61; TEMP 97.9
[2019-03-31 09:01] VITALS: O2SAT 95
[2019-03-31] MEDS: CETIRIZINE HCL 5 MG TABLET PO SCH (09:03)
[2019-03-31] MEDS: ENOXAPARIN 40 MG/0.4 ML SQ SCH (09:03)
[2019-03-31] MEDS: CIPROFLOXACIN HCL 500 MG TAB PO SCH (09:04)
[2019-03-31] MEDS: RANITIDINE 150 MG TABLET PO SCH (09:04)
--- NOTE | 2019-04-01 00:58 | DS ---
Date of Discharge: 03/31/2019 Disposition: Discharged to go home. Physical Examination: HEENT: Unremarkable. Lungs: Clear to auscultation. Heart: Heart sounds normal. Abdomen: Soft, bowel sounds normal. No guarding, rigidity, tenderness, or distention. Extremities: No leg edema. Discharge Medications And Instructions: 1.Continue prior home medication. 2.Take Cipro 500 mg 2 times a day for 1 week. 3.Follow up at my office per scheduled appointment. Hospital Course: This is a 78-year-old pleasant female patient, admitted to the hospital with compla ints of fever and chills. Patient has had history of recurrent urinary tract infection. She has see n urologist, Dr. Smith, and the patient tells me that no definite reason for her recurrent urinary tr act infection was found, so Dr. Smith does not have anything to offer to her to prevent any infection s, but advice her to come to the emergency room if she starts to notice any fever, chills, or any blo od in urine. So, she came into emergency room with fever and chills, was diagnosed as having ___ urinary tract infection and was admitted to the hospital. Her white count when she came in was e levated at 15.8 and after IV antibiotic was started white count came down to normal. She was initial ly started on IV Rocephin and she still continued to have fever up to 103 degrees Fahrenheit, so at t hat time we started IV meropenem and subsequently Rocephin was discontinued. She remained afebrile o n meropenem. Blood culture and urine culture remained negative. Urine culture was collected in the emergency room before any antibiotic was started, but blood culture was collected before meropenem wa s started while patient was already getting Rocephin. As of yesterday morning, we discontinued IV me ropenem and started her on oral Cipro. I talked to patient regarding option of either continuing connie openem IV for 1 week or try oral antibiotics and if she remains afebrile, then she can go home on ora l antibiotic and patient elected to take oral antibiotics. Yesterday morning, IV meropenem was disco ntinued. Oral Cipro was started. She has tolerated Cipro very well without any side effect. She is listed as allergic to Levaquin, but this allergy is actually side effect. While she was getting IV Levaquin in the past she had some skin irritation around the infusion site. She has remained afebril e on oral antibiotics and today she is asymptomatic, ready to go home. Medically she is stable for d ischarge. Final Diagnoses: 1.Acute pyelonephritis. 2.Renal cyst. 3.Coronary artery disease. 4.Hypertension. 5.Hyperlipidemia. 6.Gastroesophageal reflux disease. 7.Guillian-Gurdon syndrome, secondary to influenza vaccine. Laboratory Data: Initial white count 15.8, hemoglobin 12.7, platelets 165. Last white count yesterd ay 7, hemoglobin 12.4, platelets . Initial sodium 140, potassium 3.9, chloride 108, bicarb 24, BUN 18, creatinine 1.17, glucose 121, procalcitonin 1. Last chemistry yesterday, sodium 142, po tassium 3.7, chloride 112, bicarb 24, BUN 10, creatinine 0.94, glucose , magnesium 2.2. JANETTE/MODL Voice ID: [id number] Report ID: [id number]
== END 2019-03-31 12:15 | disposition home or self-care (01) | DRG 690 ==
LOC: ER 18:35 → ERHOLD 20:46 → 2ND 22:46
PROVIDERS: ADMIT Internal Medicine; ATTEND Internal Medicine
DX: N10 Acute pyelonephritis (principal); G61.0 Guillain-Barre syndrome; I10 Essential (primary) hypertension; E78.5 Hyperlipidemia, unspecified; K21.9 Gastro-esophageal reflux disease without esophagitis; N28.1 Cyst of kidney, acquired; I25.10 Atherosclerotic heart disease of native coronary artery without angina pectoris
CPT/HCPCS: 36415; 71045; 74176; 76377; 80048; 80076; 81003; 83605; 83690; 83735; 83880; 84145; 84484; 85025; 85610; 87040; 87086; 87088; 93005; 96361; 96365; 96366; 97116; 97161; 99285; J0696; J1650; J2185; J7030

== ENCOUNTER 2022-06-20 18:19 | Emergency (ER) | payer OTHER, MEDICARE ==
--- OUTSIDE RECORDS SUMMARY | 2022-06-20 18:24 | XMS REPORT | Continuity of Care Document ---
:1940 Author Organization [facility] t Address [address] [place] [address] Dr. Hernandez. [address] [place] [address] Care Team Providers Name Role Phone Marva Luis Garcia Primary Care Physician Marbella Hensley Attending Clinician MARBELLA SPIVEY Attending Clinician Unavailable Doctor Unassigned, [place] Attending Clinician Unavailable URBAN C[place]AM Attending Clinician Unavailable Zen Tierney Attending Clinician [place] Admitting Clinician Unavailable Payers Payer Name Policy Type Policy Number Effective Date Expiration Date S ource Problems Condition Condition Condition Status Onset Resolution Last Treating Co mments Source Name Details Category Date Date Treatment Clinician Date CAD CAD Disease Active 2017-[address] [facility] (coronary (coronary 05-03 [facility] artery artery 00:00: Medical disease) disease) 00 Center S/P CABG S/P CABG Disease Active 2017-[facility]coronary 05-03 [facility] artery artery 00:00: Medical bypass bypass 00 Center graft) graft) Respirator Respirator Disease Active 2017-[address] y y 05-03 [facility] insufficie insufficie 00:00: Me dical ncy ncy 00 Center Acute Acute Disease Active 2017-[address] [facility] blood loss blood loss 05-03 [facility] anemia anemia 00:00: Medical 00 Center Vasogenic Vasogenic Disease Active 2017-[address] [facility] shock shock 05-03 [facility] 00:[facility]: Medical 00 [place] BACK PAIN BACK PAIN Diagnosis Active 2017-01-07 Memoria Active 01-01 10:49:00 l 01/01/2017 00:00: Skyler LUNDBERG Sugar 00 [place] 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 [facility] 00 [place] Guillain-B Guillain-B Disease Active 2015-[address] arre arre 05-23 [facility] 00:[facility]: Medical 00 [place] Weakness Weakness Disease Active 2015-05 [facility] of both of both 05-23 [facility] lower lower 00:00: Medical extremitie extremitie 00 Ce nter s s Neurogenic Neurogenic Disease Active 2015-[address] bowel bowel 05-23 [facility] 00:00: Medical 00 [place] Neurogenic Neurogenic Disease Active 2015-[address] bladder bladder 05-23 [facility] 00:00: Medical 00 [place] HTN HTN Disease Active 2015-[address] [facility] [address] (hypertens (hypertens 05-23 [place] ion) ion) 00:00: Medical 00 [place] No known No known Disease Unive rs active active ity of problems problems [facility] History of Past Illness Condition Condition Condition Status Onset Resolution Last Treating Co mments Source Name Details Category Date Date Treatment Clinician Date Low back Low back Problem 2016-2017-01-04 2017-01-04 [facility] pain pain 01-01 01:18:26 01:18:26 l 01/01/2017 05:00: Skyler denson 01/04/2017 00 [facility] [place] Allergies, Adverse Reactions, Alerts Allergy Allergy Status Severity Reaction(s) Onset Inactive Treating Comm ents Source Name Type Date Date Clinician Levoflox Propensi Active Rash 2015-[address] [facility] acin ty to 05-23 [facility] adverse 00:00: Medical reaction 00 Center s Social History Social Habit Start Date Stop Date Quantity Comments Source History SDOH [facility] Alcohol Std Medical Cent[facility] r Drinks History SDOH [facility] Alcohol Binge Medical Hanny ter History SDOH [facility] Alcohol Comment Medical C enter Exposure to 2021-11-14 2021-11-24 Not sure [facility]-CoV-2 00:00:00 14:25:00 [facility] (event) Branch Alcohol intake 2018-03-16 2018-03-[address] Mylene es 00:00:00 00:00:00 non-drinker of Medical Ce nter alcohol (finding) Tobacco use and 2018-03-01 2018-03-[address] [facility] [facility] exposure 00:00:00 00:00:00 Medical Center History SDOH 2018-03-01 2018-03-[address] [facility] Alcohol Frequency 00:00:00 00:00:00 Medical Center Sex Assigned At [address] [facility] 00:00:00 00:00:00 Medical Center Smoking Status Start Date Stop Date Source Social History [facility] Medications Ordered Filled Start Stop Current Ordering Indication Dosage Frequency Signature Comments Components Source Medication Medication Date Date Medication? Clinician (SIG) Name Name sodium 2021- No [id number] 30mg Uni vers hyaluronate 11-24 9109 ity of (viscosup) 19:30: 19:30 [place] (ORTHOVISC) 00 :00 Medical injection Branch 30 mg sodium 2021- No [id number] 30mg 30 mg, U nivers hyaluronate 11-24 9109 Intra-enid i ty of (viscosup) 19:30: 19:30 Marielena billings s (ORTHOVISC) 00 :00 ONCE, 1 Medic al injection dose, On Branch 30 mg 11/24/21 at 1430, Routine MELOXICAM Yes [id number] TAKE 1 Univers 7.5 mg 2-23 9109 TABLET BY ity of tablet 00:00: MOUTH [place] 00 EVERY DAY Medical Branch aspirin 81 2019-05 Yes 81mg Take 81 mg U nivers mg EC 0-23 by mouth. ity of tablet 10:58: [address] Branch traMADoL 50 2019-05 Yes 50mg Take 50 mg Univers mg tablet 0-23 by mouth. ity o f 10:58: [place] [address] Medical Branch Lactobac 2019-05 Yes Take by Univer s no.41/Bifid 0-23 mouth. ity of obact no.7 10:58: [place] (PROBIOTIC- 10 Medical 10 ORAL) Branch fexofenadin 2019-05 Yes Take by Uni vers e HCl 0-23 mouth. ity of (SAUMYA 10:58: [place] ALLERGY 10 Medical ORAL) Branch docusate 2019-05 Yes Take by Univer s sodium 0-23 mouth. ity of (STOOL 10:58: [place] SOFTENER 10 Medical ORAL) Branch estradioL Yes Univers 0.01 % (0.1 9-29 ity of mg/gram) 00:00: [place] vaginal 00 Medical cream Branch atorvastati Yes Univer s n 20 mg 9-10 ity of tablet 00:00: [place] 00 Medical Branch mirtazapine Yes Univer s 30 mg 9-10 ity of tablet 00:00: [place] [address] Medical Branch pravastatin 2017-05 Yes hyperlipide 80mg QD Take [address] (PRAVACHOL) 05-10 gaurav by mouth Luke s 80 MG 17:11: nightly. Medical tablet [address] [place] [address] valsartan-h 2017-05 Yes 1{tbl} QD Take [address] ydrochlorot 05-10 tablet by Mylene es hiazide 17:11: mouth Medical (DIOVAN-HCT 04 daily. Center ) 160-12.5 mg per tablet aspirin 81 2017-05 Yes 81mg QD Take [address] MG EC 05-10 by mouth [facility]ukes tablet 17:11: daily. Medical [address] [place] [address] traMADol 2017-05 Yes pain 50mg QD Take [address] (ULTRAM) 50 05-10 by mouth Luke s mg tablet 17:11: daily. Medica l [address] [place] [address] Acetaminoph Yes 1-2 tab, Me moria en 325 MG / 01-01 PO, Q4-6H, l Hydrocodone 18:43: PRN Pain, H ermann Bitartrate 00 X 5 day, # 5 MG Oral 15 tab, 0 Tablet Refill(s) [[place] 5/325] Naproxen Yes 500 mg = 1 Mem oria 500 MG Oral 01-01 tab, PO, l Tablet 18:43: BID, PRN Alexey [Naprosyn] 00 Pain, X 14 day, # 28 tab, 0 Refill(s) Morphine No 4 mg, Memoria 01-01 Route: IM, l 18:09: ONCE, [place] 00 Dosing Weight 56.8, kg, Priority: STAT, Start date: 01/01/17 13:09:00 CDT, Stop date: 01/01/17 13:09:00 CDT Ketorolac No 30 mg, Memori a 01-01 Route: IM, l 17:11: Drug form: [place] 00 INJ, ONCE, Dosing Weight 56.8, kg, Priority: STAT, Start date: 01/01/17 12:11:00 CDT, Stop date: 01/01/17 12:11:00 CDT melatonin 5 2015-05 Yes 10mg Take [address] [facility] [facility] mg Tab 2-05 tablets [facility]ukes 00:00: (10 mg Medical 00 total) by Center mouth once at bedtime. pantoprazol 2015-05 Yes 40mg QD Take [address] [facility] e 2-05 tablet (40 [facility] (PROTONIX) 00:00: mg total) Me dical 40 MG 00 by mouth Center tablet daily. Vital Signs Vital Name Observation Time Observation Value Comments Source Body weight 2021-11-24 19:28:00 81.194 kg [facility] BMI 2021-11-24 19:28:00 30.73 kg/m2 [facility] Systolic (mm Hg) 2017-01-01 19:03:00 Germain rial [place] Diastolic (mm Hg) 2017-01-01 19:03:00 Mem orial Alexey Temperature Oral (F) 2017-01-01 19:03:00 98.0 F [facility] Respitory Rate 2017-01-01 19:03:00 Memori al Alexey Heart Rate 2017-01-01 19:03:00 [facility] [place] Weight 2017-01-01 17:01:00 [facility] [place] Systolic (mm Hg) 2017-01-01 17:01:00 Germain rial [place] Diastolic (mm Hg) 2017-01-01 17:01:00 Mem orial [place] Heart Rate 2017-01-01 17:01:00 [facility] [place] Temperature Oral (F) 2017-01-01 17:01:00 97.4 F [facility] [place] Respitory Rate 2017-01-01 17:01:00 Memori al [place] Procedures This patient has no known procedures. Encounters Start End Encounter Admission Attending Care Care Encounter Source Date/Time Date/Time Type Type Clinicians Facility Department ID 2021-11-24 2021-11-24 Office YAEL Spivey [id number] Univers 13:30:00 15:26:34 Visit [facility] [id number] it y of [place] [id number] Jostin as LOUIE?BLEA [id number] [place] nikkie SANTOS [address] [facility] OFFICE [facility] 2021-11-24 2021-11-24 Outpatient Tiffanie SPIVEY [facility] [id number] Univers 13:30:00 15:26:34 MARBELLA ity [facility] 2021-11-24 2021-11-24 [facility] [id number] Univers 13:30:00 13:30:00 MARBELLA ity [facility] 2021-11-24 2021-11-24 [facility] [id number] Univers 13:30:00 13:30:00 MARBELLA [facility] 2021-11-17 2021-11-17 [facility] [id number] Univers 13:45:00 [facility]06:[facility]-11[facility]17 2021-11-17 [facility] [id number] Univers 13:45:00 14:06:58 Visit [facility] [id number] [facility] [id number] Jostin as LOUIE?BLEA [id number] [place] nikkie SANTOS [address] [place] [address] OFFICE [facility] 2021-11-06 2021-11-06 [facility] [id number] Univers 10:45:00 10:45:00 [facility] 2021-10-28 2021-10-28 Office [facility] [id number] Univers 15:45:00 16:00:00 Visit [facility] [id number] it y of [place] [id number] Jostin as LOUIE?BLEA [id number] [place] jaylanarlet SANTOS [address] [place] [address] OFFICE [facility] 2021-10-28 2021-10-28 [facility] [id number] Univers 15:45:00 15:45:00 MARBELLA [facility] 2021-10-28 2021-10-28 [facility] [id number] Univers 15:45:00 15:45:00 MARBELLA ity of [facility] 2021-10-28 2021-10-28 Orders Doctor AARON [id number] Univers 00:00:00 00:00:00 Only Unassigned, JUNG [id number] ity of [place] [facility] [id number] Jostin as [phone] [address] 2021-10-14 2021-10-14 Telephone [facility] [id number] Univers 00:00:00 00:00:00 Marbella S HEALTH [id number] it y of [place] [id number] Jostin as LOUIE?BLEA [id number] Ks nikkie SANTOS [address] [place] [address] OFFICE [facility] 2021-10-14 2021-10-14 [place] [facility] [id number] Univers 00:00:00 00:00:00 Marbella S HEALTH [id number] it y of [place] [id number] Jostin as LOUIE?BLEA [id number] Ks nikkie SANTOS [address] [place] [address] OFFICE [facility] 2021-09-30 2021-09-30 [place] [facility] [id number] Univers 00:00:00 00:00:00 Marbella S HEALTH [id number] it y of [place] [id number] Jostin as LOUIE?BLEA [id number] Ks nikkie SANTOS [address] [place] [address] OFFICE [facility] 2021-08-06 2021-08-06 Office [facility] [id number] Univers 09:15:00 10:14:26 Visit Marbella S HEALTH [id number] it y of [place] [id number] Jostin as LOUIE?BLEA [id number] Ks nikkie SANTOS [address] [place] [address] OFFICE [facility] 2021-08-06 2021-08-06 [facility]patient [facility] [id number] Univers 09:15:00 10:14:26 MARBELLA ity [facility] 2021-08-06 2021-08-06 [facility] [id number] Univers 09:15:00 10:14:26 [facility] 2021-08-06 2021-08-06 Office [facility] [id number] Univers 09:15:00 10:14:26 [facility] [id number] [facility] [id number] Jostin as LOUIE?BLEA [phone] Ks dical [address] MEDICAL OFFICE BUILDING 2021-08-06 2021-08-06 Orders Doctor AARON [id number] Univers 00:00:00 00:00:00 Only Unassigned, JUNG [id number] ity of [place] [facility] [id number] Jostin as [id number] [address] 2020-02-22 2020-02-22 [facility] [id number] Univers 10:45:00 10:45:00 [facility] 2020-02-15 2020-02-15 Out[facility] [id number] Univers 10:30:00 10:30:00 [facility] 2020-02-08 2020-02-08 [facility] [id number] Univers 11:15:00 11:15:00 [facility] 2020-01-02 2020-01-02 Out[facility] [id number] Univers 14:00:00 14:00:00 [facility] 2019-04-17 2019-04-17 [facility]patient [facility] [id number] Univers 08:50:46 23:59:00 [facility] 2017-01-01 2017-01-01 Emergency [facility] [id number] Memoria 16:55:00 19:05:00 tiffanie Blackburn 00 l [place] Nia pinzon 2017-01-01 2017-01-01 Outpatient Zen Tierney [facility] [id number] 11:55:00 14:05:00 Primo 00 Results Test Description Test Time Test Comments Results Result Comments Source MAGNESIUM 2018-03-10 06:04:00 Test Item Value Reference Range Interpretation Comme nts MAGNESIUM (BEAKER) (test code = 627) 2.1 mg/dL 1.6-2.6 BASIC METABOLIC [id number] 06:04:00 Test Item Value Reference Range Interpretation Comments SODIUM (BEAKER) 140 meq/L 136-145 (test code = 381) POTASSIUM (BEAKER) 4.1 meq/L 3.5-5.1 (test code = 379) CHLORIDE (BEAKER) 108 meq/L 98-107 H (test code = 382) CO2 (BEAKER) (test 22 meq/L 22-29 code = 355) BLOOD UREA NITROGEN 11 mg/dL 7-21 (BEAKER) (test code = 354) CREATININE (BEAKER) 0.79 mg/dL 0.57-1.25 (test code = 358) GLUCOSE RANDOM 106 mg/dL 70-105 H (BEAKER) (test code = 652) CALCIUM (BEAKER) 8.8 mg/dL 8.4-10.2 (test code = 697) EGFR (BEAKER) (test 70 mL/min/1.73 ESTIMA YVROSE GFR IS code = 1092) sq m NOT ACCURATE CREATININE CLEARANCE IN PREDICTING GLOMERULAR FILTRATION RATE . ESTIMATED GFR I S NOT APPLICABLE FOR DIALYSIS PATIEN TS. CBC W/PLT COUNT & AUTO [id number] 05:32:00 Test Item Value Reference Range Interpretation Comments WHITE BLOOD CELL COUNT (BEAKER) 11.1 K/ L 3.5-10.5 H (test code = 775) RED BLOOD CELL COUNT (BEAKER) 3.21 M/ L 3.93-5.22 L (test code = 761) HEMOGLOBIN (BEAKER) (test code = 9.4 GM/DL 11.2-15.7 L 410) HEMATOCRIT (BEAKER) (test code = 29.4 % 34.1-44.9 L 411) MEAN CORPUSCULAR VOLUME (BEAKER) 91.6 fL 79.4-94.8 (test code = 753) MEAN CORPUSCULAR HEMOGLOBIN 29.3 pg 25.6-32.2 (BEAKER) (test code = 751) MEAN CORPUSCULAR HEMOGLOBIN CONC 32.0 GM/DL 32.2-35.5 L (BEAKER) (test code = 752) RED CELL DISTRIBUTION WIDTH 14.7 % 11.7-14.4 H (BEAKER) (test code = 412) PLATELET COUNT (BEAKER) (test 260 K/CU MM 150-450 code = 756) MEAN PLATELET VOLUME (BEAKER) 9.3 fL 9.4-12.3 L (test code = 754) NUCLEATED RED BLOOD CELLS 0 /100 WBC 0-0 (BEAKER) (test code = 413) NEUTROPHILS RELATIVE PERCENT 68 % (BEAKER) (test code = 429) LYMPHOCYTES RELATIVE PERCENT 15 % (BEAKER) (test code = 430) MONOCYTES RELATIVE PERCENT 11 % (BEAKER) (test code = 431) EOSINOPHILS RELATIVE PERCENT 5 % (BEAKER) (test code = 432) BASOPHILS RELATIVE PERCENT 1 % (BEAKER) (test code = 437) NEUTROPHILS ABSOLUTE COUNT 7.49 K/ L 1.56-6.13 H (BEAKER) (test code = 670) LYMPHOCYTES ABSOLUTE COUNT 1.69 K/ L 1.18-3.74 (BEAKER) (test code = 414) MONOCYTES ABSOLUTE COUNT (BEAKER) 1.21 K/ L 0.24-0.36 H (test code = 415) EOSINOPHILS ABSOLUTE COUNT 0.54 K/ L 0.04-0.36 H (BEAKER) (test code = 416) BASOPHILS ABSOLUTE COUNT (BEAKER) 0.06 K/ L 0.01-0.08 (test code = 417) IMMATURE GRANULOCYTES-RELATIVE 1 % 0-1 PERCENT (BEAKER) (test code = 2801) BASIC METABOLIC [id number] 11:56:00 Test Item Value Reference Range Interpretation Comments SODIUM (BEAKER) 140 meq/L 136-145 (test code = 381) POTASSIUM (BEAKER) 3.9 meq/L 3.5-5.1 (test code = 379) CHLORIDE (BEAKER) 109 meq/L 98-107 H (test code = 382) CO2 (BEAKER) (test 21 meq/L 22-29 L code = 355) BLOOD UREA NITROGEN 10 mg/dL 7-21 (BEAKER) (test code = 354) CREATININE (BEAKER) 0.74 mg/dL 0.57-1.25 (test code = 358) GLUCOSE RANDOM 115 mg/dL 70-105 H (BEAKER) (test code = 652) CALCIUM (BEAKER) 8.5 mg/dL 8.4-10.2 (test code = 697) EGFR (BEAKER) (test 76 mL/min/1.73 ESTIMA YVROSE GFR IS code = 1092) sq m NOT ACCURATE CREATININE CLEARANCE IN PREDICTING GLOMERULAR FILTRATION RATE . ESTIMATED GFR I S NOT APPLICABLE FOR DIALYSIS PATIEN TS. [id number] 06:20:00 Test Item Value Reference Range Interpretation Comments MAGNESIUM (BEAKER) (test code = 2.0 mg/dL 1.6-2.6 627) CBC W/PLT COUNT & AUTO [id number] 05:46:00 Test Item Value Reference Range Interpretation Comments WHITE BLOOD CELL COUNT (BEAKER) 11.4 K/ L 3.5-10.5 H (test code = 775) RED BLOOD CELL COUNT (BEAKER) 3.20 M/ L 3.93-5.22 L (test code = 761) HEMOGLOBIN (BEAKER) (test code = 9.5 GM/DL 11.2-15.7 L 410) HEMATOCRIT (BEAKER) (test code = 29.6 % 34.1-44.9 L 411) MEAN CORPUSCULAR VOLUME (BEAKER) 92.5 fL 79.4-94.8 (test code = 753) MEAN CORPUSCULAR HEMOGLOBIN 29.7 pg 25.6-32.2 (BEAKER) (test code = 751) MEAN CORPUSCULAR HEMOGLOBIN CONC 32.1 GM/DL 32.2-35.5 L (BEAKER) (test code = 752) RED CELL DISTRIBUTION WIDTH 14.9 % 11.7-14.4 H (BEAKER) (test code = 412) PLATELET COUNT (BEAKER) (test 231 K/CU MM 150-450 code = 756) MEAN PLATELET VOLUME (BEAKER) 9.7 fL 9.4-12.3 (test code = 754) NUCLEATED RED BLOOD CELLS 0 /100 WBC 0-0 (BEAKER) (test code = 413) NEUTROPHILS RELATIVE PERCENT 69 % (BEAKER) (test code = 429) LYMPHOCYTES RELATIVE PERCENT 14 % (BEAKER) (test code = 430) MONOCYTES RELATIVE PERCENT 11 % (BEAKER) (test code = 431) EOSINOPHILS RELATIVE PERCENT 4 % (BEAKER) (test code = 432) BASOPHILS RELATIVE PERCENT 1 % (BEAKER) (test code = 437) NEUTROPHILS ABSOLUTE COUNT 7.84 K/ L 1.56-6.13 H (BEAKER) (test code = 670) LYMPHOCYTES ABSOLUTE COUNT 1.57 K/ L 1.18-3.74 (BEAKER) (test code = 414) MONOCYTES ABSOLUTE COUNT (BEAKER) 1.29 K/ L 0.24-0.36 H (test code = 415) EOSINOPHILS ABSOLUTE COUNT 0.49 K/ L 0.04-0.36 H (BEAKER) (test code = 416) BASOPHILS ABSOLUTE COUNT (BEAKER) 0.06 K/ L 0.01-0.08 (test code = 417) IMMATURE GRANULOCYTES-RELATIVE 1 % 0-1 PERCENT (BEAKER) (test code = 2801) CBC W/PLT COUNT & AUTO [id number] 05:53:00 Test Item Value Reference Range Interpretation Comments WHITE BLOOD CELL COUNT (BEAKER) 12.8 K/ L 3.5-10.5 H (test code = 775) RED BLOOD CELL COUNT (BEAKER) 3.30 M/ L 3.93-5.22 L (test code = 761) HEMOGLOBIN (BEAKER) (test code = 9.7 GM/DL 11.2-15.7 L 410) HEMATOCRIT (BEAKER) (test code = 30.2 % 34.1-44.9 L 411) MEAN CORPUSCULAR VOLUME (BEAKER) 91.5 fL 79.4-94.8 (test code = 753) MEAN CORPUSCULAR HEMOGLOBIN 29.4 pg 25.6-32.2 (BEAKER) (test code = 751) MEAN CORPUSCULAR HEMOGLOBIN CONC 32.1 GM/DL 32.2-35.5 L (BEAKER) (test code = 752) RED CELL DISTRIBUTION WIDTH 15.0 % 11.7-14.4 H (BEAKER) (test code = 412) PLATELET COUNT (BEAKER) (test 215 K/CU MM 150-450 code = 756) MEAN PLATELET VOLUME (BEAKER) 9.6 fL 9.4-12.3 (test code = 754) NUCLEATED RED BLOOD CELLS 0 /100 WBC 0-0 (BEAKER) (test code = 413) NEUTROPHILS RELATIVE PERCENT 69 % (BEAKER) (test code = 429) LYMPHOCYTES RELATIVE PERCENT 14 % (BEAKER) (test code = 430) MONOCYTES RELATIVE PERCENT 12 % (BEAKER) (test code = 431) EOSINOPHILS RELATIVE PERCENT 4 % (BEAKER) (test code = 432) BASOPHILS RELATIVE PERCENT 1 % (BEAKER) (test code = 437) NEUTROPHILS ABSOLUTE COUNT 8.80 K/ L 1.56-6.13 H (BEAKER) (test code = 670) LYMPHOCYTES ABSOLUTE COUNT 1.81 K/ L 1.18-3.74 (BEAKER) (test code = 414) MONOCYTES ABSOLUTE COUNT (BEAKER) 1.50 K/ L 0.24-0.36 H (test code = 415) EOSINOPHILS ABSOLUTE COUNT 0.47 K/ L 0.04-0.36 H (BEAKER) (test code = 416) BASOPHILS ABSOLUTE COUNT (BEAKER) 0.06 K/ L 0.01-0.08 (test code = 417) IMMATURE GRANULOCYTES-RELATIVE 1 % 0-1 PERCENT (BEAKER) (test code = 2801) [id number] 05:51:00 Test Item Value Reference Range Interpretation Comments MAGNESIUM (BEAKER) (test code = 2.3 mg/dL 1.6-2.6 627) BASIC METABOLIC [id number] 05:51:00 Test Item Value Reference Range Interpretation Comments SODIUM (BEAKER) 138 meq/L 136-145 (test code = 381) POTASSIUM (BEAKER) 4.3 meq/L 3.5-5.1 (test code = 379) CHLORIDE (BEAKER) 109 meq/L 98-107 H (test code = 382) CO2 (BEAKER) (test 22 meq/L 22-29 code = 355) BLOOD UREA NITROGEN 14 mg/dL 7-21 (BEAKER) (test code = 354) CREATININE (BEAKER) 0.77 mg/dL 0.57-1.25 (test code = 358) GLUCOSE RANDOM 114 mg/dL 70-105 H (BEAKER) (test code = 652) CALCIUM (BEAKER) 8.4 mg/dL 8.4-10.2 (test code = 697) EGFR (BEAKER) (test 72 mL/min/1.73 ESTIMA YVROSE GFR IS code = 1092) sq m NOT ACCURATE CREATININE CLEARANCE IN PREDICTING GLOMERULAR FILTRATION RATE . ESTIMATED GFR I S NOT APPLICABLE FOR DIALYSIS PATIJAIDA TS. [id number] 20:38:00 Test Item Value Reference Range Interpretation Comments MAGNESIUM (BEAKER) (test code = 1.8 mg/dL 1.6-2.6 627) BUN AND [id number] 20:38:00 Test Item Value Reference Range Interpretation Comments BLOOD UREA NITROGEN 14 mg/dL 7-21 (BEAKER) (test code = 354) CREATININE (BEAKER) 0.82 mg/dL 0.57-1.25 (test code = 358) EGFR (BEAKER) (test 67 mL/min/1.73 ESTIMA YVROSE GFR IS code = 1092) sq m NOT ACCURATE CREATININE CLEARANCE IN PREDICTING GLOMERULAR FILTRATION RATE . ESTIMATED GFR I S NOT APPLICABLE FOR DIALYSIS PATIEN TS. BASIC METABOLIC [id number] 20:38:00 Test Item Value Reference Range Interpretation Comments SODIUM (BEAKER) 137 meq/L 136-145 (test code = 381) POTASSIUM (BEAKER) 3.7 meq/L 3.5-5.1 (test code = 379) CHLORIDE (BEAKER) 108 meq/L 98-107 H (test code = 382) CO2 (BEAKER) (test 20 meq/L 22-29 L code = 355) BLOOD UREA NITROGEN 14 mg/dL 7-21 (BEAKER) (test code = 354) CREATININE (BEAKER) 0.82 mg/dL 0.57-1.25 (test code = 358) GLUCOSE RANDOM 169 mg/dL 70-105 H (BEAKER) (test code = 652) CALCIUM (BEAKER) 8.7 mg/dL 8.4-10.2 (test code = 697) EGFR (BEAKER) (test 67 mL/min/1.73 ESTIMA YVROSE GFR IS code = 1092) sq m NOT ACCURATE CREATININE CLEARANCE IN PREDICTING GLOMERULAR FILTRATION RATE . ESTIMATED GFR I S NOT APPLICABLE FOR DIALYSIS PATIEN TS. CBC W/PLT COUNT & AUTO [id number] 20:36:00 Test Item Value Reference Range Interpretation Comments WHITE BLOOD CELL COUNT (BEAKER) 14.3 K/ L 3.5-10.5 H (test code = 775) RED BLOOD CELL COUNT (BEAKER) 3.43 M/ L 3.93-5.22 L (test code = 761) HEMOGLOBIN (BEAKER) (test code = 10.1 GM/DL 11.2-15.7 L 410) HEMATOCRIT (BEAKER) (test code = 31.3 % 34.1-44.9 L 411) MEAN CORPUSCULAR VOLUME (BEAKER) 91.3 fL 79.4-94.8 (test code = 753) MEAN CORPUSCULAR HEMOGLOBIN 29.4 pg 25.6-32.2 (BEAKER) (test code = 751) MEAN CORPUSCULAR HEMOGLOBIN CONC 32.3 GM/DL 32.2-35.5 (BEAKER) (test code = 752) RED CELL DISTRIBUTION WIDTH 15.1 % 11.7-14.4 H (BEAKER) (test code = 412) PLATELET COUNT (BEAKER) (test 205 K/CU MM 150-450 code = 756) MEAN PLATELET VOLUME (BEAKER) 9.2 fL 9.4-12.3 L (test code = 754) NUCLEATED RED BLOOD CELLS 0 /100 WBC 0-0 (BEAKER) (test code = 413) (CELLAVISION MANUAL DIFF)2018-03-07 20:36:00 Test Item Value Reference Range Interpretation Comments NEUTROPHILS - REL 73 % (CELLAVISION)(BEAKER) (test code = 2816) LYMPHOCYTES - REL 12 % (CELLAVISION)(BEAKER) (test code = 2817) MONOCYTES - REL 9 % (CELLAVISION)(BEAKER) (test code = 2818) EOSINOPHILS - REL 5 % (CELLAVISION)(BEAKER) (test code = 2819) BASOPHILS - REL 1 % (CELLAVISION)(BEAKER) (test code = 2820) NEUTROPHILS - ABS 10.44 K/ul 1.56-6.13 H (CELLAVISION)(BEAKER) (test code = 2830) LYMPHOCYTES - ABS 1.72 K/ul 1.18-3.74 (CELLAVISION)(BEAKER) (test code = 2831) MONOCYTES - ABS 1.29 K/uL 0.24-0.36 H (CELLAVISION)(BEAKER) (test code = 2832) EOSINOPHILS - ABS 0.72 K/uL 0.04-0.36 H (CELLAVISION)(BEAKER) (test code = 2834) BASOPHILS - ABS 0.14 K/uL 0.01-0.08 H (CELLAVISION)(BEAKER) (test code = 2835) TOTAL COUNTED (BEAKER) (test code 100 = 1351) WBC MORPHOLOGY (BEAKER) (test code Normal = 487) GIANT PLATELETS (BEAKER) (test Present code = 313) ANISOCYTOSIS (BEAKER) (test code = 1+ few 961) MICROCYTES (BEAKER) (test code = 1+ few 965) POIKILOCYTES (BEAKER) (test code = 1+ few 966) ELLIPTOCYTES (BEAKER) (test code = 1+ few 962) OVALOCYTES (BEAKER) (test code = 1+ few 477) TEAR DROP CELLS (BEAKER) (test 1+ few code = 481) ARTIFACT (CELLAVISION)(BEAKER) Present (test code = 3432) PLATELET CONCENTRATION Adequate (CELLAVISION)(BEAKER) (test code = 3438) Received comment: User comments: Slide comments:POCT-GLUCOSE [id number] 11:56:00 Test Item Value Reference Range Interpretation Comments POC-GLUCOSE METER 127 mg/dL 70-110 H TESTED AT [place] [address] [facility] ([facility] = [facility] 1538) [address] POCT-GLUCOSE [id number] 07:54:00 Test Item Value Reference Range Interpretation Comments POC-GLUCOSE METER 146 mg/dL 70-110 H TESTED AT [place] [address] ([facility] (test code = [facility] 1538) [address] POCT-GLUCOSE [id number] 21:27:00 Test Item Value Reference Range Interpretation Comments POC-GLUCOSE METER 131 mg/dL 70-110 H TESTED AT [place] [address] ([facility] (test code = [facility] 1538) [address] POCT-GLUCOSE [id number] 17:25:00 Test Item Value Reference Range Interpretation Comments POC-GLUCOSE METER 110 mg/dL 70-110 TESTED AT [place] [id number] ([facility] (test code = [facility] [place] 1538) [address] POCT-GLUCOSE [id number] 11:49:00 Test Item Value Reference Range Interpretation Comments POC-GLUCOSE METER 189 mg/dL 70-110 H TESTED AT [place] [address] ([facility]) (test code = [facility] 1538) [address] POCT-GLUCOSE [id number] 08:59:00 Test Item Value Reference Range Interpretation Comments POC-GLUCOSE METER 123 mg/dL 70-110 H TESTED AT [place] [address] ([facility]) (test code = [facility] 1538) [address] POCT-GLUCOSE [id number] 03:56:00 Test Item Value Reference Range Interpretation Comments POC-GLUCOSE METER 128 mg/dL 70-110 H TESTED AT [place] [address] ([facility]) (test code = [facility] 1538) [address] POCT-GLUCOSE [id number] 17:09:00 Test Item Value Reference Range Interpretation Comments POC-GLUCOSE METER 122 mg/dL 70-110 H TESTED AT [place] [address] ([facility]) (test code = [facility] 1538) [address] POCT-GLUCOSE [id number] 12:02:00 Test Item Value Reference Range Interpretation Comments POC-GLUCOSE METER 134 mg/dL 70-110 H TESTED AT [place] [address] ([facility]) (test code = [facility] 1538) [address] POCT-GLUCOSE [id number] 08:54:00 Test Item Value Reference Range Interpretation Comments POC-GLUCOSE METER 105 mg/dL 70-110 TESTED AT [place] [address] ([facility]) (test code = [facility] 1538) [address] CBC W/PLT COUNT & AUTO [id number] 08:03:00 Test Item Value Reference Range Interpretation Comments WHITE BLOOD CELL COUNT ([facility]) 13.7 K/ L 3.5-10.5 H (test code = 775) RED BLOOD CELL COUNT ([facility]) 3.23 M/ L 3.93-5.22 L (test code = 761) HEMOGLOBIN (BEAKER) (test code = 9.6 GM/DL 11.2-15.7 L 410) HEMATOCRIT ([facility]) (test code = 29.4 % 34.1-44.9 L 411) MEAN CORPUSCULAR VOLUME ([facility]) 91.0 fL 79.4-94.8 (test code = 753) MEAN CORPUSCULAR HEMOGLOBIN 29.7 pg 25.6-32.2 (AKER) (test code = 751) MEAN CORPUSCULAR HEMOGLOBIN CONC 32.7 GM/DL 32.2-35.5 (BEAKER) (test code = 752) RED CELL DISTRIBUTION WIDTH 15.3 % 11.7-14.4 H (BEAKER) (test code = 412) PLATELET COUNT (BEAKER) (test 121 K/CU MM 150-450 L code = 756) MEAN PLATELET VOLUME (BEAKER) 9.9 fL 9.4-12.3 (test code = 754) NUCLEATED RED BLOOD CELLS 0 /100 WBC 0-0 (BEAKER) (test code = 413) NEUTROPHILS RELATIVE PERCENT 76 % (BEAKER) (test code = 429) LYMPHOCYTES RELATIVE PERCENT 12 % (BEAKER) (test code = 430) MONOCYTES RELATIVE PERCENT 9 % (BEAKER) (test code = 431) EOSINOPHILS RELATIVE PERCENT 2 % (BEAKER) (test code = 432) BASOPHILS RELATIVE PERCENT 0 % (BEAKER) (test code = 437) NEUTROPHILS ABSOLUTE COUNT 10.46 K/ L 1.56-6.13 H (BEAKER) (test code = 670) LYMPHOCYTES ABSOLUTE COUNT 1.69 K/ L 1.18-3.74 (BEAKER) (test code = 414) MONOCYTES ABSOLUTE COUNT (BEAKER) 1.19 K/ L 0.24-0.36 H (test code = 415) EOSINOPHILS ABSOLUTE COUNT 0.23 K/ L 0.04-0.36 (BEAKER) (test code = 416) BASOPHILS ABSOLUTE COUNT (BEAKER) 0.06 K/ L 0.01-0.08 (test code = 417) IMMATURE GRANULOCYTES-RELATIVE 1 % 0-1 PERCENT (BEAKER) (test code = 2801) BASIC METABOLIC [id number] 07:55:00 Test Item Value Reference Range Interpretation Comments SODIUM (BEAKER) 140 meq/L 136-145 (test code = 381) POTASSIUM (BEAKER) 4.1 meq/L 3.5-5.1 (test code = 379) CHLORIDE (BEAKER) 112 meq/L 98-107 H (test code = 382) CO2 (BEAKER) (test 18 meq/L 22-29 L code = 355) BLOOD UREA NITROGEN 15 mg/dL 7-21 (BEAKER) (test code = 354) CREATININE (BEAKER) 0.78 mg/dL 0.57-1.25 (test code = 358) GLUCOSE RANDOM 87 mg/dL 70-105 (BEAKER) (test code = 652) CALCIUM (BEAKER) 8.2 mg/dL 8.4-10.2 L (test code = 697) EGFR (BEAKER) (test 71 mL/min/1.73 ESTIMA YVROSE GFR IS code = 1092) sq m NOT ACCURATE CREATININE CLEARANCE IN PREDICTING GLOMERULAR FILTRATION RATE . ESTIMATED GFR I S NOT APPLICABLE FOR DIALYSIS PATIEN TS. [id number] 07:51:00 Test Item Value Reference Range Interpretation Comments PROTIME (BEAKER) (test code = 15.3 seconds 11.7-14.7 H 759) INR (BEAKER) (test code = 370) 1.2 <=5.9 PARTIAL THROMBOPLASTIN TIME 33.7 seconds 22.5-36.0 (BEAKER) (test code = 760) RECOMMENDED COUMADIN/WARFARIN INR THERAPY RANGESSTANDARD DOSE: 2.0 - 3.0 Includes: PROPHYLAXIS for venous thrombosis, systemic embolization; TREATMENT for venous thrombosis and/or pulmonary embolus.HIGH RISK: Target INR is 2.5-3.5 for patients with mechanical heart valves.POCT-GLUCOSE [id number] 22:08:00 Test Item Value Reference Range Interpretation Comments POC-GLUCOSE METER 118 mg/dL 70-110 H TESTED AT [place] [address] ([facility] (test code = [facility] 1538) [address] POCT-GLUCOSE [id number] 17:32:00 Test Item Value Reference Range Interpretation Comments POC-GLUCOSE METER 104 mg/dL 70-110 TESTED AT [place] [id number] ([facility]) (test code = [facility] Tiffanie [facility] 1538) [address] URINALYSIS W/ REFLEX URINE [id number] 17:06:00 Test Item Value Reference Range Interpretation Comments COLOR (BEAKER) (test code = 470) Yellow CLARITY (BEAKER) (test code = 469) Hazy SPECIFIC GRAVITY UA (BEAKER) (test 1.019 1.001-1.035 code = 468) PH UA (BEAKER) (test code = 467) 5.5 5.0-8.0 PROTEIN UA (BEAKER) (test code = 20 mg/dL Negative A 464) GLUCOSE UA (BEAKER) (test code = Negative Negative 365) KETONES UA (BEAKER) (test code = 20 mg/dL Negative A 371) BILIRUBIN UA (BEAKER) (test code = Negative Negative 462) BLOOD UA (BEAKER) (test code = 461) Negative Negative NITRITE UA (BEAKER) (test code = Negative Negative 465) LEUKOCYTE ESTERASE UA (BEAKER) Moderate Negative A (test code = 466) UROBILINOGEN UA (BEAKER) (test code 0.2 mg/dL 0.2-1.0 = 463) RBC UA (BEAKER) (test code = 519) 3 /HPF WBC UA (BEAKER) (test code = 520) 23 /HPF MUCUS (BEAKER) (test code = 1574) Many SQUAMOUS EPITHELIAL (BEAKER) (test 1 /HPF code = 516) HYALINE CASTS (BEAKER) (test code = 4 /LPF 514) SOURCE(BEAKER) (test code = 2795) RAD, CHEST, 1 VIEW, NON [id number] 11:31:00Reason for exam:->pl effusion with decrease hemoglobinShould [...] evidence of postoperative complication. Signed: Elder Santana MDReport Verified Date/Time: 03/04/2018 11:31:54 Reading Location: [address] Ortho Consult Reading Room POCT-LACTIC ACID, [id number] 08:21:00 Test Item Value Reference Range Interpretation Comments POC-LACTIC ACID, 0.5 mmol/L 0.4-1.3 TESTED AT [facility] [address] ARTERIAL (BEAKER) [place] (test code = 2804) [address] POCT-BLOOD GASES, [id number] 08:21:00 Test Item Value Reference Range Interpretation Comments TEMP, CELSIUS-POC 37.0 (BEAKER) (test code = 1834) FIO2-POC (BEAKER) TESTED AT [place] [address] (test code = 1835) [facility] [address] PH, ARTERIAL-POC 7.442 7.350-7.450 ([facility]) (test code = 1836) PCO2, ARTERIAL-POC 30.5 mm Hg 35.0-45.0 L (AKER) (test code = 1837) PO2, ARTERIAL-POC 77.0 mm Hg 80.0-90.0 L ([facility]) (test code = 1838) SO2, ARTERIAL-POC 96.0 % 96.0-97.0 ([facility]) (test code = 1839) HCO3, ARTERIAL-POC 20.8 meq/L 21.0-29.0 L ([facility]) (test code = 1840) BASE EXCESS, -3.0 meq/L -2.0-3.0 L ARTERIAL-POC ([facility]) (test code = 1841) [id number] 08:21:00 Test Item Value Reference Range Interpretation Comments POC-SODIUM ([facility]) 142 meq/L 135-148 TESTED A [place] [address] (test code = 1542) [facility] [address] [id number] 08:21:00 Test Item Value Reference Range Interpretation Comments POC-POTASSIUM 3.7 meq/L 3.6-5.5 TESTED AT [place] [address] ([facility]) (test code [place] [id number] = 1540) [id number] 08:21:00 Test Item Value Reference Range Interpretation Comments POC-GLUCOSE ([facility]) 98 mg/dL 70-110 TESTED AT [place] [address] (test code = 1855) [facility] [address] POCT-CALCIUM [id number] 08:21:00 Test Item Value Reference Range Interpretation Comments POC-CALCIUM IONIZED 1.19 mmol/L 1.12-1.27 TESTED [place] [address] ([facility]) (test code = [facility] 1536) [address] [id number] 08:21:00 Test Item Value Reference Range Interpretation Comments POC-HEMATOCRIT 20 % 36-45 L TESTED AT [place] [address] ([facility]) (test code = [facility] [address] 6878) [id number] 08:21:00 Test Item Value Reference Range Interpretation Comments POC-HEMOGLOBIN 6.8 g/dL 12.0-15.0 L TESTED AT [facility] 6720 (BEAKER) (test code = [place] 1856) [id number] AT [facility] [address] [place] [address] LACTIC ACID, VENOUS, WHOLE [id number] 08:07:00 Test Item Value Reference Range Interpretation Comments LACTATE BLOOD VENOUS (2) (BEAKER) 0.8 mmol/L 0.5-2.2 (test code = 2872) Effective 09/03/2015: Units/Reference Range ChangeNew: 0.5-2.2 mmol/L Previous: 5- 20 mg/dLBASIC METABOLIC [id number] 07:43:00 Test Item Value Reference Range Interpretation Comments SODIUM (BEAKER) 140 meq/L 136-145 (test code = 381) POTASSIUM (BEAKER) 3.8 meq/L 3.5-5.1 (test code = 379) CHLORIDE (BEAKER) 113 meq/L 98-107 H (test code = 382) CO2 (BEAKER) (test 22 meq/L 22-29 code = 355) BLOOD UREA NITROGEN 16 mg/dL 7-21 (BEAKER) (test code = 354) CREATININE (BEAKER) 0.84 mg/dL 0.57-1.25 (test code = 358) GLUCOSE RANDOM 97 mg/dL 70-105 (BEAKER) (test code = 652) CALCIUM (BEAKER) 7.9 mg/dL 8.4-10.2 L (test code = 697) EGFR (BEAKER) (test 66 mL/min/1.73 ESTIMA YVROSE GFR IS code = 1092) sq m NOT ACCURATE CREATININE CLEARANCE IN PREDICTING GLOMERULAR FILTRATION RATE . ESTIMATED GFR I S NOT APPLICABLE FOR DIALYSIS PATIEN TS. [id number] 07:32:00 Test Item Value Reference Range Interpretation Comments PHOSPHORUS (BEAKER) (test code = 2.1 mg/dL 2.3-4.7 L 604) [id number] 07:32:00 Test Item Value Reference Range Interpretation Comments MAGNESIUM (BEAKER) (test code = 2.0 mg/dL 1.6-2.6 627) CBC W/PLT COUNT & AUTO [id number] 07:11:00 Test Item Value Reference Range Interpretation Comments WHITE BLOOD CELL COUNT (BEAKER) 10.0 K/ L 3.5-10.5 (test code = 775) RED BLOOD CELL COUNT (BEAKER) 2.47 M/ L 3.93-5.22 L (test code = 761) HEMOGLOBIN (BEAKER) (test code = 7.3 GM/DL 11.2-15.7 L 410) HEMATOCRIT (BEAKER) (test code = 22.7 % 34.1-44.9 L 411) MEAN CORPUSCULAR VOLUME (BEAKER) 91.9 fL 79.4-94.8 (test code = 753) MEAN CORPUSCULAR HEMOGLOBIN 29.6 pg 25.6-32.2 (BEAKER) (test code = 751) MEAN CORPUSCULAR HEMOGLOBIN CONC 32.2 GM/DL 32.2-35.5 (BEAKER) (test code = 752) RED CELL DISTRIBUTION WIDTH 14.5 % 11.7-14.4 H (BEAKER) (test code = 412) PLATELET COUNT (BEAKER) (test code 91 K/CU MM 150-450 L = 756) MEAN PLATELET VOLUME (BEAKER) 10.3 fL 9.4-12.3 (test code = 754) NUCLEATED RED BLOOD CELLS (BEAKER) 0 /100 WBC 0-0 (test code = 413) NEUTROPHILS RELATIVE PERCENT 71 % (BEAKER) (test code = 429) LYMPHOCYTES RELATIVE PERCENT 16 % (BEAKER) (test code = 430) MONOCYTES RELATIVE PERCENT 11 % (BEAKER) (test code = 431) EOSINOPHILS RELATIVE PERCENT 2 % (BEAKER) (test code = 432) BASOPHILS RELATIVE PERCENT 0 % (BEAKER) (test code = 437) NEUTROPHILS ABSOLUTE COUNT 7.06 K/ L 1.56-6.13 H (BEAKER) (test code = 670) LYMPHOCYTES ABSOLUTE COUNT 1.56 K/ L 1.18-3.74 (BEAKER) (test code = 414) MONOCYTES ABSOLUTE COUNT (BEAKER) 1.07 K/ L 0.24-0.36 H (test code = 415) EOSINOPHILS ABSOLUTE COUNT 0.18 K/ L 0.04-0.36 (BEAKER) (test code = 416) BASOPHILS ABSOLUTE COUNT (BEAKER) 0.04 K/ L 0.01-0.08 (test code = 417) IMMATURE GRANULOCYTES-RELATIVE 1 % 0-1 PERCENT ([facility]) (test code = 2801) POCT-GLUCOSE [id number] 22:37:00 Test Item Value Reference Range Interpretation Comments POC-GLUCOSE METER 135 mg/dL 70-110 H TESTED AT [place] [address] ([facility]) (test code = [place] 1538) [address] POCT-GLUCOSE [id number] 11:26:00 Test Item Value Reference Range Interpretation Comments POC-GLUCOSE METER 178 mg/dL 70-110 H TESTED AT [place] [address] ([facility]) (test code = [place] 1538) [address] POCT-GLUCOSE [id number] 09:07:00 Test Item Value Reference Range Interpretation Comments POC-GLUCOSE METER 105 mg/dL 70-110 TESTED AT [place] [address] ([facility]) (test code = [place] 1538) [address] [id number] 08:52:00 Test Item Value Reference Range Interpretation Comments PARTIAL THROMBOPLASTIN TIME 36.1 seconds 22.5-36.0 H ([facility]) (test code = 760) PROTHROMBIN [id number] 08:51:00 Test Item Value Reference Range Interpretation Comments PROTIME ([facility]) (test code = 16.5 seconds 11.7-14.7 H 759) INR ([facility]) (test code = 370) 1.3 <=5.9 RECOMMENDED COUMADIN/WARFARIN INR THERAPY RANGESSTANDARD DOSE: 2.0 - 3.0 Includes: PROPHYLAXIS for venous thrombosis, systemic embolization; TREATMENT for venous thrombosis and/or pulmonary embolus.HIGH RISK: Target INR is 2.5-3.5 for patients with mechanical heart valves.POCT-GLUCOSE [id number] 06:45:00 Test Item Value Reference Range Interpretation Comments POC-GLUCOSE METER 97 mg/dL 70-110 TESTED AT [place] [address] ([facility]) (test code = [place] [address] 1538) POCT-GLUCOSE [id number] 06:28:00 Test Item Value Reference Range Interpretation Comments POC-GLUCOSE METER 118 mg/dL 70-110 H TESTED AT [place] [address] ([facility]) (test code = [place] 1020) [address] [id number] 04:56:00 Test Item Value Reference Range Interpretation Comments PHOSPHORUS (BEAKER) (test code = 2.7 mg/dL 2.3-4.7 604) [id number] 04:56:00 Test Item Value Reference Range Interpretation Comments MAGNESIUM (BEAKER) (test code = 2.2 mg/dL 1.6-2.6 627) BASIC METABOLIC [id number] 04:56:00 Test Item Value Reference Range Interpretation Comments SODIUM (BEAKER) 142 meq/L 136-145 (test code = 381) POTASSIUM (BEAKER) 4.5 meq/L 3.5-5.1 (test code = 379) CHLORIDE (BEAKER) 115 meq/L 98-107 H (test code = 382) CO2 (BEAKER) (test 20 meq/L 22-29 L code = 355) BLOOD UREA NITROGEN 16 mg/dL 7-21 (BEAKER) (test code = 354) CREATININE (BEAKER) 0.81 mg/dL 0.57-1.25 (test code = 358) GLUCOSE RANDOM 118 mg/dL 70-105 H (BEAKER) (test code = 652) CALCIUM (BEAKER) 8.3 mg/dL 8.4-10.2 L (test code = 697) EGFR (BEAKER) (test 68 mL/min/1.73 ESTIMA YVROSE GFR IS code = 1092) sq m NOT ACCURATE CREATININE CLEARANCE IN PREDICTING GLOMERULAR FILTRATION RATE . ESTIMATED GFR I S NOT APPLICABLE FOR DIALYSIS PATIEN TS. Specimen slightly ictericLACTIC ACID, ARTERIAL, WHOLE [id number] 04:39:00 Test Item Value Reference Range Interpretation Comments LACTATE BLOOD ARTERIAL (2) 1.8 mmol/L 0.5-2.2 (BEAKER) (test code = 2874) Effective 09/03/2015: Units/Reference Range ChangeNew: 0.5-2.2 mmol/L Previous: 5- 20 mg/dLOXYGEN SATURATION, [id number] 04:23:00 Test Item Value Reference Range Interpretation Comments O2 SATURATION (MEASURED) (BEAKER) 71.5 % (test code = 1455) CBC (HEMOGRAM ONLY)2018-03-03 04:20:00 Test Item Value Reference Range Interpretation Comments WHITE BLOOD CELL COUNT (BEAKER) 14.4 K/ L 3.5-10.5 H (test code = 775) RED BLOOD CELL COUNT (BEAKER) 2.79 M/ L 3.93-5.22 L (test code = 761) HEMOGLOBIN (BEAKER) (test code = 8.4 GM/DL 11.2-15.7 L 410) HEMATOCRIT (BEAKER) (test code = 25.4 % 34.1-44.9 L 411) MEAN CORPUSCULAR VOLUME (BEAKER) 91.0 fL 79.4-94.8 (test code = 753) MEAN CORPUSCULAR HEMOGLOBIN 30.1 pg 25.6-32.2 (BEAKER) (test code = 751) MEAN CORPUSCULAR HEMOGLOBIN CONC 33.1 GM/DL 32.2-35.5 (BEAKER) (test code = 752) RED CELL DISTRIBUTION WIDTH 14.2 % 11.7-14.4 (BEAKER) (test code = 412) PLATELET COUNT (BEAKER) (test code 96 K/CU MM 150-450 L = 756) MEAN PLATELET VOLUME (BEAKER) 9.6 fL 9.4-12.3 (test code = 754) NUCLEATED RED BLOOD CELLS (BEAKER) 0 /100 WBC 0-0 (test code = 413) BLOOD GAS, [id number] 04:14:00 Test Item Value Reference Range Interpretation Comments PH ARTERIAL (BEAKER) (test code = 7.36 7.35-7.45 383) PCO2 ARTERIAL (BEAKER) (test code 42 mmHg 35-45 = 384) PO2 ARTERIAL (BEAKER) (test code 89 mmHg 80-90 = 385) O2 SATURATION ARTERIAL (BEAKER) 96.2 % 96.0-97.0 (test code = 386) HCO3 ARTERIAL (BEAKER) (test code 23 mmol/L 21-29 = 388) BASE EXCESS ARTERIAL (BEAKER) -1.8 mmol/L -2.0-3.0 (test code = 387) PATIENT TEMPERATURE (BEAKER) 37.8 C (test code = 1818) FIO2 (BEAKER) (test code = 1819) 28.0 % CALCIUM, [id number] 04:14:00 Test Item Value Reference Range Interpretation Comments CALCIUM IONIZED (BEAKER) (test 1.13 mmol/L 1.12-1.27 code = 698) PH, BLOOD (BEAKER) (test code = 7.37 1810) Check serum Ionized Calcium level after 4 hours after IV Calcium replacement. RAD, CHEST, 1 VIEW, NON [id number] 04:03:00while patient is intubated or has chest tubes.Reason for exam:->s/p CABGShould this be performed at the bedside?->YesFINAL REPORT RAD, CHEST, 1 VIEW, NON DEPT INDICATION: s/p CABG COMPARISON: Prior day's exam FINDINGS: Portable frontal view of the chest. IMPRESSION: Support Lines: Interval extubation and removal of the previously seen enteric tube. Otherwise unchanged support apparatus. Lungs and pleura: Unchanged airspace and pleural opacities. Possible trace right apical pneumothorax, or continued attention on follow-up.Heart and mediastinum: Stable contours. Stable surgical changes.Additional findings: Gaseous distention of the stomach is again seen. Signed: [facility] Verified Date/Time: 03/03/2018 04:03:38 Reading Location: [address] Transitional Reading Room CBC W/PLT COUNT & AUTO [id number] 03:23:00 Test Item Value Reference Range Interpretation Comments WHITE BLOOD CELL COUNT (BEAKER) 17.2 K/ L 3.5-10.5 H (test code = 775) RED BLOOD CELL COUNT (BEAKER) 2.67 M/ L 3.93-5.22 L (test code = 761) HEMOGLOBIN (BEAKER) (test code = 8.2 GM/DL 11.2-15.7 L 410) HEMATOCRIT (BEAKER) (test code = 24.8 % 34.1-44.9 L 411) MEAN CORPUSCULAR VOLUME (BEAKER) 92.9 fL 79.4-94.8 (test code = 753) MEAN CORPUSCULAR HEMOGLOBIN 30.7 pg 25.6-32.2 (BEAKER) (test code = 751) MEAN CORPUSCULAR HEMOGLOBIN CONC 33.1 GM/DL 32.2-35.5 (BEAKER) (test code = 752) RED CELL DISTRIBUTION WIDTH 14.3 % 11.7-14.4 (BEAKER) (test code = 412) PLATELET COUNT (BEAKER) (test 104 K/CU MM 150-450 L code = 756) MEAN PLATELET VOLUME (BEAKER) 9.4 fL 9.4-12.3 (test code = 754) NUCLEATED RED BLOOD CELLS 0 /100 WBC 0-0 (BEAKER) (test code = 413) (CELLAVISION MANUAL DIFF)2018-03-03 03:23:00 Test Item Value Reference Range Interpretation Comments NEUTROPHILS - REL 88 % (CELLAVISION)(BEAKER) (test code = 2816) LYMPHOCYTES - REL 5 % (CELLAVISION)(BEAKER) (test code = 2817) MONOCYTES - REL 5 % (CELLAVISION)(BEAKER) (test code = 2818) BANDS - REL (CELLAVISION)(BEAKER) 2 % 0-10 (test code = 2826) NEUTROPHILS - ABS 15.14 K/ul 1.56-6.13 H (CELLAVISION)(BEAKER) (test code = 2830) LYMPHOCYTES - ABS 0.86 K/ul 1.18-3.74 L (CELLAVISION)(BEAKER) (test code = 2831) MONOCYTES - ABS 0.86 K/uL 0.24-0.36 H (CELLAVISION)(BEAKER) (test code = 2832) BANDS - ABS (CELLAVISION)(BEAKER) 0.34 K/uL 0.00-0.80 (test code = 2840) TOTAL COUNTED (BEAKER) (test code 100 = 1351) RBC MORPHOLOGY (BEAKER) (test Normal code = 762) WBC MORPHOLOGY (BEAKER) (test Normal code = 487) PLT MORPHOLOGY (BEAKER) (test Normal code = 486) GIANT PLATELETS (BEAKER) (test Present code = 313) ANISOCYTOSIS (BEAKER) (test code 2+ moderate = 961) MICROCYTES (BEAKER) (test code = 2+ moderate 965) POIKILOCYTES (BEAKER) (test code 2+ moderate = 966) OVALOCYTES (BEAKER) (test code = 1+ few 477) MICAH CELLS (BEAKER) (test code = 2+ moderate 474) PLATELET CONCENTRATION Decreased (CELLAVISION)(BEAKER) (test code = 3438) Received comment: User comments: Slide comments:LACTIC ACID, ARTERIAL, WHOLE [id number] 03:08:00 Test Item Value Reference Range Interpretation Comments LACTATE BLOOD ARTERIAL (2) 3.4 mmol/L 0.5-2.2 H (BEAKER) (test code = 2874) Effective 09/03/2015: Units/Reference Range ChangeNew: 0.5-2.2 mmol/L Previous: 5- 20 mg/dLFor occult hypoperfusionBLOOD GAS, [id number] 02:48:00 Test Item Value Reference Range Interpretation Comments PH ARTERIAL (BEAKER) (test code = 7.30 7.35-7.45 L 383) PCO2 ARTERIAL (BEAKER) (test code 47 mmHg 35-45 H = 384) PO2 ARTERIAL (BEAKER) (test code 113 mmHg 80-90 H = 385) O2 SATURATION ARTERIAL (BEAKER) 97.6 % 96.0-97.0 H (test code = 386) HCO3 ARTERIAL (BEAKER) (test code 23 mmol/L 21-29 = 388) BASE EXCESS ARTERIAL (BEAKER) -3.5 mmol/L -2.0-3.0 L (test code = 387) PATIENT TEMPERATURE (BEAKER) 37.5 C (test code = 1818) FIO2 (BEAKER) (test code = 1819) 40.0 % GLUCOSE-STAT [id number] 02:48:00 Test Item Value Reference Range Interpretation Comments GLUCOSE RANDOM (BEAKER) (test code 126 mg/dL 70-110 H = 652) HGB/HCT (H&H) - STAT [id number] 02:48:00 Test Item Value Reference Range Interpretation Comments HEMOGLOBIN (BEAKER) (test code = 8.6 g/dL 12.0-15.0 L 410) HEMATOCRIT (BEAKER) (test code = 25.0 % 36.0-45.0 L 411) OXYGEN SATURATION, [id number] 02:47:00 Test Item Value Reference Range Interpretation Comments O2 SATURATION (MEASURED) (BEAKER) 62.4 % (test code = 1455) For occult hypoperfusionSODIUM NA-STAT [id number] 02:47:00 Test Item Value Reference Range Interpretation Comments SODIUM (BEAKER) (test code = 381) 141 meq/L 135-148 POTASSIUM-STAT [id number] 02:47:00 Test Item Value Reference Range Interpretation Comments POTASSIUM (BEAKER) (test code = 4.8 meq/L 3.6-5.5 379) RAD, ABDOMEN/KUB, 1 VIEW [id number] 02:10:00Reason for exam:->distended stomach on CxrFINAL REPORT [...] note that a supine examination is insensitive inthe detection of free intraperitoneal air. Signed: Ghulam Johnson MDReport Verified Date/Time: 03/03/2018 02:10:33 Reading Location: [address] Reading Room RAD, CHEST, 1 VIEW, NON [id number] 02:08:00 Reason for exam:->hypotensionFINAL REPORT CLINICAL INDICATION: Hypotension Comparison: 03/02/2018 The cardiomediastinal contours are stable. The lung volumes remain low. Patchy bibasilar parenchymal opacities are similar to previous. There is no pneumothorax. An enteric tube tip overlies the left upper quadrant. The stomach is distended with gas. Support lines are otherwise stable. Signed: Ghulam Johnson MDRtachoort Verified Date/Time: 03/03/2018 02:08:45 Reading Location: [address] Reading Room PROTHROMBIN TIME/INR 2018-03-03 01:44:00 Test Item Value Reference Range Interpretation Comments PROTIME (BEAKER) (test code = 18.1 seconds 11.7-14.7 H 759) INR (BEAKER) (test code = 370) 1.5 <=5.9 RECOMMENDED COUMADIN/WARFARIN INR THERAPY RANGESSTANDARD DOSE: 2.0 - 3.0 Includes: PROPHYLAXIS for venous thrombosis, systemic embolization; TREATMENT for venous thrombosis and/or pulmonary embolus.HIGH RISK: Target INR is 2.5-3.5 for patients with mechanical heart valves.[id number] 01:44:00 Test Item Value Reference Range Interpretation Comments FIBRINOGEN LEVEL (FARHEENAKER) (test 208 mg/dl 225-434 L code = 658) [id number] 01:44:00 Test Item Value Reference Range Interpretation Comments PARTIAL THROMBOPLASTIN TIME 31.7 seconds 22.5-36.0 (FARHEENAKER) (test code = 760) LACTIC ACID, ARTERIAL, WHOLE [id number] 01:39:00 Test Item Value Reference Range Interpretation Comments LACTATE BLOOD ARTERIAL (2) 2.7 mmol/L 0.5-2.2 H (YAMEL) (test code = 2874) Effective 09/03/2015: Units/Reference Range ChangeNew: 0.5-2.2 mmol/L Previous: 5- 20 mg/dLFor occult [id number] 01:38:00 Test Item Value Reference Range Interpretation Comments MAGNESIUM (AMRITA) (test code = 2.5 mg/dL 1.6-2.6 627) Check Serum Magnesium level 2 hours after IV magnesium replacement.POCT-GLUCOSE [id number] 01:24:00 Test Item Value Reference Range Interpretation Comments POC-GLUCOSE METER 155 mg/dL 70-[address] [facility] [address] ([facility]) (test code = [place] 1538) [address] PLATELET [id number] 01:24:00 Test Item Value Reference Range Interpretation Comments PLATELET COUNT (AMRITA) (test code 98 K/CU MM 150-450 L = 756) OXYGEN SATURATION, [id number] 01:21:00 Test Item Value Reference Range Interpretation Comments O2 SATURATION (MEASURED) ([facility] [place]) 66.0 % (test code = 1455) For occult hypoperfusionHGB/HCT (H&H) - STAT [id number] 00:47:00 Test Item Value Reference Range Interpretation Comments HEMOGLOBIN (BEAKER) (test code = 7.4 g/dL 12.0-15.0 L 410) HEMATOCRIT (BEAKER) (test code = 22.0 % 36.0-45.0 L 411) GLUCOSE-STAT [id number] 00:47:00 Test Item Value Reference Range Interpretation Comments GLUCOSE RANDOM (BEAKER) (test code 155 mg/dL 70-110 H = 652) [id number] 00:44:00 Test Item Value Reference Range Interpretation Comments HEMOGLOBIN (BEAKER) (test code = 6.9 GM/DL 11.2-15.7 L 410) For hypotensionPOCT-GLUCOSE [id number] 00:33:00 Test Item Value Reference Range Interpretation Comments POC-GLUCOSE METER 172 mg/dL 70-[address] [facility] [address] (BEAKER) (test code = [place]HA[place] 1538) [address] BLOOD GAS, [id number] 00:21:00 Test Item Value Reference Range Interpretation Comments PH ARTERIAL (BEAKER) (test code = 7.43 7.35-7.45 383) PCO2 ARTERIAL (BEAKER) (test code 34 mmHg 35-45 L = 384) PO2 ARTERIAL (BEAKER) (test code 143 mmHg 80-90 H = 385) O2 SATURATION ARTERIAL (BEAKER) 98.9 % 96.0-97.0 H (test code = 386) HCO3 ARTERIAL (BEAKER) (test code 22 mmol/L 21-29 = 388) BASE EXCESS ARTERIAL (BEAKER) -1.9 mmol/L -2.0-3.0 (test code = 387) PATIENT TEMPERATURE (BEAKER) 36.7 C (test code = 1818) FIO2 (BEAKER) (test code = 1819) 40.0 % GLUCOSE-STAT [id number] 00:21:00 Test Item Value Reference Range Interpretation Comments GLUCOSE RANDOM (BEAKER) (test code 153 mg/dL 70-110 H = 652) HGB/HCT (H&H) - STAT [id number] 00:21:00 Test Item Value Reference Range Interpretation Comments HEMOGLOBIN (BEAKER) (test code = 7.2 g/dL 12.0-15.0 L 410) HEMATOCRIT (BEAKER) (test code = 21.0 % 36.0-45.0 L 411) SODIUM NA-STAT [id number] 00:20:00 Test Item Value Reference Range Interpretation Comments SODIUM (BEAKER) (test code = 381) 139 meq/L 135-148 POTASSIUM-STAT [id number] 00:20:00 Test Item Value Reference Range Interpretation Comments POTASSIUM (BEAKER) (test code = 3.8 meq/L 3.6-5.5 379) [id number] 23:18:00 Test Item Value Reference Range Interpretation Comments POTASSIUM (BEAKER) (test code = 3.9 meq/L 3.5-5.1 379) [id number] 23:18:00 Test Item Value Reference Range Interpretation Comments GLUCOSE RANDOM (BEAKER) (test code 175 mg/dL 70-105 H = 652) [id number] 22:22:00 Test Item Value Reference Range Interpretation Comments PHOSPHORUS (BEAKER) (test code = 3.6 mg/dL 2.3-4.7 604) [id number] 22:12:00 Test Item Value Reference Range Interpretation Comments FIBRINOGEN LEVEL (BEAKER) (test 206 mg/dl 225-434 L code = 658) CALCIUM, [id number] 21:57:00 Test Item Value Reference Range Interpretation Comments CALCIUM IONIZED (BEAKER) (test 1.07 mmol/L 1.12-1.27 L code = 698) PH, BLOOD (BEAKER) (test code = 7.39 1810) [id number] 21:31:00 Test Item Value Reference Range Interpretation Comments MAGNESIUM (BEAKER) (test code = 2.0 mg/dL 1.6-2.6 627) Check Serum Magnesium level 2 hours after IV magnesium replacement.BASIC METABOLIC [id number] 21:31:00 Test Item Value Reference Range Interpretation Comments SODIUM (BEAKER) 142 meq/L 136-145 (test code = 381) POTASSIUM (BEAKER) 3.9 meq/L 3.5-5.1 (test code = 379) CHLORIDE (BEAKER) 111 meq/L 98-107 H (test code = 382) CO2 (BEAKER) (test 23 meq/L 22-29 code = 355) BLOOD UREA NITROGEN 17 mg/dL 7-21 (BEAKER) (test code = 354) CREATININE (BEAKER) 0.80 mg/dL 0.57-1.25 (test code = 358) GLUCOSE RANDOM 177 mg/dL 70-105 H (BEAKER) (test code = 652) CALCIUM (BEAKER) 8.5 mg/dL 8.4-10.2 (test code = 697) EGFR (BEAKER) (test 69 mL/min/1.73 ESTIMA YVROSE GFR IS code = 1092) sq m NOT ACCURATE CREATININE CLEARANCE IN PREDICTING GLOMERULAR FILTRATION RATE . ESTIMATED GFR I S NOT APPLICABLE FOR DIALYSIS PATIEN TS. Check Serum Magnesium level 2 hours after IV magnesium replacement.LACTATE DEHYDROGENASE (LDH)2018-03-02 21:31:00 Test Item Value Reference Range Interpretation Comments LACTATE DEHYDROGENASE (BEAKER) (test 224 U/L 125-220 H code = 635) Check Serum Magnesium level 2 hours after IV magnesium replacement.LACTIC ACID, ARTERIAL, WHOLE [id number] 21:27:00 Test Item Value Reference Range Interpretation Comments LACTATE BLOOD ARTERIAL (2) 1.5 mmol/L 0.5-2.2 (BEAKER) (test code = 2874) Effective 09/03/2015: Units/Reference Range ChangeNew: 0.5-2.2 mmol/L Previous: 5- 20 mg/dLFor occult hypoperfusionOXYGEN SATURATION, [id number] 21:16:00 Test Item Value Reference Range Interpretation Comments O2 SATURATION (MEASURED) (BEAKER) 73.4 % (test code = 1455) For occult hypoperfusionBLOOD GAS, [id number] 21:14:00 Test Item Value Reference Range Interpretation Comments PH ARTERIAL (BEAKER) (test code = 7.39 7.35-7.45 383) PCO2 ARTERIAL (BEAKER) (test code 37 mmHg 35-45 = 384) PO2 ARTERIAL (BEAKER) (test code 116 mmHg 80-90 H = 385) O2 SATURATION ARTERIAL (BEAKER) 98.4 % 96.0-97.0 H (test code = 386) HCO3 ARTERIAL (BEAKER) (test code 23 mmol/L 21-29 = 388) BASE EXCESS ARTERIAL (BEAKER) -2.7 mmol/L -2.0-3.0 L (test code = 387) PATIENT TEMPERATURE (BEAKER) 35.1 C (test code = 1818) FIO2 (BEAKER) (test code = 1819) 40.0 % GLUCOSE-STAT [id number] 21:14:00 Test Item Value Reference Range Interpretation Comments GLUCOSE RANDOM (BEAKER) (test code 172 mg/dL 70-110 H = 652) HGB/HCT (H&H) - STAT [id number] 21:14:00 Test Item Value Reference Range Interpretation Comments HEMOGLOBIN (BEAKER) (test code = 8.8 g/dL 12.0-15.0 L 410) HEMATOCRIT (BEAKER) (test code = 26.0 % 36.0-45.0 L 411) SODIUM NA-STAT [id number] 21:12:00 Test Item Value Reference Range Interpretation Comments SODIUM (BEAKER) (test code = 381) 139 meq/L 135-148 POTASSIUM-STAT [id number] 21:12:00 Test Item Value Reference Range Interpretation Comments POTASSIUM (BEAKER) (test code = 3.7 meq/L 3.6-5.5 379) RAD, CHEST, 1 VIEW, NON [id number] 19:49:00Reason for exam:->s/p CABGShould this be performed [...] internal jugular central line projects in the SVC.Signed: Carlos A Mathews MDReport Verified Date/Time: 03/02/2018 19:49:48 Reading Location: [facility] Reading Room POTASSIUM 2018-03-02 19:27:00 Test Item Value Reference Range Interpretation Comments POTASSIUM (BEAKER) (test code = 4.6 meq/L 3.5-5.1 379) [id number] 19:27:00 Test Item Value Reference Range Interpretation Comments MAGNESIUM (BEAKER) (test code = 2.1 mg/dL 1.6-2.6 627) [id number] 19:27:00 Test Item Value Reference Range Interpretation Comments PHOSPHORUS (BEAKER) (test code = 3.1 mg/dL 2.3-4.7 604) [id number] 19:25:00 Test Item Value Reference Range Interpretation Comments SODIUM (BEAKER) (test code = 381) 140 meq/L 136-145 [id number] 19:25:00 Test Item Value Reference Range Interpretation Comments GLUCOSE RANDOM (BEAKER) (test code 143 mg/dL 70-105 H = 652) LACTIC ACID, ARTERIAL, WHOLE [id number] 19:23:00 Test Item Value Reference Range Interpretation Comments LACTATE BLOOD ARTERIAL (2) 1.0 mmol/L 0.5-2.2 (BEAKER) (test code = 2874) Effective 09/03/2015: Units/Reference Range ChangeNew: 0.5-2.2 mmol/L Previous: 5- 20 mg/dLPT/[id number] 19:12:00 Test Item Value Reference Range Interpretation Comments PROTIME (BEAKER) (test code = 18.9 seconds 11.7-14.7 H 759) INR (BEAKER) (test code = 370) 1.6 <=5.9 PARTIAL THROMBOPLASTIN TIME 31.6 seconds 22.5-36.0 (BEAKER) (test code = 760) RECOMMENDED COUMADIN/WARFARIN INR THERAPY RANGESSTANDARD DOSE: 2.0 - 3.0 Includes: PROPHYLAXIS for venous thrombosis, systemic embolization; TREATMENT for venous thrombosis and/or pulmonary embolus.HIGH RISK: Target INR is 2.5-3.5 for patients with mechanical heart valves.CBC W/PLT COUNT & AUTO [id number] 19:05:00 Test Item Value Reference Range Interpretation Comments WHITE BLOOD CELL COUNT (BEAKER) 14.4 K/ L 3.5-10.5 H (test code = 775) RED BLOOD CELL COUNT (BEAKER) 2.97 M/ L 3.93-5.22 L (test code = 761) HEMOGLOBIN (BEAKER) (test code = 8.7 GM/DL 11.2-15.7 L 410) HEMATOCRIT (BEAKER) (test code = 26.7 % 34.1-44.9 L 411) MEAN CORPUSCULAR VOLUME (BEAKER) 89.9 fL 79.4-94.8 (test code = 753) MEAN CORPUSCULAR HEMOGLOBIN 29.3 pg 25.6-32.2 (BEAKER) (test code = 751) MEAN CORPUSCULAR HEMOGLOBIN CONC 32.6 GM/DL 32.2-35.5 (BEAKER) (test code = 752) RED CELL DISTRIBUTION WIDTH 13.6 % 11.7-14.4 (BEAKER) (test code = 412) PLATELET COUNT (BEAKER) (test 115 K/CU MM 150-450 L code = 756) MEAN PLATELET VOLUME (BEAKER) 9.0 fL 9.4-12.3 L (test code = 754) NUCLEATED RED BLOOD CELLS 0 /100 WBC 0-0 (BEAKER) (test code = 413) NEUTROPHILS RELATIVE PERCENT 74 % (BEAKER) (test code = 429) LYMPHOCYTES RELATIVE PERCENT 18 % (BEAKER) (test code = 430) MONOCYTES RELATIVE PERCENT 6 % (BEAKER) (test code = 431) EOSINOPHILS RELATIVE PERCENT 1 % (BEAKER) (test code = 432) BASOPHILS RELATIVE PERCENT 0 % (BEAKER) (test code = 437) NEUTROPHILS ABSOLUTE COUNT 10.73 K/ L 1.56-6.13 H (BEAKER) (test code = 670) LYMPHOCYTES ABSOLUTE COUNT 2.58 K/ L 1.18-3.74 (BEAKER) (test code = 414) MONOCYTES ABSOLUTE COUNT (BEAKER) 0.81 K/ L 0.24-0.36 H (test code = 415) EOSINOPHILS ABSOLUTE COUNT 0.18 K/ L 0.04-0.36 (BEAKER) (test code = 416) BASOPHILS ABSOLUTE COUNT (BEAKER) 0.03 K/ L 0.01-0.08 (test code = 417) IMMATURE GRANULOCYTES-RELATIVE 1 % 0-1 PERCENT (BEAKER) (test code = 2801) BLOOD GAS, [id number] 19:04:00 Test Item Value Reference Range Interpretation Comments PH ARTERIAL (BEAKER) (test code = 7.42 7.35-7.45 383) PCO2 ARTERIAL (BEAKER) (test code 37 mmHg 35-45 = 384) PO2 ARTERIAL (BEAKER) (test code 173 mmHg 80-90 H = 385) O2 SATURATION ARTERIAL (BEAKER) 99.3 % 96.0-97.0 H (test code = 386) HCO3 ARTERIAL (BEAKER) (test code 24 mmol/L 21-29 = 388) BASE EXCESS ARTERIAL (BEAKER) -1.0 mmol/L -2.0-3.0 (test code = 387) PATIENT TEMPERATURE (BEAKER) 34.4 C (test code = 1818) OXYGEN SATURATION, [id number] 19:03:00 Test Item Value Reference Range Interpretation Comments O2 SATURATION (MEASURED) (AKER) 77.6 % (test code = 1455) [id number] 18:43:00 Test Item Value Reference Range Interpretation Comments ACTIVATED CLOTTING TIME 114 sec TEST ED AT [place] [address] ([facility] [place]) (test code = RASHAAD [place] [address]) [id number] 18:43:00 Test Item Value Reference Range Interpretation Comments ACTIVATED CLOTTING TIME 499 sec TEST ED AT [place] [address] ([facility] [place]) (test code = RASHAAD [place] [address]) [id number] 18:43:00 Test Item Value Reference Range Interpretation Comments ACTIVATED CLOTTING TIME 389 sec TEST ED AT [place] [address] ([facility] [place]) (test code = RASHAAD [place] [address]) [id number] 18:43:00 Test Item Value Reference Range Interpretation Comments ACTIVATED CLOTTING TIME 637 sec TEST ED AT [place] [address] ([facility] [place]) (test code = RASHAAD [place] [address]) [id number] THROMBOELASTOGRAPH (TEG)2018-03-02 18:23:00 Test Item Value Reference Range Interpretation Comments TEG ACTIVATED CLOTTING TIME 8.4 minutes 4.0-7.0 H (AKER) (test code = 1407) TEG FIBRINOGEN ACTIVITY (BEAKER) 64.3 degrees 61.0-73.0 (test code = 1408) TEG PLT. AGGREGATION (BEAKER) 47.7 MM 55.0-65.0 L (test code = 1409) TGH ACTIVATED CLOTTING TIME 8.3 minutes 4.0-7.0 H (BEAKER) (test code = 1411) TGH FIBRINOGEN ACTIVITY (BEAKER) 64.3 degrees 61.0-73.0 (test code = 1412) TGH PLT. AGGREGATION (BEAKER) 46.5 MM 55.0-65.0 L (test code = 1413) PLATELET [id number] 18:03:00 Test Item Value Reference Range Interpretation Comments PLATELET COUNT (BEAKER) (test code 83 K/CU MM 150-450 L = 756) [id number] 17:58:00 Test Item Value Reference Range Interpretation Comments FIBRINOGEN LEVEL (BEAKER) (test 268 mg/dl 225-434 code = 658) [id number] 17:58:00 Test Item Value Reference Range Interpretation Comments PARTIAL THROMBOPLASTIN TIME 29.5 seconds 22.5-36.0 (BEAKER) (test code = 760) PROTHROMBIN [id number] 17:57:00 Test Item Value Reference Range Interpretation Comments PROTIME (BEAKER) (test code = 21.0 seconds 11.7-14.7 H 759) INR (BEAKER) (test code = 370) 1.8 <=5.9 RECOMMENDED COUMADIN/WARFARIN INR THERAPY RANGESSTANDARD DOSE: 2.0 - 3.0 Includes: PROPHYLAXIS for venous thrombosis, systemic embolization; TREATMENT for venous thrombosis and/or pulmonary embolus.HIGH RISK: Target INR is 2.5-3.5 for patients with mechanical heart valves.POTASSIUM-STAT [id number] 17:38:00 Test Item Value Reference Range Interpretation Comments POTASSIUM (BEAKER) (test code = 5.0 meq/L 3.6-5.5 379) BLOOD GAS, [id number] 17:38:00 Test Item Value Reference Range Interpretation Comments PH ARTERIAL (BEAKER) (test code = 7.42 7.35-7.45 383) PCO2 ARTERIAL (BEAKER) (test code 38 mmHg 35-45 = 384) PO2 ARTERIAL (BEAKER) (test code = 364 mmHg 80-90 H 385) O2 SATURATION ARTERIAL (BEAKER) 99.8 % 96.0-97.0 H (test code = 386) HCO3 ARTERIAL (BEAKER) (test code 25 mmol/L 21-29 = 388) BASE EXCESS ARTERIAL (BEAKER) 0.1 mmol/L -2.0-3.0 (test code = 387) PATIENT TEMPERATURE (BEAKER) (test 35.5 C code = 1818) FIO2 (BEAKER) (test code = 1819) 100.0 % SODIUM NA-STAT [id number] 17:38:00 Test Item Value Reference Range Interpretation Comments SODIUM (BEAKER) (test code = 381) 133 meq/L 135-148 L GLUCOSE-STAT [id number] 17:38:00 Test Item Value Reference Range Interpretation Comments GLUCOSE RANDOM (BEAKER) (test code 159 mg/dL 70-110 H = 652) HGB/HCT (H&H) - STAT [id number] 17:38:00 Test Item Value Reference Range Interpretation Comments HEMOGLOBIN (BEAKER) (test code = 8.7 g/dL 12.0-15.0 L 410) HEMATOCRIT (BEAKER) (test code = 26.0 % 36.0-45.0 L 411) CALCIUM, [id number] 17:38:00 Test Item Value Reference Range Interpretation Comments CALCIUM IONIZED (BEAKER) (test 1.10 mmol/L 1.12-1.27 L code = 698) PH, BLOOD (BEAKER) (test code = 7.42 1810) BLOOD GAS, [id number] 16:58:00 Test Item Value Reference Range Interpretation Comments PH ARTERIAL (BEAKER) (test code = 7.56 7.35-7.45 H 383) PCO2 ARTERIAL (BEAKER) (test code 28 mmHg 35-45 L = 384) PO2 ARTERIAL (BEAKER) (test code = 260 mmHg 80-90 H 385) O2 SATURATION ARTERIAL (BEAKER) 99.7 % 96.0-97.0 H (test code = 386) HCO3 ARTERIAL (BEAKER) (test code 26 mmol/L 21-29 = 388) BASE EXCESS ARTERIAL (BEAKER) 2.1 mmol/L -2.0-3.0 (test code = 387) PATIENT TEMPERATURE (BEAKER) (test 31.8 C code = 1818) FIO2 (BEAKER) (test code = 1819) 60.0 % GLUCOSE-STAT [id number] 16:58:00 Test Item Value Reference Range Interpretation Comments GLUCOSE RANDOM (BEAKER) (test code 170 mg/dL 70-110 H = 652) HGB/HCT (H&H) - STAT [id number] 16:58:00 Test Item Value Reference Range Interpretation Comments HEMOGLOBIN (BEAKER) (test code = 7.2 g/dL 12.0-15.0 L 410) HEMATOCRIT (BEAKER) (test code = 21.0 % 36.0-45.0 L 411) POTASSIUM-STAT [id number] 16:58:00 Test Item Value Reference Range Interpretation Comments POTASSIUM (BEAKER) (test code = 5.6 meq/L 3.6-5.5 H 379) SODIUM NA-STAT [id number] 16:58:00 Test Item Value Reference Range Interpretation Comments SODIUM (BEAKER) (test code = 381) 131 meq/L 135-148 L POTASSIUM-STAT [id number] 16:32:00 Test Item Value Reference Range Interpretation Comments POTASSIUM (BEAKER) (test code = 4.6 meq/L 3.6-5.5 379) BLOOD GAS, [id number] 16:32:00 Test Item Value Reference Range Interpretation Comments PH ARTERIAL (BEAKER) (test code = 7.30 7.35-7.45 L 383) PCO2 ARTERIAL (BEAKER) (test code 40 mmHg 35-45 = 384) PO2 ARTERIAL (BEAKER) (test code 472 mmHg 80-90 H = 385) O2 SATURATION ARTERIAL (BEAKER) 99.8 % 96.0-97.0 H (test code = 386) HCO3 ARTERIAL (BEAKER) (test code 21 mmol/L 21-29 = 388) BASE EXCESS ARTERIAL (BEAKER) -6.3 mmol/L -2.0-3.0 L (test code = 387) PATIENT TEMPERATURE (BEAKER) 31.1 C (test code = 1818) FIO2 (BEAKER) (test code = 1819) 80.0 % SODIUM NA-STAT [id number] 16:32:00 Test Item Value Reference Range Interpretation Comments SODIUM (BEAKER) (test code = 381) 127 meq/L 135-148 L GLUCOSE-STAT [id number] 16:32:00 Test Item Value Reference Range Interpretation Comments GLUCOSE RANDOM (BEAKER) (test code 164 mg/dL 70-110 H = 652) HGB/HCT (H&H) - STAT [id number] 16:32:00 Test Item Value Reference Range Interpretation Comments HEMOGLOBIN (BEAKER) (test code = 7.4 g/dL 12.0-15.0 L 410) HEMATOCRIT (BEAKER) (test code = 22.0 % 36.0-45.0 L 411) GLUCOSE-STAT [id number] 15:38:00 Test Item Value Reference Range Interpretation Comments GLUCOSE RANDOM (BEAKER) (test code 109 mg/dL 70-110 = 652) SODIUM NA-STAT [id number] 15:38:00 Test Item Value Reference Range Interpretation Comments SODIUM (BEAKER) (test code = 381) 138 meq/L 135-148 POTASSIUM-STAT [id number] 15:38:00 Test Item Value Reference Range Interpretation Comments POTASSIUM (BEAKER) (test code = 3.8 meq/L 3.6-5.5 379) HGB/HCT (H&H) - STAT [id number] 15:38:00 Test Item Value Reference Range Interpretation Comments HEMOGLOBIN (BEAKER) (test code = 13.3 g/dL 12.0-15.0 410) HEMATOCRIT (BEAKER) (test code = 39.0 % 36.0-45.0 411) BLOOD GAS, [id number] 15:38:00 Test Item Value Reference Range Interpretation Comments PH ARTERIAL (BEAKER) (test code = 7.42 7.35-7.45 383) PCO2 ARTERIAL (BEAKER) (test code 37 mmHg 35-45 = 384) PO2 ARTERIAL (BEAKER) (test code 349 mmHg 80-90 H = 385) O2 SATURATION ARTERIAL (BEAKER) 99.8 % 96.0-97.0 H (test code = 386) HCO3 ARTERIAL (BEAKER) (test code 23 mmol/L 21-29 = 388) BASE EXCESS ARTERIAL (BEAKER) -1.4 mmol/L -2.0-3.0 (test code = 387) PATIENT TEMPERATURE (BEAKER) 36.0 C (test code = 1818) FIO2 (BEAKER) (test code = 1819) 70.0 % HEMOGLOBIN [id number] 19:38:00 Test Item Value Reference Range Interpretation Comments HEMOGLOBIN A1C (BEAKER) (test code = 5.3 % 4.3-6.1 368) RAD, CHEST, 1 VIEW, NON [id number] 16:31:00Reason for exam:->Pre opShould this be performed at the bedside?->YesFINAL REPORT Chest x-ray Clinical History: Pre op Comparison: March 31, 2016Views: One AP lordotic Chest x-ray:The cardiac and mediastinal silhouettes are within normal limits.There is no evidence of a pneumothorax. There is no evidence of a pleural effusion. There is no evidence of overt cardiac failure. The visible regional skeleton is intact. There is no evidence of a focal parenchymal opacity. Impression: No active cardiopulmonary disease Signed: Monie Herrera Deja ified Date/Time: 03/01/2018 16:31:05 Reading Location: [facility] Radiology Reading Room [facility] 2018-03-01 16:27:00 Test Item Value Reference Range Interpretation Comments THYROID STIMULATING HORMONE 3.52 uIU/mL 0.35-4.94 (BEAKER) (test code = 772) [id number] 16:13:00 Test Item Value Reference Range Interpretation Comments MAGNESIUM (BEAKER) (test code = 2.2 mg/dL 1.6-2.6 627) COMPREHENSIVE METABOLIC [id number] 16:13:00 Test Item Value Reference Range Interpretation Comments TOTAL PROTEIN 7.7 gm/dL 6.0-8.3 (BEAKER) (test code = 770) ALBUMIN (BEAKER) 4.4 g/dL 3.5-5.0 (test code = 1145) ALKALINE PHOSPHATASE 93 U/L 40-150 (BEAKER) (test code = 346) BILIRUBIN TOTAL 0.7 mg/dL 0.2-1.2 (BEAKER) (test code = 377) SODIUM (BEAKER) (test 141 meq/L 136-145 code = 381) POTASSIUM (BEAKER) 4.0 meq/L 3.5-5.1 (test code = 379) CHLORIDE (BEAKER) 107 meq/L 98-107 (test code = 382) CO2 (BEAKER) (test 23 meq/L 22-29 code = 355) BLOOD UREA NITROGEN 15 mg/dL 7-21 (BEAKER) (test code = 354) CREATININE (BEAKER) 1.00 mg/dL 0.57-1.25 (test code = 358) GLUCOSE RANDOM 98 mg/dL 70-105 (BEAKER) (test code = 652) CALCIUM (BEAKER) 9.7 mg/dL 8.4-10.2 (test code = 697) AST (SGOT) (BEAKER) 15 U/L 5-34 (test code = 353) ALT (SGPT) (BEAKER) 11 U/L 6-55 (test code = 347) EGFR (BEAKER) (test 54 mL/min/1.73 ESTIMA YVROSE GFR IS code = 1092) sq m NOT ACCURATE CREATININE CLEARANCE IN PREDICTING GLOMERULAR FILTRATION RATE . ESTIMATED GFR I S NOT APPLICABLE FOR DIALYSIS PATIEN TS. LIPID [id number] 16:13:00 Test Item Value Reference Range Interpretation Comments TRIGLYCERIDES (BEAKER) (test code = 144 mg/dL 540) CHOLESTEROL (BEAKER) (test code = 145 mg/dL 631) HDL CHOLESTEROL (BEAKER) (test code 55 mg/dL = 976) LDL CHOLESTEROL CALCULATED (BEAKER) 61 mg/dL (test code = 633) Triglyceride Reference Range: Low Risk <150 Borderline 150-199 High Risk 200- 499 Very High Risk >=500Cholesterol Reference Range: Low Risk <200 Borderline 200-239 High Risk >240HDL Cholesterol Reference Range: Low Risk >=60 High Risk <40LDL Cholesterol Reference Range: Optimal <100 Near Optimal 100-129 Borderline 130-159 High 160-189 Very High >=[id number] 15:58:00 Test Item Value Reference Range Interpretation Comments PARTIAL THROMBOPLASTIN TIME 33.4 seconds 22.5-36.0 (BEAKER) (test code = 760) PROTHROMBIN [id number] 15:57:00 Test Item Value Reference Range Interpretation Comments PROTIME (BEAKER) (test code = 13.5 seconds 11.7-14.7 759) INR (BEAKER) (test code = 370) 1.0 <=5.9 RECOMMENDED COUMADIN/WARFARIN INR THERAPY RANGESSTANDARD DOSE: 2.0 - 3.0 Includes: PROPHYLAXIS for venous thrombosis, systemic embolization; TREATMENT for venous thrombosis and/or pulmonary embolus.HIGH RISK: Target INR is 2.5-3.5 for patients with mechanical heart valves.CBC W/PLT COUNT & AUTO [id number] 15:52:00 Test Item Value Reference Range Interpretation Comments WHITE BLOOD CELL COUNT (BEAKER) 10.4 K/ L 3.5-10.5 (test code = 775) RED BLOOD CELL COUNT (BEAKER) 4.68 M/ L 3.93-5.22 (test code = 761) HEMOGLOBIN (BEAKER) (test code = 13.5 GM/DL 11.2-15.7 410) HEMATOCRIT (BEAKER) (test code = 41.7 % 34.1-44.9 411) MEAN CORPUSCULAR VOLUME (BEAKER) 89.1 fL 79.4-94.8 (test code = 753) MEAN CORPUSCULAR HEMOGLOBIN 28.8 pg 25.6-32.2 (BEAKER) (test code = 751) MEAN CORPUSCULAR HEMOGLOBIN CONC 32.4 GM/DL 32.2-35.5 (BEAKER) (test code = 752) RED CELL DISTRIBUTION WIDTH 13.4 % 11.7-14.4 (BEAKER) (test code = 412) PLATELET COUNT (BEAKER) (test 198 K/CU MM 150-450 code = 756) MEAN PLATELET VOLUME (BEAKER) 8.7 fL 9.4-12.3 L (test code = 754) NUCLEATED RED BLOOD CELLS 0 /100 WBC 0-0 (BEAKER) (test code = 413) NEUTROPHILS RELATIVE PERCENT 69 % (BEAKER) (test code = 429) LYMPHOCYTES RELATIVE PERCENT 21 % (BEAKER) (test code = 430) MONOCYTES RELATIVE PERCENT 8 % (BEAKER) (test code = 431) EOSINOPHILS RELATIVE PERCENT 2 % (BEAKER) (test code = 432) BASOPHILS RELATIVE PERCENT 0 % (BEAKER) (test code = 437) NEUTROPHILS ABSOLUTE COUNT 7.17 K/ L 1.56-6.13 H (BEAKER) (test code = 670) LYMPHOCYTES ABSOLUTE COUNT 2.13 K/ L 1.18-3.74 (BEAKER) (test code = 414) MONOCYTES ABSOLUTE COUNT (BEAKER) 0.82 K/ L 0.24-0.36 H (test code = 415) EOSINOPHILS ABSOLUTE COUNT 0.16 K/ L 0.04-0.36 (BEAKER) (test code = 416) BASOPHILS ABSOLUTE COUNT (BEAKER) 0.04 K/ L 0.01-0.08 (test code = 417) IMMATURE GRANULOCYTES-RELATIVE 0 % 0-1 PERCENT (BEAKER) (test code = 2801) URINE AND [id number] 17:34:00 Test Item Value Reference Range Interpretation Comments UA Sq Epi (test code = UA Sq Moderate /LPF Epi) [facility] AND [id number] 17:34:00 Test Item Value Reference Range Interpretation Comments UA WBC (test code = 5 See_Comment [Automa yvrose message] The UA WBC) system which ge nerated this result transmit yvrose reference range : <=5. The reference range was not used to interpr et this result as holly l/abnormal. [facility] AND [id number] 17:34:00 Test Item Value Reference Range Interpretation Comments UA RBC (test code = 27 See_Comment [Automa yvrose message] The UA RBC) system which ge nerated this result transmit yvrose reference range : <=2. The reference range was not used to interpr et this result as holly l/abnormal. [facility] AND [id number] 17:34:00 Test Item Value Reference Range Interpretation Comments UA Bacteria (test code = UA Occasional /HPF Bacteria) [facility] AND [id number] 17:34:00 Test Item Value Reference Range Interpretation Comments UA Mucus (test code = UA Mucus) Few /LPF [facility] AND [id number] 17:34:00 Test Item Value Reference Range Interpretation Comments UA Urobilinogen (test code = UA <=1.0 mg/dL 0.1-1.0 Urobilinogen) [facility] AND [id number] 17:34:00 Test Item Value Reference Range Interpretation Comments UA Spec Grav (test code = UA Spec Grav) 1.020 [facility] AND [id number] 17:34:00 Test Item Value Reference Range Interpretation Comments UA Nitrite (test code Negative (01/01/17 12:34 = UA Nitrite) PM) [facility] AND [id number] 17:34:00 Test Item Value Reference Range Interpretation Comments UA Blood (test code = Small *ABN*(01/01/17 UA Blood) 12:34 PM) [facility] AND [id number] 17:34:00 Test Item Value Reference Range Interpretation Comments UA Bili (test code = Negative *NA*(01/01/17 UA Bili) 12:34 PM) [facility] AND [id number] 17:34:00 Test Item Value Reference Range Interpretation Comments UA Color (test code = Yellow *NA*(01/01/17 UA Color) 12:34 PM) [facility] AND [id number] 17:34:00 Test Item Value Reference Range Interpretation Comments UA Turbidity (test code Slight *ABN*(01/01/17 = UA Turbidity) 12:34 PM) [facility] AND [id number] 17:34:00 Test Item Value Reference Range Interpretation Comments UA Ketones (test code = UA Ketones) 20 mg/dL [facility] AND [id number] 17:34:00 Test Item Value Reference Range Interpretation Comments UA Glucose (test code = UA Negative mg/dL Glucose) [facility] AND [id number] 17:34:00 Test Item Value Reference Range Interpretation Comments UA Leuk Est (test Negative (01/01/17 12:34 code = UA Leuk Est) PM) [facility] AND [id number] 17:34:00 Test Item Value Reference Range Interpretation Comments UA pH (test code = UA pH) 5.0 5.0-8.0 [facility] AND [id number] 17:34:00 Test Item Value Reference Range Interpretation Comments UA Protein (test code = UA Protein) 100 mg/dL [facility]
--- NOTE | 2022-06-20 18:59 | RAD REPORT ---
EXAM DESCRIPTION: RAD - Ankle Right 3 View - 06/20/2022 6:52 pm CLINICAL HISTORY: Right ankle pain FINDINGS: No fracture or dislocation is seen. The bones are osteoporotic
--- NOTE | 2022-06-20 19:24 | ER ---
Nurse's Notes [facility] Name: Gabby Nicolas Age: 81 yrs Sex: Female : 1940 Arrival Date: 06/20/2022 Time: 18:21 Bed 12 Private MD: Koby Durham C Diagnosis: Pain in right knee;Pain in left knee;Fall on same level from slipping, tripping and stumbling without subsequent striking against object;Hematoma to right hand;Laceration without foreign body of chin;Pain in right ankle and joints of right foot Presentation: 06/20 18:28 Chief complaint: Patient states: tripped on rug and fell. Hematoma noted to top of aa5 right hand, laceration to chin with bleeding controlled. Pt c/o pain to right foot, states "I can't stand on my right foot". Pt denies LOC. Coronavirus screen: At this time, the client does not indicate any symptoms associated with coronavirus-19. Ebola Screen: Patient denies travel to an Ebola-affected area in the 21 days before illness onset. Initial Sepsis Screen: Does the patient meet any 2 criteria? No. Patient's initial sepsis screen is negative. Does the patient have a suspected source of infection? No. Patient's initial sepsis screen is negative. Risk Assessment: Do you want to hurt yourself or someone else? Patient reports no desire to harm self or others. Onset of symptoms was June 20, 2022. 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 - Social history:: Smoking status: Patient denies any tobacco usage or history of. Screenin:38 [facility] ED Fall Risk Assessment (Adult) History of falling in the last 3 months, mb9 including since admission Yes- single mechanical fall (1 pt) Confusion or Disorientation No (0 pts) Intoxicated or Sedated No (0 pts) Impaired Gait Yes (1 pt) Mobility Assist Device Used Yes (1 pt) Altered Elimination No (0 pt) Score/Fall Risk Level 3 or more points = High Risk Oriented to surroundings, Maintained a safe environment, Educated pt \\T\\ family on fall prevention, incl call for assistance when getting out of bed. Abuse screen: Denies threats or abuse. Nutritional screening: No deficits noted. Tuberculosis screening: No symptoms or risk factors identified. Assessment: 18:39 General: Appears in no apparent distress. Behavior is calm, cooperative, appropriate mb9 for age. Pain: Complains of pain in right ankle Pain does not radiate. Pain currently is 3 out of 10 on a pain scale. Quality of pain is described as aching, throbbing, Aggravated by increased activity, weight bearing. Neuro: Level of Consciousness is awake, alert, obeys commands, Oriented to person, place, time, situation, Appropriate for age. Cardiovascular: Capillary refill < 3 seconds is brisk Patient's skin is warm and dry. Respiratory: Airway is patent Respiratory effort is even, unlabored, Respiratory pattern is regular, symmetrical. GI: No signs and/or symptoms were reported involving the gastrointestinal system. : No signs and/or symptoms were reported regarding the genitourinary system. EENT: No signs and/or symptoms were reported regarding the EENT system. Derm: Bruising that is dark purple, on right knee and right hand and right elbow. Musculoskeletal: Range of motion: limited in right ankle. 19:43 Reassessment: No changes from previously documented assessment. Patient and/or family mb9 updated on plan of care and expected duration. Pain level reassessed. Patient is alert, oriented x 3, equal unlabored respirations, skin warm/dry/pink. Vital Signs: 18:28 BP 160 / 100; Pulse 69; Resp 16 S; Temp 98.0(TE); Pulse Ox 97% on R/A; Weight 78.02 kg aa5 (R); Height 5 ft. 4 in. (162.56 cm) (R); 19:15 BP 128 / 70; Pulse 76; Resp 16; Pulse Ox 99% on R/A; mb9 18:28 Body Mass Index 29.52 (78.02 kg, 162.56 cm) aa5 ED Course: 18:21 Patient arrived in ED. as 18:21 Koby Durham MD is Private Physician. as 18:21 Mireille Renee FNP-C is [facility]. kb 18:21 Negro Araujo MD is Attending Physician. kb 18:28 Arm band placed on. aa5 18:29 Triage completed. aa5 18:36 Monie Ramirez, RN is Primary Nurse. mb9 18:39 Bed in low position. Call light in reach. Side rails up X 1. Client placed on mb9 continuous cardiac and pulse oximetry monitoring. NIBP monitoring applied. 18:39 No provider procedures requiring assistance completed. mb9 19:01 Patient did not have IV access during this emergency room visit. mb9 Administered Medications: No medications were administered Medication: 18:39 VIS not applicable for this client. mb9 Outcome: 19:24 Discharge ordered by MD. kb 19:43 Discharged to home via wheelchair. mb9 19:43 Condition: stable 19:43 Discharge instructions given to patient, Instructed on discharge instructions, follow up and referral plans. Demonstrated understanding of instructions, follow-up care, medications, Prescriptions given X 1. 19:44 Patient left the ED. mb9 Signatures: Mireille Renee, FILM PRODUCER-C [place]-Lisa Mccann Audri, RN RN [facility] Monie Ramirez, RN RN mb9
--- NOTE | 2022-06-20 19:24 | EDPHYS ---
Physician Documentation [facility] Name: Gabby Nicolas Age: 81 yrs Sex: Female : 1940 Arrival Date: 06/20/2022 Time: 18:21 Bed 12 Private MD: Koby Durham C ED Physician Negro Araujo HPI: 06/20 18:35 This 81 yrs old Female presents to ER via Wheelchair with complaints of Fall Injury. kb 18:35 Details of fall: The patient fell from an upright position, while standing. Onset: The kb symptoms/episode began/occurred 1 hour(s) ago. Associated injuries: The patient sustained injury to the head, laceration, 0.5 cm(s), of the chin, right knee and left knee, painful injury, swelling, dorsum of right hand, hematoma, right ankle, painful injury, swelling. Severity of symptoms: At their worst the symptoms were mild, moderate, in the emergency department the symptoms are unchanged. The patient has not experienced similar symptoms in the past. The patient has not recently seen a physician. 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 - Social history:: Smoking status: Patient denies any tobacco usage or history of. ROS: 18:31 Constitutional: Negative for fever, chills, and weight loss. kb 18:31 MS/extremity: Positive for pain, swelling, of the right ankle, right knee and left knee. 18:31 Skin: Positive for hematoma, of the dorsum of right hand. 18:31 Skin: Positive for laceration(s), of the chin. 18:31 All other systems are negative. Exam: 18:31 Constitutional: This is a well developed, well nourished patient who is awake, alert, kb and in no acute distress. Head/Face: Normocephalic, atraumatic. ENT: Moist Mucous membranes Cardiovascular: Regular rate and rhythm with a normal S1 and S2. No gallops, murmurs, or rubs. No pulse deficits. Respiratory: Respirations even and unlabored. No increased work of breathing. Talking in full sentences Abdomen/GI: Soft, non-tender. No distention Neuro: Awake and alert, GCS 15, oriented to person, place, time, and situation. Moves all extremities. Normal gait. 18:31 Musculoskeletal/extremity: Extremities: grossly normal except: noted in the right knee and left knee: pain, swelling, noted in the right ankle: decreased ROM, pain, swelling, tenderness, ROM: intact in all extremities, Circulation is intact in all extremities. Sensation intact. Weight bearing: is unable to bear weight. 18:31 Skin: injury, laceration(s), the wound is approximately 0.5 cm(s), of the chin, hematoma to dorsum of right hand. Vital Signs: 18:28 BP 160 / 100; Pulse 69; Resp 16 S; Temp 98.0(TE); Pulse Ox 97% on R/A; Weight 78.02 kg aa5 (R); Height 5 ft. 4 in. (162.56 cm) (R); 19:15 BP 128 / 70; Pulse 76; Resp 16; Pulse Ox 99% on R/A; mb9 18:28 Body Mass Index 29.52 (78.02 kg, 162.56 cm) aa5 MDM: 18:30 Patient medically screened. kb 18:31 Data reviewed: vital signs, nurses notes. kb 19:10 Differential diagnosis: fracture, sprain, strain. Counseling: I had a detailed kb discussion with the patient and/or guardian regarding: the historical points, exam findings, and any diagnostic results supporting the discharge/admit diagnosis, radiology results, the need for outpatient follow up, a family practitioner, to return to the emergency department if symptoms worsen or persist or if there are any questions or concerns that arise at home. 19:16 Test considered but Not performed: X-ray: X-ray of right hand considered due to kb hematoma but patient has full range of motion without pain. X-ray of bilateral knees considered but patient has full range of motion without pain. CT head considered but patient reports she only hit her chin and did not lose consciousness. No neurodeficits.. 19:21 ED course: Patient is a 81-year-old female that misstepped while trying to get the [employer] coffee pot and fell. Reports she hit her chin right hand right elbow and bilateral knees. States she came in because she tried to stand up and could not apply pressure to right ankle. On exam patient has hematoma to dorsum of right hand, slight swelling and bruising to bilateral knees, 0.5 cm laceration to chin that is well approximated and does not require any repair, slight swelling to lateral right ankle. X-ray of right ankle does not reveal fracture. Will discharge home. Patient given return precautions. Verbal understanding received.. 06/20 18:30 Order name: Ankle Right 3 View XRAY kb 06/20 19:00 Order name: RAD; Complete Time: 19:06 EDMS 06/20 19:23 Order name: Raj Wrap; Complete Time: 19:43 kb Administered Medications: No medications were administered Disposition Summary: 06/20/22 19:24 Discharge Ordered Location: Home kb Condition: Stable kb Diagnosis - Pain in right knee kb - Pain in left knee kb - Fall on same level from slipping, tripping and stumbling without subsequent kb striking against object - Hematoma to right hand kb - Laceration without foreign body of chin kb - Pain in right ankle and joints of right foot kb Followup: kb - With: Emergency Department - When: As needed - Reason: Worsening of condition Followup: kb - With: Private Physician - When: 2 - 3 days - Reason: Recheck today's complaints, Continuance of care, Re-evaluation by your physician Discharge Instructions: - Discharge Summary Sheet kb - Musculoskeletal Pain kb Forms: - Medication Reconciliation Form kb - Thank You Letter kb - Antibiotic Education kb - Prescription Opioid Use kb Prescriptions: - Diclofenac Sodium 75 mg Oral tablet,delayed release (DR/EC) - take 1 tablet by ORAL route 2 times per day As needed; 30 tablet; Refills: 0, kb Product Selection Permitted Signatures: Dispatcher [employer] EDMireille Chatman, KERFER MACHINE OPERATOR-C KERFER MACHINE OPERATOR-Maryse Rodriguez, RN RN aa5
[2022-06-20 19:48] VITALS: TEMP 98
[2022-06-20 19:49] VITALS: BP 128/70; O2SAT 99
== END 2022-06-20 19:44 | disposition home or self-care (01) ==
LOC: ER 18:19
DX: S01.81XA Laceration without foreign body of other part of head, initial encounter (principal); S60.221A Contusion of right hand, initial encounter; M25.571 Pain in right ankle and joints of right foot; M25.562 Pain in left knee; M25.561 Pain in right knee; W01.0XXA Fall on same level from slipping, tripping and stumbling without subsequent striking against object, initial encounter; I10 Essential (primary) hypertension; Z95.1 Presence of aortocoronary bypass graft; Z88.3 Allergy status to other anti-infective agents
CPT/HCPCS: 99282